=== PATIENT | female | born 1970 | race Caucasian/White ===

== ENCOUNTER 2020-12-17 16:13 | Outpatient (REF) | payer MEDICAID, SELFPAY ==
--- NOTE | ~2020-12-17 | MM_ITS ---
EXAMINATION: MM SCREENING DIGITAL BREAST TOMOSYNTHESIS, BILATERAL CLINICAL INFORMATION: Screening. Asymptomatic. The lifetime risk of breast cancer based on the Tyrer-Cuzick Model is 17%. COMPARISON: Mammography: 06/16/2018, 11/25/2016, 08/09/2015 TECHNIQUE: Digital breast tomosynthesis is performed in both the craniocaudal and mediolateral oblique views along with computer-aided detection (CAD). Synthesized 2D images are generated from the tomosynthesis. FINDINGS: There are scattered areas of fibroglandular density (ACR BI-RADS breast composition Category b). There are no significant masses, abnormal calcifications, or other abnormalities. Parenchymal pattern is similar to prior studies. The axilla and skin contours are unremarkable. MM/MM tomosynthesis screening BI IMPRESSION: No mammographic evidence of malignancy. ASSESSMENT: BI-RADS 1: Negative RECOMMENDATION: Routine annual mammography screening. This patient's information was entered into a reminder system with a target due date for their next mammogram.
== END 2020-12-17 16:14 | disposition home or self-care (01) ==
LOC: HO.MAMMO 16:13
PROVIDERS: Visit Provider Internal Medicine
DX: Z12.31 Encounter for screening mammogram for malignant neoplasm of breast (principal)
CPT/HCPCS: 77063; 77067

== ENCOUNTER 2021-04-08 10:54 | Emergency (ER) | payer MEDICAID, SELFPAY ==
--- NOTE | ~2021-04-08 | XR_ITS ---
EXAMINATION: XR CHEST CLINICAL INFORMATION: Fever and headache COMPARISON: Previous chest x-ray February 2017 TECHNIQUE: 2 views of the chest were obtained. FINDINGS: The cardiac and mediastinal contours are stable. There is minimal subsegmental atelectasis of the left lung base. The lungs are otherwise clear. There is no pleural effusion or pneumothorax. There are mild degenerative changes of the spine. XR/XR chest 2V IMPRESSION: No evidence for acute disease in chest.
--- NOTE | ~2021-04-08 | CT_ITS ---
EXAMINATION: CT HEAD WITHOUT CONTRAST CLINICAL INFORMATION: Headache COMPARISON: None TECHNIQUE: Contiguous axial imaging was performed from the skull base to vertex without intravenous administration of contrast. This CT examination was performed using dose optimization techniques as appropriate, variously including the following: *Automated exposure control *Adjustment of mA and/or kV according to patient size (this includes techniques or standardized protocols for targeted exams where dose is matched to indication/reason for exam; i.e. extremities or head) *Use of iterative reconstruction technique DLP: 603 mGy-cm FINDINGS: There is no evidence of acute intracranial hemorrhage or territorial infarction. No abnormal mass effect or midline shift is seen. Jacobo to white matter differentiation is well preserved. No extra-axial fluid collections are identified. The ventricles are normal in size. There is no abnormal attenuation within the brain parenchyma. The osseous structures and soft tissues are normal. The mastoid air cells and visualized portions of the paranasal sinuses are well aerated. CT/CT head/brain wo con IMPRESSION: No acute intracranial process seen
[2021-04-08 11:12] VITALS: BP 121/78; PULSE 61; RESP 18; TEMP 35.8; O2SAT 100; BMI 28.3
--- NOTE | 2021-04-08 16:16 | ED.GENADULT ---
HPI - General Adult Related Data Previous Rx's Medication Instructions Recorded fluticasone propionate [Flonase 1 spray INTRANASAL BID #16 g 04/08/21 Allergy Relief] ibuprofen 600 mg PO Q8H PRN #20 tab 04/08/21 loratadine [Claritin] 10 mg PO DAILY PRN #20 tab 04/08/21 Allergies Allergy/AdvReac Type Severity Reaction Status Date / Time No Known Allergies Allergy Unverified 06/13/20 15:54 Review of Systems Review of Systems: Constitutional : No Weight loss, Fever, Chills, No Night Sweats, No Fatigue, No Malaise ENT/Mouth : No Hearing loss, No Ear Pain, No Nasal Congestion, No Sinus Pain, No Hoarseness, No sore throat, No Rhinorrhea, No Swallowing Difficulty Eyes: No Eye Pain, No Swelling, No Redness, No Foreign Body, No Discharge, No Vision Changes Cardiovascular : No Chest Pain, No SOB, No Dyspnea on Exertion, No Orthopnea, No Edema, No Palpitations Respiratory : Cough, No Sputum, No Wheezing, No Smoke Exposure, No Dyspnea Gastrointestinal : No Nausea, No Vomiting, No Diarrhea, No Constipation, No abdominal Pain, No Hematochezia, No Melena Genitourinary : no irregular bleeding, No Dysuria, No Urinary Frequency, No Hematuria, No Urinary Incontinence, No Urgency, No Flank Pain, No Urinary Flow Changes, No Hesitancy Musculoskeletal : No joint pain, No Myalgias, No Joint Swelling Skin : No Skin Lesions, No rash Neuro : No Weakness, No Numbness, No Paresthesias, No Loss of Consciousness, No Dizziness, No Headache Psych : No Anxiety/Panic, No Depression, No SI/HI/AH/VH, No Social Issues, Heme/Lymph: No Bruising, No Bleeding,No Lymphadenopathy Endocrine : No Polyuria, No Polydipsia, No Temperature Intolerance Yes all other systems are reviewed and are negative [facility] Past Medical History Medical History (Updated 04/09/21 @ 00:02 by Bahman Myrick) Exostosis Surgical History (Updated 04/08/21 @ 16:38 by Nadia Caraballo [facility]) H/O hemorrhoidectomy Social History Social History Advance Directives: No Advance Directives Information Provided: No Patient : No Physical Exam Vital Signs: Vital Signs: Last Vital Signs Temp 97.7 F 04/08/21 20:13 Pulse 66 04/08/21 20:13 Resp 16 04/08/21 20:13 BP 124/72 04/08/21 20:13 Pulse Ox 99 04/08/21 20:13 Body Mass Index 28.3 Const: General: healthy appearing, no acute distress and well developed Nutritional Appearance: well nourished Orientation/consciousness: patient oriented x3 HENMT: Head: Yes normal to inspection, Yes normocephalic and Yes atraumatic Neck: Neck: Yes normal visual inspection, Yes full ROM and Yes trachea midline Thyroid: Thyroid normal Resp: Auscultation: clear to auscultation bilaterally Cardio: Rate: regular rate Rhythm: regular rhythm GI: Inspection: Yes normal to inspection and No distended Palpation (GI): No hepatosplenomegaly present Auscultation: normal bowel sounds Skin: General skin exam: elasticity normal, turgor normal and dry skin Neuro: General: patient oriented x3 Course Course Course Narrative: 50-year-old female here today for complaints of headache, cough, fever for the past 3 days. Patient was seen in urgent care on Wednesday for complaints of abdominal pain nausea. Urine was negative for infection per patient. Patient was sent home. Since then patient reports that she no longer feels nauseous, however she continues having fevers, chills, headache, cough. Patient denies any GI symptoms. Denies any SOB with or without exertion. Patient denies any CP, PND, syncope, presyncope. Patient denies having any history of migraine headaches. Admits to history of seasonal allergies. Patient reports that she had COVID vaccine ([employer]). Given her symptoms will check her labs for leukocytosis, COVID testing, chest x-ray, CT scan of the head, blood cultures, urinalysis. Will medicate patient for for pain and give her fluids. Reevaluation(s) Reevaluation #1: Patient reports that she has been feeling better. Lab negative for leukocytosis. Urine negative for ketones, bacteria. COVID negative. Chest x-ray negative for any acute processes, CT of the head negative for any acute processes. Will discharge patient home with Flonase, Claritin and ibuprofen. Patient reports that she does get seasonal allergies. Patient is afebrile. Reevaluation #2: Urine WBC's 15-29, however patient has squamous epithelial cells 3+ possibly vaginal scott and contamination of urine. We will wait for culture. Patient is asymptomatic denies any urinary symptoms. No leukocytosis and no fevers. Patient will be sent home. Patient was instructed to drink plenty fluids. She will return to emergency department if she will develop worsening symptoms or she will experience any additional concerning symptoms. Patient will follow-up with her PCP in 2-3 days. Medical Decision Making Lab Data Result diagrams: 04/08/21 16:36 04/08/21 16:36 Labs: Lab Results 04/08/21 04/08/21 04/08/21 Range/Units 16:36 16:36 16:36 WBC 9.1 (4.8-10.8) X10*3/uL RBC 4.73 (4.20-5.50) X10*6/uL Hgb 13.0 (12.0-16.0) g/dl Hct 38.9 (37-47) % MCV 82.2 (80-98) fL MCH 27.5 (27.0-33.0) pg MCHC 33.4 (31.0-35.0) g/dl RDW 12.7 (11.0-16.0) % Plt Count 293 (160-400) X10*3/uL MPV 9.2 L (9.4-12.3) fL Immature Gran % (Auto) 0.3 (0.0-0.4) % Neut % (Auto) 65.5 (45-73) % Lymph % (Auto) 23.1 (20-40) % [place] % (Auto) 9.4 (2-11) % Eos % (Auto) 1.4 (0-4) % Baso % (Auto) 0.3 (0-2) % Lymph # (Auto) 2.1 (1.2-4.9) X10*3/uL [place] # (Auto) 0.9 (0.1-1.2) X10*3/uL Eos # (Auto) 0.1 (0.0-0.4) X10*3/uL Baso # (Auto) 0.0 (0.0-0.2) X10*3/uL Abs Immat Gran (auto) 0.03 (0.00-0.03) X10*3/uL Absolute Neuts (auto) 6.0 (2.0-8.3) X10*3/uL Absolute Nucleated RBC 0.000 (0.0-0.012) X10*3/uL Nucleated RBC % (auto) 0.0 (0.0-0.2) /100WBC Sodium 141 (135-145) mmol/L Potassium 4.2 (3.3-5.1) mmol/L Chloride 104 (96-108) mmol/L Carbon Dioxide 24 (22-29) mmol/L Anion Gap 17 (12-20) BUN 7 L (9-16) mg/dL Creatinine 0.83 (0.5-1.4) mg/dL Estim Creat Clear Calc 71.5 Estimated GFR > 60 Random Glucose 93 (60-115) mg/dL Lactic Acid 1.2 (0.5-2.0) mmol/L Calcium 9.7 (8.4-10.2) mg/dL Total Bilirubin 0.4 (0.0-1.0) mg/dL Direct Bilirubin 0.2 (0.0-0.5) mg/dL AST 39 H (5-31) U/L ALT 54 H (0-31) U/L Alkaline Phosphatase 102 (39-117) U/L Total Protein 8.2 H (6.5-8.0) g/dL Albumin 4.4 (3.5-5.0) g/dL Urine Color Urine Appearance Urine pH (5.0-8.0) Ur Specific [place] (1.005-1.025) Urine Protein (NEG-TRACE) MG/DL Urine Glucose (UA) (NEG) MG/DL Urine Ketones (NEG) MG/DL Urine Blood (NEG) Urine Nitrite (NEG) Ur Leukocyte Esterase (NEG) Urine RBC (0) /HPF Urine WBC (0-4) /HPF Ur Squamous Epith Cells /LPF Urine Bacteria /LPF Coronavirus (PCR) (Negative) Influenza Type A (PCR) (Negative) Influenza Type B (PCR) (Negative) RSV RNA Qual (PCR) (Negative) 04/08/21 04/08/21 Range/Units 17:07 17:07 WBC (4.8-10.8) X10*3/uL RBC (4.20-5.50) X10*6/uL Hgb (12.0-16.0) g/dl Hct (37-47) % MCV (80-98) fL MCH (27.0-33.0) pg MCHC (31.0-35.0) g/dl RDW (11.0-16.0) % Plt Count (160-400) X10*3/uL MPV (9.4-12.3) fL Immature Gran % (Auto) (0.0-0.4) % Neut % (Auto) (45-73) % Lymph % (Auto) (20-40) % [place] % (Auto) (2-11) % Eos % (Auto) (0-4) % Baso % (Auto) (0-2) % Lymph # (Auto) (1.2-4.9) X10*3/uL [place] # (Auto) (0.1-1.2) X10*3/uL Eos # (Auto) (0.0-0.4) X10*3/uL Baso # (Auto) (0.0-0.2) X10*3/uL Abs Immat Gran (auto) (0.00-0.03) X10*3/uL Absolute Neuts (auto) (2.0-8.3) X10*3/uL Absolute Nucleated RBC (0.0-0.012) X10*3/uL Nucleated RBC % (auto) (0.0-0.2) /100WBC Sodium (135-145) mmol/L Potassium (3.3-5.1) mmol/L Chloride (96-108) mmol/L Carbon Dioxide (22-29) mmol/L Anion Gap (12-20) BUN (9-16) mg/dL Creatinine (0.5-1.4) mg/dL Estim Creat Clear Calc Estimated GFR Random Glucose (60-115) mg/dL Lactic Acid (0.5-2.0) mmol/L Calcium (8.4-10.2) mg/dL Total Bilirubin (0.0-1.0) mg/dL Direct Bilirubin (0.0-0.5) mg/dL AST (5-31) U/L ALT (0-31) U/L Alkaline Phosphatase (39-117) U/L Total Protein (6.5-8.0) g/dL Albumin (3.5-5.0) g/dL Urine Color DARK YELLOW Urine Appearance HAZY Urine pH 6.0 (5.0-8.0) Ur Specific [place] 1.020 (1.005-1.025) Urine Protein TRACE (NEG-TRACE) MG/DL Urine Glucose (UA) NEG (NEG) MG/DL Urine Ketones 15 (NEG) MG/DL Urine Blood 3+ H (NEG) Urine Nitrite NEG (NEG) Ur Leukocyte Esterase 1+ H (NEG) Urine RBC 1-4 (0) /HPF Urine WBC 15-29 H (0-4) /HPF Ur Squamous Epith Cells 3+ /LPF Urine Bacteria 4+ /LPF Coronavirus (PCR) NEGATIVE (Negative) Influenza Type A (PCR) NEGATIVE (Negative) Influenza Type B (PCR) NEGATIVE (Negative) RSV RNA Qual (PCR) NEGATIVE (Negative) Imaging Data CT scan - head: Radiologist's impression: FINDINGS: There is no evidence of acute intracranial hemorrhage or territorial infarction. No abnormal mass effect or midline shift is seen. Jacobo to white matter differentiation is well preserved. No extra-axial fluid collections are identified. The ventricles are normal in size. There is no abnormal attenuation within the brain parenchyma. The osseous structures and soft tissues are normal. The mastoid air cells and visualized portions of the paranasal sinuses are well aerated. Chest x-ray: Radiologist's impression: FINDINGS: The cardiac and mediastinal contours are stable. There is minimal subsegmental atelectasis of the left lung base. The lungs are otherwise clear. There is no pleural effusion or pneumothorax. There are mild degenerative changes of the spine. Discharge Plan Discharge Clinical Impression: Headache, Seasonal allergies Patient Disposition: Home, Self-Care Instructions: General Headache (ED) Additional Instructions: You were seen here today for complaining of headache, cough and fever. You blood work is negative for any abnormalities. Your chest x-ray and your CT scan also were normal. You were given anti-inflammatory medication during your stay. You will be sent home with script for Flonase and Claritin you can use that for seasonal allergies to prevent headaches. You will be given ibuprofen 600 mg. Please follow-up with your primary care provider in 2-3 days. You may return to emergency department if you experience any concerning symptoms. Prescriptions: New fluticasone propionate [Flonase Allergy Relief] 50 mcg/actuation spray,suspension 1 spray intranasal BID Qty: 16 RF: 0 loratadine [Claritin] 10 mg tablet 10 mg PO DAILY PRN (Reason: allergy symptoms) Qty: 20 RF: 0 ibuprofen 600 mg tablet 600 mg PO Q8H PRN (Reason: pain) Qty: 20 RF: 0 Stand Alone Forms: Work/School Release Interventions: ED Discharge Assessment Last Done: 04/08/21 20:13 Discharge Date/Time: 04/08/21 20:14
[2021-04-08 16:43] LABS: MANUAL DIFF FLAG NO
[2021-04-08 16:45] LABS: Basophils Percent Auto 0.3 % (0-2); Eosinophils Absolute Auto 0.1 X10*3/uL (0.0-0.4); Eosinophils Percent Auto 1.4 % (0-4); Hematocrit 38.9 % (37-47); Imm Gran Abs Auto 0.03 X10*3/uL (0.00-0.03); Imm Gran Pct Auto 0.3 % (0.0-0.4); Lymphocytes Absolute Auto 2.1 X10*3/uL (1.2-4.9); Lymphocytes Percent Auto 23.1 % (20-40); Mean Corpuscular HGB Conc 33.4 g/dl (31.0-35.0); Mean Corpuscular Hemoglobin 27.5 pg (27.0-33.0); Mean Corpuscular Volume 82.2 fL (80-98); Mean Platelet Volume 9.2 fL (9.4-12.3); Monocytes Absolute Auto 0.9 X10*3/uL (0.1-1.2); Monocytes Percent Auto 9.4 % (2-11); Neutrophils Percent Auto 65.5 % (45-73); Platelet Count 293 X10*3/uL (160-400); Red Blood Count 4.73 X10*6/uL (4.20-5.50); Red Cell Distribution Width 12.7 % (11.0-16.0); White Blood Count 9.1 X10*3/uL (4.8-10.8)
[2021-04-08 17:03] LABS: Lactic Acid 1.2 mmol/L (0.5-2.0)
[2021-04-08 17:09] LABS: Alanine Aminotransferase 54 U/L (0-31); Albumin Level 4.4 g/dL (3.5-5.0); Alkaline Phosphatase 102 U/L (39-117); Anion Gap 17 (12-20); Aspartate Amino Transferase 39 U/L (5-31); Bilirubin Direct 0.2 mg/dL (0.0-0.5); Bilirubin Total 0.4 mg/dL (0.0-1.0); Blood Urea Nitrogen 7 mg/dL (9-16); Calcium 9.7 mg/dL (8.4-10.2); Carbon Dioxide 24 mmol/L (22-29); Chloride 104 mmol/L (96-108); Creatinine Clr Calc Pharmacy 71.5; Estimated Glomerular Filt Rate > 60; Glucose Random 93 mg/dL (60-115); Potassium 4.2 mmol/L (3.3-5.1); Sodium 141 mmol/L (135-145); Total Protein 8.2 g/dL (6.5-8.0)
[2021-04-08 17:17] LABS: Glucose Urine UA NEG (NEG); Leukocyte Esterase Urine 1+ (NEG); Nitrite Urine NEG (NEG); UACC Culture Trigger YES; Urine Blood 3+ (NEG); Urine Ketones 15 MG/DL (NEG); Urine Protein TRACE MG/DL (NEG-TRACE)
[2021-04-08 17:23] LABS: Appearance Urine HAZY; Color Urine DARK YELLOW
[2021-04-08] MEDS: Ketorolac Tromethamine 30 MG/ML VIAL IVPUSH (17:27)
[2021-04-08] MEDS: 0.9 % Sodium Chloride 1,000 ML 999 ML IV (17:27)
[2021-04-08 17:45] LABS: Bacteria Urine 4+ /LPF; Squamous Epithelial Cell Urine 3+ /LPF
[2021-04-08 18:08] LABS: Influenza A PCR NEGATIVE (Negative); Influenza B PCR NEGATIVE (Negative); Resp Syncy Virus RNA Qual PCR NEGATIVE (Negative); SARS COV2 PCR INHOUSE NEGATIVE (Negative)
[2021-04-08 20:13] VITALS: BP 124/72; PULSE 66; RESP 16; TEMP 36.5; O2SAT 99
== END 2021-04-08 20:14 | disposition home or self-care (01) ==
PROVIDERS: Nurse Practitioner Family; Student in an Organized Health Care Education/Training Program; Emergency Provider Emergency Medicine Emergency Medical Services; PCP Internal Medicine
DX: N39.0 Urinary tract infection, site not specified (principal); B96.20 Unspecified Escherichia coli [E. coli] as the cause of diseases classified elsewhere; R51.9 Headache, unspecified; J30.2 Other seasonal allergic rhinitis; Z20.822 Contact with and (suspected) exposure to COVID-19
CPT/HCPCS: 0241U; 36415; 70450; 71046; 80048; 80076; 81001; 81003; 83605; 85025; 87040; 87086; 87088; 87186; 96361; 96374; 99283; 99284; J1885

== ENCOUNTER 2021-07-02 08:41 | Outpatient (REF) | payer MEDICAID, SELFPAY ==
--- NOTE | 2021-07-02 08:50 | PFT_ITS ---
INDICATION: Cough. SPIROMETRY: The FEV1 to FVC 92% with an FEV1 of 2.34 L, which is 94% predicted. FVC of 2.55 L, which is 82% predicted. No significant response to bronchodilators noted. Maximum voluntary ventilation 88% predicted. LUNG VOLUMES: Total lung capacity 83% predicted with expiratory reserve volume of 59% predicted. DIFFUSION CAPACITY: DLCO 82% predicted. COMPARISONS: None. INTERPRETATION: No obstructive nor restrictive ventilatory defects have been identified. No significant response to bronchodilators noted. No maximum voluntary ventilation. Lung volumes do show a low normal total lung capacity, and a diffusion capacity is also low normal. If asthma is in the differential, a methacholine challenge may be helpful in assessing for hyper-reactive airways, otherwise clinical correlation warranted. MD LU Sequeira/MODRonda / [phone]
== END 2021-07-02 08:42 | disposition home or self-care (01) ==
LOC: HO.RESP 08:41
PROVIDERS: PCP Nurse Practitioner; Referring Provider Internal Medicine Pulmonary Disease; Visit Provider Nurse Practitioner
DX: R07.89 Other chest pain (principal)
CPT/HCPCS: 94060; 94727; 94729

== ENCOUNTER 2021-07-16 08:56 | Outpatient (REF) | payer MEDICAID, SELFPAY ==
[2021-07-16 09:37] LABS: MANUAL DIFF FLAG NO
[2021-07-16 10:08] LABS: Basophils Percent Auto 0.3 % (0-2); Eosinophils Absolute Auto 0.1 X10*3/uL (0.0-0.4); Eosinophils Percent Auto 1.8 % (0-4); Hematocrit 36.6 % (37-47); Hemoglobin 12.2 g/dl (12.0-16.0); Imm Gran Abs Auto 0.02 X10*3/uL (0.00-0.03); Imm Gran Pct Auto 0.3 % (0.0-0.4); Lymphocytes Absolute Auto 1.8 X10*3/uL (1.2-4.9); Lymphocytes Percent Auto 23.7 % (20-40); Mean Corpuscular HGB Conc 33.3 g/dl (31.0-35.0); Mean Corpuscular Hemoglobin 27.7 pg (27.0-33.0); Mean Platelet Volume 9.6 fL (9.4-12.3); Monocytes Absolute Auto 0.5 X10*3/uL (0.1-1.2); Monocytes Percent Auto 6.6 % (2-11); Neutrophils Absolute Auto 5.2 X10*3/uL (2.0-8.3); Neutrophils Percent Auto 67.3 % (45-73); Platelet Count 307 X10*3/uL (160-400); Red Blood Count 4.41 X10*6/uL (4.20-5.50); Red Cell Distribution Width 13.6 % (11.0-16.0); White Blood Count 7.7 X10*3/uL (4.8-10.8)
== END 2021-07-16 08:57 | disposition home or self-care (01) ==
LOC: HO.LAB 08:56
PROVIDERS: PCP Nurse Practitioner; Visit Provider Internal Medicine Pulmonary Disease
DX: J45.909 Unspecified asthma, uncomplicated (principal)
CPT/HCPCS: 36415; 82785; 85025; 86003; 99202

== ENCOUNTER → 2021-07-30 09:24 | Outpatient (BNVA) | payer MEDICAID, SELFPAY | PROVIDERS: PCP Nurse Practitioner; Visit Provider Internal Medicine Pulmonary Disease | DX: J45.909 Unspecified asthma, uncomplicated (principal); J30.2 Other seasonal allergic rhinitis | CPT/HCPCS: 99212 ==

== ENCOUNTER 2022-02-02 13:57 | Outpatient (REF) | payer MEDICAID, SELFPAY ==
--- NOTE | ~2022-02-02 | MM_ITS ---
EXAMINATION: MM SCREENING DIGITAL BREAST TOMOSYNTHESIS, BILATERAL CLINICAL INFORMATION: Screening. Asymptomatic. The lifetime risk of breast cancer based on the Tyrer-Cuzick Model is 17%. COMPARISON: Mammography: 12/17/2020, 06/16/2018, 11/25/2016 TECHNIQUE: Digital breast tomosynthesis is performed in both the craniocaudal and mediolateral oblique views along with computer-aided detection (CAD). Synthesized 2D images are generated from the tomosynthesis. FINDINGS: There are scattered areas of fibroglandular density (ACR BI-RADS breast composition Category b). There are no significant masses, abnormal calcifications, or other abnormalities. No developing density or architectural abnormality. Parenchymal pattern is similar to prior studies. MM/MM tomosynthesis screening BI IMPRESSION: No mammographic evidence of malignancy. ASSESSMENT: BI-RADS 1: Negative RECOMMENDATION: Routine annual mammography screening. This patient's information was entered into a reminder system with a target due date for their next mammogram.
== END 2022-02-02 13:58 | disposition home or self-care (01) ==
LOC: HO.MAMMO 13:57
PROVIDERS: Visit Provider Nurse Practitioner
DX: Z12.31 Encounter for screening mammogram for malignant neoplasm of breast (principal)
CPT/HCPCS: 77063; 77067

== ENCOUNTER 2022-04-09 06:22 | Emergency (ER) | payer MEDICAID, SELFPAY ==
--- NOTE | ~2022-04-09 | CT_ITS ---
EXAMINATION: CT ABDOMEN AND PELVIS WITHOUT CONTRAST CLINICAL INFORMATION: Left lower quadrant pain. COMPARISON: January 02, 2016. TECHNIQUE: Multidetector volumetric imaging was performed from the superior aspect of the liver through the pubic symphysis. Sagittal and coronal reformatted images were obtained on the technologist's workstation. This CT examination was performed using dose optimization techniques as appropriate, variously including the following: *Automated exposure control *Adjustment of mA and/or kV according to patient size (this includes techniques or standardized protocols for targeted exams where dose is matched to indication/reason for exam; i.e. extremities or head) *Use of iterative reconstruction technique DLP: 640 mGy-cm FINDINGS: LUNG BASES: The visualized lung bases appear unremarkable. LIVER, GALLBLADDER, AND BILIARY TREE: The liver appears unremarkable in size, shape, and attenuation. Subcentimeter, segment 6 hepatic cyst or hemangioma (image 20, series 3). No biliary ductal dilatation is appreciated. Cholelithiasis. No evidence of gallbladder wall thickening or pericholecystic fluid. PANCREAS: Unremarkable. SPLEEN: Unremarkable. ADRENAL GLANDS: Approximately 1.8 cm benign right adrenal adenoma demonstrating Hounsfield unit density of 5. KIDNEYS AND URETERS: Less than 2 cm benign, homogeneously hyperdense and hypodense right hepatic cyst for which no further dedicated imaging is indicated. The kidneys otherwise appear unremarkable in size, shape, and attenuation. No hydronephrosis, hydroureter, or calculi seen. BLADDER: Decompressed, therefore suboptimally evaluated. Grossly unremarkable. GASTROINTESTINAL TRACT/MESENTERY: Few colonic diverticula. Concentric thickening and induration of adjacent fat in the region of the descending colonic diverticulum (image 48, series 3). No evidence of abscess, free air, or free intraperitoneal fluid. Unremarkable appearance of the small bowel. Normal-appearing distal ileum and vermiform appendix. No significant radiographic change in mild, nonspecific roberta mesentery with associated subcentimeter mesenteric nodes. ABDOMINAL WALL: No significant hernia is appreciated. LYMPH NODES: Normal. VASCULAR: Unremarkable. PELVIC VISCERA: Unremarkable. OSSEOUS STRUCTURES: Unremarkable. CT/CT abdomen pelvis wo con IMPRESSION: Acute descending colonic diverticulitis.
--- NOTE | 2022-04-09 07:25 | ED_ITS ---
HPI - Abdominal Pain General Chief Complaint: Abdominal Pain Stated Complaint: Flank pain Time Seen by Provider: 04/09/22 07:25 Source: patient Mode of arrival: ambulatory Limitations: no limitations History of Present Illness MD elicited complaint: abdominal pain Onset (ago): day(s) (3) Pain Consistency: intermittent Location: LLQ Severity: mild Quality: aching Radiation: none Migration to: no migration Exacerbating factors: movement Relieving factors: nothing Associated symptoms: denies other symptoms Related Data Previous Rx's Medication Instructions Recorded fluticasone propionate 50 1 spray intranasal BID #16 grams 04/08/21 mcg/actuation nasal spray,suspension (Flonase Allergy Relief) ibuprofen 600 mg tablet 600 mg PO Q8H PRN pain #20 tabs 04/08/21 loratadine 10 mg tablet (Claritin) 10 mg PO DAILY PRN allergy 04/08/21 symptoms #20 tabs fluticasone propionate 220 2 puff PO BID 30 days #1 ea 02/05/22 mcg/actuation HFA aerosol inhaler (Flovent HFA) amoxicillin 875 mg-potassium 1 tab PO BID #14 tabs 04/09/22 clavulanate 125 mg tablet fluconazole 150 mg tablet 150 mg PO Q3D 2 doses #2 tabs 04/09/22 (Diflucan) ondansetron 4 mg disintegrating 4 mg PO Q8H PRN nausea and 04/09/22 tablet vomiting #20 tabs Allergies Allergy/AdvReac Type Severity Reaction Status Date / Time No Known Allergies Allergy Verified 07/30/21 09:26 Review of Systems Review of Systems Constitutional : No Weight loss, No Fever, No Chills ENT/Mouth : No sore throat, No Rhinorrhea Eyes: No Swelling, No Redness Cardiovascular : No Chest Pain, No SOB, NoEdema Respiratory : No Cough, No Sputum, No Wheezing Gastrointestinal : no Nausea, no Vomiting, no Diarrhea, positive abdominal Pain, No Hematochezia, No Melena Genitourinary : No Dysuria, No Urinary Frequency, No Hematuria, No Urgency Musculoskeletal : No joint pain, No Myalgias, No Joint Swelling Skin : No Skin Lesions, No rash Neuro : No Weakness, No Numbness, No Dizziness, No Headache Psych : No Anxiety/Panic, No Depression Heme/Lymph: No Bruising, No Lymphadenopathy Endocrine : No Polyuria, No Polydipsia All other systems reviewed and are negative. [facility] Past Medical History Medical History Exostosis Surgical History H/O hemorrhoidectomy Social History Social History (Updated 04/09/22 @ 07:29 by Loli Cast DO) Patient Tobacco Use Status: Never used Tobacco Advance Directives: No Advance Directives Information Provided: No Physical Exam ED Vital Signs: Vital Signs - 24 hr 04/09/22 07:39 Temperature 98.2 F Pulse Rate 76 Respiratory Rate 18 Blood Pressure 109/70 Pulse Oximetry 99 Oxygen Delivery Method Room Air BMI result Body Mass Index 29.2 Appearance: Alert. Oriented X3. No acute distress. Eyes: Pupils equal, round and reactive to light. ENT: Pharynx normal. Neck: Normal inspection. Neck supple. CVS: Normal heart rate and rhythm. Pulses normal. Respiratory: No respiratory distress. Breath sounds normal. Abdomen: Soft and mild LLQ ttp no rebound or guarding Skin: Skin warm and dry. Normal skin color. Extremities: No lower extremity edema. No calf ttp Neuro: Oriented X 3. No motor deficit. No sensory deficit. Course Course Course Narrative: labs stable, VS stable, tolerating PO can be managed as outpatient MDM - Abdominal Pain MDM Narrative Medical decision making narrative: 51 yo female no sig PMH no prior abdominal surgeries not toxic here with c/o persistent LLQ pain with no associated GI or symptoms. No prior ovarian cysts, renal colic, diverticulitis. At this time suspect more diverticulitis will obtain UA, labs, CT scan. Declines pain medications. Dispo per results and findings. Lab Data Result diagrams: 04/09/22 07:36 04/09/22 07:36 Labs: Lab Results 04/09/22 04/09/22 04/09/22 Range/Units 07:32 07:36 07:36 WBC 12.0 H (4.8-10.8) X10*3/uL RBC 4.63 (4.20-5.50) X10*6/uL Hgb 12.7 (12.0-16.0) g/dl Hct 38.0 (37.0-47.0) % MCV 82.1 (80.0-98.0) fL MCH 27.4 (27.0-33.0) pg MCHC 33.4 (31.0-35.0) g/dl RDW 13.9 (11.0-16.0) % Plt Count 290 (160-400) X10*3/uL MPV 9.1 L (9.4-12.3) fL Immature Gran % (Auto) 0.4 (0.0-0.4) % Neut % (Auto) 77.2 H (45-73) % Lymph % (Auto) 14.5 L (20-40) % [place] % (Auto) 6.7 (2-11) % Eos % (Auto) 1.0 (0-4) % Baso % (Auto) 0.2 (0-2) % Lymph # (Auto) 1.7 (1.2-4.9) X10*3/uL [place] # (Auto) 0.8 (0.1-1.2) X10*3/uL Eos # (Auto) 0.1 (0.0-0.4) X10*3/uL Baso # (Auto) 0.0 (0.0-0.2) X10*3/uL Abs Immat Gran (auto) 0.05 H (0.00-0.03) X10*3/uL Absolute Neuts (auto) 9.3 H (2.0-8.3) x10*3/uL Absolute Nucleated RBC 0.000 (0.0-0.012) X10*3/uL Nucleated RBC % (auto) 0.0 (0.0-0.2) /100WBC Sodium 138 (135-145) mmol/L Potassium 4.3 (3.3-5.1) mmol/L Chloride 102 (96-108) mmol/L Carbon Dioxide 27 (22-29) mmol/L Anion Gap 13 (12-20) BUN 9 (9-16) mg/dL Creatinine 0.85 (0.5-1.4) mg/dL Estim Creat Clear Calc 70.2 Estimated GFR > 60 Random Glucose 102 (60-115) mg/dL Calcium 9.0 D (8.4-10.2) mg/dL Magnesium 1.8 (1.6-2.6) mg/dL Total Bilirubin 0.5 (0.0-1.0) mg/dL Direct Bilirubin 0.2 (0.0-0.5) mg/dL AST 20 D (5-31) U/L ALT 35 H (0-31) U/L Alkaline Phosphatase 106 (39-117) U/L Total Protein 7.6 (6.5-8.0) g/dL Albumin 4.2 (3.5-5.0) g/dL Lipase 22 (8-78) U/L Urine Color YELLOW Urine Appearance CLEAR Urine pH 6.0 (5.0-8.0) Ur Specific [place] 1.020 (1.005-1.025) Urine Protein NEG (NEG-TRACE) MG/DL Urine Glucose (UA) NEG (NEG) MG/DL Urine Ketones 15 (NEG) MG/DL Urine Blood NEG (NEG) Urine Nitrite NEG (NEG) Ur Leukocyte Esterase NEG (NEG) Discharge Plan Discharge Clinical Impression: Diverticulitis Patient Disposition: Home, Self-Care Instructions: Diverticulitis (ED) Additional Instructions: return to ED for any worsening symptoms or concerns monitor for fevers, worsening pain, bloody stools follow up with your doctor you will need to have a colonoscopy at some point if you have not in the next 4 to 6 weeks take the diflucan if you develop a yeast infection while on antibiotics take an over the counter probiotic while on antibiotic incidental finding of gallstones on your CT scan this is not the cause of your pain. LIVER, GALLBLADDER, AND BILIARY TREE: The liver appears unremarkable in size, shape, and attenuation. Subcentimeter, segment 6 hepatic cyst or hemangioma (image 20, series 3). No biliary ductal dilatation is appreciated. Cholelithiasis. No evidence of gallbladder wall thickening or pericholecystic fluid.? PANCREAS: Unremarkable.? SPLEEN: Unremarkable.? ADRENAL GLANDS: Approximately 1.8 cm benign right adrenal adenoma demonstrating Hounsfield unit density of 5.? KIDNEYS AND URETERS: Less than 2 cm benign, homogeneously hyperdense and hypodense right hepatic cyst for which no further dedicated imaging is indicated. The kidneys otherwise appear unremarkable in size, shape, and attenuation. No hydronephrosis, hydroureter, or calculi seen. BLADDER: Decompressed, therefore suboptimally evaluated. Grossly unremarkable.? GASTROINTESTINAL TRACT/MESENTERY: Few colonic diverticula. Concentric thickening and induration of adjacent fat in the region of the descending colonic diverticulum (image 48, series 3). No evidence of abscess, free air, or free intraperitoneal fluid. Unremarkable appearance of the small bowel. Normal-appearing distal ileum and vermiform appendix. No significant radiographic change in mild, nonspecific roberta mesentery with associated subcentimeter mesenteric nodes. ABDOMINAL WALL: No significant hernia is appreciated.? LYMPH NODES: Normal. VASCULAR: Unremarkable. PELVIC VISCERA: Unremarkable.? OSSEOUS STRUCTURES: Unremarkable Prescriptions: New fluconazole [Diflucan] 150 mg tablet 150 mg PO Q3D Qty: 2 0RF Rx Instructions: may repeat second dose 72 hrs after first dose if symptoms persist ondansetron 4 mg tablet,disintegrating 4 mg PO Q8H PRN (Reason: nausea and vomiting) Qty: 20 0RF amoxicillin-pot clavulanate 875-125 mg tablet 1 tab PO BID Qty: 14 0RF No Action Flovent HFA 220 mcg/actuation HFA aerosol inhaler 2 puff PO BID 30 Days Qty: 1 6RF fluticasone propionate [Flonase Allergy Relief] 50 mcg/actuation spray,suspension 1 spray intranasal BID Qty: 16 0RF Rx Instructions: administer into each nostril loratadine [Claritin] 10 mg tablet 10 mg PO DAILY PRN (Reason: allergy symptoms) Qty: 20 0RF ibuprofen 600 mg tablet 600 mg PO Q8H PRN (Reason: pain) Qty: 20 0RF Stand Alone Forms: Work/School Release Interventions: ED Discharge Assessment Last Done: 04/09/22 10:03 Discharge Date/Time: 04/09/22 10:03
[2022-04-09 07:39] VITALS: BP 109/70; PULSE 76; RESP 18; TEMP 36.8; O2SAT 99; BMI 29.2
[2022-04-09 07:39] LABS: MANUAL DIFF FLAG NO
[2022-04-09 07:41] LABS: Appearance Urine CLEAR; Color Urine YELLOW; Glucose Urine UA NEG (NEG); Leukocyte Esterase Urine NEG (NEG); Nitrite Urine NEG (NEG); Urine Blood NEG (NEG); Urine Ketones 15 MG/DL (NEG); Urine Protein NEG (NEG-TRACE)
[2022-04-09 07:50] LABS: Basophils Percent Auto 0.2 % (0-2); Eosinophils Absolute Auto 0.1 X10*3/uL (0.0-0.4); Hemoglobin 12.7 g/dl (12.0-16.0); Imm Gran Abs Auto 0.05 X10*3/uL (0.00-0.03); Imm Gran Pct Auto 0.4 % (0.0-0.4); Lymphocytes Absolute Auto 1.7 X10*3/uL (1.2-4.9); Lymphocytes Percent Auto 14.5 % (20-40); Mean Corpuscular HGB Conc 33.4 g/dl (31.0-35.0); Mean Corpuscular Hemoglobin 27.4 pg (27.0-33.0); Mean Corpuscular Volume 82.1 fL (80.0-98.0); Mean Platelet Volume 9.1 fL (9.4-12.3); Monocytes Absolute Auto 0.8 X10*3/uL (0.1-1.2); Monocytes Percent Auto 6.7 % (2-11); Neutrophils Absolute Auto 9.3 x10*3/uL (2.0-8.3); Neutrophils Percent Auto 77.2 % (45-73); Platelet Count 290 X10*3/uL (160-400); Red Blood Count 4.63 X10*6/uL (4.20-5.50); Red Cell Distribution Width 13.9 % (11.0-16.0)
[2022-04-09 07:59] LABS: Alanine Aminotransferase 35 U/L (0-31); Albumin Level 4.2 g/dL (3.5-5.0); Alkaline Phosphatase 106 U/L (39-117); Anion Gap 13 (12-20); Aspartate Amino Transferase 20 U/L (5-31); Bilirubin Direct 0.2 mg/dL (0.0-0.5); Bilirubin Total 0.5 mg/dL (0.0-1.0); Blood Urea Nitrogen 9 mg/dL (9-16); Carbon Dioxide 27 mmol/L (22-29); Chloride 102 mmol/L (96-108); Creatinine Clr Calc Pharmacy 70.2; Estimated Glomerular Filt Rate > 60; Glucose Random 102 mg/dL (60-115); Lipase 22 U/L (8-78); Magnesium 1.8 mg/dL (1.6-2.6); Potassium 4.3 mmol/L (3.3-5.1); Sodium 138 mmol/L (135-145); Total Protein 7.6 g/dL (6.5-8.0)
--- NOTE | 2022-04-09 08:23 | PC.NURSE ---
Pt c/o LLQ pain and L flank pain x 3 days. Denies N/V/D or dysuria. Call waldrop within reach. Will continue to monitor.
[2022-04-09] MEDS: Amoxicillin/Potassium Clav 875 MG TABLET PO (09:51)
== END 2022-04-09 10:03 | disposition home or self-care (01) ==
PROVIDERS: Emergency Provider Emergency Medicine
DX: K57.32 Diverticulitis of large intestine without perforation or abscess without bleeding (principal); R10.32 Left lower quadrant pain; Z79.899 Other long term (current) drug therapy
CPT/HCPCS: 36415; 74176; 80048; 80076; 81003; 83690; 83735; 85025; 99284

== ENCOUNTER → 2022-06-17 10:36 | Outpatient (BNVA) | payer MEDICAID, SELFPAY | PROVIDERS: PCP Nurse Practitioner; Referring Provider Nurse Practitioner; Visit Provider Nurse Practitioner | DX: K57.92 Diverticulitis of intestine, part unspecified, without perforation or abscess without bleeding (principal) | CPT/HCPCS: 99202 ==

== ENCOUNTER → 2022-09-09 10:45 | Outpatient (BNVA) | payer MEDICAID, SELFPAY | PROVIDERS: PCP Nurse Practitioner; Visit Provider Nurse Practitioner | DX: K57.92 Diverticulitis of intestine, part unspecified, without perforation or abscess without bleeding (principal); R10.9 Unspecified abdominal pain | CPT/HCPCS: 99212 ==

== ENCOUNTER 2022-11-18 09:26 | Emergency (ER) | payer MEDICAID, SELFPAY ==
--- NOTE | ~2022-11-18 | XR_ITS ---
EXAMINATION: XR CHEST CLINICAL INFORMATION: Wheezing and cough for several weeks COMPARISON: 04/08/2021 TECHNIQUE: 2 views of the chest were obtained. FINDINGS: Lungs grossly are clear. No pleural effusions. Heart and pulmonary vessels are normal. XR/XR chest 2V IMPRESSION: No active disease.
[2022-11-18 09:30] VITALS: BP 130/72; PULSE 72; RESP 18; TEMP 36; O2SAT 100; BMI 28.7
[2022-11-18] MEDS: Albuterol Sulfate (0.083%) 2.5 MG/3 ML VIAL.NEB 5 MG INHALE (09:53)
--- NOTE | 2022-11-18 10:12 | ED.ASTHMA ---
HPI - Asthma General Chief Complaint: General Medical Stated Complaint: chest pain, cough Time Seen by Provider: 11/18/22 09:33 Source: patient Mode of arrival: ambulatory Limitations: no limitations History of Present Illness HPI Narrative: 52-year-old female with a past medical history of cough variant asthma and environmental allergies who is being followed by Dr. Allison maloney from pulmonology who is presenting to the ER with complaints of generalized fatigue/malaise, nasal congestion/rhinorrhea with a productive cough with yellow/green colored sputum with wheezing/shortness of breath and chest tightness for the past 3 weeks. Reports that she has been using her Flovent as prescribed along with Claritin and no per symptomatic relief. She denies having any other inhalers or nebulizer at home. She reports her daughter has similar symptoms although her symptoms improved. She reports that she actually went to an urgent care approximately 7 days ago and they started her on Augmentin and she just took the last antibiotic today. She denies any measured fevers, dizziness, headaches, neck pain/stiffness, sore throat, trouble swallowing, chest pain, dyspnea on exertion, orthopnea, palpitations, lower extremity edema or calf tenderness or any other symptoms complaints or concerns at this time. MD complaint: asthma attack , shortness of breath and wheezing Onset (ago): week(s) (3) Severity: moderate Associated symptoms: productive cough Treatments Prior to Arrival: inhaled bronchodilator Related Data Current Asthma Therapy: inhaled bronchodilator Home Medications Medication Instructions Recorded Confirmed albuterol sulfate 90 mcg/actuation 2 puff inhalation Q6H PRN dyspnea 09/09/22 aerosol inhaler (ProAir HFA) famotidine 20 mg tablet 20 mg PO BID 09/09/22 sertraline 50 mg tablet 50 mg PO DAILY depressive disorder 09/09/22 Previous Rx's Medication Instructions Recorded fluticasone propionate 50 1 spray intranasal BID #16 grams 04/08/21 mcg/actuation nasal spray,suspension (Flonase Allergy Relief) ibuprofen 600 mg tablet 600 mg PO Q8H PRN pain #20 tabs 04/08/21 loratadine 10 mg tablet (Claritin) 10 mg PO DAILY PRN allergy 04/08/21 symptoms #20 tabs fluticasone propionate 220 2 puff PO BID 30 days #1 ea 02/05/22 mcg/actuation HFA aerosol inhaler (Flovent HFA) bisacodyl 5 mg tablet,delayed 10 mg PO ONCE 1 day #2 tabs 06/18/22 release (Dulcolax (bisacodyl)) polyethylene glycol 3350 17 238 g PO ONCE 1 day #238 grams 06/18/22 gram/dose oral powder (Miralax) amoxicillin 875 mg-potassium 1 tab PO BID 10 days #20 tabs 09/09/22 clavulanate 125 mg tablet dicyclomine 10 mg capsule 10 mg PO TID #90 caps 09/09/22 albuterol sulfate 90 mcg/actuation 1 inh inhalation QID PRN shortness 11/18/22 aerosol inhaler of breath or wheezing #8.5 grams azithromycin 250 mg tablet See Rx Instructions PO .COMPLEX #6 11/18/22 tabs codeine 10 mg-guaifenesin 100 mg/5 5 ml PO Q6H PRN cold symptoms #120 11/18/22 mL oral liquid (Guaifenesin AC) mL prednisone 20 mg tablet 40 mg PO DAILY inflammation 5 days 11/18/22 #10 tabs Allergies Allergy/AdvReac Type Severity Reaction Status Date / Time No Known Allergies Allergy Verified 11/18/22 09:32 Review of Systems Review of Systems: Constitutional : denies med noncompliance, no history of PE or DVT, denies recent travel, No Fever, No Chills ENT/Mouth : No Hoarseness, No sore throat, + Rhinorrhea, + Nasal congestion, No Sinus Pressure, No Ear Pain, No stridor, Eyes: No Redness, No Discharge, No Vision Changes Cardiovascular : No Chest Pain, + SOB, No Dyspnea on Exertion, No Edema, no pleurisy, Respiratory : + Cough, + wheezing, + Sputum, no stridor, no hemoptysis, Gastrointestinal : No Nausea, No Vomiting, No Diarrhea, No abdominal Pain Genitourinary : No Dysuria, No Hematuria Musculoskeletal : No joint pain/swelling, + Myalgias Extremities: no extremity swelling /pain Skin : No rash, no itching, no swelling Neuro : No Weakness, No Numbness, No Headache, No Dizziness, No Paresthesias Psych : No anxiety, depression Heme/Lymph: No Bruising, No Bleeding Endocrine : No Polyuria, No Polydipsia Yes all other systems are reviewed and are negative [facility] Past Medical History Attestation statement: The following information was validated with the patient. Source: old records reviewed and nursing notes reviewed Medical History Exostosis Surgical History H/O hemorrhoidectomy Status post creation of urethral sling by suprapubic approach Family History Family History Mother Heart attack Breast cancer Uterine cancer Father Prostate cancer Social History Social History Alcohol intake: current Alcohol intake frequency: holidays/special occasions only Patient Tobacco Use Status: Never used Tobacco Advance Directives: No Advance Directives Information Provided: No Physical Exam Vital Signs: Vital Signs: Last Vital Signs Temp 96.4 F L 11/18/22 10:21 Pulse 58 11/18/22 10:21 Resp 17 11/18/22 10:21 BP 104/61 11/18/22 10:21 Pulse Ox 100 11/18/22 10:21 O2 Del Method 11/18/22 10:21 BMI result Body Mass Index 28.7 Vital signs reviewed. Blood pressure normal. Pulse normal. Respiration normal. Oxygen normal. Temperature normal. Appearance: Alert. Oriented X3. No acute distress. Head: Normal external exam. Normocephalic. Atraumatic. Eyes: PERRLA. EOMI. Conjunctiva and sclera normal. Eyelids normal. ENT: EAC normal. TM's Normal. Pharynx normal. Uvula midline. Moist mucous membranes. No lesions/ulcerations or masses noted on the tongue. Normal voice. No trismus noted. No drooling noted. No muffled voice noted. Neck: Normal inspection. Neck supple. FROM. No adenopathy. Thyroid Normal. No meningeal signs. CVS: Normal heart rate and rhythm. Heart sound normal. Pulses normal throughout. No murmurs/rales/gallops. Respiratory: No respiratory distress. Painless inspiration. Patient has decreased breath sounds with expiratory wheezes throughout. No rales/rhonchi noted. Chest nontender. No accessory muscle usage noted or decreased air movement noted. Abdomen: Soft and nontender. Back: Full range of motion noted. Nontender. Skin: Skin warm and dry. Normal skin color. Normal skin turgor. No rashes/lesions/lacerations noted. Extremities: Extremities exhibit normal range of motion and nontender. Neuro: Oriented X 3. No motor deficit. No sensory deficit. Reflexes normal. Normal steady gait. No focal neuro deficits noted. CN's II-XII intact bilaterally? Vascular: + radial pulses. Normal cap refill. No cyanosis noted to upper extremity nails Course Course Course Narrative: This patient presents with acute cough, most consistent with viral bronchitis with bronchospasm/asthma exacerbation. Differential diagnosis includes pneumonia. Presentation not consistent with influenza, transient airway hyperresponsiveness. Presentation not consistent with chronic causes of cough (including GERD, postnasal discharge, medication side effect, CHF, lung cancer or mass). Plan: CXR, COVID/RSV/flu swab, provide a breathing treatment and re-evaluate. Reevaluation(s) Reevaluation #1: Patient negative for COVID/RSV/flu. Chest x-ray within normal limits. I discussed this with the patient. Therefore at this time will DC home with another course of antibiotics, steroids, albuterol inhaler and cough medicine instructions follow-up with PCP/multi care technician and to return if any new or worsening symptoms. Patient understands agrees with this plan. Time: 10:33 Medications Administered Discontinued Medications Generic Name Dose Route Start Last Admin Trade Name Freq PRN Reason Stop Dose Admin Albuterol Sulfate 5 mg 11/18/22 09:39 11/18/22 09:53 Albuterol Sulfate (0.083%) 2.5 Mg/3 Ml Vial.Neb INHALE 11/18/22 09:40 5 mg ONCE ONE Administration Medical Decision Making Lab Data MDM Lab Attestation statement: I reviewed the patient's lab results. Labs: Lab Results 11/18/22 Range/Units 09:37 Influenza Type A (PCR) NEGATIVE (Negative) Influenza Type B (PCR) NEGATIVE (Negative) RSV RNA Qual (PCR) NEGATIVE (Negative) SARS-CoV-2 RNA (RT-PCR) NEGATIVE (Negative) Independent Interpretation I performed an independent interpretation of an: Plain X-Ray (I reviewed these results myself and discussed with the patient she understands) Radiology Impression Discussion of test interpretation with radiology: I have reviewed the radiologist's reading. Radiologist Impression: TECHNIQUE: 2 views of the chest were obtained. FINDINGS: Lungs grossly are clear. No pleural effusions. Heart and pulmonary vessels are normal. XR/XR chest 2V IMPRESSION: No active disease. External Record Review External record reviewed: Inpatient record, Office record, Outpatient record, Prior outpatient labs, Prior outpatient radiology, Primary care record and Outside ED record I reviewed the patient's prior pulmonology/gastroenterology notes Prescription Management I considered prescription management with: Other (Prednisone bronchospasm/asthma) Discharge Plan Discharge Clinical Impression: Asthma exacerbation, Acute bronchitis with bronchospasm Patient Disposition: Home, Self-Care Instructions: Asthma (ED), Acute Bronchitis (ED) Prescriptions: New azithromycin 250 mg tablet See Rx Instructions .ROUTE .COMPLEX Qty: 6 0RF Rx Instructions: take 500 mg today (day 1), then 250 mg for 4 days (days 2-5) prednisone 20 mg tablet 40 mg PO DAILY 5 Days Qty: 10 0RF codeine-guaifenesin [Guaifenesin AC] 10-100 mg/5 mL liquid 5 ml PO Q6H PRN (Reason: cold symptoms) Qty: 120 0RF albuterol sulfate 90 mcg/actuation HFA aerosol inhaler 1 inh inhalation QID PRN (Reason: shortness of breath or wheezing) Qty: 8.5 0RF No Action Flovent HFA 220 mcg/actuation HFA aerosol inhaler 2 puff PO BID 30 Days Qty: 1 6RF bisacodyl [Dulcolax (bisacodyl)] 5 mg tablet,delayed release (DR/EC) 10 mg PO ONCE 1 Days Qty: 2 0RF Rx Instructions: take orally as directed prior to colonoscopy polyethylene glycol 3350 [Miralax] 17 gram/dose powder 238 g PO ONCE 1 Days Qty: 238 0RF Rx Instructions: take orally as directed prior to colonoscopy fluticasone propionate [Flonase Allergy Relief] 50 mcg/actuation spray,suspension 1 spray intranasal BID Qty: 16 0RF Rx Instructions: administer into each nostril loratadine [Claritin] 10 mg tablet 10 mg PO DAILY PRN (Reason: allergy symptoms) Qty: 20 0RF ibuprofen 600 mg tablet 600 mg PO Q8H PRN (Reason: pain) Qty: 20 0RF sertraline 50 mg tablet 50 mg PO DAILY famotidine 20 mg tablet 20 mg PO BID albuterol sulfate [ProAir HFA] 90 mcg/actuation HFA aerosol inhaler 2 puff inhalation Q6H PRN (Reason: dyspnea) amoxicillin-pot clavulanate 875-125 mg tablet 1 tab PO BID 10 Days Qty: 20 0RF dicyclomine 10 mg capsule 10 mg PO TID Qty: 90 1RF Referrals: [facility] [Primary Care Provider] - 2 days Edwin William MD [Physician] - 2 days
[2022-11-18 10:18] VITALS: RESP 18; O2SAT 98
[2022-11-18 10:21] VITALS: BP 104/61; PULSE 58; RESP 17; TEMP 35.8; O2SAT 100
[2022-11-18 10:24] LABS: Influenza A PCR NEGATIVE (Negative); Influenza B PCR NEGATIVE (Negative); Resp Syncy Virus RNA Qual PCR NEGATIVE (Negative); SARS COV2 PCR INHOUSE NEGATIVE (Negative)
== END 2022-11-18 10:50 | disposition home or self-care (01) ==
PROVIDERS: Physician Assistant Medical; Emergency Provider Emergency Medicine
DX: J20.9 Acute bronchitis, unspecified (principal); J45.901 Unspecified asthma with (acute) exacerbation; R07.89 Other chest pain; R06.02 Shortness of breath; Z79.899 Other long term (current) drug therapy; Z20.828 Contact with and (suspected) exposure to other viral communicable diseases; Z20.822 Contact with and (suspected) exposure to COVID-19
CPT/HCPCS: 0241U; 71046; 94640; 99284

== ENCOUNTER 2022-11-24 08:06 | Day surgery (SDC) | payer MEDICAID, SELFPAY ==
[2022-11-24 09:09] VITALS: BMI 28.7
[2022-11-24 09:20] VITALS: BP 99/56; PULSE 70; RESP 16; TEMP 36.9; O2SAT 100
[2022-11-24] MEDS: Lactated Ringers 1,000 ML 100 ML IVCONT (09:30)
--- NOTE | 2022-11-24 09:36 | HO.ANESPROP2 ---
FORMERLY [facility], [facility] Active Problems Active Problems: All Active Problems (Updated 11/19/22 @ 00:01 by Bahman Myrick) Headache (Acute) Seasonal allergies (Acute) Asthma (Acute) Stress incontinence (Acute) Adrenal adenoma (Acute) Psoriasis (Acute) Depression (Acute) Diverticulitis (Acute) Abdominal cramping (Acute) Past Medical History Medical History Exostosis Functional capacity: independent ambulation Family History Family History Mother Heart attack Breast cancer Uterine cancer Father Prostate cancer Family history of problems with anesthesia: No Surgical History Surgical History H/O foot surgery H/O hemorrhoidectomy Status post creation of urethral sling by suprapubic approach Social History Social History Alcohol intake: current Alcohol intake frequency: holidays/special occasions only Patient Tobacco Use Status: Never used Tobacco Use of substances other than those prescribed or required for medical reasons: No Are you DNR?: No Advance Directives: No Advance Directives Information Provided: Yes Recently lost weight without trying: No Nutrition Risks: No Nutritional Risk Travel History History of recent travel: No Meds Allergies Allergy/AdvReac Type Severity Reaction Status Date / Time No Known Allergies Allergy Verified 11/18/22 09:32 Home Medications Medication Instructions Recorded Confirmed Last Taken Type albuterol sulfate 90 mcg/actuation 2 puff inhalation Q6H PRN dyspnea 09/09/22 Unknown History aerosol inhaler (ProAir HFA) famotidine 20 mg tablet 20 mg PO BID 09/09/22 Unknown History sertraline 50 mg tablet 50 mg PO DAILY depressive disorder 09/09/22 Unknown History Exam Exam Date and Time: November 24, 2022 09 Height,Weight and Vital Signs: Height 5 ft 1 in Weight 68.946 kg Last Vital Signs Temp 98.4 F 11/24/22 09:20 Pulse 70 11/24/22 09:20 Resp 16 11/24/22 09:20 BP 99/56 L 11/24/22 09:20 Pulse Ox 100 11/24/22 09:20 O2 Del Method 11/24/22 09:20 Airway Mallampati Class: II TM Dist: >3cm Neck ROM: Full Heart: RRR Lungs: CTA Assessment and Plan Final Anesthetic Review Family History of Problems with Anesthesia: No ASA Class: II Final Preanesthetic Review: Meds/Allgs Chart Reviewed, Consent Obtained/Reviewed and Anes Risks/Benef Reviewed Patient Risk: Low Procedure Risk: Low Anesthetic Plan Anesthetic Plan: MAC: Disposition: Standard PACU
--- NOTE | 2022-11-24 10:21 | MHC.SHP ---
Pre-Procedural Eval Section A Date of Service: 11/24/22 Section B Chief Complaint: Encounter for screening for malignant neoplasm of Relevant Family History (Specify if Yes): No Relevant Social History: None Present Medications: see Short Stay Collaborative assessment Medical History: Significant History (psoriasis, depression, diverticulitis,asthma, ) History of Previous Operations: Relevant previous surgery/procedure and date(s) (H/O foot surgery H/O hemorrhoidectomy Status post creation of urethral sling by suprapubic approach) Allergies: Allergies Allergy/AdvReac Type Severity Reaction Status Date / Time No Known Allergies Allergy Verified 11/18/22 09:32 Review of Systems Sugical H&P ROS: Negative: Constitution, Cardiovascular, Respiratory, Neurological, Psychiatric, Hem-Onc, Allergic/Immunologic, Gastrointestinal, Genitourinary, Musculoskeletal, Integumentary, Endocrine and Eyes/Ears/Nose/Throat Exam Surgical H&P Exam: Normal: HEENT, Normal: Heart, Normal: Lungs, Normal: Extremities, Normal: Abdomen, Normal: Skin and Normal: Neurological Plan Diagnosis/Plan: Unchanged I have reviewed the history and physical and performed a pertinent physical examination on my patient. No changes have occurred unless specified. Time Spent With Patient Time: Total time managing care of this patient today ____ minutes.
--- NOTE | 2022-11-24 10:23 | P.OP_ITS ---
Operative Note Operative Note Date of Service: 11/24/22 Narrative: Operative Information Procedure Description: Colonoscopy Indication: screening Anesthesia: MAC COLONOSCOPY Instrument: Olympus variable stiffness pediatric scope 190L Colonoscopy Monitoring: Vital signs and clinical assessment, continuous EKG monitoring, Pulse oximetry, Carbon Dioxide monitoring and blood pressure monitoring were done throughout the procedure. Colon withdrawal time was 15 minutes. Procedure: The patient was placed in the left lateral decubitis position and pre-procedure medications were administered. After a digital rectal examination of the ano-rectum, the video colonoscope was inserted into the rectum and advanced through the colon to the cecum/TI. The colonoscope was slowly withdrawn in a retrograde panoramic fashion and the colon mucosa was carefully examined including a retroflexed view of the rectum. Findings and interventions are described below. Procedure Difficulty: easy Findings: Terminal Ileum-normal Cecum: 5-6 mm sessile polyp removed with cold forceps Ascending Colon: 10-12 mm flat polyp with mucosal cap lifted with saline injected and removed with cold snare. x 2 clips applied for closure of defect and for hemostasis. Transverse Colon -normal Descending Colon:normal Sigmoid Colon: modeate diverticulosis Rectum: Retroflexion with small internal hemorrhoids, grade I Anorectum - normal Colon preparation: [place] Bowel Preparation Scale Right colon; 3 Transverse colon: 3 Left colon; 1-2 (0 = Unprepared colon segment with mucosa not seen due to solid stool that cannot be cleared. 1 = Portion of mucosa of the colon segment seen, but other areas of the colon segment not well seen due to staining, residual stool and/or opaque liquid. 2 = Minor amount of residual staining, small fragments of stool and/or opaque liquid, but mucosa of colon segment seen well. 3 = Entire mucosa of colon segment seen well with no residual staining, small fragments of stool or opaque liquid) Impression and Post Procedure Diagnosis: polyps internal hemorrhoids diverticular disease Plan: High fiber diet leaflet Avoid straining at stool, epsom salts and sitz bath, anusol supps or cream Repeat Colonoscopy in 3-4 years or earlier if clinically indicated Above findings were reviewed with the patient and relevant handouts were provided if indicated.
[2022-11-24 11:02] VITALS: BP 94/57; PULSE 76; RESP 16; TEMP 36.4; O2SAT 95
[2022-11-24 11:22] VITALS: BP 101/67; PULSE 62; RESP 16; O2SAT 100
--- NOTE | 2022-11-24 11:30 | HO.POSTANES ---
Post Anesthesia Evaluation Post Anesthesia Evaluation Vital Signs: Vital Signs Temp Pulse Resp BP Pulse Ox O2 Del Method 11/24/22 11:22 62 16 101/67 100 Room Air 11/24/22 11:02 97.5 F 76 16 94/57 L 95 Room Air 11/24/22 09:20 98.4 F 70 16 99/56 L 100 Room Air Anesthesia: Monitored Mental Status: Awake Pain Control: Satisfactory Nausea/Vomiting: None Hydration: Adequate Anesthesia-Related Issues: No Anes. Related Issues
[2022-11-24 11:35] VITALS: BP 113/74; PULSE 64; RESP 16; TEMP 36.6; O2SAT 99
== END 2022-11-24 12:28 | disposition home or self-care (01) ==
PROVIDERS: PCP Nurse Practitioner; Visit Provider Internal Medicine Gastroenterology
PROC: 0DJD8ZZ Inspection of Lower Intestinal Tract, Via Natural or Artificial Opening Endoscopic (ICD-10-PCS; CPT 45378; principal; 2022-11-24 09:40)
DX: Z12.11 Encounter for screening for malignant neoplasm of colon (principal); D12.0 Benign neoplasm of cecum; D12.2 Benign neoplasm of ascending colon; K57.30 Diverticulosis of large intestine without perforation or abscess without bleeding; K64.0 First degree hemorrhoids; M89.9 Disorder of bone, unspecified; J45.909 Unspecified asthma, uncomplicated; Z79.899 Other long term (current) drug therapy; Z87.19 Personal history of other diseases of the digestive system
CPT/HCPCS: 45385; 45380; 88305

== ENCOUNTER → 2022-12-08 13:20 | Outpatient (BNVA) | payer MEDICAID, SELFPAY | PROVIDERS: PCP Nurse Practitioner; Visit Provider Nurse Practitioner | DX: D12.6 Benign neoplasm of colon, unspecified (principal); K57.30 Diverticulosis of large intestine without perforation or abscess without bleeding; K64.0 First degree hemorrhoids; K21.9 Gastro-esophageal reflux disease without esophagitis; K57.92 Diverticulitis of intestine, part unspecified, without perforation or abscess without bleeding; Z98.890 Other specified postprocedural states | CPT/HCPCS: 99212 ==

== ENCOUNTER → 2023-03-15 14:39 | Outpatient (REF) | payer MEDICAID, SELFPAY ==
--- NOTE | 2023-03-15 14:41 | CA_ITS ---
Transthoracic Echocardiogram Patient (Last, First, Middle): Goldie Bermudez, Gender: Female Date of : 1970 Age: 52 Procedure Date: 03/15/2023 Procedure Type: Transthoracic Echocardiogram Location: OP Height: 154.94 cm Weight: 70.31 kg BSA: 1.70 m2 Heart Rate: 55 bpm BP: 125 / 70 mmHg Penal Officer: LIZ Referring MD: Suni KIM Symptoms: R06.02- Shortness of breath Study Quality: Fair ECG Rhythm: Bradycardia Conclusions: - The left ventricular systolic function is normal. The calculated ejection fraction is 63% by biplane method. - No obvious valvular pathology seen on this study. Findings Left Ventricle Normal left ventricular cavity size. There is normal left ventricular wall thickness. The left ventricular systolic function is normal. The calculated ejection fraction is 63% by biplane method. There is no evidence of regional wall motion abnormalities. Diastolic function is normal for age. LV peak GLS -20.6%. Right Ventricle Normal right ventricular cavity size and systolic function. Atria Both atria are normal in size. Aortic Valve There is a normal trileaflet aortic valve. There is no aortic valve stenosis. There is no aortic valve regurgitation. Mitral Valve The mitral valve appears normal. There is no mitral valve regurgitation. There is no mitral valve stenosis. Pulmonic Valve The pulmonic valve is likely normal. Tricuspid Valve Normal tricuspid valve structure. There is trace tricuspid valve regurgitation. There is no evidence of pulmonary hypertension. Great Vessels The asc aorta is normal in size. Venous The inferior vena cava is dilated and collapses greater than 50% with inspiration. Pericardium/Pleural There is no evidence of pericardial effusion. Prior Study Comparison No prior study available for comparison. Recommendations, Care & Conclusions No obvious valvular pathology seen on this study. Measurements 2D Linear Measurements IVSd: 0.75 0.6-0.9/0.6-1.0 cm LVIDd: 4.32 3.9-5.3/4.2-5.9 cm LVIDd Index: 2.54 2.4-3.2/2.2-3.1 cm/m2 LVIDs: 2.86 2.0-3.6 cm LVPWd: 0.96 0.7-1.1 cm LA Diam: 3.50 2.7-3.8/3.0-4.0 cm LAIDs Index: 2.06 1.5-2.3 cm/m2 LV Mass: 143.50 67-162/88-224 g LV Mass Index: 84.41 43-95/49-115 g/m2 LVOT Diam: 1.70 3.0+(-)1.3 cm 2D Systolic Function EF 4C: 62.40 >55% EF 2C: 65.50 >55% EF BiP: 62.70 >55% Mitral Valve MV Pk E: 1.14 MV PK A: 0.75 MV Decel Time: 217.00 E/A: 1.50 E'Lateral: 11.70 E'Medial: 8.49 E/E' Med: 13.40 E/E' Lat: 9.70 PHT: 63.00 MVA PHT: 3.49 Decel Sublette: 5.26 Aortic Valve AoV Pk Pieter: 1.72 AoV Mn Pieter: 1.17 AoV VTI: 0.39 AoV Pk Grad: 12.00 Aov Mn Grad: 6.00 CHICO Cont.VTI: 1.67 LVOT LVOT Pk Pieter: 1.35 LVOT Mn Pieter: 0.84 LVOT VTI: 0.28 LVOT Pk Grad: 7.00 LVOT Mn Grad: 3.00 LVOT Diam: 1.70 LVOT Area: 2.27 Diastolic Function MV Pk E: 1.14 MV Pk A: 0.75 E/A: 1.50 E'Medial: 8.49 E/E' Med: 13.40 E' Laterial: 11.70 E/E' Lat: 9.70 Right Ventricle TAPSE (mm): 20.40 TVS' Pieter: 10.90 Tricuspid Valve TR Pk Pieter: 1.82 TR Pk Grad: 13.00 RA Press: 3.00 RVSP: 16.00 Great Vessels Aorta Sinus of Valsalva: 2.70 2.0-3.5 cm Ao Asc: 2.90 2.1-3.4 cm Pulmonary Valve PV Pk Pieter: 0.91 Peak PV Grad: 3.00 Updated in Other Vendor System with Status of Final Bill Lomeli MD electronically signed on 03/19/2023 3:06:22 PM with status of Final
== END ==
LOC: HO.CARD 14:39
PROVIDERS: PCP Registered Nurse; Visit Provider Registered Nurse
DX: J45.991 Cough variant asthma (principal)
CPT/HCPCS: 93306; 93356

== ENCOUNTER 2023-03-29 12:38 | Outpatient (REF) | payer MEDICAID, SELFPAY ==
--- NOTE | ~2023-03-29 | CT_ITS ---
EXAMINATION: CT ABDOMEN AND PELVIS WITHOUT CONTRAST CLINICAL INFORMATION: Right adrenal lesion COMPARISON: Baseline 04/09/2022 TECHNIQUE: Multidetector volumetric imaging was performed from the superior aspect of the liver through the pubic symphysis. Sagittal and coronal reformatted images were obtained on the technologist's workstation. This CT examination was performed using dose optimization techniques as appropriate, variously including the following: *Automated exposure control *Adjustment of mA and/or kV according to patient size (this includes techniques or standardized protocols for targeted exams where dose is matched to indication/reason for exam; i.e. extremities or head) *Use of iterative reconstruction technique DLP: 518 mGy-cm FINDINGS: LUNG BASES: The visualized lung bases are unremarkable. LIVER, GALLBLADDER, AND BILIARY TREE: The liver is normal in size, shape, and attenuation. No focal hepatic lesion or biliary ductal dilatation is present. Large gallstones within the lower fundus without acute inflammatory changes. PANCREAS: Unremarkable. SPLEEN: Unremarkable. ADRENAL GLANDS: Right adrenal lesion appears similar unchanged. Hounsfield unit measurements are -1 consistent with a benign adenoma. No left-sided abnormality. KIDNEYS AND URETERS: The kidneys are normal in size, shape, and attenuation. No hydronephrosis, hydroureter, or calculi seen. No perinephric stranding. Stable incidental right renal cyst. BLADDER: Unremarkable. GASTROINTESTINAL TRACT: Scattered diverticula without acute inflammatory changes. Resolution of previous diverticula distal colon. Normal appendix. No small bowel is enteric abnormality. ABDOMINAL WALL: No significant hernia is appreciated. LYMPH NODES: Normal. VASCULAR: Unremarkable. PELVIC VISCERA: Unremarkable. OSSEOUS STRUCTURES: Unremarkable. CT/CT abdomen pelvis wo IV con IMPRESSION: 1. Stable right adrenal lesion consistent with benign adenoma. 2. Gallstones without acute inflammatory changes. 3. Diverticulosis without acute inflammatory changes. Fleischner guidelines were followed.
== END 2023-03-29 12:39 | disposition home or self-care (01) ==
LOC: HO.CT 12:38
PROVIDERS: PCP Nurse Practitioner; Visit Provider Registered Nurse
DX: D35.01 Benign neoplasm of right adrenal gland (principal)
CPT/HCPCS: 74176

== ENCOUNTER 2023-04-23 09:10 | Emergency (ER) | payer MEDICAID, SELFPAY ==
--- NOTE | ~2023-04-23 | XR_ITS ---
EXAMINATION: XR CHEST CLINICAL INFORMATION: Sudden onset chest pain, rule out pneumothorax COMPARISON: 11/18/2022 chest radiographs. TECHNIQUE: 2 views of the chest were obtained. FINDINGS: The lungs are clear. There are no pleural effusions. No pneumothorax. The heart and mediastinal structures are unremarkable. The visualized osseous structures are unremarkable. XR/XR chest 2V IMPRESSION: No acute cardiopulmonary process.
--- NOTE | 2023-04-23 09:11 | ECG_ITS ---
Test Reason : cp Blood Pressure : / mmHG Vent. Rate : 070 BPM Atrial Rate : 070 BPM P-R Int : 158 ms QRS Dur : 086 ms QT Int : 376 ms P-R-T Axes : 056 030 036 degrees QTc Int : 406 ms Normal sinus rhythm Normal ECG When compared with ECG of 10-MAR-2017 17:37, No significant change was found Referred By: Generic ED Physician Electronically Signed By:JAZMINE HARPER MD
[2023-04-23 09:19] VITALS: BP 123/68; PULSE 71; RESP 15; TEMP 36.6; O2SAT 100; BMI 31.1
--- NOTE | 2023-04-23 09:34 | PC.NURSE ---
patient brought back from triage, respirations equal and unlabored, no signs of distress. placed #20 in R AC, labs drawn, ekg done
[2023-04-23 09:41] LABS: MANUAL DIFF FLAG NO
[2023-04-23 09:43] LABS: Basophils Percent Auto 0.4 % (0-2); Eosinophils Absolute Auto 0.1 X10*3/uL (0.0-0.4); Eosinophils Percent Auto 1.2 % (0-4); Hematocrit 36.6 % (37.0-47.0); Hemoglobin 12.3 g/dl (12.0-16.0); Imm Gran Abs Auto 0.02 X10*3/uL (0.00-0.03); Imm Gran Pct Auto 0.2 % (0.0-0.4); Lymphocytes Absolute Auto 2.8 X10*3/uL (1.2-4.9); Lymphocytes Percent Auto 26.5 % (20-40); Mean Corpuscular HGB Conc 33.6 g/dl (31.0-35.0); Mean Corpuscular Hemoglobin 27.6 pg (27.0-33.0); Mean Corpuscular Volume 82.1 fL (80.0-98.0); Mean Platelet Volume 9.3 fL (9.4-12.3); Monocytes Absolute Auto 0.8 X10*3/uL (0.1-1.2); Monocytes Percent Auto 7.9 % (2-11); Neutrophils Absolute Auto 6.8 x10*3/uL (2.0-8.3); Neutrophils Percent Auto 63.8 % (45-73); Platelet Count 269 X10*3/uL (160-400); Red Blood Count 4.46 X10*6/uL (4.20-5.50); Red Cell Distribution Width 13.3 % (11.0-16.0); White Blood Count 10.6 X10*3/uL (4.8-10.8)
[2023-04-23 09:57] LABS: Alanine Aminotransferase 19 U/L (0-31); Albumin Level 4.1 g/dL (3.5-5.0); Alkaline Phosphatase 102 U/L (39-117); Anion Gap 15 (12-20); Aspartate Amino Transferase 20 U/L (5-31); Bilirubin Total 0.3 mg/dL (0.0-1.0); Blood Urea Nitrogen 13 mg/dL (9-16); Calcium 9.8 mg/dL (8.4-10.2); Carbon Dioxide 23 mmol/L (22-29); Chloride 104 mmol/L (96-108); Creatinine Clr Calc Pharmacy 76.9; Estimated Glomerular Filt Rate > 60; Glucose Random 103 mg/dL (60-115); Potassium 3.4 mmol/L (3.3-5.1); Sodium 139 mmol/L (135-145); Total Protein 7.5 g/dL (6.5-8.0)
--- NOTE | 2023-04-23 09:57 | ED_ITS ---
HPI - Chest Pain General Chief Complaint: Chest Pain Stated Complaint: Chest Pain Time Seen by Provider: 04/23/23 09:42 Source: patient Mode of arrival: ambulatory Limitations: no limitations History of Present Illness HPI narrative: This 52-year-old female who presents emergency department for evaluation of sudden onset of chest pain. Patient states she was driving her car at 02:20 hours when she had a sudden onset of midsternal sharp chest pain which is worse with breathing. She felt short of breath. She states that she has had similar pain in the past with asthma exacerbations. She states that over the past 2 days she has had a nonproductive cough and has had some wheezing. She denied fever, chills, nausea, vomiting, diarrhea. She has not noticed any pain or swelling of her lower upper extremities. She states she did travel to [place] and came back on 04/09/2023. The patient states that it was a 19 hour car trip that she drove straight through noise stopped for gas and food. She is not on e strogen supplements. Related Data Home Medications Medication Instructions Recorded Confirmed albuterol sulfate 90 mcg/actuation 2 puff inhalation Q6H PRN dyspnea 09/09/22 aerosol inhaler (ProAir HFA) sertraline 50 mg tablet 50 mg PO DAILY depressive disorder 09/09/22 Previous Rx's Medication Instructions Recorded fluticasone propionate 50 1 spray intranasal BID #16 grams 04/08/21 mcg/actuation nasal spray,suspension (Flonase Allergy Relief) ibuprofen 600 mg tablet 600 mg PO Q8H PRN pain #20 tabs 04/08/21 loratadine 10 mg tablet (Claritin) 10 mg PO DAILY PRN allergy 04/08/21 symptoms #20 tabs fluticasone propionate 220 2 puff PO BID 30 days #1 ea 02/05/22 mcg/actuation HFA aerosol inhaler (Flovent HFA) albuterol sulfate 0.63 mg/3 mL 0.63 mg (3 mL) inhalation QID PRN 11/18/22 solution for nebulization shortness of breath or wheezing #75 mL albuterol sulfate 90 mcg/actuation 1 inh inhalation QID PRN shortness 11/18/22 aerosol inhaler of breath or wheezing #8.5 grams azithromycin 250 mg tablet See Rx Instructions PO .COMPLEX #6 11/18/22 tabs codeine 10 mg-guaifenesin 100 mg/5 5 ml PO Q6H PRN cold symptoms #120 11/18/22 mL oral liquid (Guaifenesin AC) mL nebulizers (AeroEclipse II #1 ea 11/18/22 Nebulizer) prednisone 20 mg tablet 40 mg PO DAILY inflammation 5 days 11/18/22 #10 tabs dicyclomine 10 mg capsule 10 mg PO TID #90 caps 12/08/22 famotidine 20 mg tablet 20 mg PO BID #60 tabs 12/08/22 Allergies Allergy/AdvReac Type Severity Reaction Status Date / Time No Known Allergies Allergy Verified 12/08/22 13:27 Review of Systems 2 Review of Systems: Yes all other systems are reviewed and are negative [facility] Past Medical History [facility] Narrative: Past medical history: Asthma, GERD, depression, diverticulitis. Past social history: She denies tobacco, alcohol and drug use Medical History Exostosis Surgical History H/O foot surgery H/O hemorrhoidectomy Status post creation of urethral sling by suprapubic approach Family History Family History Mother Heart attack Breast cancer Uterine cancer Father Prostate cancer Social History Social History Alcohol intake: current Alcohol intake frequency: holidays/special occasions only Patient Tobacco Use Status: Never used Tobacco Advance Directives: No Advance Directives Information Provided: Yes Physical Exam Vital Signs: Vital Signs: Last Vital Signs Temp 97.9 F 04/23/23 09:19 Pulse 57 04/23/23 11:08 Resp 14 04/23/23 11:08 BP 120/71 04/23/23 11:08 Pulse Ox 100 04/23/23 11:08 O2 Del Method Room Air 04/23/23 11:08 BMI result Body Mass Index 31.1 Const: General: cooperative and no acute distress Orientation/consciousness: oriented to person and oriented to place Limitations: no limitations HEENT: Head: Yes normal to inspection, Yes normocephalic and Yes atraumatic Ears: external ears normal General nose exam: Normal external nose present Face and sinus: Yes normal facial exam Mouth: Normal oral and palatal mucosa present Throat: Yes posterior oropharynx normal Eyes: General: appearance normal, both eyes and all related structures Pupils: Equal, round and reactive pupils present Neck: Neck: Yes normal visual inspection, Yes no lymphadenopathy, Yes trachea midline and Yes supple Chest: Chest palpation & inspection: normal inspection of the chest and normal palpation of entire chest wall Resp: Effort & Inspection: normal respiratory effort and able to speak in complete sentences Auscultation: clear to auscultation bilaterally Cardio: Rate: regular rate Rhythm: regular rhythm Heart sounds: S1 normal heart sound present, S2 normal heart sound present and no murmurs GI: Inspection: Yes normal to inspection Palpation (GI): Soft to palpation, nontender and no guarding Auscultation: normal bowel sounds : General: Yes no CVA tenderness Back/Spine/Pelvis: Back: no CVA tenderness Skin: General skin exam: no rashes or lesions noted Neuro: General: oriented to person and oriented to place Cranial nerves: Yes CN's II-XII intact bilaterally and Yes Equal, round and reactive pupils present Cognition (Neuro): normal cognition Motor exam (neuro): 5/5 motor strength present throughout Extrem: General: Yes normal to inspection Psych: Appearance: grossly normal Speech and movement: Normal speech and movement present Affect: normal affect Attitude: cooperative Thought process: Normal thought process present Thought content: Normal thought content present Medications Administered Discontinued Medications Generic Name Dose Route Start Last Admin Trade Name Freq PRN Reason Stop Dose Admin Ketorolac Tromethamine 15 mg 04/23/23 10:09 04/23/23 10:27 Ketorolac Tromethamine 15 Mg/Ml Vial IVPUSH 04/23/23 10:10 15 mg ONCE STA Administration Medical Decision Making Medical Decision Making [facility] Narrative: 52-year-old female who presents emergency department for evaluation sudden onset midsternal chest pain worse with breathing, associated with shortness of breath. Patient does have a history of asthma and has had a nonproductive cough for 2 days with wheezing. She did have a long car trip to [place] and returned on . She has not had any lower extremity pain or swelling. Patient's physical examination was unremarkable. I did order following evaluation: CBC, CMP, troponin, D-dimer, PT/INR, PTT, EKG, chest x-ray x2. I ordered Toradol 15 mg IV for the patient's pain 1223 My interpretation patient's laboratory evaluation is as follows: CBC was normal. CMP was normal. High sensitive troponin I was detectable but not elevated at 3.4. D-dimer was below 230, PT/INR, PTT were normal. Patient is feeling better after receiving IV Toradol Patient's pain is most likely pleuritic and could be consistent with viral pleurisy and I did discuss this with her. She was advised to take Tylenol and ibuprofen and she was discharged home. Differential Diagnosis Differential Diagnoses: The differential diagnosis associated with the presentation includes Differential diagnosis includes but is not limited to pneumothorax, asthma exac erbation, myocardial infarction, myocardial ischemia, pulmonary embolism, pleurisy, chest wall pain Admission/Observation Consideration of admission/observation: Escalation of care including admission/observation considered Lab Data [facility] Lab Attestation statement: I reviewed the patient's lab results. Please see [facility] 04/23/23 09:29 04/23/23 09:29 Labs: Lab Results 04/23/23 04/23/23 04/23/23 Range/Units 09:29 09:29 09:29 WBC 10.6 (4.8-10.8) X10*3/uL RBC 4.46 (4.20-5.50) X10*6/uL Hgb 12.3 (12.0-16.0) g/dl Hct 36.6 L (37.0-47.0) % MCV 82.1 (80.0-98.0) fL MCH 27.6 (27.0-33.0) pg MCHC 33.6 (31.0-35.0) g/dl RDW 13.3 (11.0-16.0) % Plt Count 269 (160-400) X10*3/uL MPV 9.3 L (9.4-12.3) fL Immature Gran % (Auto) 0.2 (0.0-0.4) % Neut % (Auto) 63.8 (45-73) % Lymph % (Auto) 26.5 (20-40) % [place] % (Auto) 7.9 (2-11) % Eos % (Auto) 1.2 (0-4) % Baso % (Auto) 0.4 (0-2) % Lymph # (Auto) 2.8 (1.2-4.9) X10*3/uL [place] # (Auto) 0.8 (0.1-1.2) X10*3/uL Eos # (Auto) 0.1 (0.0-0.4) X10*3/uL Baso # (Auto) 0.0 (0.0-0.2) X10*3/uL Abs Immat Gran (auto) 0.02 (0.00-0.03) X10*3/uL Absolute Neuts (auto) 6.8 (2.0-8.3) x10*3/uL Absolute Nucleated RBC 0.000 (0.0-0.012) X10*3/uL Nucleated RBC % (auto) 0.0 (0.0-0.2) /100WBC PT (11.1-13.3) SEC INR (0.9-1.1) APTT (26.0-36.4) SEC D-Dimer High Sensitivty NG/ML Sodium 139 (135-145) mmol/L Potassium 3.4 D (3.3-5.1) mmol/L Chloride 104 (96-108) mmol/L Carbon Dioxide 23 (22-29) mmol/L Anion Gap 15 (12-20) BUN 13 (9-16) mg/dL Creatinine 0.79 (0.5-1.4) mg/dL Estim Creat Clear Calc 76.9 Estimated GFR > 60 Random Glucose 103 (60-115) mg/dL Calcium 9.8 D (8.4-10.2) mg/dL Total Bilirubin 0.3 (0.0-1.0) mg/dL AST 20 (5-31) U/L ALT 19 (0-31) U/L Alkaline Phosphatase 102 (39-117) U/L Troponin I High Sens 3.4 (<3.5-17.0) ng/L Total Protein 7.5 (6.5-8.0) g/dL Albumin 4.1 (3.5-5.0) g/dL 04/23/23 Range/Units 10:34 WBC (4.8-10.8) X10*3/uL RBC (4.20-5.50) X10*6/uL Hgb (12.0-16.0) g/dl Hct (37.0-47.0) % MCV (80.0-98.0) fL MCH (27.0-33.0) pg MCHC (31.0-35.0) g/dl RDW (11.0-16.0) % Plt Count (160-400) X10*3/uL MPV (9.4-12.3) fL Immature Gran % (Auto) (0.0-0.4) % Neut % (Auto) (45-73) % Lymph % (Auto) (20-40) % [place] % (Auto) (2-11) % Eos % (Auto) (0-4) % Baso % (Auto) (0-2) % Lymph # (Auto) (1.2-4.9) X10*3/uL [place] # (Auto) (0.1-1.2) X10*3/uL Eos # (Auto) (0.0-0.4) X10*3/uL Baso # (Auto) (0.0-0.2) X10*3/uL Abs Immat Gran (auto) (0.00-0.03) X10*3/uL Absolute Neuts (auto) (2.0-8.3) x10*3/uL Absolute Nucleated RBC (0.0-0.012) X10*3/uL Nucleated RBC % (auto) (0.0-0.2) /100WBC PT 12.5 (11.1-13.3) SEC INR 1.0 (0.9-1.1) APTT 30.9 (26.0-36.4) SEC D-Dimer High Sensitivty 196 NG/ML Sodium (135-145) mmol/L Potassium (3.3-5.1) mmol/L Chloride (96-108) mmol/L Carbon Dioxide (22-29) mmol/L Anion Gap (12-20) BUN (9-16) mg/dL Creatinine (0.5-1.4) mg/dL Estim Creat Clear Calc Estimated GFR Random Glucose (60-115) mg/dL Calcium (8.4-10.2) mg/dL Total Bilirubin (0.0-1.0) mg/dL AST (5-31) U/L ALT (0-31) U/L Alkaline Phosphatase (39-117) U/L Troponin I High Sens (<3.5-17.0) ng/L Total Protein (6.5-8.0) g/dL Albumin (3.5-5.0) g/dL Independent Interpretation I performed an independent interpretation of an: EKG and Plain X-Ray Interpretation: My independent interpretation patient's 12 EKG is as follows: Normal sinus rhythm with a rate of 70, normal IL interval, QRS duration QTC interval, no ST segment elevation, no ST segment depression, inverted T-wave in V1 no other T- wave abnormalities, no PACs, no PVCs, this is a normal EKG. My independent interpretation patient's two view chest x-ray is as follows: No pneumothorax, no acute disease Radiology Impression Discussion of test interpretation with radiology: I have reviewed the radiologist's reading. Radiologist Impression: XR chest 2V IMPRESSION: No acute cardiopulmonary process. Dictated By:Bipin Rivas MD Prescription Management I considered prescription management with: Pain Medication Chronic Conditions Patient?s care impacted by: Other (GERD, asthma) Discharge Plan Discharge Clinical Impression: Pleurisy, Pleuritic chest pain Patient Disposition: Home, Self-Care Instructions: Pleurisy (ED) Additional Instructions: Your laboratory evaluation was normal pain Your EKG was normal. Your chest x-ray revealed no pneumonia or pneumothorax (popped lung) Your symptoms are consistent with a viral infection that is causing inflammation of the lining of your lungs (pleurisy) Take ibuprofen 200 mg pills, 2 pills every 6 hours for 3 days then as needed for pain or fever. Take Tylenol (acetaminophen) 500 mg pills, 2 pills every 6 hours as needed for pain or fever. Follow-up with your doctor in 2 days. Please return to the emergency department if your symptoms get worse or if you develop any symptoms that are concerning to you. Prescriptions: No Action Flovent HFA 220 mcg/actuation HFA aerosol inhaler 2 puff PO BID 30 Days Qty: 1 6RF fluticasone propionate [Flonase Allergy Relief] 50 mcg/actuation spray,suspension 1 spray intranasal BID Qty: 16 0RF Rx Instructions: administer into each nostril loratadine [Claritin] 10 mg tablet 10 mg PO DAILY PRN (Reason: allergy symptoms) Qty: 20 0RF ibuprofen 600 mg tablet 600 mg PO Q8H PRN (Reason: pain) Qty: 20 0RF azithromycin 250 mg tablet See Rx Instructions .ROUTE .COMPLEX Qty: 6 0RF Rx Instructions: take 500 mg today (day 1), then 250 mg for 4 days (days 2-5) prednisone 20 mg tablet 40 mg PO DAILY 5 Days Qty: 10 0RF codeine-guaifenesin [Guaifenesin AC] 10-100 mg/5 mL liquid 5 ml PO Q6H PRN (Reason: cold symptoms) Qty: 120 0RF albuterol sulfate 90 mcg/actuation HFA aerosol inhaler 1 inh inhalation QID PRN (Reason: shortness of breath or wheezing) Qty: 8.5 0RF (DME) nebulizers [AeroEclipse II Nebulizer] Misc See Rx Instructions .ROUTE .MEDSUPPLY Qty: 1 0RF Rx Instructions: As directed albuterol sulfate 0.63 mg/3 mL solution for nebulization 0.63 mg inhalation QID PRN (Reason: shortness of breath or wheezing) Qty: 75 0RF sertraline 50 mg tablet 50 mg PO DAILY albuterol sulfate [ProAir HFA] 90 mcg/actuation HFA aerosol inhaler 2 puff inhalation Q6H PRN (Reason: dyspnea) famotidine 20 mg tablet 20 mg PO BID Qty: 60 6RF dicyclomine 10 mg capsule 10 mg PO TID Qty: 90 1RF
[2023-04-23 10:05] LABS: Troponin-I High Sensitivity 3.4 ng/L (<3.5-17.0)
[2023-04-23] MEDS: Ketorolac Tromethamine 15 MG/ML VIAL IVPUSH (10:27)
[2023-04-23 10:45] LABS: Prothrombin Time 12.5 SEC (11.1-13.3)
[2023-04-23 10:47] LABS: D Dimer High Sensitivity 196 NG/ML
[2023-04-23 10:48] LABS: Partial Thromboplastin Time 30.9 SEC (26.0-36.4)
[2023-04-23 11:08] VITALS: BP 120/71; PULSE 57; RESP 14; O2SAT 100
[2023-04-23 12:50] VITALS: BP 127/73; PULSE 59; RESP 18; TEMP 36.6; O2SAT 100
== END 2023-04-23 13:00 | disposition home or self-care (01) ==
PROVIDERS: Emergency Provider Emergency Medicine Emergency Medical Services
DX: R07.89 Other chest pain (principal); R09.1 Pleurisy; Z79.899 Other long term (current) drug therapy
CPT/HCPCS: 36415; 71046; 80053; 84484; 85025; 85379; 85610; 85730; 93005; 96374; 99284; J1885

== ENCOUNTER → 2023-04-23 09:11 | Outpatient (BNV) | payer MEDICAID, SELFPAY | PROVIDERS: Emergency Provider Emergency Medicine Emergency Medical Services; Visit Provider Internal Medicine Cardiovascular Disease | DX: R07.9 Chest pain, unspecified (principal) | CPT/HCPCS: 93010 ==

== ENCOUNTER 2023-05-21 15:15 | Outpatient (AMB) | payer MEDICAID, SELFPAY ==
[2023-05-21 15:17] VITALS: BP 118/62; PULSE 79; O2SAT 99; BMI 30.6
--- NOTE | 2023-05-21 15:17 | MHC.OFFVIS ---
Intake Vital Signs 05/21/23 15:17 Height 5 ft 1 in Weight 162 lb 0.636 oz BMI 30.6 BP 118/62 Blood Pressure Location Lt brachial Position Sitting Pulse 79 Pulse Source Pulse Oximeter Pulse Oximetry (%) 99 Oxygen Delivery Method Room Air Intake Visit Reasons: Cough Allergies No Known Allergies Allergy (Verified 05/21/23 15:20) HPI Cough HPI Details 53-year-old lady, nonsmoker, followed for cough variant asthma and environmental allergies. She recently was evaluated emergency room and her Flovent has been changed to Symbicort, however she has been using it only once a day. She denies recent acute exacerbations. [facility] Medical History (Updated 05/21/23 @ 14:52 by Sury Daniel PA-C) Asthma GERD (gastroesophageal reflux disease) Sessile serrated polyp of colon Surgical History (Updated 05/21/23 @ 14:52 by Sury Daniel PA-C) History of colonoscopy History of foot surgery History of hemorrhoidectomy Status post creation of urethral sling by suprapubic approach Family History Mother Heart attack Breast cancer Uterine cancer Father Prostate cancer Social History Alcohol intake: current Alcohol intake frequency: holidays/special occasions only Patient Tobacco Use Status: Never used Tobacco Review of Systems Const Denies daytime sleepiness, Denies excessive sweating, Denies fatigue, Denies fever(s), Denies lethargy, Denies malaise, Denies night sweats, Denies snoring and Denies weight loss Eyes Denies blurry vision and Denies itchy eyes ENT Denies nasal congestion, Denies post nasal drip, Denies sinus pain, Denies sinus pressure and Denies other ( Thrush) Card Denies chest pain, Denies pedal edema, Denies dyspnea, Denies orthopnea and Denies paroxysmal nocturnal dyspnea Resp Denies cough, Denies hemoptysis, Denies excessive phlegm production, Denies dyspnea, Denies snoring and Denies wheezing GI Denies abdominal pain and Denies heartburn Musc Denies myalgias, Denies arthralgias and Denies joint swelling Skin/Breast Denies rash Neuro Denies memory loss and Denies seizure-like activity Psych Denies abnormal sleep pattern, Denies anxiety and Denies memory loss Endo Denies excessive sweating, Denies fatigue and Denies heat intolerance Shiraz/Lymph Denies easy bruising Aller/Immun Denies itchy eyes, Denies seasonal rhinorrhea and Denies wheezing Physical Exam Vital Signs: Last Vital Signs Pulse 79 05/21/23 15:17 BP 118/62 05/21/23 15:17 Pulse Ox 99 05/21/23 15:17 Oxygen Delivery Method Room Air 05/21/23 15:17 BMI result Body Mass Index 30.6 Const General: no acute distress and alert Nutritional Appearance: not obese Orientation/consciousness: Other orientation findings ( oriented) HEENT Head: Yes atraumatic Eyes General: appearance normal, both eyes and all related structures Sclerae: sclerae normal EOM: EOMs intact bilaterally Neck Neck: Yes supple Lymphatic: no lymphadenopathy noted Resp Effort & Inspection: normal respiratory effort and no use of accessory muscles Auscultation: clear to auscultation bilaterally Cardio Rate: regular rate Rhythm: regular rhythm Heart sounds: no gallops, no murmurs and no rubs Skin General skin exam: other ( warm) Extrem General: No clubbing, No cyanosis and No edema Assessment & Plan Assessment & Plan (1) Asthma: Code(s): J45.909 - Unspecified asthma, uncomplicated Plan: Improving control on Symbicort. Patient has been advised to use Symbicort twice a day. Will reassess symptoms in 2 weeks. Coding Level of Care Code Est Pt Level 3 (46105) Diagnoses Asthma J45.909
== END 2023-05-21 15:36 | disposition home or self-care (01) ==
PROVIDERS: PCP Registered Nurse; Visit Provider Internal Medicine Pulmonary Disease
DX: J45.909 Unspecified asthma, uncomplicated (principal)
CPT/HCPCS: 99213

== ENCOUNTER → 2023-05-21 15:15 | Outpatient (BNVA) | payer MEDICAID, SELFPAY | PROVIDERS: PCP Registered Nurse; Visit Provider Internal Medicine Pulmonary Disease | DX: J45.909 Unspecified asthma, uncomplicated (principal); Z79.899 Other long term (current) drug therapy | CPT/HCPCS: 99212 ==

== ENCOUNTER 2023-05-28 15:08 | Outpatient (REF) | payer MEDICAID, SELFPAY | END 2023-05-28 15:09 | disposition home or self-care (01) | LOC: HO.MAMMO 15:08 | PROVIDERS: PCP Registered Nurse; Visit Provider Registered Nurse | DX: Z12.31 Encounter for screening mammogram for malignant neoplasm of breast (principal) | CPT/HCPCS: 77063; 77067 ==

== ENCOUNTER → 2023-05-28 15:15 | Outpatient (BNV) | payer MEDICAID, SELFPAY | PROVIDERS: PCP Registered Nurse; Visit Provider Radiology Diagnostic Radiology | DX: Z12.31 Encounter for screening mammogram for malignant neoplasm of breast (principal) | CPT/HCPCS: 77063; 77067 ==

== ENCOUNTER 2023-07-13 15:27 | Outpatient (AMB) | payer MEDICAID, SELFPAY ==
--- NOTE | 2023-07-13 15:29 | MHC.OFFVIS ---
Intake Vital Signs 07/13/23 15:30 Height 5 ft 1 in Weight 161 lb 6.054 oz BMI 30.5 BP 124/76 Blood Pressure Location Rt brachial Position Sitting Pulse 71 Intake Visit Reasons: 6 month follow up Intake Note: Patient presents to in office today in 6 months follow up of GERD. CC: Patient reports occasional epigastric pain. Denies other GI symptoms or concerns today. [employer] Required: No Accompanied by: Self / Same As Patient Allergies No Known Allergies Allergy (Verified 07/13/23 15:32) HPI 6 month follow up HPI Details Assessment & Plan (1) Tubular adenoma of colon: Comment: 2022 SCOPE REPEAT IN 3 YEARS Code(s): D12.6 - Benign neoplasm of colon, unspecified Plan: Maldivian #declines She tolerated the procedure well. I explain that the polyp was somewhat large, so they would like to repeat the procedure in 3 years. She should NEVER go more than 5 years without a colonoscopy, and time was spent educating her why. She had a recent bout of bronchitis but is recovering. She recovered well from the TICS with the last round of abx. We discuss possible causes of TICS including CIC, and to watch for medications that can be constipating (i.e. the codeine in her cough syrup). We also discuss that seeds and nuts bother some people, but the research on this topic is mixed so she needs to listen to her body. If she ever develops severe pain again and can not contact our office she should seek treatment at and ER. Her GERD is well controlled on the famotidine and she continues on bentyl for cramping. ROV 6 mos. (2) GERD (gastroesophageal reflux disease): Code(s): K21.9 - Gastro-esophageal reflux disease without esophagitis (3) Abdominal cramping: Code(s): R10.9 - Unspecified abdominal pain (4) Diverticulitis: Code(s): K57.92 - Diverticulitis of intestine, part unspecified, without perforation or abscess without bleeding Medications: New famotidine 20 mg PO BID 60 t abs 6RF Refilled dicyclomine 10 mg PO TID 90 c aps 1RF R10.9 - Unspecifie d abdominal pain Discontinued amoxicillin-pot cl avulanate 875-125 mg Discontinued Reason: Patient Completed Course 1 tab PO BID 10 d ays 20 tabs 0RF K57.92 - Diverticu litis of intestine , part unspecified , without perforat ion or abscess wit hout bleeding polyethylene glyco l 3350 (Miralax) take orally as d irected prior to c olonoscopy Disc ontinued Reason: Patient Completed Course 238 grams PO ONCE 1 day 238 grams 0 RF bisacodyl (Dulcola x (bisacodyl)) take orally as dir ected prior to col onoscopy Discon tinued Reason: Do ctor's Order 10 mg (2 x 5 mg) P O ONCE 1 day 2 tab s 0RF . TODAY'S VISIT Maldivian #declines The famotidine helped her GERD, but she still has some discomfort in her stomach from time to time. However upon discussion she says she has a lot of him borborygus of the stomach but she ran out of her dicyclomine which is likely the issue. Will get all of this renewed for her. She is satisfied now with her GI regimen. Return office visit in 6 months [facility] Medical History Sessile serrated polyp of colon GERD (gastroesophageal reflux disease) Asthma Surgical History History of colonoscopy History of hemorrhoidectomy History of foot surgery Status post creation of urethral sling by suprapubic approach Family History Mother Heart attack Breast cancer Uterine cancer Father Prostate cancer Social History Alcohol intake: current Alcohol intake frequency: holidays/special occasions only Patient Tobacco Use Status: Never used Tobacco Review of Systems Const Denies fatigue, Denies fever(s), Denies night sweats, Denies poor appetite and Denies weight loss ENT Reports Normal hearing present, Denies dental pain, Denies dysphagia, Denies hearing loss, Denies mouth pain, Denies odynophagia, Denies throat swelling, Denies tongue swelling and Reports other (Dentition adequate) Card Reports no additional complaints Resp Reports no additional complaints GI Denies abdominal pain, Denies melena, Denies bloating, Denies hematochezia, Denies constipation, Reports GI cramping, Denies dysphagia, Denies excessive flatus, Denies early satiety, Reports heartburn, Denies diarrhea, Denies nausea, Denies odynophagia, Denies vomiting and Denies hematemesis Skin/Breast Denies pruritus, Denies lesions, Denies rash and Denies jaundice Neuro Reports Normal hearing present and Denies Abnormal speech present Endo Denies fatigue Aller/Immun Denies throat swelling and Denies tongue swelling Physical Exam Vital Signs: Last Vital Signs Pulse 71 07/13/23 15:30 BP 124/76 07/13/23 15:30 BMI result Body Mass Index 30.5 Const General: cooperative, no acute distress, well developed and well groomed Nutritional Appearance: well nourished and obese Orientation/consciousness: oriented to person, oriented to place and oriented to time Limitations: No language barrier HEENT Head: Yes normocephalic and Yes atraumatic Eyes General: appearance normal, both eyes and all related structures Pupils: Equal, round and reactive pupils present Neck Neck: Yes normal visual inspection and Yes no lymphadenopathy Thyroid: Thyroid normal Resp Effort & Inspection: normal respiratory effort and able to speak in complete sentences Auscultation: clear to auscultation bilaterally Cardio Rate: regular rate Rhythm: regular rhythm Heart sounds: Normal, physiologic split S2 sound present Peripheral pulses: radial pulses present and posterior tibial pulses present GI Inspection: No distended, No Abdominal panniculus present and Yes obesity Palpation (GI): Soft to palpation, nontender, no guarding, not rigid and No hepatosplenomegaly present Percussion: Yes normal to percussion Auscultation: normal bowel sounds Rectal Exam - Female: deferred Skin General skin exam: no rashes or lesions noted, turgor normal, skin not dry, no jaundice, No spider nevi and no striae Rashes: no rashes Nails: normal Neuro General: oriented to person, oriented to place and oriented to time Cranial nerves: Yes Equal, round and reactive pupils present and Yes Normal hearing present Speech: No Abnormal speech present Extrem General: Yes normal to inspection, No clubbing, No cyanosis and No edema Psych Appearance: grossly normal and well kempt Mental Status: mental status grossly normal Speech and movement: Normal speech and movement present Affect: normal affect Attitude: cooperative Thought process: Normal thought process present and not confabulating Thought content: Normal thought content present Insight: Limited insight present (Psych) Judgement: Limited judgement present (Psych) Assessment & Plan Assessment & Plan (1) GERD (gastroesophageal reflux disease): Code(s): K21.9 - Gastro-esophageal reflux disease without esophagitis Plan: Maldivian #declines The famotidine helped her GERD, but she still has some discomfort in her stomach from time to time. However upon discussion she says she has a lot of him borborygus of the stomach but she ran out of her dicyclomine which is likely the issue. Will get all of this renewed for her. She is satisfied now with her GI regimen. Return office visit in 6 months (2) Sessile serrated polyp of colon: Comment: (polyp noted on 2022 scope - repeat 2025) Code(s): D12.6 - Benign neoplasm of colon, unspecified (3) Abdominal cramping: Code(s): R10.9 - Unspecified abdominal pain Medications: Refilled dicyclomine 10 mg PO TID 90 caps 1RF R10.9 - Unspecified abdominal pain famotidine 20 mg PO BID 60 tabs 6RF Coding Level of Care Code Est Pt Level 3 (99499) Diagnoses GERD (gastroesophageal reflux disease) K21.9 Sessile serrated polyp of colon D12.6 Abdominal cramping R10.9
[2023-07-13 15:30] VITALS: BP 124/76; PULSE 71; BMI 30.5
== END 2023-07-13 15:46 | disposition home or self-care (01) ==
PROVIDERS: PCP Registered Nurse; Visit Provider Nurse Practitioner
DX: K21.9 Gastro-esophageal reflux disease without esophagitis (principal); D12.6 Benign neoplasm of colon, unspecified; R10.9 Unspecified abdominal pain
CPT/HCPCS: 99213

== ENCOUNTER → 2023-07-13 15:27 | Outpatient (BNVA) | payer MEDICAID, SELFPAY | PROVIDERS: PCP Registered Nurse; Visit Provider Nurse Practitioner | DX: K21.9 Gastro-esophageal reflux disease without esophagitis (principal); R10.9 Unspecified abdominal pain; D12.6 Benign neoplasm of colon, unspecified | CPT/HCPCS: 99212 ==

== ENCOUNTER 2023-11-18 15:17 | Outpatient (AMB) | payer MEDICAID, SELFPAY ==
--- NOTE | 2023-11-18 15:24 | A.OFFVIS_ITS ---
Intake Vital Signs 11/18/23 15:26 Height 5 ft 1 in Weight 162 lb 0.636 oz BMI 30.6 BP 118/77 Blood Pressure Location Lt brachial Position Sitting Pulse 62 Pulse Source Doppler Pulse Oximetry (%) 99 Oxygen Delivery Method Room Air Intake Visit Reasons: Cough Allergies No Known Allergies Allergy (Verified 07/13/23 15:32) HPI Cough HPI Details 53-year-old lady, nonsmoker, followed fo r cough variant asthma and environmental allergies. After the last office visit patient was started on Symbicort with significant improvement in her symptoms. She also continues on Flonase and loratadine for the allergic component. She denies any recent exacerbations. [facility] Medical History Sessile serrated polyp of colon GERD (gastroesophageal reflux disease) Asthma Surgical History History of colonoscopy History of hemorrhoidectomy History of foot surgery Status post creation of urethral sling by suprapubic approach Family History Mother Heart attack Breast cancer Uterine cancer Father Prostate cancer Social History Alcohol intake: current Alcohol intake frequency: holidays/special occasions only Patient Tobacco Use Status: Never used Tobacco Review of Systems Const Denies daytime sleepiness, Denies excessive sweating, Denies fatigue, Denies fever(s), Denies lethargy, Denies malaise, Denies night sweats, Denies snoring and Denies weight loss Eyes Denies blurry vision and Denies itchy eyes ENT Denies nasal congestion, Denies post nasal drip, Denies sinus pain, Denies sinus pressure and Denies other ( Thrush) Card Denies chest pain, Denies pedal edema, Denies dyspnea, Denies orthopnea and Denies paroxysmal nocturnal dyspnea Resp Denies cough, Denies hemoptysis, Denies excessive phlegm production, Denies dyspnea, Denies snoring and Denies wheezing GI Denies abdominal pain and Denies heartburn Musc Denies myalgias, Denies arthralgias and Denies joint swelling Skin/Breast Denies rash Neuro Denies memory loss and Denies seizure-like activity Psych Denies abnormal sleep pattern, Denies anxiety and Denies memory loss Endo Denies excessive sweating, Denies fatigue and Denies heat intolerance Shiraz/Lymph Denies easy bruising Aller/Immun Denies itchy eyes, Denies seasonal rhinorrhea and Denies wheezing Physical Exam Vital Signs: Last Vital Signs Pulse 62 11/18/23 15:26 BP 118/77 11/18/23 15:26 Pulse Ox 99 11/18/23 15:26 Oxygen Delivery Method Room Air 11/18/23 15:26 BMI result Body Mass Index 30.6 Const General: no acute distress and alert Nutritional Appearance: not obese Orientation/consciousness: Other orientation findings ( oriented) HEENT Head: Yes atraumatic Eyes General: appearance normal, both eyes and all related structures Sclerae: sclerae normal EOM: EOMs intact bilaterally Neck Neck: Yes supple Lymphatic: no lymphadenopathy noted Resp Effort & Inspection: normal respiratory effort and no use of accessory muscles Auscultation: clear to auscultation bilaterally Cardio Rate: regular rate Rhythm: regular rhythm Heart sounds: no gallops, no murmurs and no rubs Skin General skin exam: other ( warm) Extrem General: No clubbing, No cyanosis and No edema Assessment & Plan Assessment & Plan (1) Asthma: Code(s): J45.909 - Unspecified asthma, uncomplicated Plan: Well controlled on Symbicort and albuterol MDI/nebs. Continue current regimen. (2) Seasonal allergies: Code(s): J30.2 - Other seasonal allergic rhinitis Plan: Well controlled on Flonase and loratadine. Continue current regimen. Coding Level of Care Code Est Pt Level 4 (61519) Diagnoses Asthma J45.909 Seasonal allergies J30.2
[2023-11-18 15:26] VITALS: BP 118/77; PULSE 62; O2SAT 99; BMI 30.6
== END 2023-11-18 15:34 | disposition home or self-care (01) ==
PROVIDERS: PCP Registered Nurse; Visit Provider Internal Medicine Pulmonary Disease
DX: J45.909 Unspecified asthma, uncomplicated (principal); J30.2 Other seasonal allergic rhinitis
CPT/HCPCS: 99214

== ENCOUNTER → 2023-11-18 15:17 | Outpatient (BNVA) | payer MEDICAID, SELFPAY | PROVIDERS: PCP Registered Nurse; Visit Provider Internal Medicine Pulmonary Disease | DX: J45.909 Unspecified asthma, uncomplicated (principal); J30.2 Other seasonal allergic rhinitis | CPT/HCPCS: 99212 ==

== ENCOUNTER 2023-12-24 05:59 | Outpatient (REF) | payer MEDICAID, SELFPAY ==
[2023-12-24 06:17] LABS: MANUAL DIFF FLAG NO
[2023-12-24 07:40] LABS: Basophils Absolute Auto 0.1 X10*3/uL (0.0-0.2); Basophils Percent Auto 0.5 % (0-2); Eosinophils Absolute Auto 0.3 X10*3/uL (0.0-0.4); Eosinophils Percent Auto 3.1 % (0-4); Hematocrit 37.7 % (37.0-47.0); Hemoglobin 12.8 g/dl (12.0-16.0); Imm Gran Abs Auto 0.03 X10*3/uL (0.00-0.03); Imm Gran Pct Auto 0.3 % (0.0-0.4); Lymphocytes Absolute Auto 2.5 X10*3/uL (1.2-4.9); Lymphocytes Percent Auto 26.8 % (20-40); Mean Corpuscular Hemoglobin 27.8 pg (27.0-33.0); Mean Platelet Volume 9.9 fL (9.4-12.3); Monocytes Absolute Auto 0.8 X10*3/uL (0.1-1.2); Monocytes Percent Auto 7.9 % (2-11); Neutrophils Absolute Auto 5.8 x10*3/uL (2.0-8.3); Neutrophils Percent Auto 61.4 % (45-73); Platelet Count 300 X10*3/uL (160-400); Red Cell Distribution Width 13.2 % (11.0-16.0); White Blood Count 9.5 X10*3/uL (4.8-10.8)
[2023-12-24 07:51] LABS: Estimated Average Glucose 100 mg/dL; Hemoglobin A1c % 5.1 % (<6.0)
[2023-12-24 07:54] LABS: Alanine Aminotransferase 17 U/L (0-31); Albumin Level 4.1 g/dL (3.5-5.0); Alkaline Phosphatase 101 U/L (39-117); Anion Gap 11 (12-20); Aspartate Amino Transferase 16 U/L (5-31); Bilirubin Total 0.5 mg/dL (0.0-1.0); Blood Urea Nitrogen 13 mg/dL (9-16); Calcium 9.4 mg/dL (8.4-10.2); Carbon Dioxide 26 mmol/L (22-29); Chloride 106 mmol/L (96-108); Cholesterol 157 mg/dL (<200); Estimated Glomerular Filt Rate > 60; Glucose Random 91 mg/dL (60-115); HDL Cholesterol 42 mg/dL (>40); LDL Cholesterol Calculated 98 mg/dL (<100); Magnesium 1.8 mg/dL (1.6-2.6); Potassium 3.8 mmol/L (3.3-5.1); Sodium 139 mmol/L (135-145); Total Protein 7.9 g/dL (6.5-8.0); Triglycerides 88 mg/dL (<150)
[2023-12-24 08:12] LABS: HBS Num1 4.14 mIU/mL (0-7.99); HBc Num1 0.08 S/CO (0.00-0.79); HBsAGNum1 0.33 S/CO (0.00-0.99); HIV AB/AG Nonreactive (Nonreactive); HIV Num 1 0.06 S/CO (0.00-0.99); Hepatitis B Core Antibody Nonreactive (Nonreactive); Hepatitis B Surface Antigen Negative (Negative); ~Hepatitis B Surface Antibody NONREACTIVE (Nonreactive)
[2023-12-24 08:14] LABS: TSH reflex Free T4 2.28 uIU/mL (0.32-4.0); Vitamin D 25-OH Total 16.8 ng/mL (>30)
[2023-12-24 08:15] LABS: Sickle Cell Scr POSITIVE (NEGATIVE)
[2023-12-24 08:26] LABS: Folate 13.4 ng/mL (> or = 4.0); Vitamin B12 822 pg/mL (200-900)
[2023-12-25 18:54] LABS: HCV Log PCR <1.18 NOT DETECTED Log IU/mL (NOT DETECTED); HepC Viral Load <15 NOT DETECTED IU/mL (NOT DETECTED)
[2023-12-27 11:13] LABS: RPR Rapid Plasma Reagin NON-REACTIVE (NON-REACTIVE)
[2023-12-27 14:48] LABS: Hematocrit 38.5 % (35.0-45.0); Hemoglobin 12.9 g/dL (11.7-15.5); MCV 83.7 fL (80.0-100.0); RDW 13.2 % (11.0-15.0)
== END 2023-12-24 06:00 | disposition home or self-care (01) ==
LOC: HO.LAB 05:59
PROVIDERS: PCP Registered Nurse; Visit Provider Registered Nurse
DX: Z00.00 Encounter for general adult medical examination without abnormal findings (principal); R53.83 Other fatigue
CPT/HCPCS: 36415; 80053; 80061; 82306; 82607; 82746; 83020; 83036; 83735; 84443; 85014; 85018; 85025; 85041; 85660; 86592; 86704; 86706; 87340; 87389; 87522

== ENCOUNTER 2023-12-29 07:09 | Emergency (ER) | payer MEDICAID, SELFPAY ==
[2023-12-29 07:14] VITALS: BP 114/69; PULSE 77; RESP 20; TEMP 36.6; O2SAT 99; BMI 29.9
--- NOTE | 2023-12-29 09:07 | ED_ITS ---
HPI - General Adult General Chief complaint: Extremity Problem Stated complaint: Neck & shoulder pain Time Seen by Provider: 12/29/23 09:01 Source: patient Mode of arrival: ambulatory Limitations: no limitations History of Present Illness HPI narrative: Patient is a 53-year-old female presenting to the emergency department with complaint of right lateral neck pain which has began to radiate to shoulder over the weekend. 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 She denies fall or other trauma. She denies radiation of pain down her arm. Denies any numbness, tingling, weakness. MD complaint: Neck and shoulder pain Onset (ago): day(s) Location: neck, right and upper extremity Severity: severe Quality: aching Pain Consistency: constant Relieving factors: rest Exacerbating factors: movement Associated symptoms: denies other symptoms Treatments prior to arrival: none Related Data Home Medications Medication Instructions Recorded Confirmed albuterol sulfate 90 mcg/actuation 2 puff inhalation Q6H PRN dyspnea 09/09/22 aerosol inhaler (ProAir HFA) budesonide-formoterol HFA 160 2 puff inhalation ONCE 05/21/23 mcg-4.5 mcg/actuation aerosol inhaler (Symbicort) Previous Rx's Medication Instructions Recorded fluticasone propionate 50 1 spray intranasal BID #16 grams 04/08/21 mcg/actuation nasal spray,suspension (Flonase Allergy Relief) ibuprofen 600 mg tablet 600 mg PO Q8H PRN pain #20 tabs 04/08/21 loratadine 10 mg tablet (Claritin) 10 mg PO DAILY PRN allergy 04/08/21 symptoms #20 tabs fluticasone propionate 220 2 puff PO BID 30 days #1 ea 02/05/22 mcg/actuation HFA aerosol inhaler (Flovent HFA) albuterol sulfate 0.63 mg/3 mL 0.63 mg (3 mL) inhalation QID PRN 11/18/22 solution for nebulization shortness of breath or wheezing #75 mL albuterol sulfate 90 mcg/actuation 1 inh inhalation QID PRN shortness 11/18/22 aerosol inhaler of breath or wheezing #8.5 grams nebulizers (AeroEclipse II #1 ea 11/18/22 Nebulizer) dicyclomine 10 mg capsule 10 mg PO TID #90 caps 07/13/23 famotidine 20 mg tablet 20 mg PO BID #60 tabs 07/13/23 cyclobenzaprine 5 mg tablet 5 mg PO TID PRN muscle spasm #10 12/29/23 tabs lidocaine 5 % topical patch 1 patch topical DAILY #15 ea 12/29/23 Allergies Allergy/AdvReac Type Severity Reaction Status Date / Time No Known Allergies Allergy Verified 07/13/23 15:32 Review of Systems Review of Systems: As per HPI. Yes all other systems are reviewed and are negative Constitutional: Constitutional: Reports as per HPI [facility] Past Medical History Medical History Sessile serrated polyp of colon GERD (gastroesophageal reflux disease) Asthma Surgical History History of colonoscopy History of hemorrhoidectomy History of foot surgery Status post creation of urethral sling by suprapubic approach Family History Family History Mother Heart attack Breast cancer Uterine cancer Father Prostate cancer Social History Social History Alcohol intake: current Alcohol intake frequency: holidays/special occasions only Patient Tobacco Use Status: Never used Tobacco Advance Directives: No Physical Exam ED Vital Signs: Vital Signs - 24 hr 12/29/23 07:14 Temperature 97.9 F Pulse Rate 77 Respiratory Rate 20 Blood Pressure 114/69 Pulse Oximetry 99 Oxygen Delivery Method Room Air BMI result Body Mass Index 29.9 Vital signs have been reviewed and appear to be correct. Blood pressure normal. Heart rate normal. Respiratory rate normal. Temperature normal. Oxygen saturation normal. Const General: cooperative, healthy appearing and no acute distress Orientation/consciousness: oriented to person, oriented to place, oriented to time and patient oriented x3 Limitations: no limitations HENMT Head: Yes normocephalic and Yes atraumatic Ears: external ears normal General nose exam: Normal external nose present Face and sinus: Yes face symmetric Mouth: oropharynx normal and moist mucous membranes Throat: Yes uvula midline Eyes Pupils: Equal, round and reactive pupils present Neck Neck: Yes normal visual inspection, Yes full ROM, Yes no lymphadenopathy, Yes no meningeal signs, Yes trachea midline and Yes supple Resp Effort & Inspection: normal respiratory effort and able to speak in complete sentences Auscultation: clear to auscultation bilaterally Cardio Rate: regular rate Rhythm: regular rhythm Heart sounds: S1 normal heart sound present and S2 normal heart sound present GI Palpation (GI): Soft to palpation and nontender Auscultation: normoactive bowel sounds General: Yes no CVA tenderness Back/Spine/Pelvis Back: no CVA tenderness Cervical Spine: normal cervical lordosis, cervical ROM normal, cervical muscular tenderness (right lateral), pain with cervical ROM, cervical spasm (right), No Cervical spine tenderness and No step off deformity Skin General skin exam: elasticity normal and turgor normal Neuro General: oriented to person, oriented to place, oriented to time, patient oriented x3, gait normal, tone normal, moves all extremities, Normal light touch and pain sensation, no meningeal signs, no focal motor deficits, CN's II-XI in tact bilaterally and deep tendon reflexes 2+ bilaterally Cranial nerves: Yes Equal, round and reactive pupils present Cognition (Neuro): normal cognition Motor exam (neuro): 5/5 motor strength present throughout, Normal motor muscle tone present throughout and Motor abnormalities not present Extrem General: Yes full ROM, Yes capillary refill normal, Yes normal exam except as noted, Yes no pedal edema and Yes no calf tenderness Right upper extremity: shoulder/upper arm Details: normal to inspection, tenderness (right trapezius), axillary nerve sensory function normal and normal ROM; no swelling Psych Mental Status: mental status grossly normal Affect: normal affect Thought process: Normal thought process present Medical Decision Making Medical Decision Making MDM Narrative: Patient is a 53-year-old female presenting to the emergency department with complaint of right lateral neck pain which has began to radiate to shoulder over the weekend. On exam patient is awake, A+Ox3, VS WNL, afebrile, normal neurological exam without focal deficits, physical exam findings as above. Given reported symptoms and physical exam findings, initial differential includes muscle strain, cervical radiculopathy. Do not suspect fracture or dislocation. Based on physical exam findings, feel symptoms are musculoskeletal. Will treat with cyclobenzaprine and lidocaine patches. Advised patient to perform gentle stretching exercises and apply intermittently when not using lidocaine patches. Discussed alternating Tylenol and ibuprofen as well. Instructed patient to follow-up with primary care provider. Return precautions discussed at bedside. Patient verbalized understanding of and agreement with plan. Differential Diagnosis Differential Diagnoses: The differential diagnosis associated with the prese ntation includes As per MDM. External Record Review External record reviewed: Inpatient record, Office record and Outpatient record Prescription Management I considered prescription management with: Pain Medication and Other Discharge Plan Discharge Clinical Impression: Cervical muscle strain Patient Disposition: Home, Self-Care Instructions: Cervical Strain (DC), Exercises for Shoulder Flexion and Extension (ED), Exercises for Internal and External Shoulder Rotation (ED), Exercises for Shoulder Abduction and Adduction (ED) Additional Instructions: You were evaluated in the emergency department with complaint of neck pain. Your pain is likely related to a muscle strain. We recommend taking 600mg ibuprofen or 650mg Tylenol. If necessary, you can alternate these medications every three hours. For example, at noon take Tylenol, then at 3:00 take ibuprofen, then at 6:00 take Tylenol, etc. You are also being prescribed a muscle relaxer which you can use up to every 8 hours as needed. You are being prescribed topical lidocaine patches which you can wear for up to 12 hours in a 24 hour period. Do not apply heat directly over the patches. You can apply warm compresses to the area for 10-15 minutes at a time several times throughout the day. Perform gentle stretching exercises provided in your discharge instructions several times daily. You should follow up with your primary care provider as you may require physical therapy to improve your symptoms. Return to the emergency department if you develop worsening neck pain or stiffness, new weakness, numbness, or tingling to your arm, severe headaches, or any other concerning symptoms. Prescriptions: New cyclobenzaprine 5 mg tablet 5 mg PO TID PRN (Reason: muscle spasm) Qty: 10 0RF lidocaine 5 % adhesive patch,medicated 1 patch topical DAILY Qty: 15 0RF Rx Instructions: leave on most painful area for up to 12 hrs No Action Flovent HFA 220 mcg/actuation HFA aerosol inhaler 2 puff PO BID 30 Days Qty: 1 6RF fluticasone propionate [Flonase Allergy Relief] 50 mcg/actuation spray,suspension 1 spray intranasal BID Qty: 16 0RF Rx Instructions: administer into each nostril loratadine [Claritin] 10 mg tablet 10 mg PO DAILY PRN (Reason: allergy symptoms) Qty: 20 0RF ibuprofen 600 mg tablet 600 mg PO Q8H PRN (Reason: pain) Qty: 20 0RF albuterol sulfate 90 mcg/actuation HFA aerosol inhaler 1 inh inhalation QID PRN (Reason: shortness of breath or wheezing) Qty: 8.5 0RF (DME) nebulizers [AeroEclipse II Nebulizer] Misc See Rx Instructions .ROUTE .MEDSUPPLY Qty: 1 0RF Rx Instructions: As directed albuterol sulfate 0.63 mg/3 mL solution for nebulization 0.63 mg inhalation QID PRN (Reason: shortness of breath or wheezing) Qty: 75 0RF albuterol sulfate [ProAir HFA] 90 mcg/actuation HFA aerosol inhaler 2 puff inhalation Q6H PRN (Reason: dyspnea) budesonide-formoterol [Symbicort] 160-4.5 mcg/actuation HFA aerosol inhaler 2 puff inhalation ONCE dicyclomine 10 mg capsule 10 mg PO TID Qty: 90 1RF famotidine 20 mg tablet 20 mg PO BID Qty: 60 6RF
[2023-12-29 09:37] VITALS: BP 114/69; PULSE 77; RESP 20; TEMP 36.6; O2SAT 99
== END 2023-12-29 09:39 | disposition home or self-care (01) ==
PROVIDERS: Emergency Provider Emergency Medicine; PCP Registered Nurse
DX: S16.1XXA Strain of muscle, fascia and tendon at neck level, initial encounter (principal); J45.909 Unspecified asthma, uncomplicated; X58.XXXA Exposure to other specified factors, initial encounter; Y93.9 Activity, unspecified; Y92.9 Unspecified place or not applicable; Y99.9 Unspecified external cause status
CPT/HCPCS: 99282; 99283

== ENCOUNTER 2024-01-12 14:53 | Outpatient (AMB) | payer MEDICAID, SELFPAY ==
[2024-01-12 14:58] VITALS: BP 126/67; PULSE 68; BMI 30.2
--- NOTE | 2024-01-12 14:58 | A.OFFVIS_ITS ---
Intake Vital Signs 01/12/24 14:58 Height 5 ft 1 in Weight 160 lb BMI 30.2 BP 126/67 Blood Pressure Location Lt brachial Position Sitting Pulse 68 Intake Visit Reasons: 6 mnth follow up Intake Note: Patient is seen in office for 6 month follow up visit. 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 However upon discussion she says she has a lot of him borborygus of the stomach but she ran out of her dicyclomine which is likely the issue. Will get all of this renewed for her. She is satisfied now with her GI regimen. Return office visit in 6 months (2) Sessile serrated polyp of colon: Comment: (polyp noted on 2022 scope - repeat 2025 ) Code(s): D12.6 - Benign neoplasm of colon, unspecified (3) Abdominal cramping: Code(s): R10.9 - Unspecified abdominal pain Medications: Refilled dicyclomine 10 mg PO TID 90 c aps 1RF R10.9 - Unspecifie d abdominal pain famotidine 20 mg PO BID 60 t abs 6RF TODAY'S VISIT Humberto Amezcua declines SHe is doing well on her GI regimen, and her borborumus resolved wtih the bent yl. She is having trouble wtih a vit D supplement, 1000mg, as it is upsetting her stomach. ROV 6 mos. PFSH Medical History Sessile serrated polyp of colon GERD (gastroesophageal reflux disease) Asthma Surgical History History of colonoscopy History of hemorrhoidectomy History of foot surgery Status post creation of urethral sling by suprapubic approach Family History Mother Heart attack Breast cancer Uterine cancer Father Prostate cancer Social History Alcohol intake: current Alcohol intake frequency: holidays/special occasions only Patient Tobacco Use Status: Never used Tobacco Review of Systems Const Denies fatigue, Denies fever(s), Denies night sweats, Denies poor appetite and Denies weight loss ENT Reports Normal hearing present, Denies dental pain, Denies dysphagia, Denies hearing loss, Denies mouth pain, Denies odynophagia, Denies throat swelling, Denies tongue swelling and Reports other (Dentition adequate) Card Reports no additional complaints Resp Reports no additional complaints GI Details: Denies abdominal pain, Denies melena, Denies bloating, Denies hematochezia, Denies constipation, Reports GI cramping, Denies dysphagia, Denies excessive flatus, Denies early satiety, Reports heartburn, Denies diarrhea, Denies nausea, Denies odynophagia, Denies vomiting and Denies hematemesis Skin/Breast Denies pruritus, Denies lesions, Denies rash and Denies jaundice Neuro Reports Normal hearing present and Denies Abnormal speech present Endo Denies fatigue Aller/Immun Denies throat swelling and Denies tongue swelling Physical Exam Vital Signs: Last Vital Signs Pulse 68 01/12/24 14:58 BP 126/67 01/12/24 14:58 BMI result Body Mass Index 30.2 Const General: cooperative, no acute distress, well developed and well groomed Nutritional Appearance: well nourished and obese Orientation/consciousness: oriented to person, oriented to place and oriented to time Limitations: No language barrier HEENT Head: Yes normocephalic and Yes atraumatic Eyes General: appearance normal, both eyes and all related structures Pupils: Equal, round and reactive pupils present Neck Neck: Yes normal visual inspection and Yes no lymphadenopathy Thyroid: Thyroid normal Resp Effort & Inspection: normal respiratory effort and able to speak in complete sentences Auscultation: clear to auscultation bilaterally Cardio Rate: regular rate Rhythm: regular rhythm Heart sounds: Normal, physiologic split S2 sound present Peripheral pulses: radial pulses present and posterior tibial pulses present GI Inspection: No distended, No Abdominal panniculus present and Yes obesity Palpation (GI): Soft to palpation, nontender, no guarding, not rigid and No hepatosplenomegaly present Percussion: Yes normal to percussion Auscultation: normal bowel sounds Rectal Exam - Female: deferred Skin General skin exam: no rashes or lesions noted, turgor normal, skin not dry, no jaundice, No spider nevi and no striae Rashes: no rashes Nails: normal Neuro General: oriented to person, oriented to place and oriented to time Cranial nerves: Yes Equal, round and reactive pupils present and Yes Normal hearing present Speech: No Abnormal speech present Extrem General: Yes normal to inspection, No clubbing, No cyanosis and No edema Psych Appearance: grossly normal and well kempt Mental Status: mental status grossly normal Speech and movement: Normal speech and movement present Affect: normal affect Attitude: cooperative Thought process: Normal thought process present and not confabulating Thought content: Normal thought content present Insight: Limited insight present (Psych) Judgement: Limited judgement present (Psych) Assessment & Plan Assessment & Plan (1) GERD (gastroesophageal reflux disease): Code(s): K21.9 - Gastro-esophageal reflux disease without esophagitis (2) Abdominal cramping: Code(s): R10.9 - Unspecified abdominal pain Plan Martiniquais # declines She is doing well on her GI regimen, and her borborumus resolved with the bentyl. She is having trouble with a vit D supplement, 1000mg, as it is upsetting her stomach. ROV 6 mos. Medications: Refilled dicyclomine 10 mg PO TID 90 caps 1RF R10.9 - Unspecified abdominal pain famotidine 20 mg PO BID 180 tabs 2RF Coding Level of Care Code Est Pt Level 3 (28499) Diagnoses GERD (gastroesophageal reflux disease) K21.9 Abdominal cramping R10.9
== END 2024-01-12 15:10 | disposition home or self-care (01) ==
PROVIDERS: PCP Registered Nurse; Visit Provider Nurse Practitioner
DX: K21.9 Gastro-esophageal reflux disease without esophagitis (principal); R10.9 Unspecified abdominal pain
CPT/HCPCS: 99213

== ENCOUNTER → 2024-01-12 14:53 | Outpatient (BNVA) | payer MEDICAID, SELFPAY | PROVIDERS: PCP Registered Nurse; Visit Provider Nurse Practitioner | DX: K21.9 Gastro-esophageal reflux disease without esophagitis (principal); R10.9 Unspecified abdominal pain; D12.6 Benign neoplasm of colon, unspecified | CPT/HCPCS: 99212 ==

== ENCOUNTER 2024-01-18 08:14 | Outpatient (REF) | payer MEDICAID, SELFPAY ==
--- NOTE | 2024-01-18 08:17 | EMG_ITS ---
Bilateral median and ulnar motor and sensory studies were performed. Bilateral radial sensory studies were performed, and medial and lateral antecubital brachial sensory studies were performed. Needle examination was performed. IMPRESSION: 1. Mild bilateral ulnar neuropathy across cubital tunnel. 2. Mild right median neuropathy across carpal tunnel. MD ROSELIA Tariq/DIDIERL / [id number]
== END 2024-01-18 08:15 | disposition home or self-care (01) ==
LOC: HO.NEURO 08:14
PROVIDERS: PCP Registered Nurse; Visit Provider Registered Nurse
DX: R20.0 Anesthesia of skin (principal)
CPT/HCPCS: 95886; 95913

== ENCOUNTER 2024-01-24 19:53 | Emergency (ER) | payer MEDICAID, SELFPAY ==
--- NOTE | ~2024-01-24 | XR_ITS ---
EXAMINATION: XR CERVICAL SPINE CLINICAL INFORMATION: Right-sided pain, no trauma COMPARISON: None available. TECHNIQUE: 3 views of the cervical spine were obtained. FINDINGS: There is slight anterolisthesis of C4 on C5, favored to be chronic in the setting of facet arthropathy. There is disc space narrowing most prominently at C5-C6 along with endplate osteophytes of the lower cervical spine. Vertebral body heights are maintained. No acute fracture is seen. No significant prevertebral soft tissue swelling. XR/XR cervical spine 3V IMPRESSION: No acute findings identified. Chronic/degenerative changes as noted above.
[2024-01-24 20:53] VITALS: BP 142/70; PULSE 64; RESP 17; TEMP 36.7; O2SAT 100; BMI 30.7
--- NOTE | 2024-01-24 23:41 | ED_ITS ---
HPI - General Adult General Chief complaint: Neck Pain/Injury Stated complaint: Left neck and hand pain Time Seen by Provider: 01/24/24 23:41 Source: patient Mode of arrival: ambulatory Limitations: no limitations History of Present Illness HPI narrative: Patient is a 53 year old assigned female at with a history of GERD, depression, psoriasis, and RUE pain presenting to the emergency department today with right cervical and arm pain. Patient states that she has been dealing with this pain for 3 months and recently had an EMG that showed right cubital tunnel and right carpal tunnel. Patient denies any dizziness, lightheadedness, abdominal pain, nausea, vomiting, fever, chills, blurry vision, double vision, loss of vision, chest pain, difficulty breathing, shortness of breath, back pain, night sweats, pain with urination, increased urinary frequency, increased urinary urgency, blood in her urine or stool, syncope or a near syncopal episode, recent trauma or falls, bowel incontinence, bladder incontinence, bowel retention, bladder retention, or any other complaints at this time. Onset (ago): month(s) (3) Location: neck, right and upper extremity Severity: mild Severity scale (1-10): 3 Relieving factors: none Exacerbating factors: none Associated symptoms: denies other symptoms Treatments prior to arrival: other (muscle relaxer) Related Data Home Medications ?Medication ?Instructions ?Recorded ?Confirmed albuterol sulfate 90 mcg/actuation 2 puff inhalation Q6H PRN dyspnea 09/09/22 aerosol inhaler (ProAir HFA) budesonide-formoterol HFA 160 2 puff inhalation ONCE 05/21/23 mcg-4.5 mcg/actuation aerosol inhaler (Symbicort) Previous Rx's ?Medication ?Instructions ?Recorded fluticasone propionate 50 1 spray intranasal BID #16 grams 04/08/21 mcg/actuation nasal spray,suspension (Flonase Allergy Relief) ibuprofen 600 mg tablet 600 mg PO Q8H PRN pain #20 tabs 04/08/21 loratadine 10 mg tablet (Claritin) 10 mg PO DAILY PRN allergy 04/08/21 symptoms #20 tabs fluticasone propionate 220 2 puff PO BID 30 days #1 ea 02/05/22 mcg/actuation HFA aerosol inhaler (Flovent HFA) albuterol sulfate 0.63 mg/3 mL 0.63 mg (3 mL) inhalation QID PRN 11/18/22 solution for nebulization shortness of breath or wheezing #75 mL albuterol sulfate 90 mcg/actuation 1 inh inhalation QID PRN shortness 11/18/22 aerosol inhaler of breath or wheezing #8.5 grams nebulizers (AeroEclipse II #1 ea 11/18/22 Nebulizer) cyclobenzaprine 5 mg tablet 5 mg PO TID PRN muscle spasm #10 12/29/23 tabs lidocaine 5 % topical patch 1 patch topical DAILY #15 ea 12/29/23 dicyclomine 10 mg capsule 10 mg PO TID #90 caps 01/12/24 famotidine 20 mg tablet 20 mg PO BID #180 tabs 01/12/24 celecoxib 200 mg capsule (Celebrex) 200 mg PO BID 2 weeks #28 caps 01/25/24 omeprazole 20 mg capsule,delayed 20 mg PO DAILY #14 caps 01/25/24 release prednisone 20 mg tablet 20 mg PO DAILY 7 days #7 tabs 01/25/24 Allergies Allergy/AdvReac Type Severity Reaction Status Date / Time No Known Allergies Allergy Verified 01/24/24 20:57 Review of Systems Constitutional: Constitutional: Reports no additional constitutional complaints, Denies chills, Denies fever(s) and Denies night sweats Eyes: Eyes: Reports no additional eye complaints, Denies blurry vision, Denies change in vision, Denies diplopia, Denies eye discharge, Denies loss of vision and Denies eye pain ENT: Denies dizziness and Reports neck pain (right sided) Cardiovascular: Cardiovascular: Reports no additional cardiovascular complaints, Denies chest pain, Denies lightheadedness, Denies Loss of Consciousness and Denies dyspnea Respiratory: Respiratory: Reports no additional respiratory complaints and Denies dyspnea Gastrointestinal: Gastrointestinal: Reports no additional gastrointestinal complaints, Denies abdominal pain, Denies melena, Denies hematochezia, Denies change in bowel habits and Denies change in stool character Genitourinary: Genitourinary: Denies hematuria, Denies urinary frequency, Denies dysuria, Denies urinary incontinence, Denies urinary hesitancy and Denies urinary urgency Musculoskeletal: Musculoskeletal: Reports no additional musculoskeletal complaints, Reports neck pain (right sided), Denies numbness and Denies tingling Comments: RUE pain Neurologic: Denies dizziness, Denies loss of vision, Denies numbness and Denies tingling Psychiatric: Psychiatric: Reports no additional psychiatric complaints Endocrine: Endocrine: Reports no additional endocrine complaints Hematologic/Lymphatic: Hematologic/Lymphatic: Reports no additional hematologic/lymphatic complaints Allergic/Immunologic: Allergic/Immunologic: Reports no additional allergic/immunologic complaints [facility] Past Medical History Attestation statement: The following information was validated with the patient. Source: old records reviewed and nursing notes reviewed Medical History Sessile serrated polyp of colon GERD (gastroesophageal reflux disease) Asthma Surgical History History of colonoscopy History of hemorrhoidectomy History of foot surgery Status post creation of urethral sling by suprapubic approach Family History Family History Mother Heart attack Breast cancer Uterine cancer Father Prostate cancer Social History Social History Alcohol intake: current Alcohol intake frequency: holidays/special occasions only Patient Tobacco Use Status: Never used Tobacco Advance Directives: No Advance Directives Information Provided: Yes Do you have a plan to hurt others: No Plan Physical Exam ED Vital Signs: Vital Signs - 24 hr 01/24/24 20:53 01/25/24 00:38 01/25/24 00:38 Temperature 98.0 F 97.9 F 97.9 F Pulse Rate 64 54 54 Respiratory Rate 17 16 16 Blood Pressure 142/70 H 121/79 121/79 Pulse Oximetry 100 99 99 Oxygen Delivery Method Room Air Room Air Room Air BMI result Body Mass Index 30.7 Const General: cooperative, no acute distress, alert and awake Nutritional Appearance: well nourished Orientation/consciousness: patient oriented x3 Limitations: no limitations HENMT Head: Yes normal to inspection and Yes atraumatic Ears: hearing grossly normal bilaterally and external ears normal General nose exam: Normal external nose present, no nasal discharge noted and no epistaxis Face and sinus: Yes normal facial exam, No abrasion and No laceration Mouth: Normal oral and palatal mucosa present, no drooling and no muffled voice Eyes General: appearance normal, both eyes and all related structures Periorbital: periorbital findings normal Eyelids: Yes eyelids normal Conjunctivae: conjunctivae normal Pupils: Equal, round and reactive pupils present EOM: EOMs intact bilaterally Neck Neck: Yes normal visual inspection, Yes full ROM and Yes no lymphadenopathy Chest Chest palpation & inspection: normal inspection of the chest Resp Effort & Inspection: normal respiratory effort and able to speak in complete sentences GI Inspection: Yes normal to inspection Neuro General: patient oriented x3 and moves all extremities Cranial nerves: Yes Equal, round and reactive pupils present Cognition (Neuro): normal cognition Motor exam (neuro): 5/5 motor strength present throughout Sensory Exam: Normal double simultaneous stimulation for sensation Coordination: [id number] test normal Extrem General: Yes normal to inspection, Yes full ROM and Yes capillary refill normal Psych Appearance: grossly normal Mental Status: mental status grossly normal Affect: normal affect Attitude: cooperative Thought process: Normal thought process present Thought content: Normal thought content present Insight: Good insight present (Psych) Medications Administered Discontinued Medications Generic Name Dose Route Start Last Admin Trade Name Freq PRN Reason Stop Dose Admin Methylprednisolone Sodium Succinate 60 mg 01/25/24 00:04 01/25/24 00:28 Methylprednisolone Sod Succ 125 Mg/2 Ml Vial IM 01/25/24 00:05 60 mg ONCE ONE Administration Medical Decision Making Medical Decision Making [facility] Narrative: Patient is a 53 year old assigned female at with a history of GERD, depression, psoriasis, and RUE pain presenting to the emergency department today with right sided neck pain and upper extremity pain. Patient's physical exam was unremarkable. Patient's c-spine x-ray showed no acute process. I explained my physical exam findings as well as all test results to the patient. I answered all questions asked by the patient. I stressed the importance of the patient taking her medication as prescribed. I stressed the importance of the patient following up with her primary care provider and an orthopedic provider. I stressed the importance of the patient returning to the emergency department immediately if her symptoms were to worsen or if she were to develop any dizziness, shortness of breath, difficulty breathing, chest pain, blurry vision, loss of vision, nausea, vomiting, abdominal pain, fever, chills, back pain, or any other complaints. Patient verbalized agreement and understanding with this treatment plan and discharge. Differential Diagnosis Differential Diagnoses: The differential diagnosis associated with the presentation includes Cervical radiculopathy Cubital tunnel Carpal tunnel Admission/Observation Consideration of admission/observation: Escalation of care including admission/observation considered Patient would have been admitted to the hospital had her work up had any findings where hospital admission was appropriate and her clinical presentation warranted hospital admission. Independent Interpretation I performed an independent interpretation of an: Plain X-Ray Interpretation: My interpretation is in agreement with the radiologist's impression of this imaging study. EXAMINATION: XR CERVICAL SPINE CLINICAL INFORMATION: Right-sided pain, no trauma COMPARISON: None available. TECHNIQUE: 3 views of the cervical spine were obtained. FINDINGS: There is slight anterolisthesis of C4 on C5, favored to be chronic in the setting of facet arthropathy. There is disc space narrowing most prominently at C5-C6 along with endplate osteophytes of the lower cervical spine. Vertebral body heights are maintained. No acute fracture is seen. No significant prevertebral soft tissue swelling. XR/XR cervical spine 3V IMPRESSION: No acute findings identified. Chronic/degenerative changes as noted above. Dictated By: Davin Michael MD Signed By: Electronically signed by Davin Michael MD 01/25/24 0144 Radiology Impression Discussion of test interpretation with radiology: I have reviewed the radiologist's reading. Prescription Management I considered prescription management with: Pain Medication (patient prescribed pain medication) Discharge Plan Discharge Clinical Impression: Cubital tunnel syndrome, Acute carpal tunnel syndrome Patient Disposition: Home, Self-Care Instructions: Cubital Tunnel Syndrome (ED), Carpal Tunnel Surgery (DC) Additional Instructions: Follow up with your primary care provider and an orthopedic provider. Return to the emergency department immediately if your symptoms worsen or if you develop any dizziness, shortness of breath, difficulty breathing, chest pain, blurry vision, loss of vision, nausea, vomiting, abdominal pain, fever, chills, back pain, or any other complaints. Prescriptions: New celecoxib [Celebrex] 200 mg capsule 200 mg PO BID 14 Days Qty: 28 0RF prednisone 20 mg tablet 20 mg PO DAILY 7 Days Qty: 7 0RF omeprazole 20 mg capsule,delayed release(DR/EC) 20 mg PO DAILY Qty: 14 0RF No Action Flovent HFA 220 mcg/actuation HFA aerosol inhaler 2 puff PO BID 30 Days Qty: 1 6RF fluticasone propionate [Flonase Allergy Relief] 50 mcg/actuation spray,suspension 1 spray intranasal BID Qty: 16 0RF Rx Instructions: administer into each nostril loratadine [Claritin] 10 mg tablet 10 mg PO DAILY PRN (Reason: allergy symptoms) Qty: 20 0RF ibuprofen 600 mg tablet 600 mg PO Q8H PRN (Reason: pain) Qty: 20 0RF albuterol sulfate 90 mcg/actuation HFA aerosol inhaler 1 inh inhalation QID PRN (Reason: shortness of breath or wheezing) Qty: 8.5 0RF (DME) nebulizers [AeroEclipse II Nebulizer] [facility] [place] Rx Instructions .ROUTE .MEDSUPPLY Qty: 1 0RF Rx Instructions: As directed albuterol sulfate 0.63 mg/3 mL solution for nebulization 0.63 mg inhalation QID PRN (Reason: shortness of breath or wheezing) Qty: 75 0RF cyclobenzaprine 5 mg tablet 5 mg PO TID PRN (Reason: muscle spasm) Qty: 10 0RF lidocaine 5 % adhesive patch,medicated 1 patch topical DAILY Qty: 15 0RF Rx Instructions: leave on most painful area for up to 12 hrs albuterol sulfate [ProAir HFA] 90 mcg/actuation HFA aerosol inhaler 2 puff inhalation Q6H PRN (Reason: dyspnea) budesonide-formoterol [Symbicort] 160-4.5 mcg/actuation HFA aerosol inhaler 2 puff inhalation ONCE dicyclomine 10 mg capsule 10 mg PO TID Qty: 90 1RF famotidine 20 mg tablet 20 mg PO BID Qty: 180 2RF Ref[place]: [facility] [place] Group] (Call to establish and follow up with an orthopedic provider.) Suni Flores FNP [Primary Care Provider] - Interventions: ED Discharge Assessment Last Done: 01/25/24 00:38 Discharge Date/Time: 01/25/24 00:40 Print Language: Romansh
[2024-01-25] MEDS: methylPREDNISolone Sod Succ 125 MG/2 ML VIAL 60 MG IM (00:28)
[2024-01-25 00:38] VITALS: BP 121/79; PULSE 54; RESP 16; TEMP 36.6; O2SAT 99
== END 2024-01-25 00:40 | disposition home or self-care (01) ==
PROVIDERS: Emergency Provider Emergency Medicine; PCP Registered Nurse
DX: G56.21 Lesion of ulnar nerve, right upper limb (principal); G56.01 Carpal tunnel syndrome, right upper limb; M54.2 Cervicalgia; Z79.899 Other long term (current) drug therapy
CPT/HCPCS: 72040; 96372; 99283; 99284; J2919

== ENCOUNTER 2024-02-17 08:51 | Outpatient (AMB) | payer MEDICAID, SELFPAY ==
--- NOTE | 2024-02-17 08:57 | A.OFFVIS_ITS ---
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 Patient reports that she has had numbness and tinging in bilateral hands since about July of 2023, She does frequent lifting throughout the day. [place] [facility] [place], 01/17/23 IMPRESSION: 1. Mild bilateral ulnar neuropathy across cubital tunnel. 2. Mild right median neuropathy across carpal tunnel. Allergies No Known Allergies Allergy (Verified 01/24/24 20:57) Medication List - Last Reconciled 02/17/24 by Dara Guzman MD albuterol sulfate 90 mcg/actuation 1 inh inhalation QID PRN albuterol sulfate 0.63 mg (3 mL) inhalation QID PRN albuterol sulfate 90 mcg/actuation (ProAir HFA) 2 puffs inhalation Q6H PRN budesonide-formoterol 160-4.5 mcg/actuation (Symbicort) 2 puffs inhalation ONCE celecoxib (Celebrex) 200 mg PO BID 2 weeks cyclobenzaprine 5 mg PO TID PRN dicyclomine 10 mg PO TID famotidine 20 mg PO BID fluticasone propionate 50 mcg/actuation (Flonase Allergy Relief) 1 spray intranasal BID fluticasone propionate 220 mcg/actuation (Flovent HFA) 2 puffs PO BID 30 days ibuprofen 600 mg PO Q8H PRN lidocaine 5% 1 patch topical DAILY loratadine (Claritin) 10 mg PO DAILY PRN nebulizers (AeroEclipse II Nebulizer) As directed HPI Comments Details: Since a few months only, right elbow pain, with numbness 1st-3rd digits. Less symptoms on left. No wrist splints. Can't open things but not dropping. Wakes her up at night. Since July 2023, Neck pain, right side, goes to shoulder and upper arm. This is separate from the numbness on right. Shoulder ROM is full. No therapy yet. No splints. No injections yet. ER visit 01/24/24. Right handed, lifts at work. [facility] Medical History (Updated 02/17/24 @ 11:22 by Dara Guzman MD) Cervical spondylosis Ulnar neuropathy at elbow Carpal tunnel syndrome of right wrist Sessile serrated polyp of colon GERD (gastroesophageal reflux disease) Asthma Surgical History History of colonoscopy History of hemorrhoidectomy History of foot surgery Status post creation of urethral sling by suprapubic approach Family History Mother Heart attack Breast cancer Uterine cancer Father Prostate cancer Social History Alcohol intake: current Alcohol intake frequency: holidays/special occasions only Patient Tobacco Use Status: Never used Tobacco Review of Systems Const All systems reviewed & are unremarkable except as noted in HPI and below Physical Exam Vital Signs: BMI result Body Mass Index 30.6 Constitutional: Patient appears to be in no acute distress, well nourished and well developed. Patient was appropriately conversant and oriented. Good historian. MSK: Inspection reveals appropriate head and neck positioning. Tight on right upper trapezius. Cervical ROM was somewhat limited to looking to the right compared to the left. Pain on right trap when looking to the left. Spurling's sign negative. Bilateral shoulder, elbow and wrist ROM WNL. No ligamentous laxity or crepitance. No increased effusion. Positive carpal compression right. Negative Tinel's sign. Strength is 5/5 in all muscle groups tested. No increased tone noted. Neurological: Neurologic examination of the upper and lower extremities was nonfocal with intact sensation, muscle stretch reflexes and without focal motor deficits . Ansari?s negative bilaterally. Babinski was down going bilaterally. Clonus was negative. Gait is non-antalgic without loss of balance. Results Reviewed Results Reviewed: I independently reviewed the results of the following: Cervical x-ray showed loss of lordosis, decreased disc space C5-6. EMG done by Dr. Mahmood showed mild slowing of ulnar neuropathy conduction velocity across the elbow bilateral, and right median sensory nerve slowing of latencies. Ordering Physician: Nayana Romero MD Date of Service: 01/24/24 Procedure(s): XR cervical spine 3V Accession Number(s): [id number] cc: Nayana Romero MD; Suni Flores~ EXAMINATION: XR CERVICAL SPINE CLINICAL INFORMATION: Right-sided pain, no trauma COMPARISON: None available. TECHNIQUE: 3 views of the cervical spine were obtained. FINDINGS: There is slight anterolisthesis of C4 on C5, favored to be chronic in the setting of facet arthropathy. There is disc space narrowing most prominently at C5-C6 along with endplate osteophytes of the lower cervical spine. Vertebral body heights are maintained. No acute fracture is seen. No significant prevertebral soft tissue swelling. XR/XR cervical spine 3V IMPRESSION: No acute findings identified. Chronic/degenerative changes as noted above. Assessment & Plan Assessment & Plan (1) Myofascial pain: Code(s): M79.18 - Myalgia, other site Category: Medical (2) Cervical spondylosis: Code(s): M47.812 - Spondylosis without myelopathy or radiculopathy, cervical region Category: Medical (3) Ulnar neuropathy at elbow: Code(s): G56.20 - Lesion of ulnar nerve, unspecified upper limb Category: Medical Qualifiers: Laterality: right Qualified Code(s): G56.21 - Lesion of ulnar nerve, right upper limb (4) Carpal tunnel syndrome of right wrist: Code(s): G56.01 - Carpal tunnel syndrome, right upper limb Category: Medical Plan Encouraged her to do conservative management for elbow/hand symptoms 1st. There is no atrophy. There is no weakness. EMG findings were on the mild side. Highly recommended starting physical therapy 1st. And wearing wrist splints at night. She still wants to meet Dr. Cruz which we will schedule for. As for neck pain, suspect tension/tightness on trapezius causing the pain. No signs of cervical myelopathy or radiculopathy. Again recommended physical therapy which she is agreeable to starting. Also discussed trial of trigger point injections. She decides to do physical therapy 1st before considering injections. Physical therapy order: help with CTS and ulnar symptoms; myofascial release on right upper trapezius. Assessment and plan discussed with patient, and patient was agreeable. All questions were answered thoroughly. Dara Guzman MD, LEA Board Certified, [place] Board of Physical Medicine and Rehabilitation (ABPMR) Board Certified, [place] Board of Electrodiagnostic Medicine (ABEM) Orders: Orders PT Evaluation and Treatment Today G56.01 - Carpal tunnel syndrome, right upper limb, G56.20 - Lesion of ulnar nerve, unspecified upper limb, M47.812 - Spondylosis without myelopathy or radiculopathy, cervical region, M79.18 - Myalgia, other site Referrals Orthopedics Referral G56.01 - Carpal tunnel syndrome, right upper limb, G56.20 - Lesion of ulnar nerve, unspecified upper limb Coding Level of Care Code New Pt Level 4 (65574) Diagnoses Myofascial pain M79.18 Cervical spondylosis M47.812 Ulnar neuropathy at elbow of right upper extremity G56.21 Laterality: right Carpal tunnel syndrome of right wrist G56.01
[2024-02-17 08:58] VITALS: BMI 30.6
== END 2024-02-17 09:30 | disposition home or self-care (01) ==
PROVIDERS: PCP Registered Nurse; Visit Provider Physical Medicine & Rehabilitation
DX: M79.18 Myalgia, other site (principal); M47.812 Spondylosis without myelopathy or radiculopathy, cervical region; G56.21 Lesion of ulnar nerve, right upper limb; G56.01 Carpal tunnel syndrome, right upper limb
CPT/HCPCS: 99203

== ENCOUNTER → 2024-02-17 08:51 | Outpatient (BNVA) | payer MEDICAID, SELFPAY | PROVIDERS: PCP Registered Nurse; Visit Provider Physical Medicine & Rehabilitation | DX: M79.18 Myalgia, other site (principal); M47.812 Spondylosis without myelopathy or radiculopathy, cervical region; G56.21 Lesion of ulnar nerve, right upper limb; G56.01 Carpal tunnel syndrome, right upper limb | CPT/HCPCS: 99202 ==

== ENCOUNTER 2024-03-08 08:04 | Outpatient (AMB) | payer MEDICAID, SELFPAY ==
--- NOTE | 2024-03-08 08:20 | A.OFFVIS_ITS ---
Vital Signs 03/08/24 08:24 Height 5 ft 1 in Weight 162 lb BMI 30.6 Handedness Right Intake Visit Reasons: New Pt - Right CTS - EMG Done Intake Note: Goldie is a 53 yr right dominant female who presents today for a new patient visit for bilateral CTS. Patient reports her numbness is worse at night. Patient reports that she has had numbness and tinging since approximately July of 2023. Her numbness is off and on through out the day. Reports frequent lifting throughout the day which interferes with her job. Patient has tried wearing a br meliza to sleep which gives mild relief but it causes soreness in her forearm. EMG done. Allergies No Known Allergies Allergy (Verified 03/08/24 08:23) HPI HPI New Pt - Right CTS - EMG Done: Details: Goldie is a 53 year old right hand dominant woman who presents for a NCS review of her bilateral hand numbness. She complains of numbness in her right thumb, index, and middle fingers. Symptoms intermittent, but daily, worse at night. She also complains of weakness and difficulty with heavy lifting, which makes her work difficult as she often has to lift heavy objects. She says she is currently out of work. She finds some relief of her numbness wearing a brace, but she says this causes her pain in her forearm. [facility] [place] Medical History (Updated 03/08/24 @ 08:25 by Heath Yang) Cervical spondylosis Ulnar neuropathy at elbow Carpal tunnel syndrome of right wrist Sessile serrated polyp of colon GERD (gastroesophageal reflux disease) Asthma Surgical History History of colonoscopy History of hemorrhoidectomy History of foot surgery Status post creation of urethral sling by suprapubic approach Family History Mother Heart attack Breast cancer Uterine cancer Father Prostate cancer Social History (Updated 03/08/24 @ 08:24 by Briana Varela) Alcohol intake: current Alcohol intake frequency: holidays/special occasions only Patient Tobacco Use Status: Never used Tobacco Current occupational status: employed 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 Review of Systems Const All systems reviewed & are unremarkable except as noted in HPI and below Physical Exam Vital Signs: BMI result Body Mass Index 30.6 Const General: cooperative, healthy appearing and no acute distress Orientation/consciousness: patient oriented x3 HEENT Head: Yes normocephalic and Yes atraumatic Eyes EOM: EOMs intact bilaterally Resp Effort & Inspection: normal respiratory effort and able to speak in complete sentences Cardio Jugular venous distension: no JVD Skin General skin exam: turgor normal Rashes: no rashes Neuro General: patient oriented x3 Extrem Other: Evaluation of Bilateral Upper Extremity: The patient is alert, oriented, and in no acute distress Neuro: Median, Ulnar, Radial nerves motor and sensory intact and sensation is normal to the tips of all digits No thenar or intrinsic wasting Good APB muscle belly firing and good finger cross Vascular: Cap refill brisk ROM: She can make a fist and extend all her digits No locking or catching Skin: No lacerations or abrasions. General: No Ecchymosis. No Erythema or evidence of infection. Nerve Conduction Study: IMPRESSION: 1. Mild bilateral ulnar neuropathy across cubital tunnel. 2. Mild right median neuropathy across carpal tunnel. Judd Mahmood MD 01/18/2024 Psych Appearance: grossly normal Affect: normal affect Attitude: cooperative Assessment & Plan Assessment & Plan (1) Carpal tunnel syndrome of right wrist: Code(s): G56.01 - Carpal tunnel syndrome, right upper limb Category: Medical (2) Cubital tunnel syndrome on right: Code(s): G56.21 - Lesion of ulnar nerve, right upper limb Category: Medical (3) Cubital tunnel syndrome on left: Code(s): G56.22 - Lesion of ulnar nerve, left upper limb Category: Medical Plan Assessment & Plan: 1. Right carpal tunnel syndrome, mild Symptoms intermittent, but daily, worse at night I educated her about this condition I discussed operative and non-operative treatment options The patient would like to proceed with surgery The risks and benefits of operative treatment were discussed with the patient and the patient wishes to proceed with surgery. These risks include, but are not limited to risk of damage to blood vessels, nerves, tendons, infection, recurrence, incomplete relief of preoperative symptoms, persistent pain, possible need for further surgery and the risks associated with regional blocks and anesthesia. The plan is to take the patient to the operating room sometime in the next few weeks for the following procedures: 1. Right carpal tunnel release, under local All of the preoperative paperwork including the consent was reviewed today. All the patient's questions were answered. The patient understands that they will be contacted by our canceling machine operator soon to schedule this procedure. She would like to be placed on a cancellation list for an earlier surgery. She denies Diabetes, blood thinners, asthma, heart, lung, kidney issues 2. Right cubital tunnel syndrome, mild Asymptomatic 3. Left cubital tunnel syndrome, mild Asymptomatic She denies any cubital tunnel symptoms bilaterally today I educated her about this condition If her symptoms increase in frequency or severity she should follow up to discuss Scribed for Cony Cruz MD by Heath Yang, emergency medical services coordinator, on 03/08/24 at 8:30 AM, EST. Coding Level of Care Code New Pt Level 4 (51662) Diagnoses Carpal tunnel syndrome of right wrist G56.01 Cubital tunnel syndrome on right G56.21 Cubital tunnel syndrome on left G56.22
[2024-03-08 08:24] VITALS: BMI 30.6
== END 2024-03-08 08:49 | disposition home or self-care (01) ==
PROVIDERS: PCP Registered Nurse; Referring Provider Registered Nurse; Visit Provider Orthopaedic Surgery
DX: G56.01 Carpal tunnel syndrome, right upper limb (principal); G56.21 Lesion of ulnar nerve, right upper limb; G56.22 Lesion of ulnar nerve, left upper limb
CPT/HCPCS: 99204

== ENCOUNTER → 2024-03-08 08:04 | Outpatient (BNVA) | payer MEDICAID, SELFPAY | PROVIDERS: PCP Registered Nurse; Visit Provider Orthopaedic Surgery | DX: G56.01 Carpal tunnel syndrome, right upper limb (principal); G56.23 Lesion of ulnar nerve, bilateral upper limbs | CPT/HCPCS: 99202 ==

== ENCOUNTER 2024-03-10 06:57 | Outpatient (REF) | payer MEDICAID, SELFPAY ==
--- NOTE | ~2024-03-10 | MR_ITS ---
EXAMINATION: MR CERVICAL SPINE WITHOUT CONTRAST CLINICAL INFORMATION: Spondylolisthesis neck, shoulder pain radiating down to right lower extremity. COMPARISON: Plain films of the cervical spine 01/24/2024. TECHNIQUE: MRI of the cervical spine was obtained using routine sequences without contrast. FINDINGS: VERTEBRAL BODIES AND PARASPINAL SOFT TISSUES: There is slight reversal of the cervical lordosis at C5-C6. There is narrowing of intervertebral disc height with level with degenerative endplate contour changes and mixed but predominantly fatty endplate signal change. Vertebral body heights are maintained, and no fractures are demonstrated. Overall, marrow signal is homogenous. There is an incompletely visualized T2 hyperintense/T1 hyperintense well-defined area along the right trachea which measures 2.1 x 1.6 x 4.6 cm (oblique AP, transverse and craniocaudal), which may be consistent with a mediastinal cyst. The other visualized regional soft tissues are unremarkable. CERVICOMEDULLARY JUNCTION AND VISUALIZED POSTERIOR FOSSA: The craniocervical and posterior fossa structures are normal. Accounting for artifact, spinal cord signal appears normal. SPINAL LEVELS: C2-C3: There is moderate right facet arthropathy. There is a small soft disc protrusion posteriorly in the midline without spinal cord compression or central stenosis. The neural foramina are patent bilaterally. C3-C4: There is moderate right facet arthropathy. There is a small soft disc protrusion posteriorly in the midline without spinal cord compression or central stenosis. The neural foramina are patent bilaterally. C4-C5: There is mild right facet arthropathy. Posterior disc contour is normal and there is no central stenosis or cord compression. There are uncovertebral osteophytes and there is minimal right foraminal narrowing. C5-C6: There is mild right facet arthropathy. There is a central and left-sided soft disc protrusion which compresses the thecal sac and spinal cord, with effacement of CSF around the cord, and there is mild to moderate central stenosis. There are uncovertebral osteophytes and there is severe left and mild right foraminal narrowing. C6-C7: The facet joints appear normal. There is a central and right-sided soft disc protrusion which compresses the thecal sac and spinal cord with effacement of CSF around the cord, and there is mild to moderate central stenosis. There is no significant foraminal narrowing. C7-T1: The facet joints appear normal bilaterally. Posterior disc contour is normal. There is no spinal cord compression or central stenosis. The neural foramina are patent bilaterally. MR/MR cervical spine wo con IMPRESSION: 1. At C5-C6 there is a central and left-sided soft disc protrusion with cord compression and there is mild to moderate central stenosis. There is severe left and mild right foraminal narrowing. 2. At C6-C7 there is a central and right-sided soft disc protrusion with cord compression and there is mild to moderate central stenosis. There is no significant foraminal narrowing. 3. At C4-C5 there is mild right facet arthropathy. There is minimal right foraminal narrowing. 4. There is an incompletely visualized T2 hyperintense/T1 hyperintense well-defined area along the right trachea which may be consistent with a mediastinal cyst. This could be further evaluated with CT scan of the chest.
== END 2024-03-10 06:58 | disposition home or self-care (01) ==
LOC: HO.MRI 06:57
PROVIDERS: PCP Registered Nurse; Visit Provider Registered Nurse
DX: M43.12 Spondylolisthesis, cervical region (principal); M54.2 Cervicalgia
CPT/HCPCS: 72141

== ENCOUNTER 2024-04-05 09:00 | Outpatient (RCR) | payer MEDICAID, SELFPAY ==
--- NOTE | 2024-03-02 18:09 | MHC.PT.EP ---
[facility] [place] Office [place] Office [place] Office [address] [phone] F: [phone] F: [phone] F: [phone] F: [phone] Physical Therapy Plan of Care Date of Evaluation: 03/02/24 Date of Surgery: n/a Diagnosis: Spondylosis without myelopathy or radiculopathy, cervical region Assessment: Pt is a pleasant 53yo F who presents to PT with right sided neck pain. She also has B carpal tunnel which she follows up with ortho for in February and we discussed possible referral to OT. She presents to PT with current impairments in pain, decreased cervical ROM, decreased right shoulder ROM, decreased strength, soft tissue restrictions, and impaired posture. She is limited functionally by cervical rotation, sleeping, and lifting. She is an excellent candidate for skilled PT in order to address current impairments to facilitate return to PLOF. She is recommended to be seen 2x/week for 4 weeks and will be reassessed at that time Frequency and Duration: The patient will be seen 2x/week for 4 weeks Short Term Goals: Pt will be I with HEP to promote self management of symptoms Pt will improve B cervical rotation by at least 10 degrees Group Home Goals: Pt will achieve full cervical rotation ROM bilaterally to facilitate pain-free driving Pt will demonstrate ability to perform overhead ADLs with minimal to no pain or compensation Treatment Plan: Modalities to reduce pain, spasms and effusion. Manual therapy to restore motion and function. Therapeutic exercise to improve strength and flexibility. Neuromuscular re-education for posture and balance. Therapeutic activities to return to functional activities of daily living. Electronically signed by: Elva Solis, PT, DPT Please sign and return to therapist. Thank you for your referral.
--- NOTE | 2024-07-24 08:52 | MHC.PT.DC ---
[facility] [place] Office [place] Office [place] Office [address] Jess Parker [address] [phone] F: [phone] F: [phone] F: [phone] F: [phone] Physical Therapy Discharge Report Diagnosis: Spondylosis without myelopathy or radiculopathy, cervical region Date of Surgery: n/a Date of Evaluation: 03/02/24 Date of Discharge: 07/24/24 Treatments to Date: 9 Cancellations to Date: No Shows to Date: Discharge Status: Discharge Summary: Pt was seen for PT from 03/02/24-04/05/24. Her last attended and scheduled appointment was 04/05/24. She was placed on hold at last session as she was following up with the doctor regarding her MRI results. She is being D/C from skilled PT as she has not attended or called to schedule in > 30 days. Pt current level of function unknown at this time. From last PT assessment on 04/05/24: Pts shoulder symptoms are improving but she continues to have persistent neck pain. Continued STM with restrictions noted throughout R upper trap. Continued STM and gentle postural stability exercises without increase in symptoms. I discussed the importance of proper posture throughout the day. No adverse response to PT this date. She is scheduled to see the spine clinic next week due to her MRI results. I discussed with pt that we will put her on hold for PT and will reassess after she sees the spine clinic, pt verbalized understanding Electronically signed by: Elva Solis, PT, DPT Please sign and return to therapist. Thank you for your referral.
== END 2024-07-24 08:52 | disposition home or self-care (01) ==
LOC: HO.PT 09:00
PROVIDERS: PCP Registered Nurse; Visit Provider Physical Medicine & Rehabilitation
DX: G56.01 Carpal tunnel syndrome, right upper limb (principal); G56.20 Lesion of ulnar nerve, unspecified upper limb; M47.812 Spondylosis without myelopathy or radiculopathy, cervical region
CPT/HCPCS: 97110; 97140; 97162

== ENCOUNTER 2024-04-13 12:41 | Outpatient (AMB) | payer MEDICAID, SELFPAY ==
--- NOTE | 2024-04-13 12:53 | HO.SPINEOV ---
Intake Visit Reasons: cervical spinal cord comp Intake Note: Ms. Bermudez is here today c/o neck pain. MRI done at [facility]. Senior Bi Developer Required: No Allergies No Known Allergies Allergy (Verified 04/13/24 12:57) Assessment & Plan Assessment & Plan (1) Cervical disc disorder: Code(s): M50.90 - Cervical disc disorder, unspecified, unspecified cervical region Category: Medical Plan Dear Suni, Thank you for referring Mrs Wilson to our office today. She is a very nice 53-year-old female who presents to the office today for evaluation pain on the right side of her neck into her right trapezius area. It started last July and steadily got worse. Eventually it started radiating down her right arm into her forearm. With some physical therapy and some tincture of time that went away, but the right-sided neck pain did not go away. She denies any tingling or numbness of the hands, loss of fine motor movements, balance issues, bowel or bladder incontinence. She takes Advil to help with the pain. She has not had any cortisone injections yet. She underwent a cervical MRI as part of her workup and this showed evidence of disc bulging with possible spinal cord compression at C5-6 and C6-7. She was sent today see us for an evaluation. PMH: She tells me that she is reasonably healthy, history of asthma and allergies but other than that no cardiac, major pulmonary, GI, neurological disorders. No history of blood clots or bleeding disorders. Social hx: She does not smoke, occasionally uses alcohol and does not use any recreational drugs Medications: Singulair, Flonase nasal spray, budesonide inhaler, acetaminophen, Advil Allergies: None Physical exam: She is awake alert oriented she has tenderness over the right paraspinal musculature of the neck going down into the trapezius. Strength is grossly normal in the upper and lower extremities. Rotator cuff impingement signs are all negative. Reflexes are brisk with a Ansari's sign in the right hand and clonus in both ankles. Gait is normal. Imaging review: There is a cervical MRI done at [place] showing severe degenerative disc disease at C5-6 with a left-sided disc protrusion causing compression left C6 nerve root. At C6-7 there is a right sided disc bulge, which appears to cause moderate central canal stenosis. I do not see any cord signal change. 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 Impression: 53-year-old female presents to the office today for evaluation of a right-sided neck pain that started last July. Eventually evolved into a radiculopathy down the arm but has now improved significantly in terms of the arm pain, but she still has the neck pain going down the right side of the neck into the trapezius. Her neurological exam reveals some hyperreflexia but her strength and gait are normal. Her MRI shows that she has evidence of severe disc collapse at C5-6 with left-sided C6 nerve root compression, and C6-7 disc protrusion on the right causing moderate central canal stenosis. No cord signal changes seen. I reviewed the patient's MRI with her, we looked at the imaging together and I explained to her that there is evidence of some spinal cord compression although it is not severe. Although there is no T2 cord signal change,she is demonstrating some signs of hyperreflexia however which means there could be some spinal cord irritation from this. At this time, she has no myelopathic complaints. In terms of the neck pain, I have a suspicion this could be coming from the C5-6 disc space because of the severe collapse. I explained to her that surgery strictly for neck pain can be challenging because the outcomes can be somewhat unpredictable given the nature of neck pain can be multifocal, not just from discogenic source is. Because of some early signs of myelopathy, I am going to review this case with Dr. Paige to see if he thinks we should address the areas of spinal cord compression at C6-7, while at the same time addressing the disc collapse at C5-6 as well which may be part of her pain syndrome. Once I have a chance to review this all with him, I will call the patient back with a final plan. Thank you for allowing us to care for your patient. The total time spent with this visit with this patient was 45 minutes reviewing history, physical exam, cervical imaging review, and implementation of treatment plan or further diagnostic testing Saqib Paige MD,PhD [facility] Coding Level of Care Code New Pt Level 4 (56764) Diagnoses Cervical disc disorder M50.90
== END 2024-04-13 13:53 | disposition home or self-care (01) ==
PROVIDERS: PCP Registered Nurse; Referring Provider Registered Nurse; Visit Provider Physician Assistant
DX: M50.90 Cervical disc disorder, unspecified, unspecified cervical region (principal)
CPT/HCPCS: 99204

== ENCOUNTER → 2024-04-13 12:41 | Outpatient (BNVA) | payer MEDICAID, SELFPAY | PROVIDERS: PCP Registered Nurse; Visit Provider Physician Assistant | DX: M50.90 Cervical disc disorder, unspecified, unspecified cervical region (principal) | CPT/HCPCS: 99212 ==

== ENCOUNTER 2024-04-17 20:11 | Emergency (ER) | payer OTHER, MEDICAID, SELFPAY ==
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
[2024-04-17 20:20] VITALS: BP 153/91; PULSE 77; RESP 18; TEMP 37.6; O2SAT 100; BMI 30.4
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
[2024-04-17 21:59] VITALS: BP 116/69; PULSE 68; RESP 18; TEMP 36.5; O2SAT 96
[2024-04-18] MEDS: Ibuprofen 800 MG TABLET PO (00:22)
[2024-04-18 00:24] VITALS: BP 116/69; PULSE 68; RESP 18; TEMP 36.5; O2SAT 96
== END 2024-04-18 00:24 | disposition home or self-care (01) ==
PROVIDERS: Emergency Provider Emergency Medicine; PCP Physician Assistant
DX: S10.93XA Contusion of unspecified part of neck, initial encounter (principal); M54.2 Cervicalgia; R51.9 Headache, unspecified; X58.XXXA Exposure to other specified factors, initial encounter; V43.52XA Car driver injured in collision with other type car in traffic accident, initial encounter; Y93.9 Activity, unspecified; Y92.488 Other paved roadways as the place of occurrence of the external cause; Y99.8 Other external cause status; Z79.899 Other long term (current) drug therapy
CPT/HCPCS: 72125; 99284

== ENCOUNTER 2024-05-15 10:39 | Day surgery (SDC) | payer MEDICAID, SELFPAY ==
[2024-05-15 11:41] VITALS: BMI 30.8
[2024-05-15 11:43] VITALS: BP 116/66; PULSE 57; RESP 18; TEMP 36.2; O2SAT 100
--- NOTE | 2024-05-15 13:02 | P.OP_ITS ---
Operative Note Operative Note Date of Service: 05/15/24 Narrative: Preop diagnosis: 1. Right Carpal tunnel syndrome Postop diagnosis: same Procedure: 1. Right Carpal tunnel release Surgeon: Cony Cruz MD Dip Lube Operator: None Anesthesia: local block using 1% lidocaine with epinephrine Findings: Thickened transverse carpal ligament. EBL: Less than 5 mL Specimens: None Complications: None Disposition: Brought to recovery room in stable condition Plan: Follow-up for 10-14 days for wound check and suture removal Indications: The patient is 54 years old, with right carpal tunnel syndrome that has been unresponsive to nonoperative management. The risks and benefits of operative treatment including but not limited to risk of damage to blood vessels, nerves, tendons, infection, persistent pain, persistent symptoms, or possible need for additional surgery were discussed with the patient and the patient wishes to proceed with surgery. Procedure: Once consent was obtained a local block was performed using a combination of 1% lidocaine with epinephrine. The patient was then brought back to the operating suite and placed on the operative table in supine position. The right upper extremity was prepped and draped in a standard surgical fashion. Once assured that we had a good block, a 2.0 cm longitudinal incision was made centered over the carpal tunnel. The incision was made through the skin to the subcutaneous tissues using a #15 blade. Dissection was made down to the level of the transverse carpal ligament with care being taken to protect the palmar cutaneous nerve. Once the transverse carpal ligament was clearly visualized, a longitudinal incision was made in the transverse carpal ligament 1st using a #15 blade, then using tenotomy scissors under direct visualization. Care was taken to look for and protect the motor branch of the median nerve when seen in this area. Once satisfied with our carpal tunnel release the wound was copiously irrigated with normal saline and hemostasis was obtained with a brief period of local pressure. The skin edges were reapproximated with some 5.0 nylon suture material and a sterile dressing was applied. The patient appears to have tolerated the procedure well and with no complic ations. All digits were well vascularized at the conclusion of the case.
--- NOTE | 2024-05-15 13:02 | MHC.SHP ---
Pre-Procedural Eval Section A - 24 Hr Update-Section A only Date of Service: 05/15/24 The patient is an INPATIENT: No The patient has been examined within 24 hours of the surgical procedure. The History & Physical has been completed within 30 days and I have reviewed it.: Yes Section B - Complete if H&P > 30 days Chief Complaint: Carpal tunnel syndrome, right upper limb Allergies: Allergies Allergy/AdvReac Type Severity Reaction Status Date / Time No Known Allergies Allergy Verified 04/17/24 20:25 Plan Diagnosis/Plan: Unchanged I have reviewed the history and physical and performed a pertinent physical examination on my patient. No changes have occurred unless specified. Time Spent With Patient Time: Total time managing care of this patient today ____ minutes.
[2024-05-15 13:36] VITALS: BP 141/57; PULSE 67; RESP 16; O2SAT 100
== END 2024-05-15 13:43 | disposition home or self-care (01) ==
PROVIDERS: PCP Physician Assistant; Visit Provider Orthopaedic Surgery
PROC: (CPT 64721; principal; 2024-05-15 12:10)
DX: G56.01 Carpal tunnel syndrome, right upper limb (principal); J45.909 Unspecified asthma, uncomplicated; M50.90 Cervical disc disorder, unspecified, unspecified cervical region
CPT/HCPCS: 64721; 99212; J0171

== ENCOUNTER → 2024-05-15 10:39 | Outpatient (BNV) | payer MEDICAID, SELFPAY | PROVIDERS: PCP Physician Assistant; Visit Provider Orthopaedic Surgery | DX: G56.01 Carpal tunnel syndrome, right upper limb (principal) | CPT/HCPCS: 64721 ==

== ENCOUNTER 2024-05-15 14:25 | Outpatient (AMB) | payer MEDICAID, SELFPAY ==
--- NOTE | 2024-05-15 15:14 | HO.SPINEOV ---
Intake Visit Reasons: Discuss sx Intake Note: Ms. Aidan Varela is here today to discuss surgery Adjudication Specialist Required: No Allergies No Known Allergies Allergy (Verified 05/15/24 15:14) Assessment & Plan Assessment & Plan (1) Cervical disc disorder: Code(s): M50.90 - Cervical disc disorder, unspecified, unspecified cervical region Category: Medical Plan Mrs Katie Varela is here in follow-up today. Please see my previous note for the specifics of the problem. Dr. Paige reviewed the imaging with me, felt she had be a good candidate for an anterior cervical fusion at C5-6 and C6-7. She came back to discuss the procedure. Her symptoms are primarily neck pain. She also had hyperreflexia suggesting of some spinal cord irritation so the plan was to address the C5-6 where there is significant disc break down and [id number] contact seen on her CT scan done here at [facility] and her MRI at [facility]. The C6-7 would be targeted to address the spinal cord compression at that level given the risk of adjacent segment disease in the setting of her hyperreflexia. She tells me today however, that she is interested in going ahead with surgery, but she has been recently found to have a mediastinal mass. They are not sure if it is cancer or not. It is on the right side and does approach the lower cervical spinal levels based on the CT scan she had done after our last visit. She will get that worked up in contact us if she still wants to go ahead and cancer has been ruled out. Before we consider surgery however, we would need to review this again with Dr. Paige and see if he would need to take a left-sided approach to the anterior cervical fusion as we typically go through the right side near where this mass is located. It looks like it is beneath the C6-7 level but I would want him to verify that this would be okay. We did discuss the ACDF procedure at length including risks, benefits as well as recovery. Total amount of time spent in this visit was 20 minutes in discussion of symptoms, cervical MRI and CT imaging results and subsequent plan of care Saqib Paige MD,PhD [facility] Coding Level of Care Code Est Pt Level 3 (75095) Diagnoses Cervical disc disorder M50.90
== END 2024-05-15 15:53 | disposition home or self-care (01) ==
PROVIDERS: PCP Physician Assistant; Visit Provider Physician Assistant
DX: M50.90 Cervical disc disorder, unspecified, unspecified cervical region (principal)
CPT/HCPCS: 99213

== ENCOUNTER 2024-05-25 15:22 | Outpatient (AMB) | payer MEDICAID, SELFPAY ==
[2024-05-25 15:24] VITALS: BP 102/62; PULSE 94; O2SAT 97; BMI 30.6
--- NOTE | 2024-05-25 15:24 | MHC.OFFVIS ---
Vital Signs 05/25/24 15:24 Height 5 ft 1 in Weight 162 lb 0.636 oz BMI 30.6 BP 102/62 Blood Pressure Location Lt brachial Position Sitting Pulse 94 Pulse Source Doppler Pulse Oximetry (%) 97 Oxygen Delivery Method Room Air Intake Visit Reasons: Cough Allergies No Known Allergies Allergy (Verified 05/25/24 15:29) HPI HPI Cough: Details: 54-year-old lady, nonsmoker, followed for cough variant asthma and environmental allergies. She continues to use Symbicort and albuterol MDI/nebs with good control of her asthma symptoms. Patient is also using loratadine and Flonase with good control of her allergies symptoms. She denies any recent exacerbations. Patient is undergoing workup for possible throat cancer. [facility] Medical History Cervical spondylosis Ulnar neuropathy at elbow Carpal tunnel syndrome of right wrist Sessile serrated polyp of colon GERD (gastroesophageal reflux disease) Asthma Surgical History History of colonoscopy History of hemorrhoidectomy History of foot surgery Status post creation of urethral sling by suprapubic approach Family History Mother Heart attack Breast cancer Uterine cancer Father Prostate cancer Social History Alcohol intake: current Alcohol intake frequency: holidays/special occasions only Patient Tobacco Use Status: Never used Tobacco Current occupational status: employed 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 Review of Systems Const Denies daytime sleepiness, Denies excessive sweating, Denies fatigue, Denies fever(s), Denies lethargy, Denies malaise, Denies night sweats, Denies snoring and Denies weight loss Eyes Denies blurry vision and Denies itchy eyes ENT Denies nasal congestion, Denies post nasal drip, Denies sinus pain, Denies sinus pressure and Denies other ( Thrush) Card Denies chest pain, Denies pedal edema, Denies dyspnea, Denies orthopnea and Denies paroxysmal nocturnal dyspnea Resp Denies cough, Denies hemoptysis, Denies excessive phlegm production, Denies dyspnea, Denies snoring and Denies wheezing GI Denies abdominal pain and Denies heartburn Musc Denies myalgias, Denies arthralgias and Denies joint swelling Skin/Breast Denies rash Neuro Denies memory loss and Denies seizure-like activity Psych Denies abnormal sleep pattern, Denies anxiety and Denies memory loss Endo Denies excessive sweating, Denies fatigue and Denies heat intolerance Shiraz/Lymph Denies easy bruising Aller/Immun Denies itchy eyes, Denies seasonal rhinorrhea and Denies wheezing Physical Exam Vital Signs: Last Vital Signs Pulse 94 05/25/24 15:24 BP 102/62 05/25/24 15:24 Pulse Ox 97 05/25/24 15:24 Oxygen Delivery Method Room Air 05/25/24 15:24 BMI result Body Mass Index 30.6 Const General: no acute distress and alert Nutritional Appearance: not obese Orientation/consciousness: Other orientation findings ( oriented) HEENT Head: Yes atraumatic Eyes General: appearance normal, both eyes and all related structures Sclerae: sclerae normal EOM: EOMs intact bilaterally Neck Neck: Yes supple Lymphatic: no lymphadenopathy noted Resp Effort & Inspection: normal respiratory effort and no use of accessory muscles Auscultation: clear to auscultation bilaterally Cardio Rate: regular rate Rhythm: regular rhythm Heart sounds: no gallops, no murmurs and no rubs Skin General skin exam: other ( warm) Extrem General: No clubbing, No cyanosis and No edema Assessment & Plan Assessment & Plan (1) Asthma: Code(s): J45.909 - Unspecified asthma, uncomplicated Category: Medical Plan: Well controlled on Symbicort and albuterol MDI/nebs. Continue current regimen. (2) Seasonal allergies: Code(s): J30.2 - Other seasonal allergic rhinitis Category: Medical Plan: Well controlled on as needed loratadine and Flonase. Continue current regimen. Coding Level of Care Code Est Pt Level 4 (91708) Diagnoses Asthma J45.909 Seasonal allergies J30.2
== END 2024-05-25 15:37 | disposition home or self-care (01) ==
PROVIDERS: PCP Registered Nurse; Referring Provider Registered Nurse; Visit Provider Internal Medicine Pulmonary Disease
DX: J45.909 Unspecified asthma, uncomplicated (principal); J30.2 Other seasonal allergic rhinitis
CPT/HCPCS: 99214

== ENCOUNTER → 2024-05-25 15:22 | Outpatient (BNVA) | payer MEDICAID, SELFPAY | PROVIDERS: PCP Registered Nurse; Visit Provider Internal Medicine Pulmonary Disease | DX: J45.909 Unspecified asthma, uncomplicated (principal); J30.2 Other seasonal allergic rhinitis | CPT/HCPCS: 99212 ==

== ENCOUNTER 2024-05-31 12:06 | Outpatient (AMB) | payer MEDICAID, SELFPAY ==
--- NOTE | 2024-05-31 12:13 | MHC.OFFVIS ---
Vital Signs 05/31/24 12:14 Height 5 ft 1 in Weight 162 lb BMI 30.6 Intake Visit Reasons: PO RT CTR 05/15/24 AR Intake Note: Goldie is a 54 yo right hand dominant female who presents today post operatively s/p right carpal tunnel release done 05/15/[address] Cruz. Patient reports minimal discomfort around incision site. Denies numbness, tingling, or locking on fingers. She reports taking Ibuprofen PRN. Sutures removed in office today and steri strips applied. Allergies No Known Allergies Allergy (Verified 05/31/24 12:26) HPI HPI PO RT CTR 05/15/24 AR: Details: Goldie is a 54 year old right hand dominant woman who returns S/P right carpal tunnel release, DOS: 05/15/24. She says she is doing well, with minimal pain, and her sensation is now normal. She is happy with the results of her surgery and improvement in her nighttime symptoms. [facility] Medical History Cervical spondylosis Ulnar neuropathy at elbow Carpal tunnel syndrome of right wrist Sessile serrated polyp of colon GERD (gastroesophageal reflux disease) Asthma Surgical History History of colonoscopy History of hemorrhoidectomy History of foot surgery Status post creation of urethral sling by suprapubic approach Family History Mother Heart attack Breast cancer Uterine cancer Father Prostate cancer Social History Alcohol intake: current Alcohol intake frequency: holidays/special occasions only Patient Tobacco Use Status: Never used Tobacco Current occupational status: employed 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 Sutures removed and Steri-Strips applied She can make a fist and extend all her digits Sensation is improved and now normal to the tips of all digits Cap refill is brisk Nerve Conduction Study: IMPRESSION: 1. Mild bilateral ulnar neuropathy across cubital tunnel. 2. Mild right median neuropathy across carpal tunnel. Judd Mahmood MD 01/18/2024 Psych Appearance: grossly normal Affect: normal affect Attitude: cooperative Assessment & Plan Assessment & Plan (1) Carpal tunnel syndrome of right wrist: Code(s): G56.01 - Carpal tunnel syndrome, right upper limb Category: Medical (2) Cubital tunnel syndrome on right: Code(s): G56.21 - Lesion of ulnar nerve, right upper limb Category: Medical (3) Cubital tunnel syndrome on left: Code(s): G56.22 - Lesion of ulnar nerve, left upper limb Category: Medical Plan Assessment & Plan: 1. Right carpal tunnel syndrome, S/P release DOS: 05/15/24 Pre-operative symptoms intermittent, but daily, worse at night Now with normal sensation today in clinic The patient appears to be doing well post-operatively I educated her about the post-operative course I discussed activity modifications, she is to lift nothing heavier than a cellphone for the next two weeks She will perform gentle ROM exercises at home She should avoid any underwater activities for the next 5 days She should gently massage about the incision site to reduce the risk of hypersensitivity She can follow up prn 2. Right cubital tunnel syndrome, mild Asymptomatic 3. Left cubital tunnel syndrome, mild Asymptomatic She denies any cubital tunnel symptoms bilaterally today I educated her about this condition If her symptoms increase in frequency or severity she should follow up to discuss Scribed for Cony Cruz MD by arnoldo Mi, on 05/31/24 at 12:40 PM, EST. Scribe Plan - Not visible on output: Scribed for Cony Cruz MD by arnoldo Mi, on [ ] at [ ], EST. Coding Level of Care Code Global (05729) Diagnoses Carpal tunnel syndrome of right wrist G56.01 Cubital tunnel syndrome on right G56.21 Cubital tunnel syndrome on left G56.22
[2024-05-31 12:14] VITALS: BMI 30.6
== END 2024-05-31 12:40 | disposition home or self-care (01) ==
PROVIDERS: PCP Registered Nurse; Visit Provider Orthopaedic Surgery
DX: G56.01 Carpal tunnel syndrome, right upper limb (principal); G56.21 Lesion of ulnar nerve, right upper limb; G56.22 Lesion of ulnar nerve, left upper limb
CPT/HCPCS: 99024

== ENCOUNTER → 2024-05-31 12:06 | Outpatient (BNVA) | payer MEDICAID, SELFPAY | PROVIDERS: PCP Registered Nurse; Visit Provider Orthopaedic Surgery | DX: Z47.89 Encounter for other orthopedic aftercare (principal); G56.23 Lesion of ulnar nerve, bilateral upper limbs; Z98.890 Other specified postprocedural states | CPT/HCPCS: 99212 ==

== ENCOUNTER 2024-06-08 15:03 | Outpatient (AMB) | payer MEDICAID, SELFPAY ==
--- NOTE | 2024-06-08 15:03 | A.SPINEOV_ITS ---
Intake Visit Reasons: Pet scan results Intake Note: Ms. Aidan Varela is here today to review her PET Scan results. 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 She has been followed in our office for degenerative disc disease at C5-6 and C6-7 in the setting of neck pain. She had some hyperreflexia but no myelopathic symptoms so we have chose to offer her the option of pursuing surgery in an elective manner. She had been worked up for incidentally found paratracheal cyst or lymph node and mediastinal mass with a PET scan. This showed concerning findings for metastatic lesions in thyroid and paratracheal regions. She was referred to Oncology, but upon receiving the referral she was told by the office to go directly to the emergency room and have her neck surgery done. She came by the office today just to discuss with us whether not this would be an appropriate step. I talked to her again, her main complaint is neck pain, she has no tingling or weakness in her arms hands or legs, gait imbalance etc.. I reviewed her imaging again showing disc bulging and moderate stenosis at C5-6 and C6-7. Dr. Paige and I reviewed the imaging previously, did not see any cord signal change and therefore there is no urgency to operate on her. Her main issue to be addressed right now is the possible metastatic cancer. Obviously if she develops myelopathic symptoms we could expedite an operation for her, but going into the front of her neck for an elective procedure with the possibility that there is active cancer in the area may put the patient at risk on necessarily. I called the office of the oncologist and spoke to Dr Low and explained to him that the patient's findings were not deemed an emergency or urgent, but rather are degenerative in nature and can be dealt with after she has the biopsies of her neck and mediastinum and has an oncology evaluation. They will call her to arrange a visit. Total amount of time spent in this visit was 20 minutes in discussion of symptoms, cervical imaging results and subsequent plan of care Saqib Paige MD,PhD [facility] Coding Level of Care Code Est Pt Level 3 (09985) Diagnoses Cervical disc disorder M50.90
== END 2024-06-08 15:32 | disposition home or self-care (01) ==
LOC: HO.HNS 15:03
PROVIDERS: PCP Registered Nurse; Visit Provider Physician Assistant
DX: M50.90 Cervical disc disorder, unspecified, unspecified cervical region (principal)
CPT/HCPCS: 99213

== ENCOUNTER → 2024-06-08 15:03 | Outpatient (BNVA) | payer MEDICAID, SELFPAY | PROVIDERS: PCP Registered Nurse; Visit Provider Physician Assistant | DX: M50.90 Cervical disc disorder, unspecified, unspecified cervical region (principal) | CPT/HCPCS: 99212 ==

== ENCOUNTER 2024-06-13 07:47 | Outpatient (REF) | payer MEDICAID, SELFPAY ==
--- NOTE | ~2024-06-13 | MM_ITS ---
EXAMINATION: MM SCREENING DIGITAL BREAST TOMOSYNTHESIS, BILATERAL CLINICAL INFORMATION: Screening. Asymptomatic. COMPARISON: Mammography: Comparison is made with available priors TECHNIQUE: Digital breast mammography with tomosynthesis is performed in both the craniocaudal and mediolateral oblique views along with computer-aided detection (CAD). FINDINGS: There are scattered areas of fibroglandular density (ACR BI-RADS breast composition Category b). There are no significant masses, abnormal calcifications, or other abnormalities. MM/MM tomosynthesis screening BI IMPRESSION: No mammographic evidence of malignancy. ASSESSMENT: BI-RADS BI-RADS 1 - Negative RECOMMENDATION: Routine annual mammography screening. 1 year F/U This examination should not preclude the clinical evaluation of a suspicious palpable abnormality. This patient's information was entered into a reminder system with a target due date for their next mammogram. Electronically signed by: Grace Humphrey DO 06/26/2024 03:18 PM EDT
== END 2024-06-13 07:48 | disposition home or self-care (01) ==
LOC: HO.MAMMO 07:47
PROVIDERS: PCP Registered Nurse; Visit Provider Registered Nurse
DX: Z12.31 Encounter for screening mammogram for malignant neoplasm of breast (principal)
CPT/HCPCS: 77063; 77067

== ENCOUNTER → 2024-06-13 08:15 | Outpatient (BNV) | payer MEDICAID, SELFPAY | PROVIDERS: PCP Registered Nurse; Visit Provider Internal Medicine | DX: Z12.31 Encounter for screening mammogram for malignant neoplasm of breast (principal) | CPT/HCPCS: 77063; 77067 ==

== ENCOUNTER 2024-07-27 10:04 | Outpatient (AMB) | payer MEDICAID, SELFPAY ==
--- NOTE | 2024-07-27 10:17 | A.OFFVIS_ITS ---
Vital Signs 07/27/24 10:18 Height 5 ft 1 in Weight 159 lb BMI 30.0 BP 117/77 Blood Pressure Location Rt brachial Position Sitting Pulse 85 Intake Visit Reasons: 6 months follow up Intake Note: Patient presents in office today in 6 months follow up of GERD. CC: Patient reports mild constipation. Denies other GI symptoms. 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 She is having trouble with a vit D supplement, 1000mg, as it is upsetting her stomach. ROV 6 mos. Medications: Refilled dicyclomine 10 mg PO TID 90 caps 1RF R10.9 - Unspecified abdominal pain famotidine 20 mg PO BID 180 tabs 2RF TODAY'S VISIT Humberto arrington She is on famitidine 20mg bid and bentyl. She has had some health scares and she is struggling with right sided neck pain that was thought to be degenerative disc disease of the cervical spine but when she went to have surgery that did not MRI which uncovered an undefined area of inflammation in the neck somewhat adjacent to the thyroid. It is uncertain what this thing is. She underwent a subsequent CT scan without definitive definition and then underwent a PET scan where it showed some unusual metabolic activity. She is currently following with Oncology to completely pin this down, and of course she needs to find out before she undergoes any sort of orthopedic surgery that may not fix the problem if in fact the inflammation stems from this incidentaloma. However she continues to do well on her GI regimen. Return office visit in 6 months REPLACED BY [facility] Medical History (Updated 08/10/24 @ 10:14 by Kalpana Jackson RN) Environmental allergies Seasonal allergies Diverticulosis Personal history of COVID-19 (~04/2024) Cervical spondylosis Ulnar neuropathy at elbow Carpal tunnel syndrome of right wrist Sessile serrated polyp of colon GERD (gastroesophageal reflux disease) Diverticulitis (~2020) Asthma Surgical History (Updated 08/10/24 @ 10:20 by Kalpana Jackson, RN) Hx of lymph node biopsy (08/09/24) History of carpal tunnel release (05/15/24) History of colonoscopy History of hemorrhoidectomy History of foot surgery Status post creation of urethral sling by suprapubic approach Family History Mother Heart attack Breast cancer Uterine cancer Father Prostate cancer Social History (Updated 08/10/24 @ 10:14 by Kalpana Jackson, MORIS) Household Members: Children Household Members Other:: 3 children Housing: Apartment Are you a primary health care specialist to a significant other at home: Yes (children) Do you presently have visiting nurse or other home services: No 75 years or older and lives alone: No Alcohol intake: current Alcohol intake frequency: holidays/special occasions only Patient Tobacco Use Status: Never used Tobacco e-Cigarette/Vaping Use: Never Used Current occupational status: employed 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 Review of Systems Const Denies fatigue, Denies fever(s), Denies night sweats, Denies poor appetite and Denies weight loss ENT Reports Normal hearing present, Denies dental pain, Denies dysphagia, Denies hearing loss, Denies mouth pain, Reports neck pain, Denies odynophagia, Denies throat swelling, Denies tongue swelling and Reports other (Dentition adequate) Card Reports no additional complaints Resp Reports no additional complaints GI Details: Denies abdominal pain, Denies melena, Reports bloating, Denies hematochezia, Denies constipation, Denies GI cramping, Denies dysphagia, Denies excessive flatus, Denies early satiety, Reports heartburn, Denies diarrhea, Denies nausea, Denies odynophagia, Denies vomiting and Denies hematemesis Musc Reports neck pain Skin/Breast Denies pruritus, Denies lesions, Denies rash and Denies jaundice Neuro Reports Normal hearing present and Denies Abnormal speech present Endo Denies fatigue Aller/Immun Denies throat swelling and Denies tongue swelling Physical Exam Vital Signs: Last Vital Signs Pulse 85 07/27/24 10:18 BP 117/77 07/27/24 10:18 BMI result Body Mass Index 30.0 Const General: cooperative, no acute distress, well developed and well groomed Nutritional Appearance: well nourished and obese Orientation/consciousness: oriented to person, oriented to place and oriented to time Limitations: No language barrier and ambulation with walker HEENT Head: Yes normocephalic and Yes atraumatic Eyes General: appearance normal, both eyes and all related structures Pupils: Equal, round and reactive pupils present Neck Neck: Yes normal visual inspection and Yes no lymphadenopathy Thyroid: Thyroid normal Resp Effort & Inspection: normal respiratory effort and able to speak in complete sentences Auscultation: clear to auscultation bilaterally Cardio Rate: regular rate Rhythm: regular rhythm Heart sounds: Normal, physiologic split S2 sound present Peripheral pulses: radial pulses present and posterior tibial pulses present GI Inspection: No distended, No Abdominal panniculus present and Yes obesity Palpation (GI): Soft to palpation, nontender, no guarding, not rigid and No hepatosplenomegaly present Percussion: Yes normal to percussion Auscultation: normal bowel sounds Rectal Exam - Female: deferred Skin General skin exam: no rashes or lesions noted, turgor normal, skin not dry, no jaundice, No spider nevi and no striae Rashes: no rashes Nails: normal Neuro General: oriented to person, oriented to place and oriented to time Cranial nerves: Yes Equal, round and reactive pupils present and Yes Normal hearing present Speech: No Abnormal speech present Extrem General: Yes normal to inspection, No clubbing, No cyanosis and No edema Psych Appearance: grossly normal and well kempt Mental Status: mental status grossly normal Speech and movement: Normal speech and movement present Affect: normal affect Attitude: cooperative Thought process: Normal thought process present and not confabulating Thought content: Normal thought content present Insight: Limited insight present (Psych) Judgement: Limited judgement present (Psych) Assessment & Plan Assessment & Plan (1) GERD (gastroesophageal reflux disease): Code(s): K21.9 - Gastro-esophageal reflux disease without esophagitis Category: Medical (2) Abdominal cramping: Code(s): R10.9 - Unspecified abdominal pain Category: Medical Plan Trinidadian #declines She is on famitidine 20mg bid and bentyl. She has had some health scares and she is struggling with right sided neck pain that was thought to be degenerative disc disease of the cervical spine but when she went to have surgery that did not MRI which uncovered an undefined area of inflammation in the neck somewhat adjacent to the thyroid. It is uncertain what this thing is. She underwent a subsequent CT scan without definitive definition and then underwent a PET scan where it showed some unusual metabolic activity. She is currently following with Oncology to completely pin this down, and of course she needs to find out before she undergoes any sort of orthopedic surgery that may not fix the problem if in fact the inflammation stems from this incidentaloma. However she continues to do well on her GI regimen. Return office visit in 6 months Coding Level of Care Code Est Pt Level 3 (86800) Diagnoses GERD (gastroesophageal reflux disease) K21.9 Abdominal cramping R10.9
[2024-07-27 10:18] VITALS: BP 117/77; PULSE 85
== END 2024-07-27 11:54 | disposition home or self-care (01) ==
PROVIDERS: PCP Registered Nurse; Visit Provider Nurse Practitioner
DX: K21.9 Gastro-esophageal reflux disease without esophagitis (principal); R10.9 Unspecified abdominal pain
CPT/HCPCS: 99213

== ENCOUNTER → 2024-07-27 10:04 | Outpatient (BNVA) | payer MEDICAID, SELFPAY | PROVIDERS: PCP Registered Nurse; Visit Provider Nurse Practitioner | DX: K21.9 Gastro-esophageal reflux disease without esophagitis (principal); R10.9 Unspecified abdominal pain | CPT/HCPCS: 99212 ==

== ENCOUNTER 2024-08-23 09:55 | Outpatient (REF) | payer MEDICAID, SELFPAY ==
[2024-08-23 12:15] LABS: Alanine Aminotransferase 17 U/L (0-31); Albumin Level 4.3 g/dL (3.5-5.0); Alkaline Phosphatase 103 U/L (39-117); Anion Gap 15 (12-20); Aspartate Amino Transferase 18 U/L (5-31); Bilirubin Total 0.4 mg/dL (0.0-1.0); Blood Urea Nitrogen 10 mg/dL (9-16); Calcium 9.6 mg/dL (8.4-10.2); Carbon Dioxide 28 mmol/L (22-29); Chloride 103 mmol/L (96-108); Estimated Glomerular Filt Rate > 60; Glucose Random 84 mg/dL (60-115); Potassium 3.5 mmol/L (3.3-5.1); Sodium 142 mmol/L (135-145); Total Protein 7.9 g/dL (6.5-8.0)
[2024-08-23 12:19] LABS: Vitamin D 25-OH Total 38.5 ng/mL (>30)
== END 2024-08-23 09:56 | disposition home or self-care (01) ==
LOC: HO.HHCL 09:55
PROVIDERS: Visit Provider Registered Nurse
DX: Z01.818 Encounter for other preprocedural examination (principal); E55.9 Vitamin D deficiency, unspecified
CPT/HCPCS: 36415; 80053; 82306

== ENCOUNTER 2024-08-31 05:45 | Day surgery (SDC) | payer MEDICAID, SELFPAY ==
[2024-08-10 09:58] VITALS: BP 113/74; PULSE 67; RESP 16; O2SAT 99; BMI 30.2
--- NOTE | 2024-08-10 10:20 | HO.ANESPROP2 ---
Documented by User: Shanel Meek NP 08/18/24 12:32 HPI - Anesthesia Eval Consult details Narrative: 54yo F for C5-6,C6-7 Ant Cerv Discectomy w/ fusion, 08/31/24 No recent illness No CP/SOB with walking ~ 20 mins Lymphnode bx 08/09/24 to r/o lymphoma (previously done and negative) Asthma. Stable. Follows [facility] pulmo. Last office visit04/2024 PMF[facility] Active Problems Active Problems: All Active Problems Cervical disc disorder (Acute) Cubital tunnel syndrome on left (Acute) Cubital tunnel syndrome on right (Acute) Myofascial pain (Acute) Abdominal cramping (Acute) Depression (Acute) Psoriasis (Acute) Adrenal adenoma (Acute) Stress incontinence (Acute) Seasonal allergies (Acute) Headache (Acute) Cervical spondylosis (Acute) Ulnar neuropathy at elbow (Acute) Carpal tunnel syndrome of right wrist (Acute) Asthma (Acute) Sessile serrated polyp of colon (Acute) GERD (gastroesophageal reflux disease) (Acute) Past Medical History Medical History (Updated 08/10/24 @ 10:14 by Kalpana Jackson RN) Environmental allergies Seasonal allergies Diverticulosis Personal history of COVID-19 (~04/2024) Cervical spondylosis Ulnar neuropathy at elbow Carpal tunnel syndrome of right wrist Sessile serrated polyp of colon GERD (gastroesophageal reflux disease) Diverticulitis (~2020) Asthma Family History Family History Mother Heart attack Breast cancer Uterine cancer Father Prostate cancer Family history of problems with anesthesia: No Surgical History Surgical History (Updated 08/10/24 @ 10:20 by Kalpana Jackson RN) Hx of lymph node biopsy (08/09/24) History of carpal tunnel release (05/15/24) History of colonoscopy History of hemorrhoidectomy History of foot surgery Status post creation of urethral sling by suprapubic approach History of Problems with Anesthesia: No Social History Social History (Updated 08/10/24 @ 10:14 by Kalpana Jackson RN) Household Members: Children Household Members Other:: 3 children Housing: Apartment Are you a primary coronary care unit nurse to a significant other at home: Yes (children) Do you presently have visiting nurse or other home services: No Alcohol intake: current Alcohol intake frequency: holidays/special occasions only Patient Tobacco Use Status: Never used Tobacco e-Cigarette/Vaping Use: Never Used Use of substances other than those prescribed or required for medical reasons: No Have you been hit, kicked, punched, or otherwise hurt by someone within the past year? 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 Meds Allergies Allergy/AdvReac Type Severity Reaction Status Date / Time No Known Allergies Allergy Verified 08/31/24 06:39 Home Medications ?Medication ?Instructions ?Recorded ?Confirmed ?Last Taken ?Type albuterol sulfate 90 mcg/actuation 2 puff inhalation Q6H PRN dyspnea 09/09/22 08/31/24 Unknown History aerosol inhaler (ProAir HFA) budesonide-formoterol HFA 160 2 puff inhalation DAILY 05/21/23 08/31/24 Unknown History mcg-4.5 mcg/actuation aerosol inhaler (Symbicort) Exam Height,Weight and Vital Signs: Height 5 ft 1 in Weight 72.575 kg Last Vital Signs Pulse 67 08/10/24 09:58 Resp 16 08/10/24 09:58 BP 113/74 08/10/24 09:58 Pulse Ox 99 08/10/24 09:58 O2 Del Method Room Air 08/10/24 09:58 Airway Neck ROM: Limited Loose/Missing/Broken Teeth: Yes (molars extracted) Heart: RRR Lungs: CTAB Assessment and Plan Assessment Anesthesia Assessment: Anesthesia Plan Discussed and PAT Visit Final Anesthetic Review Family History of Problems with Anesthesia: No History of Problems with Anesthesia: No Documented by User: Floresita Purdy MD 08/31/24 07:16 [facility] Active Problems Active Problems: All Active Problems Cervical disc disorder (Acute). Denies UE numbness. Does drop things sometimes but states because of carpal tunnel Right hand which she has had surgery for Cubital tunnel syndrome on left (Acute) Cubital tunnel syndrome on right (Acute) Myofascial pain (Acute) Abdominal cramping (Acute) Depression (Acute) Psoriasis (Acute) Adrenal adenoma (Acute) Stress incontinence (Acute) Seasonal allergies (Acute) Headache (Acute) Cervical spondylosis (Acute) Ulnar neuropathy at elbow (Acute) Carpal tunnel syndrome of right wrist (Acute) Asthma (Acute) Sessile serrated polyp of colon (Acute) GERD (gastroesophageal reflux disease) (Acute) Past Medical History Medical History (Updated 08/10/24 @ 10:14 by Kalpana Jackson, MORIS) Environmental allergies Seasonal allergies Diverticulosis Personal history of COVID-19 (~04/2024) Cervical spondylosis Ulnar neuropathy at elbow Carpal tunnel syndrome of right wrist Sessile serrated polyp of colon GERD (gastroesophageal reflux disease) Diverticulitis (~2020) Asthma Family History Family History Mother Heart attack Breast cancer Uterine cancer Father Prostate cancer Family history of problems with anesthesia: No Surgical History Surgical History (Updated 08/10/24 @ 10:20 by Kalpana Jackson, MORIS) Hx of lymph node biopsy (08/09/24) History of carpal tunnel release (05/15/24) History of colonoscopy History of hemorrhoidectomy History of foot surgery Status post creation of urethral sling by suprapubic approach History of Problems with Anesthesia: No Social History Social History (Updated 08/10/24 @ 10:14 by Kalpana Jackson RN) Household Members: Children Household Members Other:: 3 children Housing: Apartment Are you a primary coronary care unit nurse to a significant other at home: Yes (children) Do you presently have visiting nurse or other home services: No Alcohol intake: current Alcohol intake frequency: holidays/special occasions only Patient Tobacco Use Status: Never used Tobacco e-Cigarette/Vaping Use: Never Used Use of substances other than those prescribed or required for medical reasons: No Have you been hit, kicked, punched, or otherwise hurt by someone within the past year? 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 Meds Allergies Allergy/AdvReac Type Severity Reaction Status Date / Time No Known Allergies Allergy Verified 08/31/24 06:39 Home Medications ?Medication ?Instructions ?Recorded ?Confirmed ?Last Taken ?Type albuterol sulfate 90 mcg/actuation 2 puff inhalation Q6H PRN dyspnea 09/09/22 08/31/24 Unknown History aerosol inhaler (ProAir HFA) budesonide-formoterol HFA 160 2 puff inhalation DAILY 05/21/23 08/31/24 Unknown History mcg-4.5 mcg/actuation aerosol inhaler (Symbicort) Exam Height,Weight and Vital Signs: Height 5 ft 1 in Weight 72.575 kg Last Vital Signs Pulse 67 08/10/24 09:58 Resp 16 08/10/24 09:58 BP 113/74 08/10/24 09:58 Pulse Ox 99 08/10/24 09:58 O2 Del Method Room Air 08/10/24 09:58 Vital Signs Temp Pulse Resp BP Pulse Ox O2 Del Method 08/31/24 06:35 98.7 F 84 16 109/73 97 Room Air Airway Mallampati Class: II TM Dist: >3cm Neck ROM: Limited (Pain with extension) Loose/Missing/Broken Teeth: Yes (Missing tooth bottom Right back. Denies broken or loose teeth) Heart: RRR Lungs: CTAB Assessment and Plan Assessment Anesthesia Assessment: Anesthesia Plan Discussed, PAT Visit and Chart Reviewed Final Anesthetic Review Family History of Problems with Anesthesia: No History of Problems with Anesthesia: No NPO: Yes ASA Class: II Final Preanesthetic Review: No Changes in Pt Med Stat, Meds/Allgs Chart Reviewed, Consent Obtained/Reviewed and Anes Risks/Benef Reviewed Patient Risk: Intermediate Procedure Risk: Low Assessment/Block/Sedation in SS: Assess/Block/Sedation-SS Anesthetic Plan Anesthetic Plan: GA Disposition: Standard PACU and Inp. Admit - Standard Bed
[2024-08-31] VITALS (11 sets, daily range): BP systolic 109–131; BP diastolic 71–80; PULSE 65–84; RESP 12–30; TEMP 36.1–37.1; O2SAT 95–100; BMI 29.9
[2024-08-31] MEDS: Lactated Ringers 1,000 ML 100 ML IVCONT (06:55)
[2024-08-31] MEDS: methocarbamoL 750 MG TABLET PO (06:55)
[2024-08-31] MEDS: Gabapentin 300 MG CAPSULE PO (06:55)
--- NOTE | 2024-08-31 07:13 | MHC.SHP ---
Pre-Procedural Eval Section A - 24 Hr Update-Section A only Date of Service: 08/31/24 The patient is an INPATIENT: No Changes since office visit: No Cold of Flu in the past 2 weeks, No New Medical Problems, No Changes in Medication and No Patient answered all questions The patient has been examined within 24 hours of the surgical procedure. The History & Physical has been completed within 30 days and I have reviewed it.: No Section B - Complete if H&P > 30 days Chief Complaint: Cervical disc disorder, unspecified, Allergies: Allergies Allergy/AdvReac Type Severity Reaction Status Date / Time No Known Allergies Allergy Verified 08/31/24 06:39 Review of Systems Sugical H&P ROS: Negative: Constitution, Cardiovascular, Respiratory, Neurological, Psychiatric, Hem-Onc, Allergic/Immunologic, Gastrointestinal, Genitourinary, Musculoskeletal, Integumentary, Endocrine and Eyes/Ears/Nose/Throat Exam Surgical H&P Exam: Normal: HEENT, Normal: Heart, Normal: Lungs, Normal: Extremities, Normal: Abdomen, Normal: Skin and Normal: Neurological Plan Diagnosis/Plan: Unchanged C5-6, C6-7 ACDF Time Spent With Patient Time: Total time managing care of this patient today __6__ minutes.
--- NOTE | 2024-08-31 09:19 | PM.DS ---
DS: Providers Provider Date of Service: 08/31/24 Date of discharge: 08/31/24 Primary care physician: JULIO Skaggs Admitting clinician: Husam Paige DS: Diagnosis Discharge Diagnosis (1) Cervical disc disorder: Status: Acute DS: Summary Time Attestation Discharge Coordination Time (in mins): 6 Quality: Safe Use of Opioids Does Pt have an Active Cancer Diagnosis on the Problem List?: No Quality: Stroke Does the patient have a stroke diagnosis?: No Physical Exam Vital Signs: Vital Signs: Last Vital Signs Temp 98.7 F 08/31/24 06:35 Pulse 84 08/31/24 06:35 Resp 16 08/31/24 06:35 BP 109/73 08/31/24 06:35 Pulse Ox 97 08/31/24 06:35 O2 Del Method Room Air 08/31/24 06:35 BMI result Body Mass Index 29.9 Discharge Plan Discharge Patient Disposition: Home, Self-Care Referrals: Suni Flores FNP [Primary Care Provider] - 1 Week Discharge Medications: New docusate sodium [Colace] 100 mg capsule 100 mg PO BID Qty: 20 0RF oxycodone 5 mg tablet 5 mg PO Q4H PRN (Reason: pain) Qty: 30 0RF Rx Instructions: Partial Fill upon patient request. Continued Flovent HFA 220 mcg/actuation HFA aerosol inhaler 2 puff PO BID 30 Days Qty: 1 6RF dicyclomine 10 mg capsule 10 mg PO TID Qty: 90 1RF fluticasone propionate [Flonase Allergy Relief] 50 mcg/actuation spray,suspension 1 spray intranasal BID Qty: 16 0RF Rx Instructions: administer into each nostril loratadine [Claritin] 10 mg tablet 10 mg PO DAILY PRN (Reason: allergy symptoms) Qty: 20 0RF albuterol sulfate 90 mcg/actuation HFA aerosol inhaler 1 inh inhalation QID PRN (Reason: shortness of breath or wheezing) Qty: 8.5 0RF (DME) nebulizers [AeroEclipse II Nebulizer] Misc See Rx Instructions .ROUTE .MEDSUPPLY Qty: 1 0RF Rx Instructions: As directed albuterol sulfate 0.63 mg/3 mL solution for nebulization 0.63 mg inhalation QID PRN (Reason: shortness of breath or wheezing) Qty: 75 0RF cyclobenzaprine 5 mg tablet 5 mg PO TID PRN (Reason: muscle spasm) Qty: 10 0RF lidocaine 5 % adhesive patch,medicated 1 patch topical DAILY Qty: 15 0RF Rx Instructions: leave on most painful area for up to 12 hrs celecoxib [Celebrex] 200 mg capsule 200 mg PO BID 14 Days Qty: 28 0RF albuterol sulfate [ProAir HFA] 90 mcg/actuation HFA aerosol inhaler 2 puff inhalation Q6H PRN (Reason: dyspnea) budesonide-formoterol [Symbicort] 160-4.5 mcg/actuation HFA aerosol inhaler 2 puff inhalation DAILY famotidine 20 mg tablet 20 mg PO BID Qty: 180 2RF Held ibuprofen 600 mg tablet 600 mg PO Q8H PRN (Reason: pain) Qty: 20 0RF Hold Instructions: Resume on 09/01/24. You may resume this tomorrow Discharge Orders: Discharge Order (Routine); Ordered 08/31/24 Ordered By: Saqib Louie Diet: Advance to usual diet Activity on Discharge: As tolerated Activity Restrictions/Additional Instructions: After your spinal surgery we ask you to observe the following restrictions/guidelines: Activity: It is normal to feel some discomfort as you increase your activity, but that will improve with time. We ask you avoid heavy lifting or acitivities that cause pain. As a general rule, 8lbs is a safe limit for lifting right after surgery. Walk as much as you feel comfortable but not to exhaustion. You will feel extra tired the first few days after surgery. Stay well hydrated. It is OK to walk up and down stairs You may return to driving when you are off narcotics (such as vicodin, oxycodone, dilaudid, etc), and you are back to normal functional capacity. If you have any concerns please check with office before driving. Return to work is specific to each patient and each surgery, so please speak with your doctor/PA at first follow up. Please bring paperwork such as FMLA at that time if you need it filled out. Medications: For optimum pain control, it is best to start with a combination of 500 mg of Tylenol every 4 hours with 600 mg of Motrin every 8 hours, and use narcotics as needed in between for breakthrough pain. We will give you a short supply of narcotics after surgery (usually one weeks worth). If you need more please call the office but do not use more than prescribed. You will need to give our office 48 hours notice if you need narcotics refilled and we do not fill narcotics on weekends or evenings. If you are on a narcotic, it is a good idea to take a stool softener such as colace or senna to avoid constipation If you take blood thinner such as aspirin, Plavix, Coumadin, Effient, Eliquis etc for conditions such as Afib, DVT, Pulmonary embolus, coronary disease, stents etc please speak with your surgeon about specific details as to when you can resume these medications. You can resume NSAIDs on post op day 1 (eg: Motrin, Naproxen, etc). Follow up: Please call the office, , after surgery to arrange a 3 week follow up for wound check. Wound Care: You may remove your dressing on the first day after surgery. ?You may ?leave open to air. Please do not remove the steri strips underneath. they will fall off on their own in one week. IT IS NORMAL FOR THE WOUND TO OOZE OR BE BLOODY FOR A FEW DAYS AFTER SURGERY. ?IF THIS HAPPENS JUST PLACE NEW DRESSING OVER IT TO AVOID STAINING CLOTHES. You may shower on post op day # 1 We ask that you do not let the water soak the wound. If it does get wet, just towel dry lightly. Please do not scrub your incision or place any type of chemical/ointment on the wound. No tub baths, pools or jacuzzis for one month. If you have any leaking or redness from your wound, or fevers, please call office Print Language: Slovenian
--- NOTE | 2024-08-31 09:19 | W.PM.OPN ---
Operative Note Operative Note Date of Service: 08/31/24 Narrative: Preoperative Diagnosis: Cervical degenerative disc disease; chronic neck pain Procedure: C5-6, C6-7 Anterior discectomy, arthrodesis and implantation cage ; C5-C7 anterior instrumentation ; local autograft; microscope Informed Consent was obtained for this operation. I have explained the nature, purpose and benefits of the operation. I have discussed the risks and benefit of the operation including possible complications or adverse events with patient/family. Alternative(s) were discussed with the patient with their relative benefits and risks as well as the consequences of not accepting the operation were included in obtaining consent. Surgeon: DESTINEE WILSON MD, PHD Procedure Assisted By: adi Mathur Description of Procedure: This patient is suffering from chronic neck pain due to severe cervical degenerative disc disease C5-6 and C6-7. She failed conservative treatment and symptoms are unbearable. Therefore we offered her a 2 level anterior diskectomy and fusion. She also has a right-sided mass suspicious for carcinoma an oncologist has requested that we could biopsy this if possible. The procedure complications were explained. The patient was consented. The patient was brought to the operating room and endotracheally intubated. The patient was put in supine position with slight extension of the neck. Prep and drape was done followed by timeout. A mid cervical incision was made followed by opening of the platysma. The prevertebral fascia was reached following the natural planes while the physician property assistant provided manual retraction. During this process significant venous bleeding occurred which was tamponade and coagulated. The prevertebral fascia was opened to expose the disc space. A spinal needle was placed in the disk space to confirm the correct level with xray. The longus colli muscles were released bilaterally and a self retaining retractor was inserted. An initial diskectomy was done of the C5-6 and C6-7 levels towards the posterior annulus. Two [place] pins were placed in the C5 and C6 vertebral bodies and distraction was give over the interspace. The microscope was brought in. The remainder of the discectomy was completed. The posterior ligament was opened and resected to expose the underlying dura. Osteophytes were resected from the body of C5-C6 and saved for autograft. Bilateral foraminotomies were done. The endplates were prepared after which a 6 mm cage filled with autograft was inserted into the disc space. A separate attached plate was locked down with 2 x 12 mm screws as anterior instrumentation. Then attention was turned to the C6-7 disc space. The remainder of the disc was removed. The posterior longitudinal ligament was opened and resected. Bilateral foraminotomy was done. Osteophytes were removed from the body of C6 and C7 saved for autograft. A 6 mm cage filled with autograft was inserted into the disc space. Separate attached plate was locked down with 2x12 mm screws as anterior instrumentation. Final x-rays in AP and lateral projection showed a satisfactory position of the implant. The right-sided mass was located much more inferior than my surgical area and therefore no biopsy was taken. The physician property assistant took over. The [place] pin was removed. Hemostasis was done. He closed the incision in 2 layers with a 3-0 Vicryl. Steri-Strips used to approximate incision. An OpSite with Tegaderm was used to cover the incision. All sponge and needle counts were correct. Patient was extubated and transported in stable is to recovery room. Anesthesia: General Estimated Blood Loss (ml): 100 Duration of Surgery: 1 hour 15 minutes Postoperative Plan: Discharge home Complications: None
[2024-08-31] MEDS: fentaNYL citrate/PF 100 MCG/2 ML VIAL 25 MCG IVPUSH (10:10)
[2024-08-31] MEDS: Ondansetron ODT 4 MG TAB.RAPDIS TRANSLINGU (12:10)
== END 2024-08-31 12:48 | disposition home or self-care (01) ==
PROVIDERS: PCP Registered Nurse; Visit Provider Neurological Surgery
PROC: (CPT 22551; principal; 2024-08-31 07:30)
DX: M50.322 Other cervical disc degeneration at C5-C6 level (principal); M50.323 Other cervical disc degeneration at C6-C7 level; G89.29 Other chronic pain; J45.909 Unspecified asthma, uncomplicated; Z79.51 Long term (current) use of inhaled steroids
CPT/HCPCS: 22551; 22552; 22853; 20936; 22845; C1713; C1889; J0131; J0690; J1100; J2003; J2250; J2405; J2704; J3010

== ENCOUNTER → 2024-08-31 05:45 | Outpatient (BNV) | payer MEDICAID, SELFPAY | PROVIDERS: PCP Registered Nurse; Visit Provider Physician Assistant | DX: M50.922 Unspecified cervical disc disorder at C5-C6 level (principal); M50.923 Unspecified cervical disc disorder at C6-C7 level | CPT/HCPCS: 20936; 22551; 22552; 22845; 22853; 99499 ==

== ENCOUNTER 2024-09-21 08:56 | Outpatient (AMB) | payer MEDICAID, SELFPAY ==
--- NOTE | 2024-09-21 08:58 | HO.SPINEOV ---
Intake Visit Reasons: 1st post op Intake Note: Ms. Aidan Varela is here for her 1st post op appointment. 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 Paige after being initially evaluated in clinic for pain on the right side of her neck shooting into her right trapezius and down to her forearm on the right. She was found to have severe degenerative disc disease on cervical MRI. She denied any myelopathic symptoms side from slight hyper-reflexia. Today, she reports resolution of the shooting pains down her right upper extremity. She states she does still have some weakness of the right upper extremity, and still has some pain in the posterior right aspect of her neck. Overall she is doing very well, has returned to driving in his completing her activities of daily living without much issue. No new neurological deficits. The patient ambulates well and rises from a seated position without difficulty. Her anterior incision site is closed, dry, with no signs of drainage or swelling. I would like to follow up with her again in 6 weeks and obtain a set of x-rays. I am hoping that this will give some time for inflammation to go down her symptoms to improve even more. Mark Paige MD,PhD [facility] Coding Level of Care Code Global (85024) Diagnoses Cervical disc disorder M50.90 S/P cervical spinal fusion Z98.1
== END 2024-09-21 09:15 | disposition home or self-care (01) ==
PROVIDERS: PCP Registered Nurse; Visit Provider Physician Assistant
DX: M50.90 Cervical disc disorder, unspecified, unspecified cervical region (principal); Z98.1 Arthrodesis status
CPT/HCPCS: 99024

== ENCOUNTER → 2024-09-21 08:56 | Outpatient (BNVA) | payer MEDICAID, SELFPAY | PROVIDERS: PCP Registered Nurse; Visit Provider Physician Assistant | DX: M50.90 Cervical disc disorder, unspecified, unspecified cervical region (principal); Z47.89 Encounter for other orthopedic aftercare; Z98.1 Arthrodesis status | CPT/HCPCS: 99212 ==

== ENCOUNTER 2024-11-02 08:38 | Outpatient (REF) | payer MEDICAID, SELFPAY ==
--- NOTE | ~2024-11-02 | XR_ITS ---
EXAMINATION: XR CERVICAL SPINE CLINICAL INFORMATION: Z98.1 - Arthrodesis status COMPARISON: January 24, 2024. TECHNIQUE: 6 views of the cervical spine, inclusive of flexion and extension views, were obtained. FINDINGS: Status post intervertebral body disc spacer placement at C5-6 and C6-7 levels. Marginal osteophyte formation, C5-6 and C6-7 levels and to a lesser extent C3-4 and C4-5. No gross malalignment in neutral or flexion or extension positioning. Craniocervical junction is intact. Facet joint hypertrophy at C4-5 mostly on the right side. Upper airway is patent. No lytic or blastic lesions. XR/XR cervical spine 4V IMPRESSION: Status post intervertebral body disc spacer placement C5-6 and C6-7 without acute fracture, listhesis or instability. Electronically signed by: Xu Cisneros MD 11/02/2024 11:40 AM [facility]
--- OUTSIDE RECORDS SUMMARY | 2024-11-02 09:14 | XMS_ITS | Encounter Summary ---
Author Organization [employer] Address [address] [facility] [address] [place] [address] Care Team Providers Care Compound Coating Machine Offbearer Name Role Phone Suni Flores Primary Care Provider [phone] December Unavailable Edwin William MD Unavailable [phone] Reason for Visit * Reason Onset Date Comments triage 11/18/2022 Encounter Details Date Type Department Care Team (Late st Contact Info) Description 11/18/2022 Telephone [facility] MEDICINE [address] [place] [address] Snui Flores FNP [address] [place], [place] [id number] triage Social History Tobacco Use Types Packs/Day Years Used Date Smoking Tobacco: Never Assessed Depression Answer Date Recorded Patient Health Questionnaire-9 Score 12 03/31/2024 Patient Health Questionnaire-9 Score 12 03/31/2024 Last PHQ-9: Questionnaire Data Not on file 0 03/31/2024 Housing Stability Answer Date Recorded What is your housing situation today? I have ruth salinas 03/31/[address] you li ve. Do you have problems with any of the following? None of the above 03/31/2024 Food Insecurity Answer Date Recorded Within the past 12 months, y ou worried that your food would run out before you got money to buy more: Never True 03/31/2024 Within the past 12 months,th e food you bought just didn't last and you didn't have enough money to get more: Never True 01/2024 Transportation Answer Date Recorded In the past 12 months, has l ack of transportation kept you from medical appts, meetings, work or from getting things needed for daily living? No 03/31/2024 Utilities Answer Date Recorded In the past 12 months, has t he electric, gas, oil or water company threatened to shut off services in your home? No 03/31/2024 Depression Answer Date Recorded Patient Health Questionnaire-2 Score 4 03/31/2024 Internet Access Answer Date Recorded Internet Access Q1 No 05/29/2024 Internet Access Q2 Not on file 05/29/2024 Comments Unknown Sex and Gender Information Value Date Recorded Sex Assigned at Female 07/27/2022 10:39 AM EDT Legal Sex Female 10:39 AM EDT Gender Identity Female 07/27/2022 10:39 AM EDT Sexual Orientation Straight 07/27/2022 10 :39 AM EDT COVID-19 Exposure Response Date Recorded In the last 10 days, have yo u been in contact with someone who was confirmed or suspected to have Coronavirus/COVID-19? No / Unsure 03/19/2023 11:24 AM EDT documented as of this encounter Miscellaneous Notes * Telephone Encounter - Malou Huber RN - 11/18/2022 10:58 AM EST Noted. Pt was seen and discharged with bronchitis. * Telephone Encounter - Joyce Min LPN - 11/18/2022 8:34 AM EST Triage call returned to patient via [employer] [id number]. Patient reports that she was seen in an UC two weeks ago treated for URI and was given pump patient with history of asthma. Patient reports that they told her she may have a bit of pneumonia but no chest xray done. Patient has not cleared and is today with midsternal crushing pain and tightness in chest. Patient with tight cough thru phone call. Disposition reviewed and patient in agreement with plan. Will seek evaluation at [facility] ED now. Team Nurses updated with patient status. Protocol Used: Chest Pain (Adult) Protocol-Based Disposition: Go to ED/UCC Now (or to Office with PCP Approval) Positive Triage Question: * Chest pain lasting longer than 5 minutes and occurred in last 3 days (72 hours) (Exception: feelsexactly the same as previously diagnosed heartburn and has accompanying sour taste in mouth) * All higher-acuity triage questions were negative Care Advice Discussed: * Reasons To Call Back - You become worse * Telephone Encounter - Gaviota Cardenas - 11/18/2022 8:15 AM EST Symptom: Chest Pain - Adult Outcome: Transfer to a nurse or provider NOW! Reason: Severe pain now, trouble breathing , cough. The caller accepted this outcome Please contact at [phone] documented in this encounter Plan of Treatment Not on file documented as of this encounter Visit Diagnoses Not on filedocumented in this encounter Care Teams Compound Coating Machine Offbearer Relationship Specialty Start Date End Date Suni Flores FNP [address] [place] [address] PCP - General Family Medicine 05/20/22December [address] [place] [address] 3rd [place] [address] Gastroenterology 08/23/24 Edwin William MD [address] [place] [address] Pulmonary Disease 08/23/24 Patricia Coffman [facility] Consulting Physician Oncology 08/23/24 documented as of this encounter
--- OUTSIDE RECORDS SUMMARY | 2024-11-02 09:14 | XMS_ITS | Encounter Summary ---
Author Organization [employer] Address 75 [facility] 7t [place] [address] Care Team Providers Care Chipper Feeder Name Role Phone Suni Flores JULIO Primary Care Provider [phone] December Unavailable Edwin William MD Unavailable [phone] Encounter Details Date Type Department Care Team ([facility] Contact Info) Description 01/20/2024 Orders Only [facility] [address] [place] [address] Provider, MD Lukas Social History Tobacco Use Types Packs/Day Years Used Date Smoking Tobacco: Never Smokeless Tobacco: Never Alcohol Use Standard Drinks/Week Comments Yes 0 (1 standard drink = 0.6 oz pur e alcohol) Occasionally Depression Answer Date Recorded Patient Health Questionnaire-9 Score 0 02/08/2023 Housing Stability Answer Date Recorded What is your housing situation today? I have ruth salinas 07/13/[address] you li ve. Do you have problems with any of the following? None of the above 07/13/2023 Food Insecurity Answer Date Recorded Within the past 12 months, y ou worried that your food would run out before you got money to buy more: Never True 07/13/2023 Within the past 12 months,th e food you bought just didn't last and you didn't have enough money to get more: Never True Transportation Answer Date Recorded In the past 12 months, has l ack of transportation kept you from medical appts, meetings, work or from getting things needed for daily living? No 07/13/2023 Utilities Answer Date Recorded In the past 12 months, has t he [employer], [employer], oil or water [employer] threatened to shut off services in your home? No 07/13/2023 Depression Answer Date Recorded Patient Health Questionnaire-2 Score 0 02/08/2023 Comments Unknown Sex and Gender Information Value Date Recorded Sex Assigned at Female 07/27/2022 10:39 AM EDT Legal Sex Female 10:39 AM EDT Gender Identity Female 07/27/2022 10:39 AM EDT Sexual Orientation Straight 07/27/2022 10 :39 AM EDT documented as of this encounter Plan of Treatment Not on file documented as of this encounter Procedures Procedure Name Priority Date/Time Associated Diagnosis Comments XR CERVICAL SPINE 3V Routine 01/24/2024 11:32 PM EDT ELECTRONEURONOGRAPHY Routine 01/18/2024 10:29 AM EDT documented in this encounter Results * XR CERVICAL SPINE 3V (01/24/2024 11:32 PM EDT) Anatomical Region Laterality Modality Abdomen Radiographic Erinn ging 01/24/2024 11:3 2 PM EDT Narrative 01/25/2024 1:49 AM EDT ? [facility] ?[address] ?[place] [address] ?XRay Report ? Signed ? Patient: Goldie Bermudez ?MR#: [id number] ?? 9 ? : 1970 ?Acct:[id number] ? Age/Sex: 53 / F ?ADM Date: 01/24/24 ? Loc: HO.ED ? Attending Dr: ? Ordering Physician: Nayana Romero MD ?? Date of Service: 01/24/24 ?? Procedure(s): XR cervical spine 3V ?? Accession Number(s): [id number] ? cc: Nayana Romero MD; Suni Flores ? EXAMINATION: ?? XR CERVICAL SPINE ? CLINICAL INFORMATION: ?? Right-sided pain, no trauma ? COMPARISON: ?? None available. ? TECHNIQUE: ?? 3 views of the cervical spine were obtained. ? FINDINGS: ?? There is slight anterolisthesis of C4 on C5, favored to be chronic in ?? the setting of facet arthropathy. There is disc space narrowing most ?? prominently at C5-C6 along with endplate osteophytes of the lower ?? cervical spine. Vertebral body heights are maintained. No acute ?? fracture is seen. No significant prevertebral soft tissue swelling. ? XR/XR cervical spine 3V ?? IMPRESSION: ?? No acute findings identified. Chronic/degenerative changes as noted ?? above. ? Dictated By: ?Davin Michael MD ? Signed By: ?<Electronically signed by Davin Michael MD in OV> ? 01/25/24 0144 ? DD/ 2332 ? TD/TT: ? Supervisor Fur Floor Worker: ? Procedure Note Margyter, Image - 01/25/[address] [address] XRay Report Signed Patient: Sharron Bermudez#: [id number] : 1970Acct:[id number] Age/Sex: 53 / FADM Date: 01/24/24 Loc: HO.ED Attending Dr: Ordering Physician: Nayana Romero MD Date of Service: 01/24/24 Procedure(s): XR cervical spine 3V Accession Number(s): [id number] cc: Nayana Romero MD; Suni Flores EXAMINATION: XR CERVICAL SPINE CLINICAL INFORMATION: Right-sided pain, no trauma COMPARISON: None available. TECHNIQUE: 3 views of the cervical spine were obtained. FINDINGS: There is slight anterolisthesis of C4 on C5, favored to be chronic in the setting of facet arthropathy. There is disc space narrowing most prominently at C5-C6 along with endplate osteophytes of the lower cervical spine. Vertebral body heights are maintained. No acute fracture is seen. No significant prevertebral soft tissue swelling. XR/XR cervical spine 3V IMPRESSION: No acute findings identified. Chronic/degenerative changes as noted above. Dictated By: Davin Michael MD Signed By: <Electronically signed by Davin Michael MD in OV> 01/25/24 0144 DD/ TD/TT: Supervisor Fur Floor Worker: us [facility] External Provider IMG XR PROCEDURES Edited Result - Final * Electroneuronography (01/18/2024 10:29 AM EDT) us Historical Provider NEUROLOGY ORDERABLES Sanjana l Result documented in this encounter Visit Diagnoses Not on filedocumented in this encounter Additional Health Concerns Assessment Noted Time PHQ-9 Depression Total Score: 0 02/09/20 2:37 PM EDT documented as of this encounter Care Teams Chipper Feeder Relationship Specialty Start Date End Date Suni Flores FNP [address] [place] [address] PCP - General Family Medicine 05/20/22December 11 [facility] 3rd [place] [address] Gastroenterology 08/23/24 Edwin William MD [address] [place] [address] Pulmonary Disease 08/23/24 Patricia Coffman [facility] Consulting Physician Oncology 08/23/24 documented as of this encounter
--- OUTSIDE RECORDS SUMMARY | 2024-11-02 09:14 | XMS_ITS | Encounter Summary ---
Author Organization [employer] Address [address] [facility] 7t [place] [address] Care Team Providers Care Sprayer Hand Name Role Phone Suni Flores JULIO Primary Care Provider [phone] December Unavailable Edwin William MD Unavailable [phone] Encounter Details Date Type Department Care Team ([facility] Contact Info) Description 08/31/2024 Orders Only [facility] External Provider, [facility] Social History Tobacco Use Types Packs/Day Years [...] Procedure Name Priority Date/Time Associated Diagnosis Comments FL GUIDANCE IN OR Routine 08/31/2024 7:0 6 AM EST documented in this encounter Results * FL Guidance in OR (08/31/2024 7:06 AM EST) Anatomical Region Laterality Modality X-Ray Angiograph y 08/31/2024 7:06 AM EST Narrative 10/25/2024 4:34 PM EST ? [facility] ?[address] ?[place] [address] ? Fluoroscopy Report ? Signed ? Patient: Goldie Spencer ?MR#: ?? [id number] ? : 1970 ?Acct:[id number] ? Age/Sex: 54 / F ?ADM Date: 08/31/24 ? Loc: HO.SSS ? Attending Dr: Husam Paige MD, PhD ? Ordering Physician: Husam Paige MD, PhD ?? Date of Service: 08/31/24 ?? Procedure(s): FL guidance in OR ?? Accession Number(s): [id number] ? cc: Husam Paige MD, PhD; Suni Flores HELMINTHOLOGIST ? EXAMINATION: ?? FLUORO GUIDANCE IN OR ? CLINICAL INFORMATION: ?? ACDF. ? COMPARISON: ?? None available. ? TECHNIQUE: ?? Fluoroscopy supervised by: Dr. Husam Paige. ?? Fluoroscopy time: 5 seconds. ?? Cumulative Dose: 0.9079 mGy. ?? DAP: 0.2201 Gy-cm2 (mohan-centimeter squared). ?? Images: 3. ? FINDINGS: ?? ACDF hardware is present at C5-C6 and C6-C7. ? FL/FL guidance in OR ?? IMPRESSION: ?? Fluoroscopy during procedure. Please see procedure report for ?? additional information. ? Electronically signed by: ??Santino Call MD ??10/25/2024 04:30 PM EST ? Dictated By: ?Santino Call MD ? Signed By: ?<Electronically signed by Santino Call MD in OV> ? 10/25/240 ? DD/ 0706 ? TD/TT: 08/31/24 0911 ? Newspaper Deliverer: SS ? Procedure Note Jennifer, Image - 10/25/2024 [place] [address] Fluoroscopy Report Signed Patient: Huma SpencerR#: [id number] : 1970Acct:[id number] Age/Sex: 54 / FADM Date: 08/31/24 Loc: HO.SSS Attending Dr: Husam Paige MD, PhD Ordering Physician: Husam Paige MD, PhD Date of Service: 08/31/24 Procedure(s): FL guidance in OR Accession Number(s): [id number] cc: Husam Paige MD, PhD; Suni Flores EXAMINATION: FLUORO GUIDANCE IN OR CLINICAL INFORMATION: ACDF. COMPARISON: None available. TECHNIQUE: Fluoroscopy supervised by: Dr. Husam Paige. Fluoroscopy time: 5 seconds. Cumulative Dose: 0.9079 mGy. DAP: 0.2201 Gy-cm2 (mohan-centimeter squared). Images: 3. FINDINGS: ACDF hardware is present at C5-C6 and C6-C7. FL/FL guidance in OR IMPRESSION: Fluoroscopy during procedure. Please see procedure report for additional information. Electronically signed by: Santino Call MD 10/25/2024 04:30 PM [facility] Dictated By: Santino Call MD Signed By: <Electronically signed by Santino Call MD in OV> 10/25/24 1630 DD/ 0706 TD/TT: 08/31/24 0911 Newspaper Deliverer: [facility] External Provider IMG IR PROCEDURES Edited Result - Final documented in this encounter Visit Diagnoses Not on filedocumented in this encounter Additional Health Concerns Assessment Noted Time PHQ-9 Depression Total Score: 12 024 11:43 AM EDT documented as of this encounter Care Teams Sprayer Hand Relationship Specialty Start Date End Date Suni Flores FNP [address] [place] [address] PCP - General Family Medicine 05/20/22December [address] [place] [address] 3rd [place] [address] Gastroenterology 08/23/24 Edwin William MD [address] [place] [address] Pulmonary Disease 08/23/24 Patriica Coffman [facility] Consulting Physician Oncology 08/23/24 documented as of this encounter
--- OUTSIDE RECORDS SUMMARY | 2024-11-02 09:14 | XMS_ITS | Encounter Summary ---
Author Organization [employer] Address [address] [facility] [address] [place] [address] Care Team Providers Care Drilling Field Professional Name Role Phone Suni Flores Primary Care Provider [phone] December Unavailable Edwin William MD Unavailable [phone] Reason for Visit * Reason Onset Date Comments FYI 05/17/2024 Encounter Details Date Type Department Care Team (Late st Contact Info) Description 05/17/2024 Telephone [facility] MEDICINE [address] [place] [address] Suni Flores FNP [address] [place], [place] [phone] FYI Social History Tobacco Use Types Packs/Day Years [...] encounter Miscellaneous Notes * Telephone Encounter - Gaviota Cardenas - 05/17/2024 10:23 AM EDT Tc from pt would like to inform PCP that they were advised neck surgery has been postponed no specific date at the moment. Advised will leave message as FYI. If any questions please contact at [phone] documented in this encounter Plan of Treatment Not on file documented as of this encounter Visit Diagnoses Not on filedocumented in this encounter Additional Health Concerns Assessment Noted Time PHQ-9 Depression Total Score: 12 024 11:43 AM EDT documented as of this encounter Care Teams Drilling Field Professional Relationship Specialty Start Date End Date Suni Flores FNP [address] [place] [address] PCP - General Family Medicine 05/20/22December 11 [facility] 3rd [place] [address] Gastroenterology 08/23/24 Edwin William MD [address] [place] [address] Pulmonary Disease 08/23/24 Patricia Coffman [facility] Consulting Physician Oncology 08/23/24 documented as of this encounter
--- OUTSIDE RECORDS SUMMARY | 2024-11-02 09:14 | XMS_ITS | Encounter Summary ---
Author Organization [employer] Address [address] [facility] 7t [place] [address] Care Team Providers Care Central Supply Technician Name Role Phone Suni Flores Primary Care Provider [phone] December Unavailable Edwin William MD Unavailable [phone] Reason for Visit * Reason Comments Med Refill Encounter Details Date Type Department Care Team ([facility] st Contact Info) Description 10/03/2024 Refill [facility]EDS [address] [place], [place] [phone] Suni Flores FNP [address] [place] [address] Vitamin D insufficiency Social History Tobacco Use Types Packs/Day Years [...] documented as of this encounter Visit Diagnoses Diagnosis Vitamin D insufficiency documented in this encounter Additional Health Concerns Assessment Noted Time PHQ-9 Depression Total Score: 12 024 11:43 AM EDT documented as of this encounter Care Teams Central Supply Technician Relationship Specialty Start Date End Date Suni Flores FNP [address] [place] [address] PCP - General Family Medicine 05/20/22December 11 [facility] 3rd [place] [address] Gastroenterology 08/23/24 Edwin William MD [address] [place] [address] Pulmonary Disease 08/23/24 Patricia Coffman [facility] Consulting Physician Oncology 08/23/24 documented as of this encounter
--- OUTSIDE RECORDS SUMMARY | 2024-11-02 09:14 | XMS_ITS | Encounter Summary ---
Author Organization [employer] Address [address] [facility] [address] [facility] [address] 7[address] [place] [address] Care Team Providers Care Repack Room Worker Name Role Phone Suni Flores JULIO Primary Care Provider [phone] December Unavailable Edwin William MD Unavailable [phone] Encounter Details Date Type Department Care Team ([facility] st Contact Info) Description 07/03/2024 Orders Only [facility] MEDICINE [address] [place] [address] Provider, MD Lukas Social History Tobacco Use [...] Procedure Name Priority Date/Time Associated Diagnosis Comments HM COLONOSCOPY Routine 11/24/2022 3:42 PM EST documented in this encounter Results * Hm Colonoscopy (11/24/2022 3:42 PM EST) Historical Provider HEALTH MAINTENANCE Final Result documented in this encounter Visit Diagnoses Not on filedocumented in this encounter Additional Health Concerns Assessment Noted Time PHQ-9 Depression Total Score: 12 024 11:43 AM EDT documented as of this encounter Care Teams Repack Room Worker Relationship Specialty Start Date End Date Suni Flores FNP [address] [place] [address] PCP - General Family Medicine 05/20/22December 11 [facility] 3rd [place] [address] Gastroenterology 08/23/24 Edwin William MD [address] [place] [address] Pulmonary Disease 08/23/24 Patricia Coffman [facility] Consulting Physician Oncology 08/23/24 documented as of this encounter
--- OUTSIDE RECORDS SUMMARY | 2024-11-02 09:14 | XMS_ITS | Clinical Summary ---
Author Organization [employer] Address [address] [place] [address] [address] [place] [address] Care Team Providers Care Maintenance Aide Name Role Phone Suni Flores JULIO Primary Care Provider [phone] December Unavailable Edwin William MD Unavailable [phone] Allergies No known active allergies Medications Acetaminophen Extra Strength 500 MG tablet TAKE 2 TABLETS BY MOUTH EVERY 6 HOURS NEEDED FOR PAIN OR FEVER 022 Active dicyclomine (Bentyl) 10 MG capsule Take 10 mg by mouth 3 times daily. 023 Active docusate sodium (Colace) 100 MG capsule TAKE 1 CAPSULE BY MOUTH 2 TIMES A DAY NEEDED FOR CONSTIPATION 022 Active famotidine (Pepcid) 20 MG tablet Take 20 mg by mouth 2 times daily. 023 Active GaviLAX 17 GM/SCOOP powder TAKE ORALLY DIRECTED PRIOR TO COLONOSCOPY 023 Active budesonide-formo terol (Symbicort) 160-4.5 MCG/ACT inhalerIndicatio ns:Cough variant asthma Inhale 2 puffs in the morning and at bedtime. Rinse mouth with water after use to reduce aftertaste and incidence of candidiasis. Do not swallow. (Replacing Flovent inhaler) 1 each 023 Active fluticasone (Flonase) 50 MCG/ACT nasal spray INHALE 2 SPRAY BY INTRANASAL ROUTE EVERY DAY IN EACH NOSTRIL NEEDED 48 mL 023 Active betamethasone, augmented, (Diprolene) 0.05 % ointmentIndicati ons:Psoriasis Apply topically 2 times daily. 45 g 2 023 Active Clobetasol Propionate 0.05 % shampoo Apply 2-3 times weekly 118 mL 11 023 Active Fluocinolone Acetonide Scalp (Salineno-Smoothe/F S Scalp) 0.01 % oil Apply 2-3 times weekly 118.28 mL 11 023 Active Ketotifen Fumarate 0.035 % solutionIndicati ons:Seasonal allergies ADMINISTER 1 DROP INTO BOTH EYES IF NEEDED IN THE MORNING AND AT BEDTIME (EYE ITCHING AND ALLERGY SYMPTOMS). 5 mL 11 023 Active montelukast (Singulair) 10 MG tabletIndication s:Cough variant asthma Take 1 tablet (10 mg) by mouth at bedtime. (Allergies/asth ma) 90 tablet 3 023 Active cetirizine (ZyrTEC) 10 MG tabletIndication s:Seasonal allergies TAKE 1 TABLET BY MOUTH EVERY DAY 90 tablet 3 024 Active apremilast (Otezla) 10 & 20 & 30 MG tablet therapy pack tablet therapy pack D1 10mg then D 2: 10 mg twice daily; D 3 10 mg in the morning and 20 mg in the evening; D 4 20 mg twice daily; D 5 20 mg in the morning and 30 mg in the evening. Then 30 mg twice daily starting on D 6. 55 each 024 Active Ventolin HFA 108 (90 Base) MCG/ACT inhalerIndicatio ns:Cough variant asthma Inhale 1-2 puffs every 6 (six) hours if needed for wheezing or shortness of breath. 18 g 3 024 Active albuterol 0.63 MG/3ML nebulizer solutionIndicati ons:Cough variant asthma INHALE 3 ML (1 VIAL) VIA NEBULIZER EVERY 6 HOURS NEEDED FOR SHORTNESS OF BREATH OR WHEEZING 75 mL 3 024 Active cholecalciferol (Vitamin D3) 25 MCG (1000 UT) tabletIndication s:Vitamin D insufficiency TAKE 1 TABLET BY MOUTH EVERY DAY 90 tablet 1 025 Active celecoxib (CeleBREX) 200 MG capsuleIndicatio ns:Cervical spinal cord compression (CMS/HCC),Spondy lolisthesis, cervical region TAKE 1 CAPSULE BY MOUTH EVERY DAY NEEDED FOR PAIN 30 capsule 2 025 Active celecoxib (CeleBREX) 200 MG capsuleIndicatio ns:Cervical spinal cord compression (CMS/HCC),Spondy lolisthesis, cervical region TAKE 1 CAPSULE (200 MG) BY MOUTH IF NEEDED EACH DAY (PAIN). 30 capsule 2 024 2024 Discontinued Active Problems Problem Noted Date Diagnosed Date Abnormal PET scan of mediastinum 06/08/2024 Overview (08/23/2024): - Following with [facility] Heme/Onc - Dr. Coffman - Initially referred to [facility] Heme/Onc on 05/15/24 d/t concern for malignancy identified on CT Chest - PET scan completed on 06/02/24 at [facility], with Moderate metabolic activity in lymph nodes 1 adjacent to the right thyroid lobe and right paratracheal space. These are likely metastatic. - S/p EBUS on 06/19/24, and the biopsy revealed no evidence of malignancy from 4R and 4L, but nondiagnostic from 2R and station 7. She also had CT guided biopsy from the node, which was nondiagnoistic. Assessment & Plan (08/23/2024 4:08 PM EST): -Denies any systemic symptoms -Positive family hx of prostate, cervical, and breast CA in first degree relatives. -She is currently UTD with pap, mammo, and colon CA screening. Plan: CT abd/pelvis on 08/25/24. Dr. Coffman to review the scans for a possible biopsy. Assessment & Plan (06/08/2024 9:55 AM EDT): -Unclear primary lesion, denies any systemic symptoms -Positive family hx of prostate, cervical, and breast CA in first degree relatives. -She is currently UTD with pap and colon CA screening. Polyp extracted from colon CA screening [place] 2022 [place] [facility]. Mammo last completed May 2023 BIRADS 1. (See healthcare maintenance diagnoses for further details). Plan: PET scan results to be reviewed by Heme/Onc supervisor green end department on 06/09/24. Per specialist team, pt should have initial appt date scheduled with them by end of day on 06/09/24. [facility] referrals team and pt are aware and in agreement with this plan. Cervical spinal cord compression 04/02/2024 Overview (08/23/2024): MRI cervical spine w/o contrast 03/10/24: 1. At C5-C6 there is a central and left-sided soft disc protrusion with cord compression and there is mild to moderate central stenosis. There is severe left and mild right foraminal narrowing. 2. At C6-C7 there is a central and right-sided soft disc protrusion with cord compression and there is mild to moderate central stenosis. There is no significant foraminal narrowing. 3. At C4-C5 there is mild right facet arthropathy. There is minimal right foraminal narrowing. - Completed physical therapy - Referral to establish with Spine Specialists for further consults: Pain Management & Neurosurgery placed 04/02/24 - Established with [facility]urosurgery - Dr. Paige Assessment & Plan (04/02/2024 4:05 PM EDT): Reviewed results of MRI with pt today in office, all questions answered to the best of my ability. Discussed referral to Spine specialists, see above Start Celebrex PRN, Reviewed med use and SE ED/urgent care follow up precautions Spondylolisthesis, cervical region 02/05/2024 Overview (08/23/2024): Cervical XR 01/24/24 noted slight anterolisthesis of C4 on C5, along with disc space narrowing more prominent C5-C6 MRI cervical w/o contrast completed 03/10/24 confirmed disc protrusion with cord compression and mild-mod central stenosis at C5-C6. Also with discus protrusion with cord compression at C6-C7 with mild-mod central stenosis. Following with [facility] - Dr. Paige Assessment & Plan (08/23/2024 4:05 PM EST): Plan for upcoming spinal surgery on 08/31/24 per pt. EKG and CMP completed as requested by office. Both WNL. Faxed to office. Right carpal tunnel syndrome 02/04/2024 Overview (04/02/2024): Diagnosed on EMG December 2023: mild right carpal tunnel syndrome Consult with [facility] [place] February 2024, plan to proceed with surgery for right CTS Cubital tunnel syndrome, bilateral 02/04/2024 Overview (02/05/2024): Diagnosed on EMG December 2023: mild bilateral cubital tunnel syndrome Consult with Ortho January 2024 Sickle cell trait 01/03/2024 Overview (01/03/2024): Lab Results Component Value Date SICKLECELL POSITIVE (A) 12/24/2023 Vitamin D insufficiency 01/03/2024 Overview (01/03/2024): Lab Results Component Value Date [id number] 16.8 (L) 12/24/2023 -December 2023: initiated on Vit D 1000 units daily -Plan to recheck levels March 2024 Adenoma of right adrenal gland 02/08/2023 Overview (05/13/2023): ?? Incidental 1.8 cm adrenal adenoma noted 04/09/[address], recommend repeat imaging in one year ?? Repeating imaging completed 03/29/23 with the following impression: Stable right adrenal lesion consistent with benign adenoma. ?? No further imaging indicated at this time Assessment & Plan (02/19/2023 3:57 PM EDT): ?? Incidental 1.8 cm adrenal adenoma noted 04/09/[address], recommend repeat imaging in one year ?? Repeating imaging ordered 02/19/23 Bleeding hemorrhoids 02/08/2023 Ganglion cyst of right foot 02/08/2023 Psoriasis 02/08/2023 Overview (12/19/2023): Following with [facility] Symptoms improving Plan during visit May 2023: Continue Betamethasone Ointment on Elbows BID, prn. Initiate Dermasmoothe FS Scalp Oil will be applied to damp scalp QHS with occlusion and wash out in AM with Clobetasol Shampoo, twice weekly November 2023: Plan to start Otezla Assessment & Plan (06/11/2023 9:58 AM EDT): ?? Continue Betamethasone Ointment on Elbows BID, prn ?? Initiate Dermasmoothe FS Scalp Oil will be applied to damp scalp QHS with occlusion and wash out in AM with Clobetasol Shampoo, twice weekly. ?? RTC as needed Assessment & Plan (02/19/2023 3:51 PM EDT): - Apply clobetasol 0.05% cream to plaques BID, do not apply for greater than 2 weeks - Continue to moisturize daily, particularly within 2 minutes of bathing - Contact the clinic if symptoms worsen or do not improve - Referral to [facility] Derm team for further eval and tx Healthcare maintenance 02/08/2023 Overview (08/23/2024): Pap/results: NIL/HPV neg 09/03/21, repeat 08/2026 Smoking status: never smoker Lipids: Total Cholesterol 163, HDL 43, LDL 100, TG 106 on 06/26/21 Mammogram: BIRADS 1 on 06/13/24 Colorectal Screening: [facility] 2022 scope with plan to repeat in 3 years due to polyp DEXA: recommend screen at 65 years Assessment & Plan (08/27/2023 6:18 AM EST): PHQ: negative screening January 2023 Pap/results: NIL/HPV neg 09/03/21, repeat 08/2026 Smoking status: never smoker Lipids: Total Cholesterol 163, HDL 43, LDL 100, TG 106 on 06/26/21 Mammogram: BIRADS 1 on 05/28/23 Colorectal Screening: [facility] DEXA: recommend screen at 65 years ASCVD Risk: 10-year risk 1.2% on 06/26/21 Assessment & Plan (02/19/2023 3:59 PM EDT): PHQ: negative screening January 2023 Pap/results: NIL/HPV neg 09/03/21, repeat 08/2026 Smoking status: never smoker Lipids: Total Cholesterol 163, HDL 43, LDL 100, TG 106 on 06/26/21 Mammogram: last mammogram 02/02/22 - BIRADS 1 Colorectal Screening: stool cards previously provided to patient DEXA: recommend screen at 65 years ASCVD Risk: 10-year risk 1.2% on 06/26/21 Stress incontinence of urine 12/02/2021 Assessment & Plan (02/19/2023 4:02 PM EDT): - Continue kegel exercises three times daily. - Urethral sling surgery on 05/22/22 - Following with [facility] UroGYN Cough variant asthma 08/31/2021 Assessment & Plan (12/19/2023 8:21 PM EDT): Continue Symbicort 160-4.5 two puffs BID. Reviewed med use and safety Cont montelukast 10mg nightly Cont w/ flonase and loratadine for allergic component Following with [facility] Baljit William (last consult Oct 2023) May continue albuterol PRN DME request for nebulizer placed: 08/27/23 ED precautions Assessment & Plan (08/29/2023 5:46 PM EST): ?? Continue Symbicort 160-4.5 two puffs BID. Reviewed med use and safety ?? Start montelukast 10mg nightly ?? Following with [facility] Baljit William ?? May continue albuterol PRN ?? DME request for nebulizer placed: 08/27/23 ?? ED precautions Assessment & Plan (05/13/2023 6:48 PM EDT): ?? Flovent 2 puffs BID has not been notably helpful for symptoms. DC Flovent. ?? Start Symbicort 160-4.5 2 puffs BID. Reviewed med use and safety ?? Referral to re-establish with Baljit William - reports has appt scheduled for next month ?? May continue albuterol PRN ?? ED precautions Assessment & Plan (02/19/2023 3:52 PM EDT): ?? Continue albuterol PRN ?? Restart Flovent 2 puffs BID ?? Referral to re-establish with Baljit William ?? Check Echo to r/o cardiac contribution to SOB. Reactive depression 06/26/2021 Seasonal allergies 06/26/2021 Resolved Problems Problem Noted Date Diagnosed Date Resolved Date Cardiovascular event risk 02/08/2023 Class 1 obesity 02/08/2023 08/23/2024 Encounters Date Type Department Care Team Description 10/04/2024 Refill [facility] PEDS [address] [place] [address] Suni Flores FNP Cervical spinal cord compression (CMS/HCC); Spondylolisthesis, cervical region 10/03/2024 Refill [facility] [address] [place] [address] Suni Flores FNP Vitamin D insufficiency 08/31/2024 Orders Only [facility] External Provider, [facility] 08/31/2024 Telephone [facility] MED & PEDS [address] [place] [address] Suni Flores FNP Results 08/23/2024 9:00 AM EST Office Visit [facility] MEDICINE [address] [place] [address] Suni Flores, [employer]OCKST[employer]TER Spondylolisthesis, cervical region (Primary Dx); Encounter for immunization; Healthcare maintenance; Cervical spinal cord compression (CMS/HCC); Abnormal PET scan of mediastinum; Cough variant asthma 08/23/2024 Travel 08/23/2024 Telephone [facility] [address] [place] [address] Anika Mcneill MA Chart Prep 08/22/2024 Travel from Last 3 Months Immunizations Name Administration Dates Next Due Hep B, adult 04/02/2022,07/31/2021,07/03/2021 Influenza injectable quadriv alent preservative free 08/27/2023,06/26/2021 Influenza, IIV3, injectable 10/22/2015 Influenza, seasonal, injecta ble, preservative free 08/23/2024 Pneumococcal Conjugate PCV 20 06/06/2023 Tdap 06/26/2021 Family History Medical History Relation Name Comments Diabetes type II Brother Prostate cancer Father Breast cancer Mother Cervical cancer Mother Diabetes Mother Heart attack Mother Hypertension Mother Diabetes type II Sister Relation Name Status Comments Brother Father Mother Sister Social History Tobacco Use Types Packs/Day Years Used Date Smoking Tobacco: Never Smokeless Tobacco: Never Tobacco Cessation:Counseling Given: Not Answered Alcohol Use Standard Drinks/Week Comments Yes 0 [...] Orientation Straight 07/27/2022 10 :39 AM EDT Last Filed Vital Signs Vital Sign Reading Time Taken Comments Blood Pressure 118/75 08/23/2024 8:55 AM EST Pulse 59 08/23/2024 8:55 AM EST Temperature 36.1 ??C (97 ??F) 08/23/2024 8:55 AM EST Respiratory Rate 17 08/23/2024 8:55 AM EST Oxygen Saturation 97% 08/23/2024 8:55 AM EST Inhaled Oxygen Concentration - - Weight 71.7 kg (158 lb 2 oz) 08/23/2024 8:55 AM EST Height 154.9 cm (5' 1 ) 08/23/2024 8:55 AM EST Body Mass Index 29.88 08/23/2024 8:55 AM EST Plan of Treatment Health Maintenance Due Date Last Done Comments CT Colonography 1970 FIT DNA/Cologuard 1970 FIT 1970 FOBT 1970 Sigmoidoscopy 1970 Alcohol/Substance Use Screening 1982 Zoster Vaccines (1 of 2) 2020 Pap Smear 09/07/2024 09/07/2021 Depression Monitoring (PHQ-9) 10/01/2024 03/31/2024, 03/31/2024 Depression Screening 03/31/2025 03/31/2024, 03/31/20 24 SDOH Screening 03/31/2025 03/31/2024 Tobacco Screening 06/07/2025 06/07/2024 Mammogram 06/13/2025 06/13/2024, 09/0 09/2022, 02/02/2022 COVID-19 Vaccine ( season) 2025 Postponed from 05/28/2024 (Patient Refused) Colonoscopy 11/24/2025 11/24/2022 Colorectal Cancer Screening 11/24/2025 Cervical Cancer Screening 09/07/2026 HPV/Cotest 09/07/2026 09/07/2021 DTaP/Tdap/Td Vaccines (3 - Td or Tdap) 06/26/2031 06/26/2021, 04/12/2012 RSV Patients and Patients Aged 60 years or older (1 - 1-dose 75+ series) 2045 Hepatitis B Vaccines Completed 04/02/2022, 07/31/2021, 07/03/2021 Pneumococcal Vaccine: 50+ Years Completed 06/06/2023 HIV Screening Completed 12/24/2023, 06/26/2021 Hepatitis C Screening Completed 12/24/2023, 021 Influenza Vaccine Completed 08/23/2024, , 06/26/2021, Additional history exists HIB Vaccines Aged Out No longer eligi ble based on patient's age to complete this topic HPV Vaccines Aged Out No longer eligi ble based on patient's age to complete this topic Hepatitis A Vaccines Aged Out No long er eligible based on patient's age to complete this topic IPV Vaccines Aged Out No longer eligi ble based on patient's age to complete this topic Meningococcal Vaccine Aged Out No torie melony eligible based on patient's age to complete this topic RSV under 20 months Aged Out No longe r eligible based on patient's age to complete this topic Rotavirus Vaccines Aged Out No longer eligible based on patient's age to complete this topic Procedures Procedure Name Priority Date/Time Associated Diagnosis Comments FL GUIDANCE IN OR Routine 08/31/2024 7:0 6 AM EST ECG 12-LEAD Routine 08/23/2024 4:12 PM EST Spondylolisthesis, cervical region COMPREHENSIVE METABOLIC PANEL Routine 08/23/2024 9:56 AM EST Spondylolisthesis, cervical region VITAMIN D,25-OH,TOTAL,IA Routine 08/23/2024 9:56 AM EST Vitamin D insufficiency BI MAMMOGRAM SCREENING TOMOSYNTHESIS BILATERAL Routine 06/13/2024 8:00 AM EDT HEPATITIS C VIRAL RNA, QUANTITATIVE, REAL-TIME PCR Routine 12/24/2023 6:15 AM EDT Healthcare maintenance Other fatigue HIV 1/2 ANTIGEN/ANTIBODY, FOURTH GENERATION W/RFL Routine 12/24/2023 6:15 AM EDT Healthcare maintenance Other fatigue HM COLONOSCOPY Routine 11/24/2022 3:42 PM EST THINPREP IMAGING PAP AND HPV MRNA E6/E7 WITH REFLEX TO HPV 16,18/45 Routine 09/07/2021 6:39 AM EST from Last 3 Months or Most Recently Relevant to Health Maintenance Results * FL Guidance in OR (08/31/2024 7:06 AM EST) Anatomical Region Laterality Modality X-Ray Angiograph y 08/31/2024 7:06 AM EST Narrative 10/25/2024 4:34 PM EST ? [facility] ?[address] ?[place], [place] [address] ? Fluoroscopy Report ? Signed ? Patient: Aidan Varela,Goldie ?MR#: ?? [id number] ? : 1970 ?Acct:[id number] ? Age/Sex: 54 / F ?ADM Date: 08/31/24 ? Loc: HO.SSS ? Attending Dr: Husam Paige MD, PhD ? Ordering Physician: Husam Paige MD, PhD ?? Date of Service: 08/31/24 ?? Procedure(s): FL guidance in OR ?? Accession Number(s): [id number] ? cc: Husam Paige MD, PhD; Suni Flores ? EXAMINATION: ?? FLUORO GUIDANCE IN OR [...] by Santino Call MD in OV> ? 10/25/24 1630 ? DD/ 0706 ? TD/TT: 08/31/24 0911 ? Skein Spooler: SS ? Procedure Note Jennifer, Brenden - 10/25/[address] [address] Fluoroscopy Report Signed Patient: Sharron Spencer#: [id number] : 1970Acct:[id number] Age/Sex: 54 / FADM Date: 08/31/24 Loc: HO.SSS Attending Dr: Husam Paige MD, PhD Ordering Physician: Husam Paige MD, PhD Date of Service: 08/31/24 Procedure(s): FL guidance in OR Accession Number(s): [id number] cc: Husam Paige MD, PhD; Suni Flores [...] by: Santino Call MD 10/25/2024 04:30 PM EST RP Dictated By: Santino Call MD Signed By: <Electronically signed by Santino Call MD in OV> 10/25/24 1630 DD/ 0706 TD/TT: 08/31/24 0911 Skein Spooler: [facility] External Provider IMG IR PROCEDURES Edited Result - Final * ECG 12 lead (08/23/2024 4:12 PM EST) Narrative Suni Flores FNP - 08/23/2024 4:12 PM EST Pr: 108/148 ms QRS: 88 ms QT/Qtc: 418/403 ms HR: 56 bpm Sinus rhythm Suni KIM ECG ORDERABLES Final Result * Vitamin D, 25-Hydroxy, Total, Immunoassay (08/23/2024 9:56 AM EST) Vitamin D 25-OH Total 38.5 >30 ng/mL [facility] Comment:Health Based Referen ce Values*< 20 ng/mL Dnumyztet21-97 ng/mL Insufficient> 30 ng/mL Sufficient*Evan PONCE. N Engl J Med. 2007;357:266-280Care must be taken in interpreting Vitamin D results fromdifferent laboratories and methodologies. Published datademonstrated that results from patients undergoinghemodialysis may show a negative bias when tested withvarious automated 25-OH vitamin D assays when compared toLC-MS/MS.When testing samples from patients whose predominant form ofVitamin D is Vitamin D2, such as patients receiving VitaminD2 supplementation, results that are subtherapeutic shouldbe confirmed with another method such as LC-MS/MS. Blood Venous blood specimen / Unknown 08/23/2024 9:56 AM EST 08/23/2024 11:17 AM EST us Suni Flores [employer]ST[employer] LAB BLOOD ORDERABLES Final Res ult [facility] [address] [place] [phone] * Comprehensive Metabolic Panel (08/23/2024 9:56 AM EST) Sodium 142 135 - 145 mmol/L [facility] Potassium 3.5 3.3 - 5.1 mmol/L [facility] Chloride 103 96 - 108 mmol/L [facility] Carbon Dioxide 28 22 - 29 mmol/L [facility] Anion Gap 15 12 - 20 [facility] Urea Nitrogen (BUN) 10 9 - 16 mg/dL [facility] Creatinine, Serum 0.86 0.5 - 1.4 mg/dL [facility] Estimated Glomerular Filt Rate >60 [facility] Comment:Chronic Kidney Disea se: Estimated GFR < 60 mL/min/[id number] Kidney Disease: Estimated GFR < 15 mL/min/1.73m2 Glucose 84 60 - 115 mg/dL [facility] Calcium 9.6 8.4 - 10.2 mg/dL [facility] Bilirubin, Total 0.4 0.0 - 1.0 mg/dL [facility] Aspartate Amino Transferase 18 5 - 31 U/L [facility] Alanine Aminotransferase 17 0 - 31 U/L [facility] Total Protein 7.9 6.5 - 8.0 g/dL [facility] Albumin Level 4.3 3.5 - 5.0 g/dL [facility] Alkaline Phosphatase 103 39 - 117 U/L [facility] Blood Venous blood specimen / Unknown 08/23/2024 9:56 AM EST 08/23/2024 11:17 AM EST us Suni Flores [employer]OCKSTITCH [employer]PER [employer]TER LAB BLOOD ORDERABLES Final Res ult [facility] [address] [place] [address] [phone] * BI Mammogram Screening Tomosynthesis Bilateral (06/13/2024 8:00 AM EDT) Anatomical Region Laterality Modality Breast Bilateral Mammography 06/13/2024 8:00 AM EDT Narrative 06/26/2024 3:20 PM EDT ? [facility] ? [address] ?[place] [address] ? Mammography Report ? Signed ? Patient: Goldie Spencer ?MR#: ?? [id number] ? : 1970 ?Acct:[id number] ? Age/Sex: 54 / F ?ADM Date: 09/17/24 ? Loc: HO.MAMMO ? Attending Dr: Suni Flores LOCKSTITCH ZIPPER SETTER ? Ordering Physician: Sandra,Suni [employer]OCKSTITCH ZIPPER SETTER ?Results: 1Negat ?? kajal ? Date of Service: 06/13/24 ?Follow Up: 1 Year From Orig ?? inal Mammogram ? Procedure(s): MM tomosynthesis screening BI ?? Accession Number(s): [id number] ? cc: Suni Flores LOCKSTITCH ZIPPER SETTER ? EXAMINATION: ?? MM SCREENING DIGITAL BREAST TOMOSYNTHESIS, BILATERAL ? CLINICAL INFORMATION: ? Screening. Asymptomatic. ? COMPARISON: ?? Mammography: Comparison is made with available priors ? TECHNIQUE: ?? Digital breast mammography with tomosynthesis is performed in both the ?? craniocaudal and mediolateral oblique views along with computer-aided ?? detection (CAD). ? FINDINGS: ?? There are scattered areas of fibroglandular density (ACR BI-RADS breast ?? composition Category b). ? There are no significant masses, abnormal calcifications, or other ?? abnormalities. ? MM/MM tomosynthesis screening BI ?? IMPRESSION: ?? No mammographic evidence of malignancy. ? ASSESSMENT: ? BI-RADS BI-RADS 1 - Negative ? RECOMMENDATION: ?? Routine annual mammography screening. ? 1 year F/U ? This examination should not preclude the clinical evaluation of a ?? suspicious palpable abnormality. ? This patient's information was entered into a reminder system with a ?? target due date for their next mammogram. ? Electronically signed by: ??Grace Humphrey DO ??06/26/2024 03:18 PM EDT ?? RP ? Dictated By: ?Grace Humphrey DO ? Signed By: ?<Electronically signed by Grace Humphrey, DO in OV> ? 06/26/24 1518 ? DD/ 0800 ? TD/TT: 06/13/24 0805 ? Skein Spooler: ? Procedure Note Jennifer, Brenden - 06/26/2024 [facility] [address] [place], [place] [address] Mammography Report Signed Patient: Huma SpencerR#: [id number] : 1970Acct:[id number] Age/Sex: 54 / FADM Date: 06/13/24 Loc: HO.MAMMO Attending Dr: Suni KIM Ordering Physician: Suni FloresPResults: 1Negat kajal Date of Service: 06/13/24Follow Up: 1 Year From Orig inal Mammogram Procedure(s): MM tomosynthesis screening BI Accession Number(s): [id number] cc: Suni Flores EXAMINATION: MM SCREENING DIGITAL BREAST TOMOSYNTHESIS, BILATERAL CLINICAL INFORMATION: Screening. Asymptomatic. COMPARISON: Mammography: Comparison is made with available priors TECHNIQUE: Digital breast mammography with tomosynthesis is performed in both the craniocaudal and mediolateral oblique views along with computer-aided detection (CAD). FINDINGS: There are scattered areas of fibroglandular density (ACR BI-RADS breast composition Category b). There are no significant masses, abnormal calcifications, or other abnormalities. MM/MM tomosynthesis screening BI IMPRESSION: No mammographic evidence of malignancy. ASSESSMENT: BI-RADS BI-RADS 1 - Negative RECOMMENDATION: Routine annual mammography screening. 1 year F/U This examination should not preclude the clinical evaluation of a suspicious palpable abnormality. This patient's information was entered into a reminder system with a target due date for their next mammogram. Electronically signed by: Grace Humphrey DO 06/26/2024 03:18 PM EDT Dictated By: Grace Humphrey DO Signed By: <Electronically signed by Grace Humphrey DO in OV> 06/26/24 1518 DD/ 0800 TD/TT: 06/13/24 0805 Skein Spooler: Suni KIM IMG BI PROCEDURES Final Result * Hepatitis C Viral RNA, Quantitative, Real-Time PCR (12/24/2023 6:15 AM EDT) Hepatitis C Viral Load <15 NOT DETECTED NOT DETECTED IU/mL [facility] HCV Log PCR <1.18 NOT DETECTED NOT DETECTED Log IU/mL [facility] Comment:This test was perfor med using Real-Time Polymerase ChainReaction.Reportable Range: 15 IU/mL to 100,000,000 IU/mL(1.18 Log IU/mL to 8.00 Log IU/mL).The analytical performance characteristics of thisassay have been determined by [employer].The modifications have not been cleared or approved bythe FDA. This assay has been validated pursuant to theCLIA regulations and is used for clinical purposes.For more information on this test, go to:http://education.Nitro/faq/CKB74m5(This link is being provided for informational/educational purposes only.)THIS TEST WAS PERFORMED AT:[employer] [place] [id number] ALBARADO MD Blood 12/24/2023 6:15 AM EDT 12/24/2023 6:15 AM EDT us Suni Flores LOCKSTITCH ZIPPER SETTER LAB BLOOD ORDERABLES Final Res ult [facility] [address] [place] [address] [phone] * HIV-1/2 Antigen and Antibodies, Fourth Generation, with Reflexes (12/24/2023 6:15 AM EDT) HIV AB/AG Nonreactive Nonreactive [facility] Comment:HIV-1 p24 Ag and/or HIV-1/HIV-2 Ab not detected.A test result that is nonreactive does not exclude thepossibility of exposure to or infection with HIV-1 and/orHIV-2. Nonreactive results in this assay for individualswith prior exposure to HIV-1 and/or HIV-2 may be due toantigen and antibody levels that are below the limit ofdetection of this assay.The [employer] HIV Ag/Ab Combo assay result andsupplemental assay results should be interpreted inconjunction with the patient's clinical presentation,history and other laboratory results. If the results areinconsistent with clinical evidence, additional testing issuggested to confirm the result. Blood Venous blood specimen / Unknown 12/24/2023 6:15 AM EDT 12/24/2023 6:15 AM EDT Suni Flores LOCKSTITCH ZIPPER SETTER LAB BLOOD ORDERABLES Final Res ult [facility] [address] [place] [phone] * Hm Colonoscopy (11/24/2022 3:42 PM EST) Historical Provider HEALTH MAINTENANCE Final Result * THINPREP TIS PAP AND HPV mRNA E6/E7 REFLEX HPV 16,18/45 (09/07/2021 6:39 AM EST) Clinical Information: None given [facility] COMMENT SEE COMMENT [facility] Comment: EXPLANATORY NOTE: ? The Pap is a screening test for cervical cancer. It is ?? not a diagnostic test and is subject to false negative ?? and false positive results. It is most reliable when a ?? satisfactory sample, regularly obtained, is submitted ?? with relevant clinical findings and history, and when ?? the Pap result is evaluated along with historic and ?? current clinical information. ?? COMMENT: This Pap test has been evaluated with computer assisted technology. [facility] Physical Therapist Assistant: SEE COMMENT [facility] Comment: SXA, CT(ASCP) CT screening location: [address] ??[address] HPV nRNA E6/E7 Not Detected Not Detected [facility] Comment: Methodology: [employer] Dies-Mediated Amplification This assay detects E6/E7 viral messenger RNA (mRNA) from 14 high-risk HPV types (16,18,31,33,35,39,45,51,52,56,58,59,66,68). ? The analytical performance characteristics of this assay have been determined by [employer]. The modifications have not been cleared or approved by the FDA. This assay has been validated pursuant to the CLIA regulations and is used for clinical purposes. ?? For additional information, please refer to http://education.LegalJump.Prognosis Health Information Systems/faq/DGJ282e8 (This link if provided for information/ educational purposes only.) NO COLLECTION DATE RECEIVED. WE HAVE USED THE DATE THE SPECIMEN WAS RECEIVED BY THIS LABORATORY THE COLLECTION DATE. IF THIS IS INCORRECT, PLEASE CONTACT CLIENT SERVICES. PHONE NUMBER: ?? Interpretation/Re sult: Negative for intraepithelial lesion or malignancy. [facility] LMP: NONE [facility]IVEN [facility] Prev. BX: NONE [facility]IVEN [facility] Prev. PAP: NONE GIVEN [facility] SOURCE: None given [facility] Statement Of Adequacy: SEE COMMENT [facility] Comment: Satisfactory for evaluation. Endocervical/transformation zone component present. Age and/or menstrual status not provided 09/07/2021 6:39 AM EST us Sherley Ford NP LAB PATHOLOGY ORDERABLES Final Result Performing Organization Address City/State/[facility] Co de Phone Number [facility] [address] from Last 3 Months or Most Recently Relevant to Health Maintenance Insurance [facility] C[facility] Care Teams Maintenance Aide Relationship Specialty Start Date End Date Suni Flores FNP [address] [place] [address] PCP - General Family Medicine 05/20/22December [address] [place] [address] [address]rd [place] [address] Gastroenterology 08/23/24 Edwin William MD [address] [place] [address] Pulmonary Disease 08/23/24 Patricia Coffman [facility] Consulting Physician Oncology 08/23/24
--- OUTSIDE RECORDS SUMMARY | 2024-11-02 09:14 | XMS_ITS | Encounter Summary ---
Author Organization [employer] Address [address] [facility] 7t [place] [address] Care Team Providers Care Blending Plant Operator Name Role Phone Suni Flores Primary Care Provider [phone] December Unavailable Edwin William MD Unavailable [phone] Reason for Visit * Reason Comments Med Refill Encounter Details Date Type Department Care Team ([facility] st Contact Info) Description 10/04/2024 Refill [facility] [address] [place], [place] [phone] Suni Flores FNP [address] [place], [place] [phone] Cervical spinal cord compression (CMS/HCC); Spondylolisthesis, cervical region Social History Tobacco Use Types Packs/Day Years [...] as of this encounter Visit Diagnoses Diagnosis Cervical spinal cord compression (CMS/HCC) Unspecified disease of spinal cord Spondylolisthesis, cervical region documented in this encounter Additional Health Concerns Assessment Noted Time PHQ-9 Depression Total Score: 12 024 11:43 AM EDT documented as of this encounter Care Teams Blending Plant Operator Relationship Specialty Start Date End Date Suni Flores FNP [address] [place] [address] PCP - General Family Medicine 05/20/22December 11 [facility] 3rd [place] [address] Gastroenterology 08/23/24 Edwin William MD [address] [place] [address] Pulmonary Disease 08/23/24 Patricia Coffman [facility] Consulting Physician Oncology 08/23/24 documented as of this encounter
== END 2024-11-02 08:39 | disposition home or self-care (01) ==
LOC: HO.HOSX 08:38
PROVIDERS: PCP Registered Nurse; Visit Provider Physician Assistant
DX: Z98.1 Arthrodesis status (principal)
CPT/HCPCS: 72050; 99212

== ENCOUNTER → 2024-11-02 09:14 | Outpatient (BNV) | payer MEDICAID, SELFPAY | PROVIDERS: PCP Registered Nurse; Visit Provider Radiology Diagnostic Radiology | DX: Z98.1 Arthrodesis status (principal) | CPT/HCPCS: 72050 ==

== ENCOUNTER 2024-11-14 09:54 | Outpatient (AMB) | payer MEDICAID, SELFPAY ==
[2024-11-14 09:59] VITALS: BP 109/60; PULSE 75; O2SAT 100; BMI 30.8
--- NOTE | 2024-11-14 09:59 | A.OFFVIS_ITS ---
Vital Signs 11/14/24 09:59 Height 5 ft 1 in Weight 163 lb BMI 30.8 BP 109/60 Blood Pressure Location Rt brachial Position Sitting Pulse 75 Pulse Source Doppler Pulse Oximetry (%) 100 Oxygen Delivery Method Room Air Intake Visit Reasons: Cough Allergies No Known Allergies Allergy (Verified 11/02/24 08:52) HPI HPI Cough: Details: 54-year-old lady, nonsmoker, followed for cough variant asthma and environmental allergies. She continues to use Symbicort and albuterol MDI/nebs with good control of her asthma symptoms. Patient also continues on loratadine and Flonase with good control of her allergies symptoms. She denies any recent exacerbations. [facility] Medical History (Updated 08/10/24 @ 10:14 by Kalpana Jackson RN) Environmental allergies Seasonal allergies Diverticulosis Personal history of COVID-19 (~04/2024) Cervical spondylosis Ulnar neuropathy at elbow Carpal tunnel syndrome of right wrist Sessile serrated polyp of colon GERD (gastroesophageal reflux disease) Diverticulitis (~2020) Asthma Surgical History (Updated 09/21/24 @ 09:12 by ANALIA Cintron) Hx of lymph node biopsy (08/09/24) History of carpal tunnel release (05/15/24) History of colonoscopy History of hemorrhoidectomy History of foot surgery Status post creation of urethral sling by suprapubic approach Family History Mother Heart attack Breast cancer Uterine cancer Father Prostate cancer Social History Household Members: Children Household Members Other:: 3 children Housing: Apartment Are you a primary home health care provider to a significant other at home: Yes (children) Do you presently have visiting nurse or other home services: No 75 years or older and lives alone: No Alcohol intake: current Alcohol intake frequency: holidays/special occasions only Patient Tobacco Use Status: Never used Tobacco e-Cigarette/Vaping Use: Never Used Current occupational status: employed 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 Review of Systems Const Denies daytime sleepiness, Denies excessive sweating, Denies fatigue, Denies fever(s), Denies lethargy, Denies malaise, Denies night sweats, Denies snoring and Denies weight loss Eyes Denies blurry vision and Denies itchy eyes ENT Denies nasal congestion, Denies post nasal drip, Denies sinus pain, Denies sinus pressure and Denies other ( Thrush) Card Denies chest pain, Denies pedal edema, Denies dyspnea, Denies orthopnea and Denies paroxysmal nocturnal dyspnea Resp Denies cough, Denies hemoptysis, Denies excessive phlegm production, Denies dyspnea, Denies snoring and Denies wheezing GI Denies abdominal pain and Denies heartburn Musc Denies myalgias, Denies arthralgias and Denies joint swelling Skin/Breast Denies rash Neuro Denies memory loss and Denies seizure-like activity Psych Denies abnormal sleep pattern, Denies anxiety and Denies memory loss Endo Denies excessive sweating, Denies fatigue and Denies heat intolerance Shiraz/Lymph Denies easy bruising Aller/Immun Denies itchy eyes, Denies seasonal rhinorrhea and Denies wheezing Physical Exam Vital Signs: Last Vital Signs Pulse 75 11/14/24 09:59 BP 109/60 11/14/24 09:59 Pulse Ox 100 11/14/24 09:59 Oxygen Delivery Method Room Air 11/14/24 09:59 BMI result Body Mass Index 30.8 Const General: no acute distress and alert Nutritional Appearance: not obese Orientation/consciousness: Other orientation findings ( oriented) HEENT Head: Yes atraumatic Eyes General: appearance normal, both eyes and all related structures Sclerae: sclerae normal EOM: EOMs intact bilaterally Neck Neck: Yes supple Lymphatic: no lymphadenopathy noted Resp Effort & Inspection: normal respiratory effort and no use of accessory muscles Auscultation: clear to auscultation bilaterally Cardio Rate: regular rate Rhythm: regular rhythm Heart sounds: no gallops, no murmurs and no rubs Skin General skin exam: other ( warm) Extrem General: No clubbing, No cyanosis and No edema Assessment & Plan Assessment & Plan (1) Asthma: Code(s): J45.909 - Unspecified asthma, uncomplicated Category: Medical Plan: Well controlled Symbicort and albuterol MDI. Continue current regimen. (2) Seasonal allergies: Code(s): J30.2 - Other seasonal allergic rhinitis Category: Medical Plan: Well controlled on loratadine and Flonase. Continue current regimen. Coding Level of Care Code Est Pt Level 4 (26069) Diagnoses Asthma J45.909 Seasonal allergies J30.2
--- OUTSIDE RECORDS SUMMARY | 2024-11-14 10:39 | XMS_ITS | Encounter Summary ---
Author Organization [employer] Address [address] [facility] [address] [place] [address] Care Team Providers Care Cloth Shrinking Machine Operator Helper Name Role Phone Suni Flores Primary Care Provider [phone] December Unavailable Edwin William MD Unavailable [phone] Reason for Visit * Reason Onset Date Comments triage 11/18/2022 Encounter Details Date Type Department Care Team (Late st Contact Info) Description 11/18/2022 Telephone [facility] MEDICINE [address] [place] [address] Suni Flores FNP [address] [place], [place] [phone] triage Social History Tobacco Use Types Packs/Day [...] EST Triage call returned to patient via [employer] Stone Spreader Operator [phone]. Patient reports that she was seen in [...] agreement with plan. Will seek evaluation at [facility] now. Team Nurses updated with patient [...] caller accepted this outcome Please contact at [phone] documented in this encounter Plan of Treatment Not on file documented as of this encounter Visit Diagnoses Not on filedocumented in this encounter Care Teams Cloth Shrinking Machine Operator Helper Relationship Specialty Start Date End Date Suni Flores FNP [address] [place] [address] PCP - General Family Medicine 05/20/22December [address] [place] [address] [address]rd [place] [address] Gastroenterology 08/23/24 Edwin William MD [address] [place] [address] Pulmonary Disease 08/23/24 Patricia Coffman [facility] Consulting Physician Oncology 08/23/24 documented as of this encounter
--- OUTSIDE RECORDS SUMMARY | 2024-11-14 10:40 | XMS_ITS | Encounter Summary ---
Author Organization [employer] Address [address] [facility] [address] [place] [address] Care Team Providers Care Superintendent Stations Name Role Phone Suni Flores Primary Care Provider [phone] December Unavailable Edwin William MD Unavailable [phone] Reason for Visit * Reason Onset Date Comments Lincilir 11/08/2024 Nebulizer Encounter Details Date Type Department Care Team (Late st Contact Info) Description 11/08/2024 Telephone [facility] MEDICINE [address] [place] [address] Suni Flores FNP [address] [place], [place] [phone] Azar (Nebulizer) Social History Tobacco Use Types Packs/Day Years [...] encounter Miscellaneous Notes * Telephone Encounter - Jaleel Lucas [place] - 11/08/2024 9:59 AM EST Received medical necessity form from [facility] for Nebulizer. Form has been filled out and placed on PCP's desk for their signature. documented in this encounter Plan of Treatment Not on file documented as of this encounter Visit Diagnoses Not on filedocumented in this encounter Additional Health Concerns Assessment Noted Time PHQ-9 Depression Total Score: 12 024 11:43 AM EDT documented as of this encounter Care Teams Superintendent Stations Relationship Specialty Start Date End Date Suni Flores FNP [address] [place] [address] PCP - General Family Medicine 05/20/22December [address] [place] [address] 3rd [place] [address] Gastroenterology 08/23/24 Edwin William MD [address] [place] [address] Pulmonary Disease 08/23/24 Patricia Coffman [facility] Consulting Physician Oncology 08/23/24 documented as of this encounter
--- OUTSIDE RECORDS SUMMARY | 2024-11-14 10:40 | XMS_ITS | Encounter Summary ---
Author Organization [employer] Address [address] [facility] [address]t [place] [address] Care Team Providers Care Push Button Switch Assembler Name Role Phone Suni Flores JULIO Primary Care Provider December Unavailable Edwin William MD Unavailable [phone] Encounter Details Date Type Department Care Team ([facility] Contact Info) Description 08/31/2024 Orders Only [facility] External Provider, [facility] Social History Tobacco Use Types Packs/Day Years [...] EST Narrative 10/25/2024 4:34 PM EST ? [facility] ?[address] ?[place] [address] ? Fluoroscopy Report ? Signed ? Patient: Goldie Spencer ?MR#: ?? [id number] ? : 1970 ?Acct:[id number] ? Age/Sex: 54 / F ?ADM Date: 08/31/24 ? Loc: HO.SSS ? Attending Dr: Husam Paige MD, PhD ? Ordering Physician: Husam Paige MD, PhD ?? Date of Service: 08/31/24 ?? Procedure(s): FL guidance in OR ?? Accession Number(s): [id number] ? cc: Husam Paige MD, PhD; Suni Flores SLAT TWISTER ? EXAMINATION: ?? FLUORO GUIDANCE IN OR [...] DD/ 0706 ? TD/TT: 08/31/24 0911 ? Pet Store Merchandiser: SS ? Procedure Note Jennifer, Image - 10/25/2024 [place] [address] Fluoroscopy Report Signed Patient: Huma SpencerR#: [id number] : 1970Acct:[id number] Age/Sex: 54 / FADM Date: 08/31/24 Loc: HO.SSS Attending Dr: Husam Paige MD, PhD Ordering Physician: Husam Paige MD, PhD Date of Service: 08/31/24 Procedure(s): FL guidance in OR Accession Number(s): [id number] cc: Husam Paige MD, PhD; Suni Flores [...] by: Santino Call MD 10/25/2024 04:30 PM [facility] Dictated By: Santino Call MD Signed By: <Electronically signed by Santino Call MD in OV> 10/25/24 1630 DD/ 0706 TD/TT: 08/31/24 0911 Pet Store Merchandiser: YULISA [facility] External Provider IMG IR PROCEDURES Edited Result - Final documented in this encounter Visit Diagnoses Not on filedocumented in this encounter Additional Health Concerns Assessment Noted Time PHQ-9 Depression Total Score: 12 024 11:43 AM EDT documented as of this encounter Care Teams Push Button Switch Assembler Relationship Specialty Start Date End Date Suni Flores FNP [address] [place] [address] PCP - General Family Medicine 05/20/22December [address] [place] [address] 3rd [place] [address] Gastroenterology 08/23/24 Edwin William MD [address] [place] [address] Pulmonary Disease 08/23/24 Patricia Coffman [facility] Consulting Physician Oncology 08/23/24 documented as of this encounter
--- OUTSIDE RECORDS SUMMARY | 2024-11-14 10:40 | XMS_ITS | Clinical Summary ---
Author Organization [employer] Address [address] [place] [address] 7[address] [place] [address] Care Team Providers Care Fruit Washer Name Role Phone Suni Flores JULIO Primary Care Provider [phone] December Unavailable Edwin William MD Unavailable [phone] Allergies No known active allergies Medications Acetaminophen Extra Strength 500 MG tablet TAKE 2 TABLETS BY MOUTH EVERY 6 HOURS NEEDED FOR PAIN OR FEVER 04/08/20 22 Active dicyclomine (Bentyl) 10 MG capsule Take 10 mg by mouth 3 times daily. 01/24/20 23 Active docusate sodium (Colace) 100 MG capsule TAKE 1 CAPSULE BY MOUTH 2 TIMES A DAY NEEDED FOR CONSTIPATION 05/22/20 22 Active famotidine (Pepcid) 20 MG tablet Take 20 mg by mouth 2 times daily. 12/09/19 23 Active GaviLAX 17 GM/SCOOP powder TAKE ORALLY DIRECTED PRIOR TO COLONOSCOPY 11/19/19 23 Active budesonide-formot godfrey (Symbicort) 160-4.5 MCG/ACT inhalerIndication s:Cough variant asthma Inhale 2 puffs in the morning and at bedtime. Rinse mouth with water after use to reduce aftertaste and incidence of candidiasis. Do not swallow. (Replacing Flovent inhaler) 1 each 05/13/20 23 Active fluticasone (Flonase) 50 MCG/ACT nasal spray INHALE 2 SPRAY BY INTRANASAL ROUTE EVERY DAY IN EACH NOSTRIL NEEDED 48 mL 06/04/20 23 Active betamethasone, augmented, (Diprolene) 0.05 % ointmentIndicatio ns:Psoriasis Apply topically 2 times daily. 45 g 2 06/11/20 23 Active Clobetasol Propionate 0.05 % shampoo Apply 2-3 times weekly 118 mL 11 06/11/20 23 Active Fluocinolone Acetonide Scalp ([place]-Smoothe/FS Scalp) 0.01 % oil Apply 2-3 times weekly 118.28 mL 11 06/11/20 23 Active Ketotifen Fumarate 0.035 % solutionIndicatio ns:Seasonal allergies ADMINISTER 1 DROP INTO BOTH EYES IF NEEDED IN THE MORNING AND AT BEDTIME (EYE ITCHING AND ALLERGY SYMPTOMS). 5 mL 11 08/03/20 23 Active montelukast (Singulair) 10 MG tabletIndications :Cough variant asthma Take 1 tablet (10 mg) by mouth at bedtime. (Allergies/asthm a) 90 tablet 3 08/27/20 23 Active cetirizine (ZyrTEC) 10 MG tabletIndications :Seasonal allergies TAKE 1 TABLET BY MOUTH EVERY DAY 90 tablet 3 11/02/19 24 Active apremilast (Otezla) 10 & 20 & [...] daily starting on D 6. 55 each 12/17/19 24 Active Ventolin HFA 108 (90 Base) MCG/ACT inhalerIndication s:Cough variant asthma Inhale 1-2 puffs every 6 (six) hours if needed for wheezing or shortness of breath. 18 g 3 08/23/20 24 Active albuterol 0.63 MG/3ML nebulizer solutionIndicatio ns:Cough variant asthma INHALE 3 ML (1 VIAL) VIA NEBULIZER EVERY 6 HOURS NEEDED FOR SHORTNESS OF BREATH OR WHEEZING 75 mL 3 08/23/20 24 Active cholecalciferol (Vitamin D3) 25 MCG (1000 UT) tabletIndications :Vitamin D insufficiency TAKE 1 TABLET BY MOUTH EVERY DAY 90 tablet 1 10/03/19 25 Active celecoxib (CeleBREX) 200 MG capsuleIndication s:Cervical spinal cord compression (CMS/HCC),Spondyl olisthesis, cervical region TAKE 1 CAPSULE BY MOUTH EVERY DAY NEEDED FOR PAIN 30 capsule 2 10/04/19 25 Active Active Problems Problem Noted Date Diagnosed Date Abnormal PET scan of mediastinum 06/08/2024 Overview (08/23/2024): - Following with [facility] Heme/Onc - Dr. Coffman - Initially referred to [facility] Heme/Onc on 05/15/24 d/t concern for malignancy identified on CT Chest - PET scan completed on 06/02/24 at [facility], with Moderate metabolic activity in lymph nodes [...] from colon CA screening in 2022 at [facility]. Mammo last completed May 2023 BIRADS 1. (See healthcare maintenance diagnoses for further details). Plan: PET scan results to be reviewed by Heme/Onc day haul youth supervisor on 06/09/24. Per specialist team, pt should [...] & Neurosurgery placed 04/02/24 - Established with [facility]ine [facility]/Neurosurgery - Dr. Paige Assessment & [...] C6-C7 with mild-mod central stenosis. Following with [facility]ine [facility] - Dr. Paige Assessment & Plan (08/23/2024 4:05 PM EST): Plan for upcoming spinal surgery on 08/31/24 per pt. EKG and CMP completed as requested by office. Both WNL. Faxed to office. Right carpal tunnel syndrome 02/04/2024 Overview (04/02/2024): Diagnosed on EMG December 2023: mild right carpal tunnel syndrome Consult with [facility] Ortho February 2024, plan to proceed with surgery for right CTS Cubital tunnel syndrome, bilateral 02/04/2024 Overview (02/05/2024): Diagnosed on EMG December 2023: mild bilateral cubital tunnel syndrome Consult with Ortho January 2024 Sickle cell trait 01/03/2024 Overview (01/03/2024): Lab Results Component Value Date SICKLECELL POSITIVE (A) 12/24/2023 Vitamin D insufficiency 01/03/2024 Overview (01/03/2024): Lab Results Component Value Date [id number] 16.8 (L) 12/24/2023 -December 2023: initiated on [...] 02/08/2023 Psoriasis 02/08/2023 Overview (12/19/2023): Following with [facility] Symptoms improving Plan during [...] or do not improve - Referral to [facility] Derm team for further eval and tx Healthcare maintenance 02/08/2023 Overview (08/23/2024): Pap/results: NIL/HPV neg 09/03/21, repeat 08/2026 Smoking status: never smoker Lipids: Total Cholesterol 163, HDL 43, LDL 100, TG 106 on 06/26/21 Mammogram: BIRADS 1 on 06/13/24 Colorectal Screening: [facility] GI 2022 scope with plan to repeat in 3 years due to polyp DEXA: recommend screen at 65 years Assessment & Plan (08/27/2023 6:18 AM EST): PHQ: negative screening January 2023 Pap/results: NIL/HPV neg 09/03/21, repeat 08/2026 Smoking status: never smoker Lipids: Total Cholesterol 163, HDL 43, LDL 100, TG 106 on 06/26/21 Mammogram: BIRADS 1 on 05/28/23 Colorectal Screening: [facility] DEXA: recommend screen at 65 years [...] sling surgery on 05/22/22 - Following with [facility] UroGYN Cough variant asthma 08/31/2021 Assessment & Plan (12/19/2023 8:21 PM EDT): Continue Symbicort 160-4.5 two puffs BID. Reviewed med use and safety Cont montelukast 10mg nightly Cont w/ flonase and loratadine for allergic component Following with [facility] Baljit William (last consult Oct 2023) May continue albuterol PRN DME request for nebulizer placed: 08/27/23 ED precautions Assessment & Plan (08/29/2023 5:46 PM EST): ?? Continue Symbicort 160-4.5 two puffs BID. Reviewed med use and safety ?? Start montelukast 10mg nightly ?? Following with [facility] Baljit William ?? May continue albuterol PRN [...] Encounters Date Type Department Care Team Description 11/08/2024 Telephone [facility] [address] [place] [address] Suni Flores, ORGANIC CHEMIST [employer] (Nebulizer) 11/02/2024 Orders Only [facility] External Provider, [facility] 10/04/2024 Refill [facility] [address] [place] [address] Suni Flores, ORGANIC CHEMIST Cervical spinal cord compression (CMS/HCC); Spondylolisthesis, cervical region 10/03/2024 Refill [facility] [address] [place] [address] Suni Flores, ORGANIC CHEMIST Vitamin D insufficiency 08/31/2024 Orders Only [facility] External Provider, [facility] 08/31/2024 Telephone [facility] [address] [place] [address] Suni Flores, ORGANIC CHEMIST Results 08/23/2024 9:00 AM EST Office Visit [facility] [address] [place] [address] Suni Flores, ORGANIC CHEMIST Spondylolisthesis, cervical region (Primary Dx); Encounter for immunization; Healthcare maintenance; Cervical spinal cord compression (CMS/HCC); Abnormal PET scan of mediastinum; Cough variant asthma 08/23/2024 Travel 08/23/2024 Telephone [facility] [address] [place] [address] Anika Mcneill MA Chart Prep 08/22/2024 Travel [...] your housing situation today? I have ruth rita 03/31/[address] you li [...] Tobacco Screening 06/07/2025 06/07/2024 Mammogram 06/13/2025 06/13/2024, 09/2022, 02/02/2022 COVID-19 Vaccine ( season) 2025 [...] Date/Time Associated Diagnosis Comments XR CERVICAL SPINE 4V Routine 11/02/2024 9:14 AM EST FL GUIDANCE IN OR Routine 08/31/2024 7:0 [...] Recently Relevant to Health Maintenance Results * XR CERVICAL SPINE 4V (11/02/2024 9:14 AM EST) Anatomical Region Laterality Modality Abdomen Radiographic Erinn ging 11/02/2024 9:14 AM EST Narrative 11/02/2024 11:43 AM EST ? [facility] ? [address] ?[place], [place] [address] ?XRay Report ? Signed ? Patient: Goldie Spencer ?MR#: ?? [id number] ? : 1970 ?Acct:[id number] ? Age/Sex: 54 / F ?ADM Date: 11/02/24 ? Loc: HO.HOSX ? Attending Dr: Mark HELMS ? Ordering Physician: Mark Calloway ?? Date of Service: 11/02/24 ?? Procedure(s): XR cervical spine 4V ?? Accession Number(s): [id number] ? cc: Suni FloresP; Mark Calloway ? EXAMINATION: ?? XR CERVICAL SPINE ? CLINICAL INFORMATION: ?? Z98.1 - Arthrodesis status ? COMPARISON: ?? January 24, 2024. ? TECHNIQUE: ?? 6 views of the cervical spine, inclusive of flexion and extension ?? views, were obtained. ? FINDINGS: ?? Status post intervertebral body disc spacer placement at C5-6 and C6-7 ?? levels. ?? Marginal osteophyte formation, C5-6 and C6-7 levels and to a lesser ?? extent C3-4 and C4-5. ?? No gross malalignment in neutral or flexion or extension positioning. ?? Craniocervical junction is intact. ?? Facet joint hypertrophy at C4-5 mostly on the right side. ?? Upper airway is patent. No lytic or blastic lesions. ? XR/XR cervical spine 4V ?? IMPRESSION: ?? Status post intervertebral body disc spacer placement C5-6 and C6-7 ?? without acute fracture, listhesis or instability. ? Electronically signed by: ??Xu Cisneros MD ??11/02/2024 11:40 AM ?? EST RP ? Dictated By: ?Xu Miller MD ? Signed By: ?<Electronically signed by Xu Marie MD in OV> ? 11/02/24 1140 ? DD/ 3 ? TD/TT: 11/02/24 0920 ? Funeral Car Chauffeur: ? Procedure Note Donotuseinterpreter, Image - 11/02/2024 [facility] [address] [place] [address] Drive [address] [place] [address] XRay Report Signed Patient: Huma SpencerR#: [id number] : 1970Acct:[id number] Age/Sex: 54 / FADM Date: 11/02/24 Loc: HO.HOSX Attending Dr: Mark HELMS Ordering Physician: Mark Calloway Date of Service: 11/02/24 Procedure(s): XR cervical spine 4V Accession Number(s): [id number] cc: Suni Flores; Mark Calloway EXAMINATION: XR CERVICAL SPINE CLINICAL INFORMATION: Z98.1 - Arthrodesis status COMPARISON: January 24, 2024. TECHNIQUE: 6 views of the cervical spine, inclusive of flexion and extension views, were obtained. FINDINGS: Status post intervertebral body disc spacer placement at C5-6 and C6-7 levels. Marginal osteophyte formation, C5-6 and C6-7 levels and to a lesser extent C3-4 and C4-5. No gross malalignment in neutral or flexion or extension positioning. Craniocervical junction is intact. Facet joint hypertrophy at C4-5 mostly on the right side. Upper airway is patent. No lytic or blastic lesions. XR/XR cervical spine 4V IMPRESSION: Status post intervertebral body disc spacer placement C5-6 and C6-7 without acute fracture, listhesis or instability. Electronically signed by: Xu Cisneros MD 11/02/2024 11:40 AM EST Dictated By: Xu Miller MD Signed By: <Electronically signed by Xu Marie MDin OV> 11/02/24 1140 DD/ 0914 TD/TT: 11/02/24 0920 Funeral Car Chauffeur: [facility] External Provider IMG XR PROCEDURES Final Result * FL Guidance in OR (08/31/2024 7:06 AM EST) Anatomical Region Laterality Modality X-Ray Angiograph y 08/31/2024 7:06 AM EST Narrative 10/25/2024 4:34 PM EST ? [facility] ?[address] ?[place], [place] [address] ? Fluoroscopy Report ? Signed ? Patient: Goldie Spencer ?MR#: ?? [id number] ? : 1970 ?Acct:[id number] ? Age/Sex: 54 / F ?ADM Date: 08/31/24 ? Loc: HO.SSS ? Attending Dr: Husam Paige MD, PhD ? Ordering Physician: Husam Paige MD, PhD ?? Date of Service: 08/31/24 ?? Procedure(s): FL guidance in OR ?? Accession Number(s): [id number] ? cc: Husam Paige MD, PhD; Suni [...] ??Santino Call MD ??10/25/2024 04:30 PM EST ?? RP ? Dictated By: ?Santino Call MD ? Signed By: ?<Electronically signed by Santino Call MD in OV> ? 10/25/24 1630 ? DD/ 07 ? TD/TT: 08/31/24 0911 ? Funeral Car Chauffeur: SS ? Procedure Note Jennifer, Brenden - 10/25/[address] [address] Fluoroscopy Report Signed Patient: Huma SpencerR#: [id number] : 1970Acct:[id number] Age/Sex: 54 / FADM Date: 08/31/24 Loc: HO.SSS Attending Dr: Husam Paige MD, PhD Ordering Physician: Husam Paige MD, PhD Date of Service: 08/31/24 Procedure(s): FL guidance in OR Accession Number(s): [id number] cc: Husam Paige MD, PhD; Suni Flores [...] Santino Call MD 10/25/2024 04:30 PM EST Dictated By: Santino Call MD Signed By: <Electronically signed by Santino Call MD in OV> 10/25/24 1630 DD/ 0706 TD/TT: 08/31/24 0911 Funeral Car Chauffeur: [facility] External Provider IMG IR PROCEDURES Edited Result - Final * ECG 12 lead (08/23/2024 4:12 PM EST) Narrative Suni Flores FNP - 08/23/2024 4:12 PM EST Pr: 108/148 ms QRS: 88 ms QT/Qtc: 418/403 ms HR: 56 bpm Sinus rhythm Suni KIM ECG ORDERABLES Final Result * Vitamin D, 25-Hydroxy, Total, Immunoassay (08/23/2024 9:56 AM EST) Vitamin D 25-OH Total 38.5 >30 ng/mL [facility] Comment:Health Based Referen ce Values*< 20 ng/mL [id number] ng/mL Insufficient> 30 ng/mL Sufficient*Evan PONCE. N [...] 08/23/2024 11:17 AM EST us Suni Flores ORGANIC CHEMIST LAB BLOOD ORDERABLES Final Res ult [facility] [address] [place] [phone] * Comprehensive Metabolic Panel (08/23/2024 9:56 AM EST) Sodium 142 135 - 145 mmol/L [facility] Potassium 3.5 3.3 - 5.1 mmol/L [facility] Chloride 103 96 - 108 mmol/L [facility] Carbon Dioxide 28 22 - 29 mmol/L [facility] Anion Gap 15 12 - 20 [facility] Urea Nitrogen (BUN) 10 9 - 16 mg/dL [facility] Creatinine, Serum 0.86 0.5 - 1.4 mg/dL [facility] Estimated Glomerular Filt Rate >60 [facility] Comment:Chronic Kidney Disea se: Estimated GFR < 60 mL/min/1.54a9Fiptis Kidney Disease: Estimated GFR < 15 mL/min/1.73m2 Glucose 84 60 - 115 mg/dL [facility] Calcium 9.6 8.4 - 10.2 mg/dL [facility] Bilirubin, Total 0.4 0.0 - 1.0 mg/dL [facility] Aspartate Amino Transferase 18 5 - 31 U/L [facility] Alanine Aminotransferase 17 0 - 31 U/L [facility] Total Protein 7.9 6.5 - 8.0 g/dL [facility] Albumin Level 4.3 3.5 - 5.0 g/dL [facility] Alkaline Phosphatase 103 39 - 117 U/L [facility] Blood Venous blood specimen / Unknown 08/23/2024 9:56 AM EST 08/23/2024 11:17 AM EST us Suni Flores ORGANIC CHEMIST LAB BLOOD ORDERABLES Final Res ult [facility] [address] [place] [address] [phone] * BI Mammogram Screening Tomosynthesis Bilateral (06/13/2024 8:00 AM EDT) Anatomical Region Laterality Modality Breast Bilateral Mammography 06/13/2024 8:00 AM EDT Narrative 06/26/2024 3:20 PM EDT ? [facility] [place] ? [address] ?[place] [address] ? Mammography Report ? Signed ? Patient: Aidan Varela,Goldie ?MR#: ?? [id number] ? : 1970 ?Acct:[id number] ? Age/Sex: 54 / F ?ADM Date: 09/17/24 ? Loc: HO.MAMMO ? Attending Dr: Suni Flores ORGANIC CHEMIST ? Ordering Physician: Sandra,Suni ORGANIC CHEMIST ?Results: 1Negat ?? kajal ? Date of Service: 06/13/24 ?Follow Up: 1 Year From Orig ?? inal Mammogram ? Procedure(s): MM tomosynthesis screening BI ?? Accession Number(s): [id number] ? cc: Suni Flores ORGANIC CHEMIST ? EXAMINATION: ?? MM SCREENING DIGITAL BREAST [...] next mammogram. ? Electronically signed by: ??Grace Jennyliban DO ??06/26/2024 03:18 PM EDT ?? RP ? Dictated By: ?Grace Humphrey DO ? Signed By: ?<Electronically signed by Grace Humphrey, DO in OV> ? 06/26/24 1518 ? DD/ 0800 ? TD/TT: 06/13/24 0805 ? Funeral Car Chauffeur: ? Procedure Note Jennifer, Image - 06/26/2024 [facility] [address] [place] [address] [place], [place] [address] Mammography Report Signed Patient: Huma SpencerR#: [id number] : 1970Acct:[id number] Age/Sex: 54 / FADM Date: 06/13/24 Loc: HO.MAMMO Attending Dr: Suni Flores ORGANIC CHEMIST Ordering Physician: Suni FloresPResults: 1Negat kajal Date of Service: 06/13/24Follow Up: 1 Year From Orig ina Mammogram Procedure(s): MM tomosynthesis screening BI Accession Number(s): [id number] cc: Suni Flores EXAMINATION: MM SCREENING DIGITAL [...] 06/26/24 1518 DD/ 0800 TD/TT: 06/13/24 0805 Funeral Car Chauffeur: Suni KIM IMG BI PROCEDURES Final Result * Hepatitis C Viral RNA, Quantitative, Real-Time PCR (12/24/2023 6:15 AM EDT) Hepatitis C Viral Load <15 NOT DETECTED NOT DETECTED IU/mL [facility] HCV Log PCR <1.18 NOT DETECTED NOT DETECTED Log IU/mL [facility] Comment:This test was perfor med using Real-Time Polymerase ChainReaction.Reportable Range: 15 IU/mL to 100,000,000 IU/mL(1.18 Log IU/mL to 8.00 Log IU/mL).The analytical performance characteristics of thisassay have been determined by [employer].The modifications have not been cleared or approved bythe FDA. This assay has been validated pursuant to theCLIA regulations and is used for clinical purposes.For more information on this test, go to:http://education.Dynamo Micropower/faq/PYZ78u5(This link is being provided for informational/educational purposes only.)THIS TEST WAS PERFORMED AT:[employer] [place] [phone] ALBARADO MD Blood 12/24/2023 6:15 AM EDT 12/24/2023 6:15 AM EDT us Suni Flores ORGANIC CHEMIST LAB BLOOD ORDERABLES Final Res ult [facility] [address] [place] [phone] * HIV-1/2 Antigen and Antibodies, Fourth Generation, with Reflexes (12/24/2023 6:15 AM EDT) HIV AB/AG Nonreactive Nonreactive [facility] Comment:HIV-1 p24 Ag and/or HIV-1/HIV-2 Ab not detected.A test result that is nonreactive does not exclude thepossibility of exposure to or infection with HIV-1 and/orHIV-2. Nonreactive results in this assay for individualswith prior exposure to HIV-1 and/or HIV-2 may be due toantigen and antibody levels that are below the limit ofdetection of this assay.The [employer] HIV Ag/Ab Combo assay result andsupplemental assay results should be interpreted inconjunction with the patient's clinical presentation,history and other laboratory results. If the results areinconsistent with clinical evidence, additional testing issuggested to confirm the result. Blood Venous blood specimen / Unknown 12/24/2023 6:15 AM EDT 12/24/2023 6:15 AM EDT Suni Flores ORGANIC CHEMIST LAB BLOOD ORDERABLES Final Res ult [facility] [address] [place] [phone] * Hm Colonoscopy (11/24/2022 3:42 PM EST) Historical Provider HEALTH MAINTENANCE Final Result * THINPREP TIS PAP AND HPV mRNA E6/E7 REFLEX HPV 16,18/45 (09/07/2021 6:39 AM EST) Clinical Information: None given [facility] COMMENT SEE COMMENT FOUNDAT[facility] ON [...] has been evaluated with computer assisted technology. [facility] Mink Rancher: SEE COMMENT [facility] Comment: SXA, CT(ASCP) CT screening location: [address] ??[id number] HPV nRNA E6/E7 Not Detected Not Detected [facility] Comment: Methodology: Lyric Writer-Mediated Amplification This assay detects E6/E7 viral messenger RNA (mRNA) from 14 high-risk HPV types (16,18,31,33,35,39,45,51,52,56,58,59,66,68). ? The analytical performance characteristics of this assay have been determined by [employer]. The modifications have not been cleared or approved by the FDA. This assay has been validated pursuant to the CLIA regulations and is used for clinical purposes. ?? For additional information, please refer to http://education.[employer].GlassesOff/faq/YOV322z6 (This link if provided for information/ educational purposes only.) NO COLLECTION DATE RECEIVED. WE HAVE USED THE DATE THE SPECIMEN WAS RECEIVED BY THIS LABORATORY THE COLLECTION DATE. IF THIS IS INCORRECT, PLEASE CONTACT CLIENT SERVICES. PHONE NUMBER: ?? Interpretation/Re sult: Negative for intraepithelial lesion or malignancy. [facility] LMP: NONE GIVEN FOUNDATIO N [...] PATHOLOGY ORDERABLES Final Result Performing Organization Address City/State/RUST Co de Phone Number [facility] [address] from Last 3 Months or Most Recently Relevant to Health Maintenance Insurance [facility] C[facility] Care Teams Fruit Washer Relationship Specialty Start Date End Date Suni Flores FNP [address] [place] [phone] PCP - General Family Medicine 05/20/22December [address] [place] [address] 3rd [place] [address] Gastroenterology 08/23/24 Edwin William MD [address] [place] [phone] Pulmonary Disease 08/23/24 Patricia Coffman [facility] Consulting Physician Oncology 08/23/24
--- OUTSIDE RECORDS SUMMARY | 2024-11-14 10:40 | XMS_ITS | Encounter Summary ---
Author Organization [employer] Address [address] [facility] 7t [place] [address] Care Team Providers Care Motor Expert Name Role Phone Suni Flores JULIO Primary Care Provider [phone] December Unavailable Edwin William MD Unavailable [phone] Encounter Details Date Type Department Care Team ([facility] Contact Info) Description 11/02/2024 Orders Only [facility] External Provider, [facility] Social History Tobacco Use Types Packs/Day [...] t he electric, gas, oil or water [employer] threatened to shut off services in your [...] SPINE 4V Routine 11/02/2024 9:14 AM EST documented in this encounter Results * XR CERVICAL SPINE 4V (11/02/2024 9:14 AM EST) Anatomical Region Laterality Modality Abdomen Radiographic Erinn ging 11/02/2024 9:14 AM EST Narrative 11/02/2024 11:43 AM EST ? [facility] ? [address] ?[place] [address] ?XRay Report ? Signed ? Patient: Goldie Spencer ?MR#: ?? [id number] ? : 1970 ?Acct:[id number] ? Age/Sex: 54 / F ?ADM Date: 11/02/24 ? Loc: HO.HOSX ? Attending Dr: Mark HELMS ? Ordering Physician: Mark Calloway ?? Date of Service: 11/02/24 ?? Procedure(s): XR cervical spine 4V ?? Accession Number(s): [id number] ? cc: Suni Flores TRANSPORT SPECIALIST; Mark Calloway ? EXAMINATION: ?? XR CERVICAL [...] in OV> ? 11/02/24 1140 ? DD/ 0914 ? TD/TT: 11/02/2420 ? Fire Management Specialist: ? Procedure Note Brenden Rodriguez - 11/02/2024 [facility] [address] [place] [address] [address] [place] [address] XRay Report Signed Patient: Sharron Spencer#: [id number] : 1970Acct:[id number] Age/Sex: 54 / FADM Date: 11/02/24 Loc: HO.HOSX Attending Dr: Mark HELMS Ordering Physician: Mark Calloway Date of Service: 11/02/24 Procedure(s): XR cervical spine 4V Accession Number(s): [id number] cc: Suni FloresP; Mark Calloway EXAMINATION: XR CERVICAL SPINE CLINICAL [...] fracture, listhesis or instability. Electronically signed by: uX Cisneros MD 11/02/2024 11:40 AM EST RP Dictated By: Xu Miller MD Signed By: <Electronically signed by Xu Marie MDin OV> 11/02/24 1140 DD/ 3 TD/TT: 11/02/24919 Fire Management Specialist: [facility] External Provider IMG XR PROCEDURES Final Result documented in this encounter Visit Diagnoses Not on filedocumented in this encounter Additional Health Concerns Assessment Noted Time PHQ-9 Depression Total Score: 12 024 11:43 AM EDT documented as of this encounter Care Teams Motor Expert Relationship Specialty Start Date End Date Suni Flores FNP [address] [place] [address] PCP - General Family Medicine 05/20/22December [address] [place] [address] 3rd [place] [address] Gastroenterology 08/23/24 Edwin William MD [address] [place] [address] Pulmonary Disease 08/23/24 Patricia Coffman [facility] Consulting Physician Oncology 08/23/24 documented as of this encounter
--- OUTSIDE RECORDS SUMMARY | 2024-11-14 10:40 | XMS_ITS | Encounter Summary ---
Author Organization [employer] Address [address] [facility] [address] 7t [place] [address] Care Team Providers Care Director Energy Name Role Phone Suni Flores JULIO Primary Care Provider [phone] December Unavailable Edwin William MD Unavailable [phone] Encounter Details Date Type Department Care Team ([facility] st Contact Info) Description 07/03/2024 Orders Only [facility] [address] [place] [address] Provider, MD Lukas Social History Tobacco Use [...] documented as of this encounter Care Teams Director Energy Relationship Specialty Start Date End Date Suni Flores FNP [address] [place] [address] PCP - General Family Medicine 05/20/22December 11 [facility] 3rd [place] [address] Gastroenterology 08/23/24 Edwin William MD [address] [place] [address] Pulmonary Disease 08/23/24 Patricia Coffman [facility] Consulting Physician Oncology 08/23/24 documented as of this encounter
--- OUTSIDE RECORDS SUMMARY | 2024-11-14 10:40 | XMS_ITS | Encounter Summary ---
Author Organization [employer] Address [address] [facility] 7t [place] [address] Care Team Providers Care Fuel Technician Name Role Phone Suni Flores JULIO Primary Care Provider [phone] December Unavailable Edwin William MD Unavailable [phone] Encounter Details Date Type Department Care Team ([facility] Contact Info) Description 01/20/2024 Orders Only [facility] [address] [place] [address] Provider, MD Lukas Social History Tobacco Use [...] the past 12 months, has t he [employer], [employer], oil or water [employer] threatened to shut off services in your [...] EDT Narrative 01/25/2024 1:49 AM EDT ? [facility] ?[address] ?[place] [address] ?XRay Report ? Signed ? Patient: Goldie Bermudez ?MR#: [id number] ?? 9 ? : 1970 ?Acct:[id number] ? Age/Sex: 53 / F ?ADM Date: 01/24/24 ? Loc: HO.ED ? Attending Dr: ? Ordering Physician: Nayana Romero MD ?? Date of Service: 01/24/24 ?? Procedure(s): XR cervical spine 3V ?? Accession Number(s): [id number] ? cc: Nayana Romero MD; Suni Flores [...] 0144 ? DD/ 2332 ? TD/TT: ? Carpet Cleaner: ? Procedure Note Margyter, Image - 01/25/[address] [address] XRay Report Signed Patient: Sharron Bermudez#: [id number] : 1970Acct:[id number] Age/Sex: 53 / FADM Date: 01/24/24 Loc: HO.ED Attending Dr: Ordering Physician: Nayana Romero MD Date of Service: 01/24/24 Procedure(s): XR cervical spine 3V Accession Number(s): [id number] cc: Nayana Romero MD; Suni Flores EXAMINATION: [...] MD in OV> 01/25/24 0144 DD/ TD/TT: Carpet Cleaner: us [facility] External Provider IMG XR PROCEDURES Edited Result - Final * Electroneuronography (01/18/2024 10:29 AM EDT) us Historical Provider NEUROLOGY ORDERABLES Sanjana l Result documented in this encounter Visit Diagnoses Not on filedocumented in this encounter Additional Health Concerns Assessment Noted Time PHQ-9 Depression Total Score: 0 02/09/20 2:37 PM EDT documented as of this encounter Care Teams Fuel Technician Relationship Specialty Start Date End Date Suni Flores FNP [address] [place] [address] PCP - General Family Medicine 05/20/22December 11 [facility] 3rd [place] [address] Gastroenterology 08/23/24 Edwin William MD [address] [place] [address] Pulmonary Disease 08/23/24 Patricia Coffman [facility] Consulting Physician Oncology 08/23/24 documented as of this encounter
== END 2024-11-14 10:13 | disposition home or self-care (01) ==
PROVIDERS: PCP Registered Nurse; Visit Provider Internal Medicine Pulmonary Disease
DX: J45.909 Unspecified asthma, uncomplicated (principal)
CPT/HCPCS: 99214

== ENCOUNTER → 2024-11-14 09:54 | Outpatient (BNVA) | payer MEDICAID, SELFPAY | PROVIDERS: PCP Registered Nurse; Visit Provider Internal Medicine Pulmonary Disease | DX: J45.909 Unspecified asthma, uncomplicated (principal); Z79.899 Other long term (current) drug therapy | CPT/HCPCS: 99212 ==

== ENCOUNTER 2024-12-27 10:47 | Outpatient (AMB) | payer MEDICAID, SELFPAY ==
[2024-12-27 10:53] VITALS: BP 123/77; PULSE 68; BMI 31.4
--- NOTE | 2024-12-27 10:53 | MHC.OFFVIS ---
Vital Signs 12/27/24 10:53 Height 5 ft 1 in Weight 166 lb 3.657 oz BMI 31.4 BP 123/77 Blood Pressure Location Lt brachial Position Sitting Pulse 68 Intake Visit Reasons: 3 month follow up Intake Note: Patient presents in office today in 3 months follow up of GERD. 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 She has had some health scares and she is struggling with right sided neck pain that was thought to be degenerative disc disease of the cervical spine but when she went to have surgery that did not MRI which uncovered an undefined area of inflammation in the neck somewhat adjacent to the thyroid. It is uncertain what this thing is. She underwent a subsequent CT scan without definitive definition and then underwent a PET scan where it showed some unusual metabolic activity. She is currently following with Oncology to completely pin this down, and of course she needs to find out before she undergoes any sort of orthopedic surgery that may not fix the problem if in fact the inflammation stems from this incidentaloma. However she continues to do well on her GI regimen. Return office visit in 6 months 8 TODAYS VISIT Humberto tuttle She had cervical stenosis surgery r/t her neck pain, they did biopsies of her thyroid and so far negative but they are still watching. She had a scope at [facility] r/t a possible CT abnormality but it was negative. 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 Continues to do well. She is on famitidine 20mg bid and bentyl. ROV 6 mos. [facility] Medical History (Updated 12/27/24 @ 11:51 by CHARLIE Anthony) Environmental allergies Seasonal allergies Diverticulosis Personal history of COVID-19 (~04/2024) Cervical spondylosis Ulnar neuropathy at elbow Carpal tunnel syndrome of right wrist Sessile serrated polyp of colon GERD (gastroesophageal reflux disease) Diverticulitis (~2020) Asthma Surgical History Hx of lymph node biopsy (08/09/24) History of carpal tunnel release (05/15/24) History of colonoscopy History of hemorrhoidectomy History of foot surgery Status post creation of urethral sling by suprapubic approach Family History Mother Heart attack Breast cancer Uterine cancer Father Prostate cancer Social History Household Members: Children Household Members Other:: 3 children Housing: Apartment Are you a primary insurance healthcare consultant to a significant other at home: Yes (children) Do you presently have visiting nurse or other home services: No 75 years or older and lives alone: No Alcohol intake: current Alcohol intake frequency: holidays/special occasions only Patient Tobacco Use Status: Never used Tobacco e-Cigarette/Vaping Use: Never Used Current occupational status: employed 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 Review of Systems Const Denies fatigue, Denies fever(s), Denies night sweats, Denies poor appetite and Denies weight loss ENT Reports Normal hearing present, Denies dental pain, Denies dysphagia, Denies hearing loss, Denies mouth pain, Reports neck pain, Denies odynophagia, Denies throat swelling, Denies tongue swelling and Reports other (Dentition adequate) Card Reports no additional complaints Resp Reports no additional complaints GI Details: Denies abdominal pain, Denies melena, Denies bloating, Denies hematochezia, Denies constipation, Reports GI cramping, Denies dysphagia, Denies excessive flatus, Denies early satiety, Reports heartburn, Denies diarrhea, Denies nausea, Denies odynophagia, Denies vomiting and Denies hematemesis Musc Reports neck pain Skin/Breast Denies pruritus, Denies lesions, Denies rash and Denies jaundice Neuro Reports Normal hearing present and Denies Abnormal speech present Endo Denies fatigue Aller/Immun Denies throat swelling and Denies tongue swelling Physical Exam Vital Signs: Last Vital Signs Pulse 68 12/27/24 10:53 BP 123/77 12/27/24 10:53 BMI result Body Mass Index 31.4 Const General: cooperative, no acute distress, well developed and well groomed Nutritional Appearance: well nourished and obese Orientation/consciousness: oriented to person, oriented to place and oriented to time Limitations: No language barrier HEENT Head: Yes normocephalic and Yes atraumatic Eyes General: appearance normal, both eyes and all related structures Pupils: Equal, round and reactive pupils present Neck Neck: Yes normal visual inspection and Yes no lymphadenopathy Thyroid: Thyroid normal Resp Effort & Inspection: normal respiratory effort and able to speak in complete sentences Auscultation: clear to auscultation bilaterally Cardio Rate: regular rate Rhythm: regular rhythm Heart sounds: Normal, physiologic split S2 sound present Peripheral pulses: radial pulses present and posterior tibial pulses present GI Inspection: No distended, No Abdominal panniculus present and Yes obesity Palpation (GI): Soft to palpation, nontender, no guarding, not rigid and No hepatosplenomegaly present Percussion: Yes normal to percussion Auscultation: normal bowel sounds Rectal Exam - Female: deferred Skin General skin exam: no rashes or lesions noted, turgor normal, skin not dry, no jaundice, No spider nevi and no striae Rashes: no rashes Nails: normal Neuro General: oriented to person, oriented to place and oriented to time Cranial nerves: Yes Equal, round and reactive pupils present and Yes Normal hearing present Speech: No Abnormal speech present Extrem General: Yes normal to inspection, No clubbing, No cyanosis and No edema Psych Appearance: grossly normal and well kempt Mental Status: mental status grossly normal Speech and movement: Normal speech and movement present Affect: normal affect Attitude: cooperative Thought process: Normal thought process present and not confabulating Thought content: Normal thought content present Insight: Fair insight present (Psych) Judgement: Fair judgement present (Psych) Assessment & Plan Assessment & Plan (1) GERD (gastroesophageal reflux disease): Code(s): K21.9 - Gastro-esophageal reflux disease without esophagitis Category: Medical (2) Sessile serrated polyp of colon: Comment: (polyp noted on 2022 scope - repeat 5 years as she had 2024 scope at [facility] that was negative) Code(s): D12.6 - Benign neoplasm of colon, unspecified Category: Medical Plan Palauan # declines She had cervical stenosis surgery r/t her neck pain, they did biopsies of her thyroid and so far negative but they are still watching. She had a scope at [facility] r/t a possible CT abnormality but it was negative. 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 Continues to do well. She is on famitidine 20mg bid and bentyl. ROV 6 mos. Medications: Refilled famotidine 20 mg PO BID 180 tabs 2RF dicyclomine 10 mg PO TID 90 caps 1RF R10.9 - Unspecified abdominal pain Coding Level of Care Code Est Pt Level 3 (39312) Diagnoses GERD (gastroesophageal reflux disease) K21.9 Sessile serrated polyp of colon D12.6
--- OUTSIDE RECORDS SUMMARY | 2024-12-27 12:56 | XMS_ITS | Clinical Summary ---
Author Organization [employer] Address [address] [place] [address] 7t [place] [address] Care Team Providers Care Auto Transport Driver Name Role Phone Suni Flores JULIO Primary Care Provider [phone] December Unavailable Edwin William MD Unavailable [phone] Allergies No known active allergies Medications [...] mL 11 023 Active Fluocinolone Acetonide Scalp ([place]/F S Scalp) 0.01 % oil Apply 2-3 [...] on D 6. 55 each 024 Active albuterol 0.63 MG/3ML nebulizer solutionIndicati [...] FOR PAIN 30 capsule 2 025 Active Ventolin HFA 108 (90 Base) MCG/ACT inhalerIndicatio ns:Cough variant asthma INHALE 1 TO 2 PUFFS EVERY 6 HOURS NEEDED FOR WHEEZE OR FOR SHORTNESS OF BREATH 18 g 11 025 Active Ventolin HFA 108 (90 Base) MCG/ACT inhalerIndicatio ns:Cough variant asthma Inhale 1-2 puffs every 6 (six) hours if needed for wheezing or shortness of breath. 18 g 3 024 2024 Discontinued Active Problems Problem Noted Date Diagnosed Date Abnormal PET scan of mediastinum 06/08/2024 Overview (08/23/2024): - Following with [facility] Heme/Onc - Dr. Coffman - Initially referred to [facility] Heme/Onc on 05/15/24 d/t concern for malignancy identified on CT Chest - PET scan completed on 06/02/24 at [facility], with Moderate metabolic activity in lymph [...] from colon CA screening in 2022 at [facility]. Mammo last completed May 2023 BIRADS 1. (See healthcare maintenance diagnoses for further details). Plan: PET scan results to be reviewed by Heme/Onc surface supervisor on 06/09/24. Per specialist team, pt [...] & Neurosurgery placed 04/02/24 - Established with [facility] Spine Center/Neurosurgery - Dr. Paige Assessment & [...] C6-C7 with mild-mod central stenosis. Following with [facility] Spine Center - Dr. Paige Assessment & Plan (08/23/2024 4:05 PM EST): Plan for upcoming spinal surgery on 08/31/24 per pt. EKG and CMP completed as requested by office. Both WNL. Faxed to office. Right carpal tunnel syndrome 02/04/2024 Overview (04/02/2024): Diagnosed on EMG December 2023: mild right carpal tunnel syndrome Consult with [facility] Ortho February 2024, plan to proceed with surgery for right CTS Cubital tunnel syndrome, bilateral 02/04/2024 Overview (02/05/2024): Diagnosed on EMG December 2023: mild bilateral cubital tunnel syndrome Consult with Ortho January 2024 Sickle cell trait 01/03/2024 Overview (01/03/2024): Lab Results Component Value Date SICKLECELL POSITIVE (A) 12/24/2023 Vitamin D insufficiency 01/03/2024 Overview (01/03/2024): Lab Results Component Value Date HPCE24AMNIA 16.8 (L) 12/24/2023 -December 2023: initiated on [...] 02/08/2023 Psoriasis 02/08/2023 Overview (12/19/2023): Following with [facility] Derm Clinic Symptoms improving Plan during visit [...] or do not improve - Referral to [facility] Derm team for further eval and tx Healthcare maintenance 02/08/2023 Overview (08/23/2024): Pap/results: NIL/HPV neg 09/03/21, repeat 08/2026 Smoking status: never smoker Lipids: Total Cholesterol 163, HDL 43, LDL 100, TG 106 on 06/26/21 Mammogram: BIRADS 1 on 06/13/24 Colorectal Screening: [facility] GI 2022 scope with plan to repeat in 3 years due to polyp DEXA: recommend screen at 65 years Assessment & Plan (08/27/2023 6:18 AM EST): PHQ: negative screening January 2023 Pap/results: NIL/HPV neg 09/03/21, repeat 08/2026 Smoking status: never smoker Lipids: Total Cholesterol 163, HDL 43, LDL 100, TG 106 on 06/26/21 Mammogram: BIRADS 1 on 05/28/23 Colorectal Screening: [facility] GI DEXA: recommend screen at 65 years [...] sling surgery on 05/22/22 - Following with [facility] UroGYN Cough variant asthma 08/31/2021 Assessment & Plan (12/19/2023 8:21 PM EDT): Continue Symbicort 160-4.5 two puffs BID. Reviewed med use and safety Cont montelukast 10mg nightly Cont w/ flonase and loratadine for allergic component Following with [facility] Pulphil William (last consult Oct 2023) May continue albuterol PRN DME request for nebulizer placed: 08/27/23 ED precautions Assessment & Plan (08/29/2023 5:46 PM EST): ?? Continue Symbicort 160-4.5 two puffs BID. Reviewed med use and safety ?? Start montelukast 10mg nightly ?? Following with [facility] Baljit William ?? May continue albuterol PRN [...] Encounters Date Type Department Care Team Description 12/10/2024 Refill [facility] MEDICINE [address] [place] [address] Suni Flores FNP Cough variant asthma 12/08/2024 Population Health Risk Score [facility] (C3) Department [address] [phone] Provider, Population Health Generic 11/21/2024 Orders Only [facility] CHC MED & PEDS [address] [place] [address] Provider, MD Lukas 11/08/2024 Telephone [facility] MEDICINE [address] [place], [place] [phone] Suni Flores FNP [employer] ([employer]) 11/02/2024 Orders Only [facility] External Provider, [facility] 10/04/2024 Refill [facility] MED & PEDS [address] [place], [place] [phone] Suni Flores FNP Cervical spinal cord compression (CMS/HCC); Spondylolisthesis, cervical region 10/03/2024 Refill [facility] MED & PEDS [address] [place], [place] [phone] Suni Flores FNP Vitamin D insufficiency from Last 3 Months Immunizations Name Administration [...] 08/23/2024 8:55 AM EST Plan of Treatment Upcoming Encounters Date Type Department Care Team ([facility] st Contact Info) Description 01/05/2025 11:30 AM EDT Office Visit [facility] MED & PEDS [address] [place] [address] Suni Flores, JULIO [address] [place] [address] Health Maintenance Due Date Last Done Comments CT Colonography 1970 FIT DNA/Cologuard 1970 FIT 1970 FOBT 1970 Sigmoidoscopy 1970 Alcohol/Substance Use Screening 1982 Zoster Vaccines (1 of 2) 2020 Pap Smear 09/07/2024 09/07/2021 Depression Monitoring (PHQ-9) 10/01/2024 03/31/2024, 03/31/2024 Depression Screening 03/31/2025 03/31/2024, 03/31/20 24 SDOH Screening 03/31/2025 03/31/2024 Tobacco Screening 06/07/2025 06/07/2024 Mammogram 06/13/2025 06/13/2024, 09/09/2022, 02/02/2022 COVID-19 Vaccine ( - season) 2025 01/02/2021 Postponed from 05/28/2024 (Patient Refused) Cervical Cancer Screening 09/07/2026 HPV/Cotest 09/07/2026 09/07/2021 DTaP/Tdap/Td Vaccines (3 - Td or Tdap) 06/26/2031 06/26/2021, 04/12/2012 Colonoscopy 11/17/2034 11/17/2024, 11/24/2022 Colorectal Cancer Screening 11/17/2034 RSV Patients and Patients Aged 60 years [...] Procedure Name Priority Date/Time Associated Diagnosis Comments COLONOSCOPY Routine 11/17/2024 3:26 PM EST XR CERVICAL SPINE 4V Routine 11/02/2024 9:14 AM EST BI MAMMOGRAM SCREENING TOMOSYNTHESIS BILATERAL Routine 06/13/2024 8:00 AM EDT HEPATITIS C VIRAL RNA, QUANTITATIVE, REAL-TIME PCR Routine 12/24/2023 6:15 AM EDT Healthcare maintenance Other fatigue HIV 1/2 ANTIGEN/ANTIBODY, FOURTH GENERATION W/RFL Routine 12/24/2023 6:15 AM EDT Healthcare maintenance Other fatigue THINPREP IMAGING PAP AND HPV MRNA E6/E7 WITH REFLEX TO HPV 16,18/45 Routine 09/07/2021 6:39 AM EST from Last 3 Months or Most Recently Relevant to Health Maintenance Results * Colonoscopy (11/17/2024 3:26 PM EST) Anatomical Region Laterality Modality Endoscopy us Historical Provider ENDOSCOPY PROCEDURE ORDER ALYSSA Final Result * XR CERVICAL SPINE 4V (11/02/2024 9:14 AM EST) Anatomical Region Laterality Modality Abdomen Radiographic Erinn ging 11/02/2024 9:14 AM EST Narrative 11/02/2024 11:43 AM EST ? [facility] ? [address] ?[place] [address] ?XRay Report ? Signed ? Patient: Goldie Spencer ?MR#: ?? [id number] ? : 1970 ?Acct:[id number] ? Age/Sex: 54 / F ?ADM Date: 11/02/24 ? Loc: HO.HOSX ? Attending Dr: Mark HELMS ? Ordering Physician: Mark Calloway ?? Date of Service: 11/02/24 ?? Procedure(s): XR cervical spine 4V ?? Accession Number(s): [id number] ? cc: Suni FloresP; Mark Calloway ? [...] ?? EST RP ? Dictated By: ?Xu Milelr MD ? Signed By: ?<Electronically signed by Xu Marie MD in OV> ? 11/02/24 1140 ? DD/ 3 ? TD/TT: 11/02/24 0920 ? Yard Caller: ? Procedure Note Donotuseinterpreter, Image - 11/02/2024 [facility] [address] [place] [address] XRay Report Signed Patient: Sharron Spencer#: [id number] : 1970Acct:[id number] Age/Sex: 54 / FADM Date: 11/02/24 Loc: HO.HOSX Attending Dr: Mark HELMS Ordering Physician: Mark Calloway Date of Service: 11/02/24 Procedure(s): XR cervical spine 4V Accession Number(s): [id number] cc: Suni Flores; Mark Calloway EXAMINATION: XR [...] 11/02/24 1140 DD/ 0914 TD/TT: 11/02/24 0920 Yard Caller: [facility] External Provider IMG XR PROCEDURES Final Result * BI Mammogram Screening Tomosynthesis Bilateral (06/13/2024 8:00 AM EDT) Anatomical Region Laterality Modality Breast Bilateral Mammography 06/13/2024 8:00 AM EDT Narrative 06/26/2024 3:20 PM EDT ? [facility] ? [address] [place] [address] ? Mammography Report ? Signed ? Patient: Goldie Spencer ?MR#: ?? [id number] ? : 1970 ?Acct:[id number] ? Age/Sex: 54 / F ?ADM Date: 06/13/24 ? Loc: HO.MAMMO ? Attending Dr: Suni Flores SOLDERING MACHINE FEEDER ? Ordering Physician: Suni Flores SOLDERING MACHINE FEEDER ?Results: 1Negat ?? kajal ? Date of Service: 06/13/24 ?Follow Up: 1 Year From Orig ?? inal Mammogram ? Procedure(s): MM tomosynthesis screening BI ?? Accession Number(s): [id number] ? cc: Suni Flores SOLDERING MACHINE FEEDER ? EXAMINATION: ?? MM SCREENING DIGITAL BREAST [...] ??Grace Humphrey DO ??06/26/2024 03:18 PM EDT ? Dictated By: ?Grace Humphrey DO ? Signed By: ?<Electronically signed by Grace Humphrey, DO in OV> ? 06/26/24 1518 ? DD/ 0800 ? TD/TT: 06/13/24 0805 ? Yard Caller: ? Procedure Note Jennifer, Image - 06/26/2024 [facility] [address] [place] [address] Mammography Report Signed Patient: Sharron Spencer#: [id number] : 1970Acct:[id number] Age/Sex: 54 / FADM Date: 06/13/24 Loc: HO.MAMMO Attending Dr: Suni Flores SOLDERING MACHINE FEEDER Ordering Physician: Suni Flores FNPResults: 1Negat kajal Date of Service: 06/13/24Follow Up: 1 Year From Orig inal Mammogram Procedure(s): MM tomosynthesis screening BI Accession Number(s): [id number] cc: Suni Flores EXAMINATION: MM SCREENING DIGITAL [...] Grace Humphrey DO 06/26/2024 03:18 PM EDT RP Dictated By: Grace Humphrey DO Signed By: <Electronically signed by Grace Humphrey DO in OV> 06/26/24 1518 DD/ 0800 TD/TT: 06/13/24 0805 Yard Caller: Suni Flores [facility] IM BI PROCEDURES Final Result * Hepatitis C Viral RNA, Quantitative, Real-Time PCR (12/24/2023 6:15 AM EDT) Hepatitis C Viral Load <15 NOT DETECTED NOT DETECTED IU/mL [facility] HCV Log PCR <1.18 NOT DETECTED NOT DETECTED Log IU/mL [facility] Comment:This test was perfor med using Real-Time Polymerase ChainReaction.Reportable Range: 15 IU/mL to 100,000,000 IU/mL(1.18 Log IU/mL to 8.00 Log IU/mL).The analytical performance characteristics of thisassay have been determined by check24.The modifications have not been cleared or approved bythe FDA. This assay has been validated pursuant to theCLIA regulations and is used for clinical purposes.For more information on this test, go to:http://education.Feeligo/faq/HNN44v0(This link is being provided for informational/educational purposes only.)THIS TEST WAS PERFORMED AT:[facility] [place] [id number] ALBARADO MD Blood 12/24/2023 6:15 AM EDT 12/24/2023 6:15 AM EDT Suni Flores [facility] LAB BLOOD ORDERABLES Final Res ult Performing Organization Address [facility] Co de Phone Number [facility] [address] [place] [address] [phone] * HIV-1/2 Antigen and Antibodies, Fourth Generation, with Reflexes (12/24/2023 6:15 AM EDT) HIV AB/AG Nonreactive Nonreactive [facility] Comment:HIV-1 p24 Ag and/or HIV-1/HIV-2 Ab not detected.A test result that is nonreactive does not exclude thepossibility of exposure to or infection with HIV-1 and/orHIV-2. Nonreactive results in this assay for individualswith prior exposure to HIV-1 and/or HIV-2 may be due toantigen and antibody levels that are below the limit ofdetection of this assay.The [employer] HIV Ag/Ab Combo assay result andsupplemental assay results should be interpreted inconjunction with the patient's clinical presentation,history and other laboratory results. If the results areinconsistent with clinical evidence, additional testing issuggested to confirm the result. Blood Venous blood specimen / Unknown 12/24/2023 6:15 AM EDT 12/24/2023 6:15 AM EDT Suni Flores [facility] BLOOD ORDERABLES Final Res ult Performing Organization Address [facility] Co de Phone Number [facility] [address] [place] [address] [phone] * THINPREP TIS PAP AND HPV mRNA E6/E7 REFLEX HPV 16,18/45 (09/07/2021 6:39 AM EST) Clinical Information: None given [facility] COMMENT SEE COMMENT [facility] [...] has been evaluated with computer assisted technology. [facility] Assembler 1St Shift: SEE COMMENT [facility] Comment: SXA, CT(ASCP) CT screening location: [address] ??[address] HPV nRNA E6/E7 Not Detected Not Detected [facility] Comment: Methodology: Charge Master Coordinator-Mediated Amplification This assay detects E6/E7 viral messenger RNA (mRNA) from 14 high-risk HPV types (16,18,31,33,35,39,45,51,52,56,58,59,66,68). ? The analytical performance characteristics of this assay have been determined by check24. The modifications have not been cleared or approved by the FDA. This assay has been validated pursuant to the CLIA regulations and is used for clinical purposes. ?? For additional information, please refer to http://education.Feeligo/faq/MIV803p6 (This link if provided for information/ educational purposes only.) NO COLLECTION DATE RECEIVED. WE HAVE USED THE DATE THE SPECIMEN WAS RECEIVED BY THIS LABORATORY THE COLLECTION DATE. IF THIS IS INCORRECT, PLEASE CONTACT CLIENT SERVICES. PHONE NUMBER: ?? Interpretation/Re sult: Negative for intraepithelial lesion or malignancy. [facility] LMP: NONE GIVEN [facility] Prev. BX: NONE GIVEN [facility] Prev. PAP: NONE GIVEN [facility] SOURCE: None given [facility] Statement Of Adequacy: SEE COMMENT [facility] Comment: Satisfactory for evaluation. Endocervical/transformation zone component present. Age and/or menstrual status not provided 09/07/2021 6:39 AM EST us Sherley Ford NP LAB PATHOLOGY ORDERABLES Final Result [facility] [address] from Last 3 Months or Most Recently Relevant to Health Maintenance Insurance [facility] Care Teams Auto Transport Driver Relationship Specialty Start Date End Date Suni Flores FNP [address] [place], [place] PCP - General Family Medicine 05/20/22 Shauna December [address]rd [place] [address] Gastroenterology 08/23/24 Edwin William MD [address] [place] [address] Pulmonary Disease 08/23/24 Patricia Coffman [facility] Consulting Physician Oncology 08/23/24
--- OUTSIDE RECORDS SUMMARY | 2024-12-27 12:56 | XMS_ITS | Encounter Summary ---
Author Organization [employer] Address [address] [place] [address] Care Team Providers Care Windows Server Specialist Name Role Phone Suni Flores JULIO Primary Care Provider [phone] December Unavailable Edwin William MD Unavailable [phone] Encounter Details Date Type Department Care Team ([facility] st Contact Info) Description 11/21/2024 Orders Only [facility] CHC MED & PEDS [address] [place] [address] ProviderLukas MD Social History Tobacco Use Types Packs/Day Years [...] as of this encounter Plan of Treatment Upcoming Encounters Date Type Department Care Team ([facility] st Contact Info) Description 01/05/2025 11:30 AM EDT Office Visit [facility] MED & PEDS [address] [place], [place] [phone] Suni Flores FNP [address] [place] [address] documented as of this encounter Procedures Procedure Name Priority Date/Time Associated Diagnosis Comments COLONOSCOPY Routine 11/17/2024 3:26 PM EST documented in this encounter Results * Colonoscopy (11/17/2024 3:26 PM EST) Anatomical Region Laterality Modality Endoscopy us Historical Provider ENDOSCOPY PROCEDURE ORDER ALYSSA Final Result documented in this encounter Visit Diagnoses Not on filedocumented in this encounter Additional Health Concerns Assessment Noted Time PHQ-9 Depression Total Score: 12 024 11:43 AM EDT documented as of this encounter Care Teams Windows Server Specialist Relationship Specialty Start Date End Date Suni Flores FNP [address] [place] [address] PCP - General Family Medicine 05/20/22December [address] [place] [address] Drive 3rd [place] [address] Gastroenterology 08/23/24 Edwin William MD [address] [place] [address] Pulmonary Disease 08/23/24 Patricia Coffman [facility] Consulting Physician Oncology 08/23/24 documented as of this encounter
--- OUTSIDE RECORDS SUMMARY | 2024-12-27 12:56 | XMS_ITS | Encounter Summary ---
Author Organization [employer] Address [address] [place] [address] Care Team Providers Care Enterprise Systems Manager Name Role Phone Suni Flores JULIO Primary Care Provider [phone] December Unavailable Edwin William MD Unavailable [phone] Encounter Details Date Type Department Care Team ([facility] st Contact Info) Description 07/03/2024 Orders Only [facility] MEDICINE [address] [place] [address] Provider, MD Lukas Social History Tobacco Use [...] Upcoming Encounters Date Type Department Care Team ([facility] st Contact Info) Description 01/05/2025 11:30 AM EDT Office Visit [facility] MED & PEDS [address] [place] [address] Suni Flores FNP [address] [place] [address] documented as of this encounter Procedures Procedure [...] documented as of this encounter Care Teams Enterprise Systems Manager Relationship Specialty Start Date End Date Suni Flores FNP [address] [place] [address] PCP - General Family Medicine 05/20/22December 11 [facility] 3rd [place] [address] Gastroenterology 08/23/24 Edwin William MD [address] [place] [address] Pulmonary Disease 08/23/24 Patricia Coffman [facility] Consulting Physician Oncology 08/23/24 documented as of this encounter
--- OUTSIDE RECORDS SUMMARY | 2024-12-27 12:56 | XMS_ITS | Encounter Summary ---
Author Organization [employer] Address [address] 7t [place] [address] Care Team Providers Care Automation Technologist Name Role Phone Suni Flores JULIO Primary Care Provider [phone] December Unavailable Edwin William MD Unavailable [phone] Encounter Details Date Type Department Care Team ([facility] Contact Info) Description 01/20/2024 Orders Only [facility] [address] [place] [address] Provider, MD Lukas Social History Tobacco Use [...] the past 12 months, has t he [employer], oil or water [employer] threatened to shut off services in your [...] Upcoming Encounters Date Type Department Care Team (Late st Contact Info) Description 01/05/2025 11:30 AM EDT Office Visit [facility] CHC MED & PEDS [address] [place] [address] Suni Flores FNP [address] [place] [address] documented as of this encounter Procedures Procedure Name Priority Date/Time Associated Diagnosis Comments XR CERVICAL SPINE 3V Routine 01/24/2024 11:32 PM EDT ELECTRONEURONOGRAPHY Routine 01/18/2024 10:29 AM EDT documented in this encounter Results * XR CERVICAL SPINE 3V (01/24/2024 11:32 PM EDT) Anatomical Region Laterality Modality Abdomen Radiographic Erinn ging 01/24/2024 11:3 2 PM EDT Narrative 01/25/2024 1:49 AM EDT ? [facility] ?[address] ?[place] [address] ?XRay Report ? Signed ? Patient: Bermudez,Goldie ?MR#: [id number] ?? 9 ? : 1970 ?Acct:[id number] ? Age/Sex: 53 / F ?ADM Date: 04/29/24 ? Loc: HO.ED ? Attending Dr: ? Ordering Physician: Nayana Romero MD ?? Date of Service: 01/24/24 ?? Procedure(s): XR cervical spine 3V ?? Accession Number(s): [id number] ? cc: Nayana Romero MD; Suni Flores [...] 0144 ? DD/ 2332 ? TD/TT: ? Facility Sales And Admin: TH ? Procedure Note Donstephon, Image - 01/25/2024 [place] [address] XRay Report Signed Patient: Sharron Bermudez#: [id number] : 1970Acct:[id number] Age/Sex: 53 / FADM Date: 01/24/24 Loc: HO.ED Attending Dr: Ordering Physician: Nayana Romero MD Date of Service: 01/24/24 Procedure(s): XR cervical spine 3V Accession Number(s): [id number] cc: Nayana Romero MD; Suni Flores EXAMINATION: [...] Michael MD in OV> 01/25/24 0144 DD/ 2332 TD/TT: Facility Sales And Admin: [facility] External Provider IMG XR PROCEDURES Edited Result - Final * Electroneuronography (01/18/2024 10:29 AM EDT) Historical Provider NEUROLOGY ORDERABLES Sanjana l Result documented in this encounter Visit Diagnoses Not on filedocumented in this encounter Additional Health Concerns Assessment Noted Time PHQ-9 Depression Total Score: 0 02/09/20 23 2:37 PM EDT documented as of this encounter Care Teams Automation Technologist Relationship Specialty Start Date End Date Suni Flores FNP [address] [place] [address] PCP - General Family Medicine 05/20/22December [address] [place] [address] 3rd [place] [address] Gastroenterology 08/23/24 Edwin William MD [address] [place] [address] Pulmonary Disease 08/23/24 Patricia Coffman [facility] Consulting Physician Oncology 08/23/24 documented as of this encounter
== END 2024-12-27 11:56 | disposition home or self-care (01) ==
LOC: HO.HGI 10:48
PROVIDERS: PCP Registered Nurse; Visit Provider Nurse Practitioner
DX: K21.9 Gastro-esophageal reflux disease without esophagitis (principal); D12.6 Benign neoplasm of colon, unspecified
CPT/HCPCS: 99213

== ENCOUNTER → 2024-12-27 10:47 | Outpatient (BNVA) | payer MEDICAID, SELFPAY | PROVIDERS: PCP Registered Nurse; Visit Provider Nurse Practitioner | DX: K21.9 Gastro-esophageal reflux disease without esophagitis (principal); D12.6 Benign neoplasm of colon, unspecified | CPT/HCPCS: 99212 ==

== ENCOUNTER 2025-01-16 09:07 | Outpatient (REF) | payer MEDICAID, SELFPAY ==
--- NOTE | 2025-01-16 09:11 | EMG_ITS ---
Bilateral median and ulnar motor and sensory studies were performed. Bilateral radial sensory studies were performed and paraspinal muscles were tested with a needle. IMPRESSION: This is an unremarkable study with no significant abnormality noted. MD ROSELIA Tariq/SHEEBA / [id number]
--- OUTSIDE RECORDS SUMMARY | 2025-01-16 09:43 | XMS_ITS | Encounter Summary ---
Author Organization [employer] Address [address] [place] [address] Care Team Providers Care Instrument Lens Generator Name Role Phone Suni Flores JULIO Primary Care Provider [phone] December Unavailable Edwin William MD Unavailable [phone] Encounter Details Date Type Department Care Team ([facility] st Contact Info) Description 07/03/2024 Orders Only [facility] MEDICINE [address] [place] [address] Provider, MD Lukas Social History Tobacco Use [...] Upcoming Encounters Date Type Department Care Team ([facility] st Contact Info) Description 02/02/2025 2:45 PM EDT [facility] [address] [place] [address] Kelsea Rosa MD [address] [place] [address] 04/06/2025 11:00 AM EDT Office Visit [facility] [address] [place] [address] Suni Flores FNP [address] [place] [address] documented as of this encounter Procedures Procedure Name Priority Date/Time Associated Diagnosis Comments HM COLONOSCOPY Routine 11/24/2022 3:42 PM EST documented in this encounter Results * Hm Colonoscopy (11/24/2022 3:42 PM EST) us Historical Provider HEALTH MAINTENANCE Final Result documented in this encounter Visit Diagnoses Not on filedocumented in this encounter Additional Health Concerns Assessment Noted Time PHQ-9 Depression Total Score: 12 024 11:43 AM EDT documented as of this encounter Care Teams Instrument Lens Generator Relationship Specialty Start Date End Date Suni Flores FNP [address] [place] [address] PCP - General Family Medicine 05/20/[address]rd [place] [address] Gastroenterology 08/23/24 Edwin William MD [address] [place] [address] Pulmonary Disease 08/23/24 Patricia Coffman [facility] Consulting Physician Oncology 08/23/24 documented as of this encounter"
--- OUTSIDE RECORDS SUMMARY | 2025-01-16 09:43 | XMS_ITS | Encounter Summary ---
Author Organization [employer] Address [address] [place] [address] Care Team Providers Care Gluing Machine Feeder Name Role Phone Suni Flores JULIO Primary Care Provider [phone] December Unavailable Edwin William MD Unavailable [phone] Encounter Details Date Type Department Care Team ([facility] Contact Info) Description 01/20/2024 Orders Only [place] [facility] [address] [place] [address] Provider, MD Lukas Social History Tobacco Use [...] the past 12 months, has t he [employer] oil or water [employer] threatened to shut off services in your [...] Care Team (Late st Contact Info) Description 02/02/2025 2:45 PM EDT Office Visit [facility] MED & PEDS [address] [place] [address] Kelsea Rosa MD [address] [place] [address] 04/06/2025 11:00 AM EDT Office Visit [facility] MED & PEDS [address] [place] [address] Suni Flores FNP [address] [place] [address] documented as of this encounter Procedures Procedure Name Priority Date/Time Associated Diagnosis Comments XR CERVICAL SPINE 3V Routine 01/24/2024 11:32 PM EDT ELECTRONEURONOGRAPHY Routine 01/18/2024 10:29 AM EDT documented in this encounter Results * XR CERVICAL SPINE 3V (01/24/2024 11:32 PM EDT) Anatomical Region Laterality Modality Abdomen Radiographic Erinn ging 01/24/2024 11:3 2 PM EDT Narrative 01/25/2024 1:49 AM EDT ? [facility] ?[address] ?[place] [address] ?XRay Report ? Signed ? Patient: Bermudez,Goldie ?MR#: [id number] ?? 9 ? : 1970 ?Acct:[id number] ? Age/Sex: 53 / F ?ADM Date: 04/29/24 ? Loc: HO.ED ? Attending Dr: ? Ordering Physician: Nayana Romero MD ?? Date of Service: 01/24/24 ?? Procedure(s): XR cervical spine 3V ?? Accession Number(s): [id number] ? cc: Nayana Romero MD; Suni Flores [...] 0144 ? DD/ 2332 ? TD/TT: ? Mint Wafer Depositor: TH ? Procedure Note Brenden Rodriguez - 01/25/2024 [place] [address] XRay Report Signed Patient: Sharron Bermudez#: [id number] 9 : 1970Acct:[id number] Age/Sex: 53 / FADM Date: 01/24/24 Loc: HO.ED Attending Dr: Ordering Physician: Nayana Romero MD Date of Service: 01/24/24 Procedure(s): XR cervical spine 3V Accession Number(s): [id number] cc: Nayana Romero MD; Suni Flores EXAMINATION: [...] in OV> 01/25/24 0144 DD/ 2332 TD/TT: Mint Wafer Depositor: TH [facility] External Provider IMG XR PROCEDURES Edited Result - Final * Electroneuronography (01/18/2024 10:29 AM EDT) Historical Provider NEUROLOGY ORDERABLES Sanjana l Result documented in this encounter Visit Diagnoses Not on filedocumented in this encounter Additional Health Concerns Assessment Noted Time PHQ-9 Depression Total Score: 0 02/09/20 23 2:37 PM EDT documented as of this encounter Care Teams Gluing Machine Feeder Relationship Specialty Start Date End Date Suni Flores FNP [address] [place] [address] PCP - General Family Medicine 05/20/22December [address] [place] [address] [address] [place] [address] Gastroenterology 08/23/24 Edwin William MD [address] [place] [address] Pulmonary Disease 08/23/24 Patricia Coffman [facility] Consulting Physician Oncology 08/23/24 documented as of this encounter
--- OUTSIDE RECORDS SUMMARY | 2025-01-16 09:43 | XMS_ITS | Encounter Summary ---
Author Organization [employer] Address [address] [place] [address] Care Team Providers Care Meat And Poultry Inspector Name Role Phone Suni Flores JULIO Primary Care Provider [phone] December Unavailable Edwin William MD Unavailable [phone] Encounter Details Date Type Department Care Team ([facility] st Contact Info) Description 11/21/2024 Orders Only [facility] MED & PEDS [address] [place] [address] ProviderLukas MD Social History Tobacco Use Types [...] Upcoming Encounters Date Type Department Care Team ([facility] st Contact Info) Description 02/02/2025 2:45 PM EDT Office Visit [facility] MED & PEDS [address] [place] [address] Kelsea Rosa MD [address] [place] [address] 04/06/2025 11:00 AM EDT Office Visit [facility] MED & PEDS [address] [place] [address] Suni Flores FNP [address] [place] [address] documented as of this encounter Procedures Procedure [...] documented as of this encounter Care Teams Meat And Poultry Inspector Relationship Specialty Start Date End Date Suni Flores FNP [address] [place] [address] PCP - General Family Medicine 05/20/22 Shauna December [address]rd [place] [address] Gastroenterology 08/23/24 Edwin William MD [address] [place] [address] Pulmonary Disease 08/23/24 Patricia Coffman [facility] Consulting Physician Oncology 08/23/24 documented as of this encounter
--- OUTSIDE RECORDS SUMMARY | 2025-01-16 09:43 | XMS_ITS | Clinical Summary ---
Author Organization [employer] Address [address] [place] [address] 7[address] [place] [address] Care Team Providers Care Order Management Specialist Name Role Phone Suni Flores JULIO Primary Care Provider [phone] December Unavailable Edwin William MD Unavailable [phone] Allergies No known active allergies Medications dicyclomine (Bentyl) 10 MG capsule Take 10 [...] mL 11 023 Active Fluocinolone Acetonide Scalp ([place]-Smoothe/F S Scalp) 0.01 % oil Apply 2-3 times weekly 118.28 mL 023 Active Ketotifen Fumarate 0.035 % solutionIndicati [...] EVERY DAY 90 tablet 1 025 Active Ventolin HFA 108 (90 Base) MCG/ACT inhalerIndicatio ns:Cough variant asthma INHALE 1 TO 2 PUFFS EVERY 6 HOURS NEEDED FOR WHEEZE OR FOR SHORTNESS OF BREATH 18 g 11 025 Active celecoxib (CeleBREX) 200 MG capsuleIndicatio ns:Cervical spinal cord compression (CMS/HCC),Spondy lolisthesis, cervical region TAKE 1 CAPSULE BY MOUTH EVERY DAY NEEDED FOR PAIN 60 capsule 3 025 Active Acetaminophen Extra Strength 500 MG tablet TAKE 2 TABLETS BY MOUTH EVERY 6 HOURS NEEDED FOR PAIN OR FEVER 100 tablet 2 025 Active Acetaminophen Extra Strength 500 MG tablet TAKE 2 TABLETS BY MOUTH EVERY 6 HOURS NEEDED FOR PAIN OR FEVER 022 2024 Discontinued(R eorder (will not trigger notification to Pharmacy)) celecoxib (CeleBREX) 200 MG capsuleIndicatio ns:Cervical spinal cord compression (CMS/HCC),Spondy lolisthesis, cervical region TAKE 1 CAPSULE BY MOUTH EVERY DAY NEEDED FOR PAIN 30 capsule 2 025 2024 Discontinued(R eorder (will not trigger notification to Pharmacy)) Active Problems Problem Noted Date Diagnosed Date GERD (gastroesophageal reflux disease) Overview (01/05/2025): Following with [facility] GI - COCKTAIL SERVER Villatoro Cont famotidine 20mg BID and bentyl Abnormal PET scan of mediastinum 06/08/2024 Overview (08/23/2024): - Following with [facility] Heme/Onc - Dr. Coffman - Initially referred to [facility] Heme/Onc on 05/15/24 d/t concern for malignancy identified on CT Chest - PET scan completed on 06/02/24 at [facility], with Moderate metabolic activity in lymph nodes 1 adjacent to the right thyroid lobe and right paratracheal space. These are likely metastatic. - S/p EBUS on 06/19/24, and the biopsy revealed no evidence of malignancy from 4R and 4L, but nondiagnostic from 2R and station 7. She also had CT guided biopsy from the node, which was nondiagnoistic. Assessment & Plan (01/05/2025 1:06 PM EDT): -Cont following with specialist, glad to hear that the lymph nodes shrunk compared to prior. Request notes. Assessment & Plan (08/23/2024 4:08 PM EST): [...] from colon CA screening in 2022 at [facility]. Mammo last completed May 2023 BIRADS 1. (See healthcare maintenance diagnoses for further details). Plan: PET scan results to be reviewed by Heme/Onc cement finishing supervisor on 06/09/24. Per specialist team, pt should have initial appt date scheduled with them by end of day on 06/09/24. [facility] referrals team and pt are aware and in agreement with this plan. Cervical spinal cord compression 04/02/2024 Overview (01/05/2025): MRI cervical spine w/o contrast 03/10/24: 1. [...] There is minimal right foraminal narrowing. - S/p anterior discectomy C5-6, C6-7 at [facility] [address] Paige Assessment & Plan (04/02/2024 4:05 PM EDT): Reviewed results of MRI with pt today in office, all questions answered to the best of my ability. Discussed referral to Spine specialists, see above Start Celebrex PRN, Reviewed med use and SE ED/urgent care follow up precautions Spondylolisthesis, cervical region 02/05/2024 Overview (01/05/2025): Cervical XR 01/24/24 noted slight anterolisthesis of C4 on C5, along with disc space narrowing more prominent C5-C6 MRI cervical w/o contrast completed 03/10/24 confirmed disc protrusion with cord compression and mild-mod central stenosis at C5-C6. Also with discus protrusion with cord compression at C6-C7 with mild-mod central stenosis. S/p Anterior discectomy C5-6, C6-7 at [facility] on 08/31/[address] Paige Assessment & Plan (01/05/2025 1:07 PM EDT): - Referral to Pain Management and physical therapy placed 01/05/25 Assessment & Plan (08/23/2024 4:05 PM EST): Plan for upcoming spinal surgery on 08/31/24 per pt. EKG and CMP completed as requested by office. Both WNL. Faxed to office. Right carpal tunnel syndrome 02/04/2024 Overview (04/02/2024): Diagnosed on EMG December 2023: mild right carpal tunnel syndrome Consult with [facility] Ortho February 2024, plan to proceed with surgery for right CTS Cubital tunnel syndrome, bilateral 02/04/2024 Overview (02/05/2024): Diagnosed on EMG December 2023: mild bilateral cubital tunnel syndrome Consult with Ortho January 2024 Sickle cell trait 01/03/2024 Overview (01/03/2024): Lab Results Component Value Date SICKLECELL POSITIVE (A) 12/24/2023 Vitamin D insufficiency 01/03/2024 Overview (01/03/2024): Lab Results Component Value Date [id number] 16.8 (L) 12/24/2023 -December 2023: initiated on [...] 02/08/2023 Psoriasis 02/08/2023 Overview (12/19/2023): Following with [facility] Symptoms improving Plan during [...] or do not improve - Referral to [facility] Derm team for further eval and tx Healthcare maintenance 02/08/2023 Overview (08/23/2024): Pap/results: NIL/HPV neg 09/03/21, repeat 08/2026 Smoking status: never smoker Lipids: Total Cholesterol 163, HDL 43, LDL 100, TG 106 on 06/26/21 Mammogram: BIRADS 1 on 06/13/24 Colorectal Screening: [facility] 2022 scope with plan to repeat in 3 years due to polyp DEXA: recommend screen at 65 years Assessment & Plan (08/27/2023 6:18 AM EST): PHQ: negative screening January 2023 Pap/results: NIL/HPV neg 09/03/21, repeat 08/2026 Smoking status: never smoker Lipids: Total Cholesterol 163, HDL 43, LDL 100, TG 106 on 06/26/21 Mammogram: BIRADS 1 on 05/28/23 Colorectal Screening: [facility] DEXA: recommend screen at 65 years [...] sling surgery on 05/22/22 - Following with [facility] Cough variant asthma 08/31/2021 Assessment & Plan (12/19/2023 8:21 PM EDT): Continue Symbicort 160-4.5 two puffs BID. Reviewed med use and safety Cont montelukast 10mg nightly Cont w/ flonase and loratadine for allergic component Following with [facility] Pulphli William (last consult Oct 2023) May continue albuterol PRN DME request for nebulizer placed: 08/27/23 ED precautions Assessment & Plan (08/29/2023 5:46 PM EST): ?? Continue Symbicort 160-4.5 two puffs BID. Reviewed med use and safety ?? Start montelukast 10mg nightly ?? Following with [facility] Pulm - Dr. Nataliia ?? May continue albuterol PRN ?? DME request for nebulizer placed: 08/27/23 ?? ED precautions Assessment & Plan (05/13/2023 6:48 PM EDT): ?? Flovent 2 puffs BID has not been notably helpful for symptoms. DC Flovent. ?? Start Symbicort 160-4.5 2 puffs BID. Reviewed med use and safety ?? Referral to re-establish with Pulm -Dr. William - reports has appt scheduled for next month ?? May continue albuterol PRN ?? ED precautions Assessment & Plan (02/19/2023 3:52 PM EDT): ?? Continue albuterol PRN ?? Restart Flovent 2 puffs BID ?? Referral to re-establish with Pulm -Dr. William ?? Check Echo to r/o cardiac contribution to SOB. Reactive depression 06/26/2021 Seasonal allergies 06/26/2021 Resolved Problems Problem Noted Date Diagnosed Date Resolved Date Cardiovascular event risk 02/08/2023 Class 1 obesity 02/08/2023 08/23/2024 Encounters Date Type Department Care Team Description 01/05/2025 11:30 AM EDT Office Visit [facility] [address] [place], [place] [phone] Suni Flores FNP Spondylolisthesis, cervical region (Primary Dx); Cervical spinal cord compression (CMS/HCC); Gastroesophageal reflux disease, unspecified whether esophagitis present; Abnormal PET scan of mediastinum; Pain in both upper extremities; Numbness and tingling of both upper extremities; Numbness and tingling of right lower extremity 01/05/2025 Travel 01/04/2025 Travel 12/29/2024 Telephone [facility] [address] [place] [phone] Suni Flores FNP Pre-op Visit 12/29/2024 Patient Outreach [facility] [address] [place] [address] Suni Flores FNP Pre-visit Planning (SDOH screening negative and Tobacco screening negative) 12/28/2024 Telephone [facility] [address] [place] [address] Suni Flores FNP Chart Prep 12/10/2024 Refill [facility] [address] [place] [address] Suni Flores FNP Cough variant asthma 12/08/2024 Population Health Risk Score [facility] () Department [address] [place] [phone] Provider, Population Health Generic 11/21/[address] [facility] [address] [place] [address] Provider, MD Lukas 11/08/2024 Telephone [facility] [address] [place] [address] Suni Flores FNP [employer] (Nebulizer) 11/02/2024 Orders Only [facility] External Provider, [facility] from Last 3 Months Immunizations Name Administration [...] Access Answer Date Recorded Internet Access Q1 Yes 12/29/2024 Internet Access Q2 Not on file 12/29/2024 Comments Unknown Sex and Gender Information Value Date Recorded Sex Assigned at Female 07/27/2022 10:39 AM EDT Legal Sex Female 10:39 AM EDT Gender Identity Female 07/27/2022 10:39 AM EDT Sexual Orientation Straight 07/27/2022 10 :39 AM EDT Last Filed Vital Signs Vital Sign Reading Time Taken Comments Blood Pressure 126/78 01/05/2025 11:19 AM EDT Pulse 67 01/05/2025 11:19 AM EDT Temperature 36.6 ??C (97.9 ??F) 01/05/2025 11:19 AM E DT Respiratory Rate 20 01/05/2025 11:19 AM EDT Oxygen Saturation 98% 01/05/2025 11:19 AM EDT Inhaled Oxygen Concentration - - Weight 75.5 kg (166 lb 6.4 oz) 01/05/2025 11:19 AM EDT Height 154.9 cm (5' 1 ) 01/05/2025 11:19 AM EDT Body Mass Index 31.44 01/05/2025 11:19 AM EDT Plan of Treatment Upcoming Encounters Date Type Department Care Team (Late st Contact Info) Description 02/02/2025 2:45 PM EDT Office Visit [facility] [address] [place] [address] Kelsea Rosa MD [address] [place] [address] 04/06/2025 11:00 AM EDT Office Visit [facility] [address] [place] [address] Suni Flores, LOG SORTING SUPERVISOR [address] [place] [address] Health Maintenance Due Date Last Done Comments CT Colonography 1970 FIT DNA/Cologuard 1970 FIT 1970 FOBT 1970 Sigmoidoscopy 1970 Alcohol/Substance Use Screening 1982 Zoster Vaccines (1 of 2) 2020 Pap Smear 09/07/2024 09/07/2021 Depression Monitoring 10/01/2024 03/31/2024, 024 Depression Screening 03/31/2025 03/31/2024, 03/31/20 24 Tobacco Screening 06/07/2025 06/07/2024 Mammogram 06/13/2025 06/13/2024, 0909/2022, 02/02/2022 COVID-19 Vaccine ( season) 2025 01/02/2021 Postponed from 05/28/2024 (Patient Refused) SDOH Screening 12/29/2025 12/29/2024 Cervical Cancer Screening 09/07/2026 HPV/Cotest 09/07/2026 09/07/2021 [...] Surgeons ? [address] ?[place] [address] ?XRay Report ? Signed ? Patient: Bermudez Avery,Goldie ?MR#: ?? [id number] ? : 1970 ?Acct:[id number] ? Age/Sex: 54 / F ?ADM Date: 11/02/24 ? Loc: HO.HOSX ? Attending Dr: Mark HELMS ? Ordering Physician: Mark Calloway ?? Date of Service: 11/02/24 ?? Procedure(s): XR cervical spine 4V ?? Accession Number(s): [id number] ? cc: Suni FloresP; Mark Calloway ? [...] 11/02/24 1140 ? DD/ 0914 ? TD/TT: 11/02/24 0920 ? Diploma Maker: ? Procedure Note Jennifer, Brenden - 11/02/[address]24 [facility] [address] [place] [address] XRay Report Signed Patient: Huma SpencerR#: [id number] : 1970Acct:[id number] Age/Sex: 54 / FADM Date: 11/02/24 Loc: HO.HOSX Attending Dr: Mark HELMS Ordering Physician: Mark Calloway Date of Service: 11/02/24 Procedure(s): XR cervical spine 4V Accession Number(s): [id number] cc: Suni Flores; Mark Calloway EXAMINATION: XR [...] by: Xu Cisneros MD 11/02/2024 11:40 AM [facility] Dictated By: Xu Miller MD Signed By: <Electronically signed by Xu Marie MDin OV> 11/02/24 1140 DD/ 0914 TD/TT: 11/02/24 0920 Diploma Maker: [facility] External Provider IMG XR PROCEDURES Final Result * BI Mammogram Screening Tomosynthesis Bilateral (06/13/2024 8:00 AM EDT) Anatomical Region Laterality Modality Breast Bilateral Mammography 06/13/2024 8:00 AM EDT Narrative 06/26/2024 3:20 PM EDT ? [facility] ? [address] ?[place] [address] ? Mammography Report ? Signed ? Patient: Bermudez Avery,Goldie ?MR#: ?? [id number] ? : 1970 ?Acct:[id number] ? Age/Sex: 54 / F ?ADM Date: 06/13/24 ? Loc: HO.MAMMO ? Attending Dr: Suni Flores LOG SORTING SUPERVISOR ? Ordering Physician: Suni Flores LOG SORTING SUPERVISOR ?Results: 1Negat ?? kajal ? Date of Service: 06/13/24 ?Follow Up: 1 Year From Orig ?? inal Mammogram ? Procedure(s): MM tomosynthesis screening BI ?? Accession Number(s): [id number] ? cc: Suni Flores LOG SORTING SUPERVISOR ? EXAMINATION: ?? MM SCREENING DIGITAL BREAST [...] DD/ 0800 ? TD/TT: 06/13/24 0805 ? Diploma Maker: ? Procedure Note Brenden Rodriguez - 06/26/2024 [facility] [address] [place] [address] Mammography Report Signed Patient: Huma SpencerR#: [id number] : 1970Acct:[id number] Age/Sex: 54 / FADM Date: 06/13/24 Loc: HO.MAMMO Attending Dr: Suni Flores LOG SORTING SUPERVISOR Ordering Physician: Suni FloresPResults: 1Negat kajal Date of Service: 06/13/24Follow Up: 1 Year From Orig inal Mammogram Procedure(s): MM tomosynthesis screening BI Accession Number(s): [id number] cc: Suni Flores EXAMINATION: MM SCREENING DIGITAL [...] Humphrey DO in OV> 06/26/24 1518 DD/ 08 TD/TT: 06/13/24 08 Diploma Maker: us Suni KIM IMG BI PROCEDURES Final Result * Hepatitis C Viral RNA, Quantitative, Real-Time PCR (12/24/2023 6:15 AM EDT) Hepatitis C Viral Load <15 NOT DETECTED NOT DETECTED IU/mL [facility] HCV Log PCR <1.18 NOT DETECTED NOT DETECTED Log IU/mL [facility] Comment:This test was perfor med using Real-Time Polymerase ChainReaction.Reportable Range: 15 IU/mL to 100,000,000 IU/mL(1.18 Log IU/mL to 8.00 Log IU/mL).The analytical performance characteristics of thisassay have been determined by [employer].The modifications have not been cleared or approved bythe FDA. This assay has been validated pursuant to theCLIA regulations and is used for clinical purposes.For more information on this test, go to:http://education.[employer]/faq/RHI08x3(This link is being provided for informational/educational purposes only.)THIS TEST WAS PERFORMED AT:[facility] [place] [id number] ALBARADO MD Blood 12/24/2023 6:15 AM EDT 12/24/2023 6:15 AM EDT us Suni KIM LAB BLOOD ORDERABLES Final Res ult Performing Organization Address [facility] Co de Phone Number [facility] [address] [place] [address] [phone] * HIV-1/2 Antigen and Antibodies, Fourth Generation, with Reflexes (12/24/2023 6:15 AM EDT) HIV AB/AG Nonreactive Nonreactive [facility] Comment:HIV-1 p24 Ag and/or HIV-1/HIV-2 Ab not detected.A test result that is nonreactive does not exclude thepossibility of exposure to or infection with HIV-1 and/orHIV-2. Nonreactive results in this assay for individualswith prior exposure to HIV-1 and/or HIV-2 may be due toantigen and antibody levels that are below the limit ofdetection of this assay.The [employer] HIV Ag/Ab Combo assay result andsupplemental assay results should be interpreted inconjunction with the patient's clinical presentation,history and other laboratory results. If the results areinconsistent with clinical evidence, additional testing issuggested to confirm the result. Blood Venous blood specimen / Unknown 12/24/2023 6:15 AM EDT 12/24/2023 6:15 AM EDT Suni Flores [facility] LAB BLOOD ORDERABLES Final Res ult Performing Organization Address [facility] Co de Phone Number [facility] [address] [place] [address] [phone] * THINPREP TIS PAP AND HPV [...] has been evaluated with computer assisted technology. [facility] Scrap Materials Buyer: SEE COMMENT [facility] Comment: SXA, CT(ASCP) CT screening location: [address] ??[id number] HPV nRNA E6/E7 Not Detected Not Detected [facility] Comment: Methodology: Principal Programmer-Mediated Amplification This assay detects E6/E7 viral messenger RNA (mRNA) from 14 high-risk HPV types (16,18,31,33,35,39,45,51,52,56,58,59,66,68). ? The analytical performance characteristics of this assay have been determined by [employer]. The modifications have not been cleared or approved by the FDA. This assay has been validated pursuant to the CLIA regulations and is used for clinical purposes. ?? For additional information, please refer to http://education.[employer]/faq/FRA049z6 (This link if provided for information/ educational purposes only.) NO COLLECTION DATE RECEIVED. WE HAVE USED THE DATE THE SPECIMEN WAS RECEIVED BY THIS LABORATORY THE COLLECTION DATE. IF THIS IS INCORRECT, PLEASE CONTACT CLIENT SERVICES. PHONE NUMBER: ?? Interpretation/Re sult: Negative for intraepithelial lesion or malignancy. [facility] LMP: NONE GIVEN [facility] Prev. BX: NONE GIVEN [facility] Prev. PAP: NONE GIVEN [facility] ON [facility] SOURCE: None given [facility] Statement Of Adequacy: SEE COMMENT [facility] Comment: Satisfactory for evaluation. Endocervical/transformation zone component present. Age and/or menstrual status not provided 09/07/2021 6:39 AM EST us Sherley Ford NP LAB PATHOLOGY ORDERABLES Final Result [facility] [address] from Last 3 Months or Most Recently Relevant to Health Maintenance Insurance [facility] Care Teams Order Management Specialist Relationship Specialty Start Date End Date Suni Flores FNP [address] [place], [place] PCP - General Family Medicine 05/20/[address] [place] [address] Gastroenterology 08/23/24 Edwin William MD [address] [place] [address] [place] [address] Pulmonary Disease 08/23/24 Patricia Coffman [facility] Consulting Physician Oncology 08/23/24
== END 2025-01-16 09:08 | disposition home or self-care (01) ==
LOC: HO.NEURO 09:07
PROVIDERS: PCP Registered Nurse; Visit Provider Registered Nurse
DX: R20.0 Anesthesia of skin (principal); R20.2 Paresthesia of skin
CPT/HCPCS: 95886; 95911

== ENCOUNTER 2025-02-20 08:07 | Outpatient (REF) | payer MEDICAID, SELFPAY ==
[2025-02-20 11:45] LABS: HIV AB/AG Nonreactive (Nonreactive); HIV Num 1 0.06 S/CO (0.00-0.99); ~HepC Num1 0.08 S/CO (0.00-0.79); ~Hepatitis C Antibody Nonreactive (Nonreactive)
[2025-02-20 11:51] LABS: Syphilis Screen Nonreactive (Nonreactive)
[2025-02-20 13:06] LABS: CT PCR NOT DETECTED (Not Detect.); NG PCR NOT DETECTED (Not Detect.)
[2025-02-21 04:56] LABS: Lyme Abs Screen <0.90 index
== END 2025-02-20 08:08 | disposition home or self-care (01) ==
LOC: HO.HHCL 08:07
PROVIDERS: Visit Provider Internal Medicine
DX: L03.114 Cellulitis of left upper limb (principal)
CPT/HCPCS: 86617; 86618; 86780; 86803; 87389; 87491; 87591

== ENCOUNTER 2025-05-08 12:45 | Outpatient (AMB) | payer MEDICAID, SELFPAY ==
--- NOTE | 2025-05-08 12:52 | A.OFFVIS_ITS ---
Vital Signs 05/08/25 12:54 Height 5 ft 1 in Weight 170 lb BMI 32.1 BP 110/62 Blood Pressure Location Rt brachial Position Sitting Pulse 83 Pulse Source Pulse Oximeter Pulse Oximetry (%) 100 Oxygen Delivery Method Room Air Intake Visit Reasons: cough Allergies No Known Allergies Allergy (Verified 05/08/25 12:58) HPI HPI cough: Details: 55-year-old lady, nonsmoker, followed for cough variant asthma and environmental allergies. She continues to use Symbicort and albuterol MDI/nebs with good control of her asthma symptoms. Patient also continues on loratadine and Flonase with good control of her allergies symptoms. She denies any recent exacerbations. No significant changes since prior visit. [facility] Medical History (Updated 12/27/24 @ 11:51 by CHARLIE Anthony) Environmental allergies Seasonal allergies Diverticulosis Personal history of COVID-19 (~04/2024) Cervical spondylosis Ulnar neuropathy at elbow Carpal tunnel syndrome of right wrist Sessile serrated polyp of colon GERD (gastroesophageal reflux disease) Diverticulitis (~2020) Asthma Surgical History Hx of lymph node biopsy (08/09/24) History of carpal tunnel release (05/15/24) History of colonoscopy History of hemorrhoidectomy History of foot surgery Status post creation of urethral sling by suprapubic approach Family History Mother Heart attack Breast cancer Uterine cancer Father Prostate cancer Social History Household Members: Children Household Members Other:: 3 children Housing: Apartment Are you a primary technical healthcare consultant to a significant other at home: Yes (children) Do you presently have visiting nurse or other home services: No 75 years or older and lives alone: No Alcohol intake: current Alcohol intake frequency: holidays/special occasions only Patient Tobacco Use Status: Never used Tobacco e-Cigarette/Vaping Use: Never Used Current occupational status: employed 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 Review of Systems Const Denies daytime sleepiness, Denies excessive sweating, Denies fatigue, Denies fever(s), Denies lethargy, Denies malaise, Denies night sweats, Denies snoring and Denies weight loss Eyes Denies blurry vision and Denies itchy eyes ENT Denies nasal congestion, Denies post nasal drip, Denies sinus pain, Denies sinus pressure and Denies other ( Thrush) Card Denies chest pain, Denies pedal edema, Denies dyspnea, Denies orthopnea and Denies paroxysmal nocturnal dyspnea Resp Denies cough, Denies hemoptysis, Denies excessive phlegm production, Denies dyspnea, Denies snoring and Denies wheezing GI Denies abdominal pain and Denies heartburn Musc Denies myalgias, Denies arthralgias and Denies joint swelling Skin/Breast Denies rash Neuro Denies memory loss and Denies seizure-like activity Psych Denies abnormal sleep pattern, Denies anxiety and Denies memory loss Endo Denies excessive sweating, Denies fatigue and Denies heat intolerance Shiraz/Lymph Denies easy bruising Aller/Immun Denies itchy eyes, Denies seasonal rhinorrhea and Denies wheezing Physical Exam Vital Signs: Last Vital Signs Pulse 83 05/08/25 12:54 BP 110/62 05/08/25 12:54 Pulse Ox 100 05/08/25 12:54 Oxygen Delivery Method Room Air 05/08/25 12:54 BMI result Body Mass Index 32.1 Const General: no acute distress and alert Nutritional Appearance: not obese Orientation/consciousness: Other orientation findings ( oriented) HEENT Head: Yes atraumatic Eyes General: appearance normal, both eyes and all related structures Sclerae: sclerae normal EOM: EOMs intact bilaterally Neck Neck: Yes supple Lymphatic: no lymphadenopathy noted Resp Effort & Inspection: normal respiratory effort and no use of accessory muscles Auscultation: clear to auscultation bilaterally Cardio Rate: regular rate Rhythm: regular rhythm Heart sounds: no gallops, no murmurs and no rubs Skin General skin exam: other ( warm) Extrem General: No clubbing, No cyanosis and No edema Assessment & Plan Assessment & Plan (1) Asthma: Code(s): J45.909 - Unspecified asthma, uncomplicated Category: Medical Plan: Well controlled on current regimen of Symbicort and albuterol MDI/nebs. Continue current regimen. (2) Seasonal allergies: Code(s): J30.2 - Other seasonal allergic rhinitis Category: Medical Plan: Well controlled on loratadine and Flonase. Continue current regimen. Coding Level of Care Code Est Pt Level 4 (56129) Diagnoses Asthma J45.909 Seasonal allergies J30.2
[2025-05-08 12:54] VITALS: BP 110/62; PULSE 83; O2SAT 100; BMI 32.1
== END 2025-05-08 13:09 | disposition home or self-care (01) ==
LOC: HO.HPS 12:45
PROVIDERS: PCP Registered Nurse; Visit Provider Internal Medicine Pulmonary Disease
DX: J45.909 Unspecified asthma, uncomplicated (principal); J30.2 Other seasonal allergic rhinitis
CPT/HCPCS: 99214

== ENCOUNTER → 2025-05-08 12:45 | Outpatient (BNVA) | payer MEDICAID, SELFPAY | PROVIDERS: PCP Registered Nurse; Visit Provider Internal Medicine Pulmonary Disease | DX: J45.991 Cough variant asthma (principal); Z91.09 Other allergy status, other than to drugs and biological substances; J30.2 Other seasonal allergic rhinitis; Z86.16 Personal history of COVID-19 | CPT/HCPCS: 99212 ==

== ENCOUNTER 2025-05-09 13:47 | Outpatient (AMB) | payer MEDICAID, SELFPAY ==
--- NOTE | 2025-05-09 13:50 | A.OFFVIS_ITS ---
Vital Signs 05/09/25 14:00 Height 5 ft 1 in Weight 170 lb BMI 32.1 Intake Visit Reasons: New Problem - Left wrist tenosynovitis Intake Note: Goldie is a 55 year old right hand dominant female who presents today for a new problem visit for evaluation of left wrist tenosynovitis. Patient complains of pain on the radial aspevct of the left thumb with associated swelling. She has been taking Tylenol with some relief. She occasionally wears a brace she was given at [facility] [place] [facility]. Denies numbness, tingling, finger locking. Denies injuries or surgeries to the left hand. History of right carpal tunnel release by 05/15/[address] Cruz Allergies No Known Allergies Allergy (Verified 05/09/25 13:55) HPI HPI New Problem - Left wrist tenosynovitis: Details: Goldie is a 55 year old right hand dominant female who presents today for a new problem visit for evaluation of left wrist tenosynovitis. Patient complains of pain on the radial aspevct of the left thumb with associated swelling. She has been taking Tylenol with some relief. She occasionally wears a brace she was given at [facility] [place] Walk [facility]. Denies numbness, tingling, finger locking. Denies injuries or surgeries to the left hand. History of right carpal tunnel release by 05/15/[address] Cruz [facility] Medical History (Updated 05/17/25 @ 07:58 by ANALIA Diego) Environmental allergies Seasonal allergies Diverticulosis Personal history of COVID-19 (~04/2024) Cervical spondylosis Ulnar neuropathy at elbow Carpal tunnel syndrome of right wrist Sessile serrated polyp of colon GERD (gastroesophageal reflux disease) Diverticulitis (~2020) Asthma Surgical History Hx of lymph node biopsy (08/09/24) History of carpal tunnel release (05/15/24) History of colonoscopy History of hemorrhoidectomy History of foot surgery Status post creation of urethral sling by suprapubic approach Family History Mother Heart attack Breast cancer Uterine cancer Father Prostate cancer Social History (Updated 05/09/25 @ 13:55 by FRENCH Johnson) Household Members: Children Household Members Other:: 3 children Housing: Apartment Are you a primary career advisor to a significant other at home: Yes (children) Do you presently have visiting nurse or other home services: No Alcohol intake: current Alcohol intake frequency: holidays/special occasions only Patient Tobacco Use Status: Never used Tobacco e-Cigarette/Vaping Use: Never Used Current occupational status: unemployed Current occupation: right hand dominant Review of Systems Const All systems reviewed & are unremarkable except as noted in HPI and below Physical Exam Vital Signs: BMI result Body Mass Index 32.1 Extrem Other: Patient is alert, oriented, and in no acute distress. Neuro: Normal sensation of the tips of all digits of the right hand at this time Vascular: Cap refill brisk Pain: Tenderness to palpation of the radial styloid of the right hand Positive Rakesh on the right ROM: Patient is able to make a closed fist and extend all digits of the right hand fully Skin: No lacerations or abrasions. General: No ecchymosis, erythema, or evidence of infection. Psych: Appears grossly normal Affect normal Attitude cooperative Assessment & Plan Assessment & Plan (1) De Quervain's tenosynovitis, left: Code(s): M65.4 - Radial styloid tenosynovitis [de Quervain] Category: Medical Plan 1. Left de Quervain tenosynovitis Patient is educated about this condition Patient is educated about the typical treatment course and the treatment options available Patient is provided with a comfort cool thumb spica brace to wear when her thumb was particularly bothering her OT referral placed for range of motion and strengthening in the setting of left de Quervain tenosynovitis Patient is amenable to this plan Follow-up as needed Orders: Orders XR hand LT min 3V 05/09/25 M79.642 - Pain in left hand Coding Level of Care Code New Pt Level 3 (52187) Diagnoses De Quervain's tenosynovitis, left M65.4
[2025-05-09 14:00] VITALS: BMI 32.1
== END 2025-05-09 14:27 | disposition home or self-care (01) ==
LOC: HO.HOS 13:48
PROVIDERS: PCP Registered Nurse
DX: M65.4 Radial styloid tenosynovitis [de Quervain] (principal)
CPT/HCPCS: 99213

== ENCOUNTER 2025-05-09 13:47 | Outpatient (REF) | payer MEDICAID, SELFPAY ==
--- NOTE | ~2025-05-09 | XR_ITS ---
EXAMINATION: XR HAND 3 OR MORE VIEWS LEFT HISTORY: M79.642 - Pain in left hand COMPARISON: There are no prior studies available for comparison. FINDINGS: Three views of the left hand are submitted. Osseous mineralization is normal. There is no fracture or dislocation. The joint spaces are preserved. The soft tissues are unremarkable. XR/XR hand LT min 3V IMPRESSION: Unremarkable examination of the left hand. Electronically signed by: Wilfredo Gomez MD 05/09/2025 02:15 PM EDT
== END 2025-05-09 13:48 | disposition home or self-care (01) ==
LOC: HO.HOSX 13:47
PROVIDERS: PCP Registered Nurse
DX: M65.4 Radial styloid tenosynovitis [de Quervain] (principal); M79.642 Pain in left hand
CPT/HCPCS: 73130; 99212

== ENCOUNTER → 2025-05-09 14:07 | Outpatient (BNV) | payer MEDICAID, SELFPAY | PROVIDERS: PCP Registered Nurse; Visit Provider Radiology Diagnostic Radiology | DX: M79.642 Pain in left hand (principal) | CPT/HCPCS: 73130 ==

== ENCOUNTER 2025-05-16 09:00 | Outpatient (RCR) | payer MEDICAID, SELFPAY | END 2025-05-16 16:04 | disposition home or self-care (01) | LOC: HO.PT 09:00 | PROVIDERS: PCP Registered Nurse; Visit Provider Registered Nurse | DX: M43.12 Spondylolisthesis, cervical region (principal); M79.601 Pain in right arm; M79.602 Pain in left arm; R20.0 Anesthesia of skin; R20.2 Paresthesia of skin | CPT/HCPCS: 97110; 97112; 97140; 97162; 97530 ==

== ENCOUNTER 2025-06-26 09:00 | Outpatient (AMB) | payer MEDICAID, SELFPAY ==
--- NOTE | 2025-06-26 09:08 | MHC.OFFVIS ---
Vital Signs 06/26/25 09:09 Height 5 ft 1 in Weight 169 lb 12.095 oz BMI 32.1 BP 132/88 Blood Pressure Location Rt brachial Position Sitting Pulse 70 Intake Visit Reasons: IBS , Gerd Intake Note: Goldie presents in follow up of IBS, GERD. CC: Patient reports doing well and denies having any GI symptoms today. Business Development Assistant Required: No Accompanied by: Self / Same As Patient Allergies No Known Allergies Allergy (Verified 06/26/25 09:14) HPI HPI IBS , Gerd: Details: Assessment & Plan (1) GERD (gastroesophageal reflux disease): Code(s): K21.9 - Gastro-esophageal reflux disease without esophagitis Category: Medical (2) Sessile serrated polyp of colon: Comment: (polyp noted on 2022 scope - repeat 5 years as she had [address] [facility] that was negative) Code(s): D12.6 - Benign neoplasm of colon, unspecified Category: Medical Plan Dj[place]ian # declines She had cervical stenosis surgery r/t her neck pain, they did biopsies of her thyroid and so far negative but they are still watching. She had a scope at [facility] r/t a possible CT abnormality but it was negative. 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 Continues to do well. She is on famitidine 20mg bid and bentyl. ROV 6 mos. Medications: Refilled famotidine 20 mg PO BID 180 tabs 2RF dicyclomine 10 mg PO TID 90 caps 1RF R10.9 - Unspecified abdominal pain TODAY'S VISIT [place] #declines [facility] Medical History (Updated 05/17/25 @ 07:58 by ANALIA Diego) Environmental allergies Seasonal allergies Diverticulosis Personal history of COVID-19 (~04/2024) Cervical spondylosis Ulnar neuropathy at elbow Carpal tunnel syndrome of right wrist Sessile serrated polyp of colon GERD (gastroesophageal reflux disease) Diverticulitis (~2020) Asthma Surgical History Hx of lymph node biopsy (08/09/24) History of carpal tunnel release (05/15/24) History of colonoscopy History of hemorrhoidectomy History of foot surgery Status post creation of urethral sling by suprapubic approach Family History Mother Heart attack Breast cancer Uterine cancer Father Prostate cancer Social History (Updated 05/09/25 @ 13:55 by Alvarado Connors James) Household Members: Children Household Members Other:: 3 children Housing: Apartment Are you a primary outdoor emergency care technician to a significant other at home: Yes (children) Do you presently have visiting nurse or other home services: No 75 years or older and lives alone: No Alcohol intake: current Alcohol intake frequency: holidays/special occasions only Patient Tobacco Use Status: Never used Tobacco e-Cigarette/Vaping Use: Never Used Current occupational status: unemployed Current occupation: right hand dominant Review of Systems Const Denies fatigue, Denies fever(s), Denies night sweats, Denies poor appetite and Denies weight loss ENT Reports Normal hearing present, Denies dental pain, Denies dysphagia, Denies hearing loss, Denies mouth pain, Reports neck pain, Denies odynophagia, Denies throat swelling, Denies tongue swelling and Reports other (Dentition adequate) Card Reports no additional complaints Resp Reports no additional complaints GI Details: Denies abdominal pain, Denies melena, Denies bloating, Denies hematochezia, Denies constipation, Denies GI cramping, Denies dysphagia, Denies excessive flatus, Denies early satiety, Reports heartburn, Denies diarrhea, Denies nausea, Denies odynophagia, Denies vomiting and Denies hematemesis Musc Reports myalgias, Reports arthralgias, Reports neck pain and Reports stiffness Skin/Breast Denies pruritus, Denies lesions, Denies rash and Denies jaundice Neuro Reports Normal hearing present and Denies Abnormal speech present Endo Denies fatigue Aller/Immun Denies throat swelling and Denies tongue swelling Physical Exam Vital Signs: Last Vital Signs Pulse 70 06/26/25 09:09 BP 132/88 06/26/25 09:09 BMI result Body Mass Index 32.1 Const General: cooperative, no acute distress, well developed and well groomed Nutritional Appearance: well nourished and obese Orientation/consciousness: oriented to person, oriented to place and oriented to time Limitations: No language barrier HEENT Head: Yes normocephalic and Yes atraumatic Eyes General: appearance normal, both eyes and all related structures Pupils: Equal, round and reactive pupils present Neck Neck: Yes normal visual inspection and Yes no lymphadenopathy Thyroid: Thyroid normal Resp Effort & Inspection: normal respiratory effort and able to speak in complete sentences Auscultation: clear to auscultation bilaterally Cardio Rate: regular rate Rhythm: regular rhythm Heart sounds: Normal, physiologic split S2 sound present Peripheral pulses: radial pulses present and posterior tibial pulses present GI Inspection: No distended, No Abdominal panniculus present and Yes obesity Palpation (GI): Soft to palpation, nontender, no guarding, not rigid and No hepatosplenomegaly present Percussion: Yes normal to percussion Auscultation: normal bowel sounds Rectal Exam - Female: deferred Skin General skin exam: no rashes or lesions noted, turgor normal, skin not dry, no jaundice, No spider nevi and no striae Rashes: no rashes Nails: normal Neuro General: oriented to person, oriented to place and oriented to time Cranial nerves: Yes Equal, round and reactive pupils present and Yes Normal hearing present Speech: No Abnormal speech present Extrem General: Yes normal to inspection, No clubbing, No cyanosis and No edema Psych Appearance: grossly normal and well kempt Mental Status: mental status grossly normal Speech and movement: Normal speech and movement present Affect: normal affect Attitude: cooperative Thought process: Normal thought process present and not confabulating Thought content: Normal thought content present Insight: Fair insight present (Psych) Judgement: Fair judgement present (Psych) Assessment & Plan Assessment & Plan (1) GERD (gastroesophageal reflux disease): Code(s): K21.9 - Gastro-esophageal reflux disease without esophagitis Category: Medical (2) Abdominal cramping: Code(s): R10.9 - Unspecified abdominal pain Category: Medical Plan She is on famitidine 20mg bid and bentyl She continues to do very well in terms of her GI conditions. She has not been using the dicyclomine lately because she has not been having cramps which is fine. She continues on her famotidine 20 mg twice a day with good control of her GERD. She is now having quite a lot of problems after her cervical stenosis surgery. She still has a palpable lump in her right shoulder and she seems to feel there is a lot of inflammation in the area. A PET scan seem to show a metabolically active area of concern in the next/lymph nodes and she is following with Oncology for this. So far any biopsies they have done have been negative which is good. Return office visit in 6 months Medications: Refilled famotidine 20 mg PO BID 180 tabs 2RF Discontinued docusate sodium (Colace) Discontinued Reason: Patient Completed Course 100 mg PO BID 20 caps 0RF Coding Level of Care Code Est Pt Level 3 (03590) Diagnoses GERD (gastroesophageal reflux disease) K21.9 Abdominal cramping R10.9
[2025-06-26 09:09] VITALS: BP 132/88; PULSE 70; BMI 32.1
--- OUTSIDE RECORDS SUMMARY | 2025-06-26 09:33 | XMS_ITS | Encounter Summary ---
Author Organization [employer] Address [address] [place] [address] [address] [place] [address] Care Team Providers Care Vb Net Developer Name Role Phone AlexandriaSuni wong JULIO Primary Care Provider [phone] December Unavailable Edwin William MD Unavailable [phone] Encounter Details Date Type Department Care Team ([facility] Contact Info) Description 01/20/2024 Orders Only [facility] [address] [place] [address] Provider, MD Lukas Social History Tobacco Use Types Packs/Day Years Used Date Smoking Tobacco: Never Smokeless Tobacco: Never Alcohol Use Standard Drinks/Week Comments Yes 0 (1 standard drink = 0.6 oz pur e alcohol) Occasionally Depression Answer Date Recorded Patient Health Questionnaire-9 Score 0 02/08/2023 Housing Stability Answer Date Recorded What is your housing situation today? I have [place] 07/13/[address] you [...] the past 12 months, has t he [employer], [employer], oil or water [address] threatened to shut off services in your [...] PM EDT Narrative 01/25/2024 1:49 AM EDT [place] [address] XRay Report Signed Patient: Goldie Bermudez MR#: [id number] 9 : 1970 Acct:[id number] Age/Sex: 53 / F ADM Date: 01/24/24 Loc: .ED Attending Dr: Ordering Physician: Nayana Romero MD Date of Service: 01/24/24 Procedure(s): XR cervical spine 3V Accession Number(s): [id number] cc: Nayana Romero MD; Suni Flores EXAMINATION: [...] signed by Davin Michael MD in OV> 01/25/24143 DD/ 31 TD/TT: Earth Science Technician: Procedure Note Donotuseinterpreter, Image - 01/25/[address] [address] XRay Report Signed Patient: Sharron Bermudez#: [id number] 9 : 1970Acct:[id number] Age/Sex: 53 / FADM Date: 01/24/24 Loc: HO.ED Attending Dr: Ordering Physician: Nayana Romero MD Date of Service: 01/24/24 Procedure(s): XR cervical spine 3V Accession Number(s): [id number] cc: Nayana Romero MD; Suni Flores REPORTING COORDINATOR EXAMINATION: XR CERVICAL SPINE CLINICAL INFORMATION: Right-sided [...] signed by Davin Michael MD in OV> 01/25/24143 DD/ 31 TD/TT: Earth Science Technician: [facility] External Provider IMG XR PROCEDURES Edited Result - Final * Electroneuronography (01/18/2024 10:29 AM EDT) Historical Provider NEUROLOGY ORDERABLES Sanjana l Result documented in this encounter Visit Diagnoses Not on filedocumented in this encounter Additional Health Concerns Assessment Noted Time PHQ-9 Depression Total Score: 0 02/09/20 23 2:37 PM EDT documented as of this encounter Care Teams Vb Net Developer Relationship Specialty Start Date End Date Suni Flores FNP [address] [place] [address] PCP - General Family Medicine 05/20/22December [address] [place] [address] 3rd [place] [address] Gastroenterology 08/23/24 Edwin William MD [address] [place] [address] Pulmonary Disease 08/23/24 Patricia Coffman [facility] Consulting Physician Oncology 08/23/24 documented as of this encounter
--- OUTSIDE RECORDS SUMMARY | 2025-06-26 09:33 | XMS_ITS | Encounter Summary ---
Author Organization [employer] Address [address] [place] [address] Care Team Providers Care Street Light Servicer Name Role Phone Suni Flores Primary Care Provider [phone] December Unavailable Edwin William MD Unavailable [phone] Reason for Visit * Reason Onset Date Comments No Show 06/25/2025 Encounter Details Date Type Department Care Team ([facility] st Contact Info) Description 06/25/2025 Telephone [facility] MEDICINE [address] [place] [address] Suni Flores FNP [address] [place], [place] [id number] No Show Social History Tobacco Use Types Packs/Day Years Used Date Smoking Tobacco: Never Smokeless Tobacco: Never Alcohol Use Standard Drinks/Week Comments Yes 0 (1 standard drink = 0.6 oz pur e alcohol) Occasionally Depression Answer Date Recorded Patient Health Questionnaire-9 Score 5 04/06/2025 Patient Health Questionnaire-9 Score 5 04/06/2025 Last PHQ-9: Questionnaire Data Not on file 0 04/06/2025 Housing Stability Answer Date Recorded What is [...] Answer Date Recorded Patient Health Questionnaire-2 Score 2 04/06/2025 Internet Access Answer Date Recorded Internet Access [...] encounter Miscellaneous Notes * Telephone Encounter - Ganesh Huber - 06/25/2025 1:16 PM EDT No show 06/25/25 documented in this encounter Plan of Treatment Not on file documented as of this encounter Visit Diagnoses Not on filedocumented in this encounter Additional Health Concerns Assessment Noted Time PHQ-9 Depression Total Score: 5 04/06/20 25 1:35 PM EDT documented as of this encounter Care Teams Street Light Servicer Relationship Specialty Start Date End Date Suni Flores FNP [address] [place] [address] PCP - General Family Medicine 05/20/22December [address] [facility] 3rd [place] [address] Gastroenterology 08/23/24 Edwin William MD [address] [place] [address] Pulmonary Disease 08/23/24 Patricia Coffman [facility] Consulting Physician Oncology 08/23/24 documented as of this encounter
--- OUTSIDE RECORDS SUMMARY | 2025-06-26 09:33 | XMS_ITS | Encounter Summary ---
Author Organization [employer] Address [address] [place] [address] Care Team Providers Care Sales Support Consultant Name Role Phone AlexandriaSuni wong JULIO Primary Care Provider [phone] December Unavailable Edwin William MD Unavailable [phone] Encounter Details Date Type Department Care Team ([facility] st Contact Info) Description 11/21/2024 Orders Only [facility] [address] [place] [address] ProviderLukas MD Social History Tobacco Use Types [...] documented as of this encounter Care Teams Sales Support Consultant Relationship Specialty Start Date End Date Suni Flores FNP [address] [place] [address] PCP - General Family Medicine 05/20/22December [address] [facility] 3rd [place] [address] Gastroenterology 08/23/24 Edwin William MD [address] [place] [address] Pulmonary Disease 08/23/24 Patricia Coffman [facility] Consulting Physician Oncology 08/23/24 documented as of this encounter
--- OUTSIDE RECORDS SUMMARY | 2025-06-26 09:33 | XMS_ITS | Encounter Summary ---
Author Organization [employer] Address [address] [place] [address] Care Team Providers Care Edger Saw Operator Name Role Phone Suni Flores JULIO Primary Care Provider [phone] December Unavailable Edwin William MD Unavailable [phone] Reason for Visit * Reason Onset Date Comments Chart Prep 06/22/2025 Encounter Details Date Type Department Care Team ([facility] st Contact Info) Description 06/22/2025 Telephone C [facility] [address] [place] [address] Luisana Varela MA Chart Prep Social History Tobacco Use Types Packs/Day Years [...] encounter Miscellaneous Notes * Telephone Encounter - Luisana Varela MA - 06/22/2025 12:43 PM EDT Chart Prep Labs: done Images: not applicable Referrals: complete Vaccines due: Covid, Flu, and Zoster Screenings: mammogram and LMP Overdue care gaps: SBIRT, Disability screen, and Tobacco documented in this encounter Plan of Treatment Not on file documented as of this encounter Visit Diagnoses Not on filedocumented in this encounter Additional Health Concerns Assessment Noted Time PHQ-9 Depression Total Score: 5 04/06/20 25 1:35 PM EDT documented as of this encounter Care Teams Edger Saw Operator Relationship Specialty Start Date End Date Suni Flores FNP [address] [place] [address] PCP - General Family Medicine 05/20/22December 11 [facility] 3rd [place] [address] Gastroenterology 08/23/24 Edwin William MD [address] [place] [address] Pulmonary Disease 08/23/24 Patricia Coffman [facility] Consulting Physician Oncology 08/23/24 documented as of this encounter
--- OUTSIDE RECORDS SUMMARY | 2025-06-26 09:34 | XMS_ITS | Clinical Summary ---
Author Organization [employer] Address [address] [facility] 7[address] [place] [address] Care Team Providers Care Lithograph Press Feeder Name Role Phone AlexandriaSuni wong JULIO Primary Care Provider [phone] December Unavailable Edwin William MD Unavailable [phone] Allergies No known active allergies Medications [...] not swallow. (Replacing Flovent inhaler) 1 each 11 05/13/20 23 Active fluticasone (Flonase) 50 MCG/ACT nasal spray INHALE 2 SPRAY BY INTRANASAL ROUTE EVERY DAY IN EACH NOSTRIL NEEDED 48 mL 06/04/20 23 Active betamethasone, augmented, (Diprolene) 0.05 % ointmentIndicatio ns:Psoriasis Apply topically 2 times daily. 45 g 2 06/11/20 23 Active Clobetasol Propionate 0.05 % shampoo Apply 2-3 times weekly 118 mL 11 06/11/20 23 Active Fluocinolone Acetonide Scalp ([place]-Smoothe/FS Scalp) 0.01 % oil Apply 2-3 times weekly 118.28 mL 06/11/20 23 Active Ketotifen Fumarate 0.035 % [...] D 6. 55 each 12/17/19 24 Active albuterol 0.63 MG/3ML nebulizer solutionIndicatio ns:Cough variant asthma INHALE 3 ML (1 VIAL) VIA NEBULIZER EVERY 6 HOURS NEEDED FOR SHORTNESS OF BREATH OR WHEEZING 75 mL 3 08/23/20 24 Active Ventolin HFA 108 (90 Base) MCG/ACT inhalerIndication s:Cough variant asthma INHALE 1 TO 2 PUFFS EVERY 6 HOURS NEEDED FOR WHEEZE OR FOR SHORTNESS OF BREATH 18 g 11 12/12/19 25 Active celecoxib (CeleBREX) 200 MG capsuleIndication s:Cervical spinal cord compression (CMS/HCC) (HCC),Spondylolis thesis, cervical region TAKE 1 CAPSULE BY MOUTH EVERY DAY NEEDED FOR PAIN 60 capsule 3 01/06/20 25 Active Acetaminophen Extra Strength 500 MG tablet TAKE 2 TABLETS BY MOUTH EVERY 6 HOURS NEEDED FOR PAIN OR FEVER 100 tablet 2 01/06/20 25 Active cholecalciferol (Vitamin D3) 25 MCG (1000 UT) tabletIndications :Vitamin D insufficiency TAKE 1 TABLET BY MOUTH EVERY DAY 90 tablet 1 04/04/20 25 Active Diclofenac Sodium 1 % gelIndications:Ce rvical spinal cord compression (CMS/HCC) (HCC) Apply thin layer by topical route (quantity as directed on package insert) to affected area of pain 3 times daily as needed. 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 Coffman - Initially referred to [facility] Heme/Onc on 05/15/24 d/t concern for malignancy identified on CT Chest - PET scan completed on 06/02/24 at [facility], with Moderate metabolic activity in lymph nodes 1 adjacent to the right thyroid lobe and right paratracheal space. These are likely metastatic. - S/p EBUS on 06/19/24, and the biopsy revealed no evidence of malignancy from 4R and 4L, but nondiagnostic from 2R and station 7. She also had CT guided biopsy from the node, which was nondiagnoistic. Assessment & Plan (04/06/2025 1:29 PM EDT): -Cont following with specialist, request consult notes Assessment & Plan (01/05/2025 1:06 PM EDT): [...] from colon CA screening in 2022 at [facility]. Mammo last completed May 2023 BIRADS 1. (See healthcare maintenance diagnoses for further details). 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 Per specialist team, pt should have initial appt date scheduled with them by end of day on 06/09/24. [facility] referrals team and pt are aware and in agreement with this plan. Cervical spinal cord compression (CMS/HCC) 04/02 Overview (04/06/2025): MRI cervical spine w/o contrast 03/10/24: 1. [...] - S/p anterior discectomy C5-6, C6-7 at [facility] Aug [address] Paige Assessment & Plan (04/06/2025 1:30 PM EDT): Trial of topical diclofenac and lidocaine patches. May also trial topical Arnica cream purchased OTC Assessment & Plan (04/02/2024 4:05 PM EDT): [...] stenosis. S/p Anterior discectomy C5-6, C6-7 at [facility] on 08/31/[address] Paige Assessment & [...] mild right carpal tunnel syndrome Consult with [facility] Ortho February 2024, plan to proceed with surgery for right CTS Cubital tunnel syndrome, bilateral 02/04/2024 Overview (02/05/2024): Diagnosed on EMG December 2023: mild bilateral cubital tunnel syndrome Consult with Ortho January 2024 Sickle cell trait 01/03/2024 Overview (01/03/2024): Lab Results Component Value Date SICKLECELL POSITIVE (A) 12/24/2023 Vitamin D insufficiency 01/03/2024 Overview (01/03/2024): Lab Results Component Value Date [id number] 16.8 (L) 12/24/2023 -December 2023: initiated on Vit D 1000 units daily -Plan to recheck levels March 2024 Adenoma of right adrenal gland 02/08/2023 Overview (05/13/2023): Incidental 1.8 cm adrenal adenoma noted 04/09/[address], recommend repeat imaging in one year Repeating imaging completed 03/29/23 with the following impression: Stable right adrenal lesion consistent with benign adenoma. No further imaging indicated at this time Assessment & Plan (02/19/2023 3:57 PM EDT): Incidental 1.8 cm adrenal adenoma noted 04/09/[address], recommend repeat imaging in one year Repeating imaging ordered 02/19/23 Bleeding hemorrhoids 02/08/2023 Ganglion cyst of right foot 02/08/2023 Psoriasis 02/08/2023 Overview (12/19/2023): Following with [facility] Derm Clinic Symptoms improving Plan during visit May 2023: Continue Betamethasone Ointment on Elbows BID, prn. Initiate Dermasmoothe FS Scalp Oil will be applied to damp scalp QHS with occlusion and wash out in AM with Clobetasol Shampoo, twice weekly November 2023: Plan to start Otezla Assessment & Plan (06/11/2023 9:58 AM EDT): Continue Betamethasone Ointment on Elbows BID, prn Initiate Dermasmoothe FS Scalp Oil will be applied to damp scalp QHS with occlusion and wash out in AM with Clobetasol Shampoo, twice weekly. RTC as needed Assessment & Plan (02/19/2023 3:51 PM EDT): - Apply clobetasol 0.05% cream to plaques BID, do not apply for greater than 2 weeks - Continue to moisturize daily, particularly within 2 minutes of bathing - Contact the clinic if symptoms worsen or do not improve - Referral to [facility] Derm team for further eval and tx Healthcare maintenance 02/08/2023 Overview (04/06/2025): Pap/results: NIL/HPV neg 09/03/21, repeat 08/2026 Smoking status: never smoker Lipids: Total Cholesterol 163, HDL 43, LDL 100, TG 106 on 06/26/21 Mammogram: BIRADS 1 on 06/13/24 Colorectal Screening: [facility] GI 2022 scope with plan to repeat in 3 years due to polyp. Colonoscopy 11/17/24 at [facility], plan repeat 5 years. DEXA: recommend screen at 65 years Assessment & Plan (08/27/2023 6:18 AM EST): PHQ: negative screening January 2023 Pap/results: NIL/HPV neg 09/03/21, repeat 08/2026 Smoking status: never smoker Lipids: Total Cholesterol 163, HDL 43, LDL 100, TG 106 on 06/26/21 Mammogram: BIRADS 1 on 05/28/23 Colorectal Screening: [facility] GI DEXA: recommend screen at 65 years [...] sling surgery on 05/22/22 - Following with [facility] UroGYN Cough variant asthma 08/31/2021 Assessment & Plan (04/06/2025 1:22 PM EDT): Continue Symbicort 160-4.5 two puffs BID. Reviewed med use and safety Cont montelukast 10mg nightly Cont w/ flonase and loratadine for allergic component Following with [facility] Pulm - Dr. William (last consult Oct 2024) May continue albuterol PRN DME request for nebulizer placed: 08/27/23 ED precautions Assessment & Plan (12/19/2023 8:21 PM EDT): Continue Symbicort 160-4.5 two puffs BID. Reviewed med use and safety Cont montelukast 10mg nightly Cont w/ flonase and loratadine for allergic component Following with [facility] Pulphil William (last consult Oct 2023) May continue albuterol PRN DME request for nebulizer placed: 08/27/23 ED precautions Assessment & Plan (08/29/2023 5:46 PM EST): Continue Symbicort 160-4.5 two puffs BID. Reviewed med use and safety Start montelukast 10mg nightly Following with [facility] Pulphil William May continue albuterol PRN DME request for nebulizer placed: 08/27/23 ED precautions Assessment & Plan (05/13/2023 6:48 PM EDT): Flovent 2 puffs BID has not been notably helpful for symptoms. DC Flovent. Start Symbicort 160-4.5 2 puffs BID. Reviewed med use and safety Referral to re-establish with Pulphil William - reports has appt scheduled for next month May continue albuterol PRN ED precautions Assessment & Plan (02/19/2023 3:52 PM EDT): Continue albuterol PRN Restart Flovent 2 puffs BID Referral to re-establish with Baljit William Check Echo to r/o cardiac contribution to SOB. Reactive depression 06/26/2021 Seasonal allergies 06/26/2021 Resolved Problems Problem Noted Date Diagnosed Date Resolved Date Cardiovascular event risk 02/08/2023 Class 1 obesity 02/08/2023 08/23/2024 Encounters Date Type Department Care Team Description 06/25/2025 Telephone [facility] MEDICINE [address] [place] [address] Suni Flores FNP No Show 06/22/2025 Telephone [facility] MED & PEDS [address] [place] [address] Luisana Varela MA Chart Prep 04/16/2025 Orders Only [facility] [address] [place], [place] [phone] Olesya Ramirez MD Numbness and tingling of right lower extremity (Primary Dx); Numbness and tingling of both upper extremities 04/13/2025 Telephone [facility]ED[facility] [address] [place] [address] Suni Flores FNP Referral 04/10/2025 Telephone [facility] [address] [place] [address] Suni Flores FNP 04/06/2025 11:00 AM EDT Office Visit [facility] [address] [place] [address] Suni Flores FNP Abnormal PET scan of mediastinum (Primary Dx); Cough variant asthma; Cervical spinal cord compression (CMS/HCC); Healthcare maintenance 04/06/2025 Travel 04/06/2025 Telephone [facility]ED[facility] [address] [place] [address] Suni Flores FNP chart prep 04/05/2025 Travel 04/04/2025 Refill [facility] [address] [place] [address] Suni Flores FNP Vitamin D insufficiency 03/29/2025 Patient Outreach [facility] MEDICINE [address] [place], [place] [phone] Suni Flores FNP Pre-visit Planning (SDOH screening completed on 12/29/24) from Last 3 Months Immunizations Immunization Administration Dates Next Due Hep B, adult 04/02/2022,07/31/2021,07/03/2021 Influenza injectable quadriv alent preservative free 08/27/2023,06/26/2021 Influenza, IIV3, injectable 10/22/2015 Influenza, seasonal, injecta ble, preservative free 08/23/2024 Pneumococcal Conjugate PCV 20 06/06/2023 Tdap 06/26/2021,04/12/2012 Family History Medical History Relation Name Comments [...] Sign Reading Time Taken Comments Blood Pressure 122/82 04/06/2025 11:02 AM EDT Pulse 80 04/06/2025 11:02 AM EDT Temperature 36.9 C (98.4 F) 04/06/2025 11:02 AM EDT Respiratory Rate 16 04/06/2025 11:02 AM EDT Oxygen Saturation 98% 02/16/2025 2:30 PM EDT Inhaled Oxygen Concentration - - Weight 77.6 kg (171 lb) 04/06/2025 11:02 AM EDT Height 153.7 cm (5' 0.5 ) 04/06/2025 11:02 AM ED T Body Mass Index 32.85 04/06/2025 11:02 AM EDT Plan of Treatment Health Maintenance Due Date Last Done Comments CT Colonography 1970 FIT DNA/Cologuard 1970 FIT 1970 FOBT 1970 Sigmoidoscopy 1970 Alcohol/Substance Use Screening 1982 Zoster Vaccines (1 of 2) 2020 COVID-19 Vaccine (2 - season) 2025 01/02/2021 Influenza Vaccine (#1) 2025 , 08/27/2023, 06/26/2021, Additional history exists Mammogram 06/13/2025 06/13/2024, 09/2022, 02/02/2022 SDOH Screening 12/29/2025 12/29/2024 Disability Screening 01/26/2026 01/26/2025 Tobacco Screening 02/16/2026 02/16/2025 Depression Screening 04/06/2026 04/06/2025, 04/06/20 25 Cervical Cancer Screening 09/07/2026 HPV/Cotest 09/07/2026 09/07/2021 Pap Smear 09/07/2026 09/07/2021 DTaP/Tdap/Td Vaccines (3 - Td or Tdap) 06/26/2031 06/26/2021, 04/12/2012 Colonoscopy 11/17/2034 11/17/2024, 11/24/2022 Colorectal Cancer Screening 11/17/2034 RSV Patients and Patients Aged 60 years or older (1 - 1-dose 75+ series) 2045 Hepatitis B Vaccines Completed 04/02/2022, 07/31/2021, 07/03/2021 Pneumococcal Vaccine: 50+ Years Completed 06/06/2023 HIV Screening Completed 02/20/2025, 0305/2024, 06/26/2021 Hepatitis C Screening Completed 02/20/2025 , 12/24/2023, 06/26/2021 HIB Vaccines Aged Out No longer eligi [...] patient's age to complete this topic Meningococcal B Vaccine Aged Out No l onger eligible based on patient's age to complete [...] Name Priority Date/Time Associated Diagnosis Comments XR HAND 3+ VIEWS LEFT Routine 05/09/2025 2:10 PM EDT HEPATITIS C AB W/REFL TO HCV RNA, QN, PCR Routine 02/20/2025 8:09 AM EDT Cellulitis of left wrist HIV 1/2 ANTIGEN/ANTIBODY, FOURTH GENERATION W/RFL Routine 02/20/2025 8:09 AM EDT Cellulitis of left wrist COLONOSCOPY Routine 11/17/2024 3:26 PM EST BI MAMMOGRAM SCREENING TOMOSYNTHESIS BILATERAL Routine 06/13/2024 8:00 AM EDT THINPREP IMAGING PAP AND HPV MRNA E6/E7 WITH REFLEX TO HPV 16,18/45 Routine 09/07/2021 6:39 AM EST from Last 3 Months or Most Recently Relevant to Health Maintenance Results * XR Hand 3+ Views Left (05/09/2025 2:10 PM EDT) Anatomical Region Laterality Modality Upper Extremities, Hand Left Radiogra phic Imaging 05/09/2025 2:10 PM EDT Narrative 05/09/2025 2:18 PM EDT [facility] [address] [place] [address] Drive [address] [place] [address] XRay Report Signed Patient: Goldie Spencer MR#: [id number] : 1970 Acct:[id number] Age/Sex: 55 / F ADM Date: 05/09/25 Loc: SHARAN Attending Dr: Ganga HELMS Ordering Physician: Ganga Goncalves Date of Service: 05/09/25 Procedure(s): XR hand LT min 3V Accession Number(s): [id number] cc: Ganga Goncalves; Suni Flores HAND SHAKER EXAMINATION: XR HAND 3 OR MORE VIEWS LEFT HISTORY: M79.642 - Pain in left hand COMPARISON: There are no prior studies available for comparison. FINDINGS: Three views of the left hand are submitted. Osseous mineralization is normal. There is no fracture or dislocation. The joint spaces are preserved. The soft tissues are unremarkable. XR/XR hand LT min 3V IMPRESSION: Unremarkable examination of the left hand. Electronically signed by: Wilfredo Gomez MD 05/09/2025 02:15 PM EDT Dictated By: Wilfredo Gomez MD Signed By: <Electronically signed by Wilfredo Gomez MD in OV> 05/09/25 1415 DD/ 1410 TD/TT: 05/09/25 1411 Industrial Sales Engineer: Procedure Note Donpaulinainterpreter, Image - 05/09/2025 [facility] [address] [place] [address] [place] [id number] XRay Report Signed Patient: Huma SpencerR#: [id number] : 1970Acct:[id number] Age/Sex: 55 / FADM Date: 05/09/25 Loc: SHARAN Attending Dr: Ganga HELMS Ordering Physician: Ganga Goncalves Date of Service: 05/09/25 Procedure(s): XR hand LT min 3V Accession Number(s): [id number] cc: Ganga Goncalves; Suni Flores HAND SHAKER EXAMINATION: XR HAND 3 OR MORE VIEWS LEFT HISTORY: M79.642 - Pain in left hand COMPARISON: There are no prior studies available for comparison. FINDINGS: Three views of the left hand are submitted. Osseous mineralization is normal. There is no fracture or dislocation. The joint spaces are preserved. The soft tissues are unremarkable. XR/XR hand LT min 3V IMPRESSION: Unremarkable examination of the left hand. Electronically signed by: Wilfredo Gomez MD 05/09/2025 02:15 PM EDT RP Dictated By: Wilfredo Gomez MD Signed By: <Electronically signed by Wilfredo Gomez MD in OV> 05/09/25 1415 DD/ 1410 TD/TT: 05/09/25 1411 Industrial Sales Engineer: [facility] External Provider IMG XR PROCEDURES Final Result * Hepatitis C Antibody with Reflex to HCV, RNA, Quantitative, Real-Time PCR (02/20/2025 8:09 AM EDT) Hepatitis C Antibody Nonreactive Nonreactive [facility] Comment:Antibodies to HCV no t detected; does not exclude early acuteHCV infection. Blood Venous blood specimen / Unknown 02/20/2025 8:09 AM EDT 02/20/2025 11:04 AM EDT Kelsea Rosa MD LAB BLOOD ORDERABLES Final Result [facility] [address] [place] [phone] * HIV-1/2 Antigen and Antibodies, Fourth Generation, with Reflexes (02/20/2025 8:09 AM EDT) HIV AB/AG Nonreactive Nonreactive [facility] Comment:HIV-1 p24 Ag and/or HIV-1/HIV-2 Ab not detected.A test result that is nonreactive does not exclude thepossibility of exposure to or infection with HIV-1 and/orHIV-2. Nonreactive results in this assay for individualswith prior exposure to HIV-1 and/or HIV-2 may be due toantigen and antibody levels that are below the limit ofdetection of this assay.The Wilcox Alinity HIV Ag/Ab Combo assay result andsupplemental assay results should be interpreted inconjunction with the patient's clinical presentation,history and other laboratory results. If the results areinconsistent with clinical evidence, additional testing issuggested to confirm the result. Blood Venous blood specimen / Unknown 02/20/2025 8:09 AM EDT 02/20/2025 11:04 AM EDT us Kelsea Rosa MD LAB BLOOD ORDERABLES Final Result [facility] [address] [place] [address] [phone] * Colonoscopy (11/17/2024 3:26 PM EST) Anatomical Region Laterality Modality Endoscopy Historical Provider ENDOSCOPY PROCEDURE ORDER ALYSSA Final Result * BI Mammogram Screening Tomosynthesis Bilateral (06/13/2024 8:00 AM EDT) Anatomical Region Laterality Modality Breast Bilateral Mammography 06/13/2024 8:00 AM EDT Narrative 06/26/2024 3:20 PM EDT [address] [place] [address] Mammography Report Signed Patient: Goldie Spencer MR#: [id number] : 1970 Acct:[id number] Age/Sex: 54 / F ADM Date: 06/13/24 Loc: HO.MAMMO Attending Dr: Suni Flores HAND SHAKER Ordering Physician: Suni Flores Results: 1Negat kajal Date of Service: 06/13/24 Follow Up: 1 Year From Orig inal Mammogram Procedure(s): MM tomosynthesis screening BI Accession Number(s): [id number] cc: Suni Flores EXAMINATION: MM SCREENING DIGITAL [...] OV> 06/26/24 1518 DD/ 08 TD/TT: 06/13/24 0805 Industrial Sales Engineer: Procedure Note Donotuseinterpreter, Image - 06/26/2024 [facility] [address] [place] [address] Mammography Report Signed Patient: Jing SpenceraMR#: [id number] : 1970Acct:[id number] Age/Sex: 54 / FADM Date: 06/13/24 Loc: HO.MAMMO Attending Dr: Suni KIM Ordering Physician: Suni FloresPResults: 1Negat kajal Date of Service: 06/13/24Follow Up: 1 Year From Orig inal Mammogram Procedure(s): MM tomosynthesis screening BI Accession Number(s): [id number] cc: Suni Flores EXAMINATION: MM SCREENING DIGITAL [...] 06/26/24 1518 DD/ 08 TD/TT: 06/13/24 08 Industrial Sales Engineer: Suni Flores HAND SHAKER IMG BI PROCEDURES Final Result * THINPREP TIS PAP AND HPV mRNA E6/E7 REFLEX HPV 16,18/45 (09/07/2021 6:39 AM EST) Clinical Information: None given [facility] COMMENT SEE COMMENT [facility] Comment: EXPLANATORY NOTE: The Pap is a screening test for cervical cancer. It is not a diagnostic test and is subject to false negative and false positive results. It is most reliable when a satisfactory sample, regularly obtained, is submitted with relevant clinical findings and history, and when the Pap result is evaluated along with historic and current clinical information. COMMENT: This Pap test has been evaluated with computer assisted technology. [facility] Offline Editor: SEE COMMENT [facility] Comment: SXA, CT(ASCP) CT screening location: [address] [address] HPV nRNA E6/E7 Not Detected Not Detected [facility] Comment: Methodology: Physician Internist-Mediated Amplification This assay detects E6/E7 viral messenger RNA (mRNA) from 14 high-risk HPV types (16,18,31,33,35,39,45,51,52,56,58,59,66,68). The analytical performance characteristics of this assay have been determined by [facility]. The modifications have not been cleared or approved by the FDA. This assay has been validated pursuant to the CLIA regulations and is used for clinical purposes. For additional information, please refer to http://education.[employer]rone/faq/JVO080o0 (This link if provided for information/ educational purposes only.) NO COLLECTION DATE RECEIVED. WE HAVE USED THE DATE THE SPECIMEN WAS RECEIVED BY THIS LABORATORY THE COLLECTION DATE. IF THIS IS INCORRECT, PLEASE CONTACT CLIENT SERVICES. PHONE NUMBER: Interpretation/Re sult: Negative for intraepithelial lesion or [...] PATHOLOGY ORDERABLES Final Result Performing Organization Address City/State/[facility] Co de Phone Number [facility] [address] from Last 3 Months or Most Recently Relevant to Health Maintenance Insurance [facility] C[facility] Care Teams Lithograph Press Feeder Relationship Specialty Start Date End Date Suni Flores FNP [address] [place] [phone] PCP - General Family Medicine 05/20/22December [address] [place] [address] 3rd [place] [address] Gastroenterology 08/23/24 Edwin William MD [address] [place] [phone] Pulmonary Disease 08/23/24 Patricia Coffman [facility] Consulting Physician Oncology 08/23/24
--- OUTSIDE RECORDS SUMMARY | 2025-06-26 09:34 | XMS_ITS | Encounter Summary ---
Author Organization [employer] Address [address] [place] [address] Care Team Providers Care Yoker Name Role Phone AlexandriaSuni wong JULIO Primary Care Provider [phone] December Unavailable Edwin William MD Unavailable [phone] Encounter Details Date Type Department Care Team ([facility] st Contact Info) Description 07/03/2024 Orders Only [facility] [address] [place] [address] Provider, MD Lukas Social History Tobacco Use [...] documented as of this encounter Care Teams Yoker Relationship Specialty Start Date End Date Suni Flores FNP [address] [place] [id number] PCP - General Family Medicine 05/20/22December 11 [facility] [address]rd [place] [address] Gastroenterology 08/23/24 Edwin William MD [address] [place] [id number] Pulmonary Disease 08/23/24 Patricia Coffman [facility] Consulting Physician Oncology 08/23/24 documented as of this encounter
== END 2025-06-26 09:37 | disposition home or self-care (01) ==
PROVIDERS: PCP Registered Nurse; Visit Provider Nurse Practitioner
DX: K21.9 Gastro-esophageal reflux disease without esophagitis (principal); R10.9 Unspecified abdominal pain
CPT/HCPCS: 99213

== ENCOUNTER → 2025-06-26 09:00 | Outpatient (BNVA) | payer MEDICAID, SELFPAY | PROVIDERS: PCP Registered Nurse; Visit Provider Nurse Practitioner | DX: K21.9 Gastro-esophageal reflux disease without esophagitis (principal); R10.9 Unspecified abdominal pain | CPT/HCPCS: 99212 ==

== ENCOUNTER 2025-07-05 10:00 | Outpatient (RCR) | payer MEDICAID, SELFPAY ==
--- NOTE | 2025-06-08 09:55 | MHC.OT.OEV ---
[facility] Office [address] [facility] [phone] F: [phone] F: [phone] Occupational Therapy Evaluation Patient Name: Goldie Varela Diagnosis: (L) De Quervain Tenosynovitis Date of Onset: Date of Surgery: Attending Provider: Ganga Goncalves Prescribed Treatment: MD Follow Up Appointment: History of Current Condition: Patient is a 55 y/o female with PMHx significant for diverticulosis, GERD who was referred to skilled OT for (L)thumb pain. Patient stated that she has had pain for the last year but recently (3-4 months ago) had an infection in the web space of her hand which has increased her pain. At rest she has a 3/10 pain and a 5/10 pain during activity which she describes as small pinch. Denies numbness/tingling. She was provided with Comfort Cool braces which she is wearing during painful tasks. She is on disability and reports her PLOF as (I)ADLs/IADLs and lives with her 2 children. She stated she has difficulty with opening items. She enjoys walking, taking test. Significant Medical History: Environmental allergies Seasonal allergies Diverticulosis Personal history of COVID-19 (~04/2024) Cervical spondylosis Ulnar neuropathy at elbow Carpal tunnel syndrome of right wrist Sessile serrated polyp of colon GERD (gastroesophageal reflux disease) Diverticulitis (~2020) Asthma Precautions/Contraindications: monitoring lung/?thyroid nodules s/p ACDF C5-C7 (08/31/24) asthma Patient Goals: Hand Dominance: Right Observations: QuickDASH Score: 47.7% Prior Level of Function and Occupation Self Care, Employment, Leisure: On Disability (I)ADLs/IADLs Walking, taking test Living Situation, Family and/or Social Support: Lives with family Current Level of Function and Occupation Self Care, Employment, Leisure: min (A) ADLs/IADLs Sleep: sleeping through the night Driving: (I) Vision: Balance: Pain Assessment Pain Score: Pain Scale Used: Pain Location and Description: 3/10 at rest 5/10 during movement small pinch Aggravating Factors: pain in the webspace down radial wrist Alleviating Factors: Tylenol Skin and Soft Tissue Assessment Skin and Soft Tissue: Comments: Skin intact No edema present Nerve assessment Ulnar Nerve: Median Nerve: Radial Nerve: Comments: Sensory Assessment Temperature: Light Touch: Proprioception: Vibration: Comments: Edema Assessment Upper Extremity: Lower Extremity: Comments: Dexterity Assessment Dexterity: WNL Comments: Special Tests Comments: Rakesh Test (-) AROM(PROM) Strength Cervical Cervical Flexion: Cervical Extension: Cervical Lateral Flexion: Cervical Rotation: Comments: Shoulder Flexion: Extension: Abduction: Internal Rotation: External Rotation: Comments: Flexion: Extension: Abduction: Internal Rotation: External Rotation: Comments: Elbow Flexion: Extension: Pronation: Supination: Comments: Flexion: Extension: Pronation: Supination: Comments: Wrist Flexion: 78 Extension: 55 Ulnar Deviation: 41 Radial Deviation: 8 Comments: Flexion: Extension: Ulnar Deviation: Radial Deviation: Comments: Thumb Thumb CMC Flexion: Thumb MCP Flexion: 62 Thumb IP Flexion: 58 Radial Abduction: 90 Palmar Abduction: 65 Apollo (Kapandji 0-10): 10 Comments: Digits Index MCP: PIP: DIP: Long MCP: PIP: DIP: Ring MCP: PIP: DIP: Small MCP: PIP: DIP: Comments: Gross Grasp: (L)23 Lateral Pinch: (L)5 Two-Point Pinch: (L)5 Three-Jaw Michael: (L)5 Comments: Patient Education Primary Language: Ultrasonic Tester Required: No Current Knowledge: Teaching Method: Verbal Education Needs Identified on Evaluation: ADL's Exercise How did patient/family demonstrate learning? Patient demonstrates Patient verbalizes Barriers to Learning: None Readiness for Learning: Accepting Who was educated? Patient Comments: Plan of Care Assessment: Based on initial OT evaluation patient presents with pain, impaired strength, impaired ROM and impaired performance during self care task. Quick DASH= 47.7% indicating patients perceived impairment of UE during self care tasks. Provocative testing was (-) for Rakesh Test. Due to the documented impairments it is recommended that patient receive skilled OT intervention in order to achieve her PLOF of (I). Thank you for your referral. STG Duration: 2 weeks Short Term Goals: Patient will report 3/10 pain in (L)wrist during activity Patient will increase wrist extension to 65* Patient will increase IP 68* Patient will be (I) in joint protection techniques LTG Duration: 4 weeks [facility]ci Goals: Patient will report 1/10 pain in (L)wrist Patient will be (I)HEP patient will have a decreased Quick DASH score of 20% or less Frequency and Duration: The patient will be seen 2x a week for 4 weeks Treatment Plan: Therapeutic Exercise Therapeutic Activity Home Exercise Program Splinting Neuro Re-ed Patient Education Desensitization/Sensory Re-ed Edema Control ADL Training Ultrasound NMES Iontophoresis Paraffin Fluidotherapy MHP Cold Packs Joint Mobilization Soft Tissue Mobilization Kinesiotaping Skilled OT eval and treat Electronically Signed By: Shanel Nur OTR/L, CLT Reviewed/agree with student documentation: Therapist: Please sign and return to therapist, Thank you for your referral.
--- NOTE | 2025-07-05 10:57 | MHC.OT.DC ---
[facility] Office [address] [phone] F: [phone] F: [phone] Occupational Therapy Discharge Note Patient Name: Goldie Varela Provider: Ganga Goncalves Diagnosis: (L) De Quervain Tenosynovitis Date of Surgery: Date of Evaluation: 06/07/25 Date of Discharge: Treatments to Date: 7 Cancellations to Date: No Shows to Date: Discharge Status: Achieved Goals Improved Function Independent with HEP Discharge Summary: Patient is d/c'd from skilled OT as she achieved her all of her goals. Patient was a pleasure to work with, thank you for your referral. Electronically Signed By: AJIT Valdes/Ronda, CLT Reviewed/agree with student documentation: Therapist: Please Sign and return to therapist, thank you for your referral.
== END 2025-07-05 10:58 | disposition home or self-care (01) ==
LOC: HO.OT 10:00
PROVIDERS: PCP Registered Nurse
DX: M65.4 Radial styloid tenosynovitis [de Quervain] (principal)
CPT/HCPCS: 97110; 97140; 97165; 97535

== ENCOUNTER → 2025-07-25 08:01 | Outpatient (BNV) | payer MEDICAID, SELFPAY | PROVIDERS: PCP Physician Assistant; Referring Provider Physician Assistant; Visit Provider Internal Medicine Medical Oncology | DX: C85.12 Unspecified B-cell lymphoma, intrathoracic lymph nodes (principal) | CPT/HCPCS: 99203 ==

== ENCOUNTER 2025-09-03 11:21 | Outpatient (REF) | payer MEDICAID, SELFPAY ==
--- NOTE | ~2025-09-03 | XR_ITS ---
EXAMINATION: XR CERVICAL SPINE CLINICAL INFORMATION: M47.812 - Spondylosis without myelopathy or radiculopathy, cervical region COMPARISON: X-ray 03/02/2025 TECHNIQUE: 4 view cervical spine, including flexion and extension views. FINDINGS: Status post ACDF at C5-6, C6-7. Hardware is intact. No suspicious perihardware lucency. Straightening of the cervical curvature. No evidence of acute fracture or subluxation. No suspicious bony lesion. Mild endplate spurring at a few levels. Mild facet degeneration at a few levels. No gross malalignment in the neutral, flexion and extension positioning. No prevertebral soft tissue swelling. Lung apices are clear XR/XR cervical spine 4V IMPRESSION: Postsurgical changes from prior ACDF at C5-6, C6-7. No findings suggest hardware complications. No acute osseous findings. Electronically signed by: Ace Shipley MD 09/03/2025 04:35 PM [facility]
== END 2025-09-03 11:22 | disposition home or self-care (01) ==
LOC: HO.HOSX 11:21
PROVIDERS: PCP Physician Assistant; Visit Provider Physician Assistant
DX: M47.812 Spondylosis without myelopathy or radiculopathy, cervical region (principal); M50.90 Cervical disc disorder, unspecified, unspecified cervical region
CPT/HCPCS: 72050; 99212

== ENCOUNTER 2025-09-03 11:21 | Outpatient (AMB) | payer MEDICAID, SELFPAY ==
--- NOTE | 2025-09-03 11:26 | A.SPINEOV_ITS ---
Intake Visit Reasons: right sided pain Intake Note: Ms. Montse Varela is here today c/o right sided pain. 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 She had great relief of her right arm pain but unfortunately she still continues to have a right-sided neck pain which radiates down into her trapezius in the top of her shoulder. No tingling and numbness. It hurts when she looks to the right. She has a hard time using visual cues when she is backing up her car because she can not turn her head. It is very hard to sleep. She sleeps in a chair sitting up with a pillow resting under her neck in a particular position just to be able to sleep. If she sleeps flat in the bed the neck pain will wake her up and she ultimately does not get any rest. She has a localized tenderness over the posterior cervical region and the trapezius. No focal motor deficits. Anterior neck incision is healed up beautifully. She has been taking Motrin and Tylenol at home. She did 2 months of physical therapy earlier this year without any significant relief. Her x- rays today show stable positioning of the implants, no shifting with motion of the head with flexion or extension. I am going to order a cervical MRI to look for adjacent segment issues, or some residual foraminal narrowing. Total amount of time spent in this visit was 20 minutes in discussion of symptoms, x-rays imaging results and subsequent plan of care Saqib Paige MD,PhD [facility] Orders: Orders XR cervical spine 4V Today M47.812 - Spondylosis without myelopathy or radiculopathy, cervical region MR cervical spine wo con Today M47.812 - Spondylosis without myelopathy or radiculopathy, cervical region, M50.90 - Cervical disc disorder, unspecified, unspecified cervical region Coding Level of Care Code Est Pt Level 3 (45467) Diagnoses Cervical spondylosis M47.812 Cervical disc disorder M50.90
== END 2025-09-03 13:02 | disposition home or self-care (01) ==
PROVIDERS: PCP Registered Nurse; Visit Provider Physician Assistant
DX: M47.812 Spondylosis without myelopathy or radiculopathy, cervical region (principal); M50.90 Cervical disc disorder, unspecified, unspecified cervical region
CPT/HCPCS: 99213

== ENCOUNTER → 2025-09-03 11:43 | Outpatient (BNV) | payer MEDICAID, SELFPAY | PROVIDERS: PCP Physician Assistant; Visit Provider Radiology Diagnostic Ultrasound | DX: M47.812 Spondylosis without myelopathy or radiculopathy, cervical region (principal) | CPT/HCPCS: 72050 ==